=== PATIENT | female | born 1950 | race Caucasian/White ===

== ENCOUNTER 2019-12-19 13:29 | Outpatient (REF) | payer MEDICARE, SELFPAY | END 2019-12-19 13:30 | disposition home or self-care (01) | LOC: HO.LAB 13:29 | PROVIDERS: PCP Internal Medicine; Visit Provider Internal Medicine Cardiovascular Disease | DX: Z13.89 Encounter for screening for other disorder (principal) ==

== ENCOUNTER 2019-12-20 06:04 | Outpatient (REF) | payer MEDICARE, SELFPAY ==
[2019-12-20 07:04] LABS: MANUAL DIFF FLAG NO
[2019-12-20 07:11] LABS: Basophils Percent Auto 0.5 % (0-2); Eosinophils Absolute Auto 0.2 X10*3/uL (0.0-0.4); Eosinophils Percent Auto 2.8 % (0-4); Hematocrit 35.8 % (37-47); Hemoglobin 11.7 g/dl (12.0-16.0); Imm Gran Abs Auto 0.03 X10*3/uL (0.00-0.03); Imm Gran Pct Auto 0.4 % (0.0-0.4); Lymphocytes Absolute Auto 2.5 X10*3/uL (1.2-4.9); Lymphocytes Percent Auto 31.9 % (20-40); Mean Corpuscular HGB Conc 32.7 g/dl (31.0-35.0); Mean Corpuscular Hemoglobin 32.8 pg (27.0-33.0); Mean Corpuscular Volume 100.3 fL (80-98); Monocytes Absolute Auto 0.7 X10*3/uL (0.1-1.2); Monocytes Percent Auto 8.3 % (2-11); Neutrophils Absolute Auto 4.4 X10*3/uL (2.0-8.3); Neutrophils Percent Auto 56.1 % (45-73); Platelet Count 204 X10*3/uL (160-400); Red Blood Count 3.57 X10*6/uL (4.20-5.50); Red Cell Distribution Width 13.1 % (11.0-16.0); White Blood Count 7.9 X10*3/uL (4.8-10.8)
[2019-12-20 07:17] LABS: Prothrombin Time 11.6 SEC (10.8-13.0)
[2019-12-20 07:19] LABS: Partial Thromboplastin Time 30.2 SEC (24.1-38.0)
[2019-12-20 07:38] LABS: Anion Gap 15 (12-20); Blood Urea Nitrogen 28 mg/dL (9-16); Carbon Dioxide 25 mmol/L (22-29); Chloride 106 mmol/L (96-108); Cholesterol 165 mg/dL; Estimated Glomerular Filt Rate 27; Glucose Random 130 mg/dL (60-115); HDL Cholesterol 41 mg/dL; LDL Cholesterol Calculated 81 mg/dl; Potassium 3.9 mmol/l (3.3-5.1); Sodium 142 mmol/L (135-145); Triglycerides 215 mg/dL
[2019-12-20 07:47] LABS: Calcium 9.4 mg/dL (8.4-10.2)
== END 2019-12-20 06:05 | disposition home or self-care (01) ==
LOC: HO.LAB 06:04
PROVIDERS: PCP Internal Medicine; Visit Provider Internal Medicine Cardiovascular Disease
DX: I63.50 Cerebral infarction due to unspecified occlusion or stenosis of unspecified cerebral artery (principal); I10 Essential (primary) hypertension; E78.5 Hyperlipidemia, unspecified
CPT/HCPCS: 36415; 80048; 80061; 85025; 85610; 85730

== ENCOUNTER 2019-12-22 08:51 | Outpatient (REF) | payer MEDICARE, SELFPAY ==
--- NOTE | 2019-12-22 | PFT_ITS ---
INDICATION: Shortness of breath. SPIROMETRY: The FEV1 to FVC 86% with an FEV1 of 1.7 L which is 82% predicted and FVC of 1.97 L which is 73% predicted. No significant response to bronchodilators noted. Maximum voluntary ventilation 80% predicted. LUNG VOLUMES: Total lung capacity 87% predicted. DIFFUSION CAPACITY: DLCO 62% predicted. COMPARISONS: None. INTERPRETATION: No obstructive nor restrictive ventilatory defects identified. No significant response to bronchodilators noted. No significant decrease in the maximum voluntary ventilation. Lung volumes are within normal limits. The patient has an isolated mild diffusion impairment. Need to consider underlying pulmonary vascular conditions. Also should correct for hemoglobin. If asthma is in the differential, a methacholine challenge will be helpful in assessing for hyper-reactive airways, otherwise clinical correlation warranted. Abel Patiño MD MR/MODL / [id number]
== END 2019-12-22 08:52 | disposition home or self-care (01) ==
LOC: HO.RESP 08:51
PROVIDERS: Visit Provider Internal Medicine Pulmonary Disease
DX: M67.912 Unspecified disorder of synovium and tendon, left shoulder (principal); I10 Essential (primary) hypertension; J44.9 Chronic obstructive pulmonary disease, unspecified; R91.8 Other nonspecific abnormal finding of lung field; F17.200 Nicotine dependence, unspecified, uncomplicated; Z79.899 Other long term (current) drug therapy
CPT/HCPCS: 20610; 94060; 94727; 94729; 99212

== ENCOUNTER → 2020-01-19 14:46 | Outpatient (BNVA) | payer MEDICARE, SELFPAY | PROVIDERS: PCP Internal Medicine; Referring Provider Internal Medicine; Visit Provider Internal Medicine Pulmonary Disease | DX: J44.9 Chronic obstructive pulmonary disease, unspecified (principal); R91.8 Other nonspecific abnormal finding of lung field; Z95.2 Presence of prosthetic heart valve; Z95.0 Presence of cardiac pacemaker; Z87.891 Personal history of nicotine dependence | CPT/HCPCS: Q3014 ==

== ENCOUNTER → 2020-04-25 12:11 | Outpatient (BNVA) | payer MEDICARE, SELFPAY | PROVIDERS: PCP Internal Medicine; Visit Provider Student in an Organized Health Care Education/Training Program | DX: M67.912 Unspecified disorder of synovium and tendon, left shoulder (principal) | CPT/HCPCS: 20610; 99212 ==

== ENCOUNTER 2020-08-23 12:17 | Outpatient (REF) | payer MEDICARE, MEDICAID, SELFPAY ==
--- NOTE | ~2020-08-23 | XR_ITS ---
EXAMINATION: XR KNEE, RIGHT CLINICAL INFORMATION: Right knee pain. COMPARISON: Most recent right knee radiographs dated 06/09/2010 TECHNIQUE: AP, lateral, and sunrise views of the right knee. FINDINGS: Extensive irregularity with mixed areas of sclerosis and lucency throughout the distal femur which appear unchanged when compared to 2011 and likely represent the sequela of remote injury. No acute fracture or dislocation. Tricompartmental marginal osteophytes, slightly more prominent when compared to the prior examination. No new osseous erosion. Trace joint effusion. No abnormal soft tissue calcification. XR/XR knee RT 3V IMPRESSION: Moderate tricompartmental osteoarthritis, progressed when compared to the prior examination. Probable sequela of prior trauma redemonstrated throughout the distal femur, unchanged when compared to the prior examination.
== END 2020-08-23 12:18 | disposition home or self-care (01) ==
LOC: HO.XRAY 12:17
PROVIDERS: PCP Internal Medicine; Visit Provider Student in an Organized Health Care Education/Training Program
DX: M67.912 Unspecified disorder of synovium and tendon, left shoulder (principal); M25.561 Pain in right knee
CPT/HCPCS: 20610; 73562; 99212

== ENCOUNTER → 2020-11-01 10:45 | Outpatient (BNVA) | payer MEDICARE, MEDICAID, SELFPAY | PROVIDERS: PCP Physician Assistant Medical; Visit Provider Internal Medicine Pulmonary Disease | DX: J44.9 Chronic obstructive pulmonary disease, unspecified (principal); R91.8 Other nonspecific abnormal finding of lung field | CPT/HCPCS: 99212 ==

== ENCOUNTER → 2020-11-08 08:43 | Outpatient (REF) | payer MEDICARE, MEDICAID, SELFPAY ==
--- NOTE | 2020-11-08 | CA_ITS ---
Acquisition Time: 2020-11-08 09:00:51 Total Exercise Time: 00:02:00 Test Indications: SOB Medications: SEE CHART Protocol: LEXISCAN Max HR: 079 BPM 53% of Pred: 149 BPM Max BP: 122/064 mmHG Max Work Load: 1.0 METS Pharmacological stress test with Lexiscan injection, while sitting, without anginal symptoms, without arrythmia, with normotensive response to injection, with nondiagnostic EKG for ischemia. In recvoery she reported having abdominal cramping that was treated with Aminophylline 75mg IVP to reverse Lexiscan with improvement in symptom. Nuclear images pending. Test reviewed with Dr Gil. Referred By: Sudhir Dobbs Overread By: PAMELA MC
--- NOTE | ~2020-11-08 | NM_ITS ---
Myocardial perfusion study Indication: Exertional shortness of breath evaluate for myocardial ischemia Technique: The patient was brought in for a Lexiscan perfusion study on 11/08/2020. Patient performed low-level exercise and was injected 0.4 mg of Lexiscan intravenously. Within a minute of injection, 25 mCi of sestamibi was given intravenously. Images were obtained using the SPECT gamma camera interlaced with the gating device. Images were obtained in supine position. Resting perfusion study was performed on 11/11/2020. Patient was administered 25 mCi of sestamibi intravenously at rest. Images were then obtained in supine position. Images obtained with and without CT attenuation. Total DLP 120 mGy-cm. Images were processed with the software and compared side to side in short axis, horizontal long axis and vertical long axis views. Findings: The stress perfusion study showed nonattenuated images show normal uptake of radiotracer in all segments of LV myocardium. Attenuation corrected images show minimally reduced uptake in the apex of the LV myocardium. The gated study shows normal LV systolic function with calculated LVEF of 65%. LV cavity is normal in size. The gated study shows normal systolic wall thickening and contraction of segments. Resting study shows nonattenuated images show minimally reduced uptake in the apex of the LV myocardium. Gating at rest reveals normal systolic wall motion with ejection fraction at 69%. The findings are consistent with normal myocardial perfusion. NM/NM rafael perf SPECT rest & str Impression: 1. Myocardial perfusion imaging study shows normal myocardial perfusion 2. Gated LVEF is 65% 3. Transient ischemic dilatation not present EKG is nondiagnostic for ischemia
== END ==
LOC: HO.CARD 08:43
PROVIDERS: Visit Provider Physician Assistant Medical
DX: R06.02 Shortness of breath (principal)
CPT/HCPCS: 78452; 93017; A9500; J0280; J2785

== ENCOUNTER 2020-12-02 07:23 | Outpatient (REF) | payer MEDICARE, MEDICAID, SELFPAY ==
--- NOTE | ~2020-12-02 | US_ITS ---
EXAMINATION: US RETROPERITONEAL LIMITED (RENAL ONLY) CLINICAL INFORMATION: Chronic kidney disease, stage 3. COMPARISON: Renal and bladder ultrasound June 2018. Ultrasound abdomen 10/29/2016. Renal ultrasound 07/07/2012. CT abdomen and pelvis 04/08/2009. TECHNIQUE: Real-time imaging of the kidneys. FINDINGS: RIGHT KIDNEY: 10.8 x 4.3 x 5.3 cm (SAG x AP x TRV). The kidney is normal in size, contour, and echogenicity. The renal cortical thinning or scarring in the lower pole. Renal cortical thickness is otherwise normal. No calculi or focal parenchymal lesions. No hydronephrosis. LEFT KIDNEY: 8.3 x 4.0 x 3.7 cm (SAG x AP x TRV). The left kidney is smaller than the right. There is left renal cortical thinning. Renal cortical echogenicity is normal. No calculi or focal parenchymal lesions. No hydronephrosis. US/US renal BI IMPRESSION: Small left kidney with left renal cortical thinning. Question renal cortical thinning or scarring in the lower pole of the right kidney.
[2020-12-02 08:53] LABS: Anion Gap 14 (12-20); Blood Urea Nitrogen 20 mg/dL (9-16); Carbon Dioxide 27 mmol/L (22-29); Chloride 102 mmol/L (96-108); Estimated Glomerular Filt Rate 28; Glucose Random 131 mg/dL (60-115); Potassium 3.7 mmol/L (3.3-5.1); Sodium 139 mmol/L (135-145)
[2020-12-02 08:57] LABS: B Type Natriuretic Peptide 60 pg/mL (<100)
== END 2020-12-02 07:24 | disposition home or self-care (01) ==
LOC: HO.US 07:23
PROVIDERS: Absent Provider Internal Medicine Cardiovascular Disease; PCP Internal Medicine; Visit Provider Internal Medicine Hypertension Specialist
DX: R06.02 Shortness of breath (principal); N18.32 Chronic kidney disease, stage 3b
CPT/HCPCS: 36415; 76775; 80048; 83880

== ENCOUNTER 2020-12-20 10:53 | Outpatient (REF) | payer MEDICARE, MEDICAID, SELFPAY ==
[2020-12-20 11:07] LABS: MANUAL DIFF FLAG NO
[2020-12-20 11:56] LABS: Basophils Percent Auto 0.6 % (0-2); Eosinophils Absolute Auto 0.2 X10*3/uL (0.0-0.4); Eosinophils Percent Auto 2.7 % (0-4); Hematocrit 35.8 % (37-47); Hemoglobin 11.9 g/dl (12.0-16.0); Imm Gran Abs Auto 0.02 X10*3/uL (0.00-0.03); Imm Gran Pct Auto 0.3 % (0.0-0.4); Lymphocytes Absolute Auto 1.6 X10*3/uL (1.2-4.9); Lymphocytes Percent Auto 25.3 % (20-40); Mean Corpuscular HGB Conc 33.2 g/dl (31.0-35.0); Mean Corpuscular Hemoglobin 31.9 pg (27.0-33.0); Mean Platelet Volume 10.9 fL (9.4-12.3); Monocytes Absolute Auto 0.6 X10*3/uL (0.1-1.2); Monocytes Percent Auto 8.7 % (2-11); Neutrophils Percent Auto 62.4 % (45-73); Platelet Count 199 X10*3/uL (160-400); Red Blood Count 3.73 X10*6/uL (4.20-5.50); White Blood Count 6.4 X10*3/uL (4.8-10.8)
[2020-12-20 12:16] LABS: Anion Gap 11 (12-20); Blood Urea Nitrogen 22 mg/dL (9-16); Calcium 9.6 mg/dL (8.4-10.2); Carbon Dioxide 30 mmol/L (22-29); Chloride 101 mmol/L (96-108); Estimated Glomerular Filt Rate 35; Potassium 3.5 mmol/L (3.3-5.1); Sodium 138 mmol/L (135-145)
[2020-12-20 12:30] LABS: Total Protein Urine Random < 7 mg/dL (<12)
== END 2020-12-20 10:54 | disposition home or self-care (01) ==
LOC: HO.LAB 10:53
PROVIDERS: Visit Provider Internal Medicine Hypertension Specialist
DX: N18.32 Chronic kidney disease, stage 3b (principal)
CPT/HCPCS: 36415; 80051; 82310; 82565; 84156; 84520; 85025

== ENCOUNTER → 2021-01-30 10:27 | Outpatient (BNVA) | payer MEDICARE, SELFPAY | PROVIDERS: Visit Provider Internal Medicine Pulmonary Disease | DX: J44.9 Chronic obstructive pulmonary disease, unspecified (principal); R91.8 Other nonspecific abnormal finding of lung field; Z87.891 Personal history of nicotine dependence | CPT/HCPCS: 99212 ==

== ENCOUNTER → 2021-02-06 14:28 | Outpatient (BNVA) | payer MEDICARE, SELFPAY | PROVIDERS: PCP Internal Medicine; Referring Provider Internal Medicine Pulmonary Disease; Visit Provider Internal Medicine | DX: I65.23 Occlusion and stenosis of bilateral carotid arteries (principal); I10 Essential (primary) hypertension; E78.5 Hyperlipidemia, unspecified; Z95.2 Presence of prosthetic heart valve; Z95.0 Presence of cardiac pacemaker | CPT/HCPCS: 93005; 99202 ==

== ENCOUNTER → 2021-05-16 13:32 | Outpatient (REF) | payer MEDICARE, SELFPAY ==
--- NOTE | 2021-05-16 13:39 | CA_ITS ---
Transthoracic Echocardiogram Patient (Last, First, Middle): Elvi Villarreal D Gender: Female Date of : 1950 Age: 71 Procedure Date: 05/16/2021 Procedure Type: Transthoracic Echocardiogram Location: OP Height: 160.02 cm Weight: 88.45 kg BSA: 1.91 m2 Heart Rate: bpm BP: 169 / 89 mmHg Registered Nurse Cardiovascular Icu: GIANLUCA Referring MD: Sergio Gil MD Symptoms: Z95.2 - Presence of prosthetic heart valve Study Quality: Fair ECG Rhythm: Sinus Conclusions: - The left ventricular systolic function is normal. The calculated ejection fraction is 61% by biplane method. - A bioprosthetic aortic valve is present. The prosthetic aortic valve appears to be functioning normally. - Mild pulmonary hypertension is present. Findings Left Ventricle Normal left ventricular cavity size. There is mildly increased left ventricular wall thickness. The left ventricular systolic function is normal. The calculated ejection fraction is 61% by biplane method. There is no evidence of regional wall motion abnormalities. Diastolic function is normal for age. Right Ventricle Normal right ventricular cavity size and systolic function. Atria The left atrium is mildly dilated. The right atrium is normal in size. Aortic Valve A bioprosthetic aortic valve is present. The prosthetic aortic valve appears to be functioning normally. The mean gradient is 13 mmHg. The aortic valve area is 1.83 cm2. No significant regurgitation. Mitral Valve There is mild mitral annular calcification. There is no mitral valve regurgitation. There is no mitral valve stenosis. Pulmonic Valve The pulmonic valve was not well visualized. Tricuspid Valve Normal tricuspid valve structure. There is mild tricuspid valve regurgitation. Mild pulmonary hypertension is present. Great Vessels The asc aorta is normal in size. Venous The inferior vena cava is normal in size and collapses greater than 50% with inspiration. Pericardium/Pleural There is no evidence of pericardial effusion. Prior Study Comparison Changes noted compared to prior study dated: 12/09/2018. s/p AVR. Measurements 2D Linear Measurements IVSd: 1.18 0.6-0.9/0.6-1.0 cm LVIDd: 4.23 3.9-5.3/4.2-5.9 cm LVIDd Index: 2.21 2.4-3.2/2.2-3.1 cm/m2 LVIDs: 2.72 2.0-3.6 cm LVPWd: 1.20 0.7-1.1 cm LA Diam: 4.00 2.7-3.8/3.0-4.0 cm LAIDs Index: 2.09 1.5-2.3 cm/m2 LV Mass: 221.64 67-162/88-224 g LV Mass Index: 116.04 43-95/49-115 g/m2 LVOT Diam: 2.00 3.0+(-)1.3 cm 2D Systolic Function EF 4C: 65.70 >55% EF 2C: 59.70 >55% EF BiP: 61.40 >55% Mitral Valve MV Pk E: 1.08 MV PK A: 1.24 MV Decel Time: 287.00 E/A: 0.90 E'Lateral: 6.53 E'Medial: 6.31 E/E' Med: 17.10 E/E' Lat: 16.50 PHT: 84.00 MVA PHT: 2.62 Decel Carbon: 3.76 Aortic Valve AoV Pk Palomo: 2.39 AoV Mn Palomo: 1.66 AoV VTI: 0.62 AoV Pk Grad: 23.00 Aov Mn Grad: 13.00 BRYCE Cont.VTI: 1.83 LVOT LVOT Pk Palomo: 1.26 LVOT Mn Palomo: 0.96 LVOT VTI: 0.36 LVOT Pk Grad: 6.00 LVOT Mn Grad: 4.00 LVOT Diam: 2.00 LVOT Area: 3.14 Diastolic Function MV Pk E: 1.08 MV Pk A: 1.24 E/A: 0.90 E'Medial: 6.31 E/E' Med: 17.10 E' Laterial: 6.53 E/E' Lat: 16.50 Right Ventricle TAPSE (mm): 2.63 TVS' Palomo: 10.00 Tricuspid Valve TR Pk Palomo: 2.95 TR Pk Grad: 35.00 RA Press: 3.00 RVSP: 38.00 Great Vessels Aorta Sinus of Valsalva: 3.19 2.0-3.5 cm Ao Asc: 3.00 2.1-3.4 cm Ao Arch: 3.70 Updated in Other Vendor System with Status of Final Sergio Gil MD electronically signed on 05/18/2021 1:12:23 PM with status of Final
== END ==
LOC: HO.CARD 13:32
PROVIDERS: Visit Provider Internal Medicine
DX: Z95.2 Presence of prosthetic heart valve (principal)
CPT/HCPCS: 93306

== ENCOUNTER 2021-06-24 14:53 | Outpatient (REF) | payer MEDICARE, SELFPAY ==
--- NOTE | ~2021-06-24 | CT_ITS ---
EXAMINATION: CT CHEST WITHOUT CONTRAST CLINICAL INFORMATION: Follow-up pulmonary nodule COMPARISON: Previous chest CT November 2018 TECHNIQUE: Multidetector volumetric CT imaging of the chest was done. Axial MIP volume rendering provided. Sagittal and coronal reformatted images were obtained. This CT examination was performed using dose optimization techniques as appropriate, variously including the following: *Automated exposure control *Adjustment of mA and/or kV according to patient size (this includes techniques or standardized protocols for targeted exams where dose is matched to indication/reason for exam; i.e. extremities or head) *Use of iterative reconstruction technique DLP: 187 mGy-cm FINDINGS: MEDIA SPECIALIST: Left subclavian dual chamber pacemaker. Aortic valve stent graft. LUNGS: The small pulmonary nodules are stable. Largest pulmonary nodules are a 5 mm calcified right middle lobe nodule axial image 306 series 8 and 5 mm noncalcified left lower lobe nodule axial image 249 series 8. No new pulmonary nodule is seen. MEDIASTINUM: The heart is upper normal in size. There is a left subclavian dual chamber pacemaker. There is a new aortic valve stent graft. The ascending thoracic aorta is upper normal in size. There is coronary artery calcification. There is no pericardial effusion. There is shotty mediastinal lymphadenopathy that appears unchanged. PLEURA: There is no pleural effusion. No pleural mass or thickening. AXILLA: No lymphadenopathy. UPPER ABDOMEN: Unremarkable. OSSEOUS STRUCTURES: There are degenerative changes of the spine. CT/CT chest wo con IMPRESSION: Stable calcified and noncalcified pulmonary nodules. Fleischner guidelines were followed.
== END 2021-06-24 14:54 | disposition home or self-care (01) ==
LOC: HO.CT 14:53
PROVIDERS: Visit Provider Internal Medicine Pulmonary Disease
DX: R91.8 Other nonspecific abnormal finding of lung field (principal)
CPT/HCPCS: 71250

== ENCOUNTER → 2021-07-30 09:41 | Outpatient (BNVA) | payer MEDICARE, SELFPAY | PROVIDERS: PCP Internal Medicine; Visit Provider Internal Medicine Pulmonary Disease | DX: J44.9 Chronic obstructive pulmonary disease, unspecified (principal); R91.8 Other nonspecific abnormal finding of lung field; Z79.899 Other long term (current) drug therapy | CPT/HCPCS: 99212 ==

== ENCOUNTER 2021-12-29 10:06 | Outpatient (REF) | payer OTHER, SELFPAY ==
[2021-12-29 10:27] LABS: Hemoglobin 13.6 g/dl (12.0-16.0); Mean Corpuscular HGB Conc 32.4 g/dl (31.0-35.0); Mean Corpuscular Hemoglobin 30.8 pg (27.0-33.0); Mean Corpuscular Volume 95.2 fL (80.0-98.0); Mean Platelet Volume 10.8 fL (9.4-12.3); Platelet Count 190 X10*3/uL (160-400); Red Blood Count 4.41 X10*6/uL (4.20-5.50); Red Cell Distribution Width 13.2 % (11.0-16.0); White Blood Count 7.2 X10*3/uL (4.8-10.8)
[2021-12-29 11:16] LABS: Anion Gap 17 (12-20); Blood Urea Nitrogen 24 mg/dL (9-16); Calcium 9.4 mg/dL (8.4-10.2); Carbon Dioxide 22 mmol/L (22-29); Chloride 106 mmol/L (96-108); Estimated Glomerular Filt Rate 32; Glucose Random 133 mg/dL (60-115); Sodium 141 mmol/L (135-145)
[2021-12-30 11:42] LABS: Calcium (PTHI) 9.4 mg/dL (8.6-10.4); PTHI 74 pg/mL (16-77)
== END 2021-12-29 10:07 | disposition home or self-care (01) ==
LOC: HO.LAB 10:06
PROVIDERS: PCP Internal Medicine; Visit Provider Internal Medicine Hypertension Specialist
DX: N18.32 Chronic kidney disease, stage 3b (principal)
CPT/HCPCS: 36415; 80048; 83970; 85027

== ENCOUNTER 2022-06-10 11:11 | Outpatient (REF) | payer OTHER, SELFPAY ==
[2022-06-10 11:43] LABS: Hematocrit 39.8 % (37.0-47.0); Mean Corpuscular HGB Conc 32.7 g/dl (31.0-35.0); Mean Corpuscular Hemoglobin 31.5 pg (27.0-33.0); Mean Corpuscular Volume 96.4 fL (80.0-98.0); Mean Platelet Volume 10.6 fL (9.4-12.3); Platelet Count 168 X10*3/uL (160-400); Red Blood Count 4.13 X10*6/uL (4.20-5.50); Red Cell Distribution Width 14.6 % (11.0-16.0)
[2022-06-10 12:09] LABS: Anion Gap 12 (12-20); Blood Urea Nitrogen 22 mg/dL (9-16); Calcium 9.1 mg/dL (8.4-10.2); Carbon Dioxide 24 mmol/L (22-29); Chloride 108 mmol/L (96-108); Estimated Glomerular Filt Rate 33; Glucose Random 157 mg/dL (60-115); Potassium 3.7 mmol/L (3.3-5.1); Sodium 140 mmol/L (135-145)
[2022-06-10 12:49] LABS: Creatinine Urine 194.37 mg/dL; Protein/Creatinine Ratio, Ur 0.07 (<0.2); Total Protein Urine Random 13 mg/dL (<12)
== END 2022-06-10 11:12 | disposition home or self-care (01) ==
LOC: HO.LAB 11:11
PROVIDERS: Visit Provider Internal Medicine Hypertension Specialist
DX: N18.30 Chronic kidney disease, stage 3 unspecified (principal)
CPT/HCPCS: 36415; 80048; 84156; 85027

== ENCOUNTER 2022-07-10 09:04 | Outpatient (REF) | payer OTHER, SELFPAY ==
--- NOTE | ~2022-07-10 | CT_ITS ---
EXAMINATION: CT CHEST WITHOUT CONTRAST CLINICAL INFORMATION: Other nonspecific abnormal finding of lung field COMPARISON: Previous chest CT most recent May 2021 TECHNIQUE: Multidetector volumetric CT imaging of the chest was done. Axial MIP volume rendering provided. Sagittal and coronal reformatted images were obtained. This CT examination was performed using dose optimization techniques as appropriate, variously including the following: *Automated exposure control *Adjustment of mA and/or kV according to patient size (this includes techniques or standardized protocols for targeted exams where dose is matched to indication/reason for exam; i.e. extremities or head) *Use of iterative reconstruction technique DLP: 187 mGy-cm FINDINGS: LUNGS: Increased central peribronchial attenuation probably representing respiratory bronchiolitis or airways disease. Scattered areas of mild bronchiectasis. Pulmonary nodules are stable. Largest pulmonary nodules are 5 mm calcified right middle lobe nodule axial image 335 series 5 and noncalcified 5 mm left lower lobe nodule axial image 359 series 5. Scarring or subsegmental atelectasis in the inferior segment of the lingula. MEDIASTINUM: Normal heart size. Aortic valve stent graft. Slightly dilated ascending thoracic aorta measuring 4.2 cm that is stable. Left subclavian dual chamber pacemaker. No pericardial effusion. No enlarged hilar or mediastinal lymph nodes. CORONARY ARTERY CALCIFICATION: Moderate PLEURA: There is no pleural effusion. No pleural mass or thickening. AXILLA: No lymphadenopathy. UPPER ABDOMEN: Unremarkable. OSSEOUS STRUCTURES: Degenerative changes of the spine. CT/CT chest wo IV con IMPRESSION: Stable pulmonary nodules. Increased central peribronchial attenuation and scattered areas of mild bronchiectasis. This probably represents respiratory bronchiolitis or airways disease. Fleischner guidelines were followed.
== END 2022-07-10 09:05 | disposition home or self-care (01) ==
LOC: HO.CT 09:04
PROVIDERS: PCP Internal Medicine; Visit Provider Internal Medicine Pulmonary Disease
DX: R91.8 Other nonspecific abnormal finding of lung field (principal)
CPT/HCPCS: 71250

== ENCOUNTER → 2022-08-07 11:13 | Outpatient (BNVA) | payer OTHER, SELFPAY | PROVIDERS: PCP Internal Medicine; Visit Provider Nurse Practitioner Family | DX: J44.9 Chronic obstructive pulmonary disease, unspecified (principal); R91.8 Other nonspecific abnormal finding of lung field | CPT/HCPCS: 99212 ==

== ENCOUNTER 2022-10-16 10:20 | Outpatient (REF) | payer OTHER, SELFPAY ==
[2022-10-16 12:08] LABS: Anion Gap 15 (12-20); Blood Urea Nitrogen 17 mg/dL (9-16); Calcium 9.2 mg/dL (8.4-10.2); Carbon Dioxide 23 mmol/L (22-29); Chloride 107 mmol/L (96-108); Estimated Glomerular Filt Rate 33; Glucose Random 127 mg/dL (60-115); Potassium 3.7 mmol/L (3.3-5.1); Sodium 141 mmol/L (135-145)
== END 2022-10-16 10:21 | disposition home or self-care (01) ==
LOC: HO.LAB 10:20
PROVIDERS: PCP Internal Medicine; Visit Provider Internal Medicine Hypertension Specialist
DX: N18.30 Chronic kidney disease, stage 3 unspecified (principal)
CPT/HCPCS: 36415; 80048

== ENCOUNTER 2023-01-13 10:47 | Outpatient (REF) | payer OTHER, SELFPAY ==
--- NOTE | ~2023-01-13 | XR_ITS ---
EXAMINATION: XR LUMBOSACRAL SPINE CLINICAL INFORMATION: Reason for Exam M54.9 - Dorsalgia, unspecified COMPARISON: Lumbar spine radiographs 03/28/2015 TECHNIQUE: 3 views of the lumbar spine FINDINGS: 5 nonrib-bearing lumbar-type vertebral bodies. Vertebral body heights are maintained. Alignment is maintained. Mild multilevel degenerative disc disease with loss of disc space height and disc osteophyte complexes and lower lumbosacral facet arthropathy slightly progressed when compared to prior. Atherosclerotic calcifications of the abdominal aorta. XR/XR lumbar spine 2-3V IMPRESSION: Mild multilevel degenerative disc disease slightly progressed when compared to prior.
== END 2023-01-13 10:48 | disposition home or self-care (01) ==
LOC: HO.HOSX 10:47
PROVIDERS: Visit Provider Physical Medicine & Rehabilitation
DX: Z13.89 Encounter for screening for other disorder (principal)

== ENCOUNTER 2023-01-19 13:13 | Outpatient (AMB) | payer OTHER, SELFPAY ==
--- NOTE | 2023-01-19 13:17 | HO.NEPHOV ---
HPI HPI Comments History of Present Illness Details c/o Shortness of breath for a week. Gradually getting better. Had cough with clear sputum. No fever PFSH Medical History (Updated 01/19/23 @ 13:40 by Regino Bazan MD) Cataract Pacemaker Cervical spondylosis COPD (chronic obstructive pulmonary disease) Hypertension Surgical History S/P TAVR (transcatheter aortic valve replacement) History of transcatheter aortic valve replacement (TAVR) (~04/28/19) History of permanent cardiac pacemaker placement (~04/27/19) History of cardiac catheterization Family History Mother HTN (hypertension) Father Heart attack Brother HTN (hypertension) Social History Alcohol intake: never Patient Tobacco Use Status: Former Tobacco user Vital Signs 01/19/23 13:24 Height 5 ft 3 in Weight 186 lb 2 oz BMI 33.0 BP 120/70 Blood Pressure Location Lt brachial Position Sitting Pulse 79 Pulse Source Pulse Oximeter Physical Exam Vital Signs: Last Vital Signs Pulse 79 01/19/23 13:24 BP 120/70 01/19/23 13:24 BMI result Body Mass Index 33.0 Assessment & Plan Assessment & Plan (1) Essential hypertension: Code(s): I10 - Essential (primary) hypertension Plan: Blood pressure is well controlled. No need to change antihypertensive at this time. (2) CKD (chronic kidney disease) stage 3, GFR 30-59 ml/min: Code(s): N18.30 - Chronic kidney disease, stage 3 unspecified Plan: Creatinine is 1.5 in September 2022. Recheck ordered today. Avoid hypertension and nephrotoxins. Plan In view of the shortness of breath I will Increase Lasix to 80 mg QD for 2 days and then back to 40 mg QD Orders: Orders Creatinine 01/19/23 N18.30 - Chronic kidney disease, stage 3 unspecified Calcium 01/19/23 N18.30 - Chronic kidney disease, stage 3 unspecified Electrolytes 01/19/23 N18.30 - Chronic kidney disease, stage 3 unspecified Blood Urea Nitrogen 01/19/23 N18.30 - Chronic kidney disease, stage 3 unspecified Complete Blood Count no Diff 01/19/23 N18.30 - Chronic kidney disease, stage 3 unspecified Coding Level of Care Code Est Pt Level 4 (82249) Diagnoses Essential hypertension I10 CKD (chronic kidney disease) stage 3, GFR 30-59 ml/min N18.30
[2023-01-19 13:24] VITALS: BP 120/70; PULSE 79; BMI 33.0
== END 2023-01-19 13:45 | disposition home or self-care (01) ==
PROVIDERS: PCP Internal Medicine; Visit Provider Internal Medicine Hypertension Specialist
DX: I10 Essential (primary) hypertension (principal); N18.30 Chronic kidney disease, stage 3 unspecified
CPT/HCPCS: 99214

== ENCOUNTER 2023-01-19 13:13 | Outpatient (REF) | payer OTHER, SELFPAY ==
[2023-01-19 15:21] LABS: Hematocrit 42.1 % (37.0-47.0); Hemoglobin 13.4 g/dl (12.0-16.0); Mean Corpuscular HGB Conc 31.8 g/dl (31.0-35.0); Mean Corpuscular Hemoglobin 30.7 pg (27.0-33.0); Mean Corpuscular Volume 96.6 fL (80.0-98.0); Mean Platelet Volume 10.3 fL (9.4-12.3); Platelet Count 277 X10*3/uL (160-400); Red Blood Count 4.36 X10*6/uL (4.20-5.50); Red Cell Distribution Width 13.5 % (11.0-16.0); White Blood Count 8.2 X10*3/uL (4.8-10.8)
[2023-01-19 15:43] LABS: Anion Gap 9 (12-20); Blood Urea Nitrogen 9 mg/dL (9-16); Calcium 9.7 mg/dL (8.4-10.2); Carbon Dioxide 29 mmol/L (22-29); Chloride 108 mmol/L (96-108); Estimated Glomerular Filt Rate 47; Sodium 142 mmol/L (135-145)
== END 2023-01-19 13:14 | disposition home or self-care (01) ==
LOC: HO.LAB 13:13
PROVIDERS: PCP Internal Medicine; Visit Provider Internal Medicine Hypertension Specialist
DX: I12.9 Hypertensive chronic kidney disease with stage 1 through stage 4 chronic kidney disease, or unspecified chronic kidney disease (principal); N18.30 Chronic kidney disease, stage 3 unspecified
CPT/HCPCS: 36415; 80051; 82310; 82565; 84520; 85027; 99212

== ENCOUNTER → 2023-02-17 12:26 | Outpatient (REF) | payer OTHER, SELFPAY ==
--- NOTE | 2023-02-17 13:17 | CA_ITS ---
Transthoracic Echocardiogram Patient (Last, First, Middle): Elvi Villarreal D Gender: Female Date of : 1950 Age: 73 Procedure Date: 02/17/2023 Procedure Type: Transthoracic Echocardiogram Location: OP Height: 160.02 cm Weight: 84.82 kg BSA: 1.88 m2 Heart Rate: bpm BP: 137 / 60 mmHg Artist'S Representative: GIANLUCA Referring MD: Sergio Gil MD Legal Word Processor: Ricardo Escobar MD Symptoms: Z95.2 - Presence of prosthetic heart valve Study Quality: Adequate ECG Rhythm: Sinus Conclusions: - 1. Normal LV ejection fraction of 60 65% with impaired relaxation filling pattern 2. Normally functioning bioprosthetic aortic valve with mean gradient of 12 mmHg 3. Mildly dilated left atrium 4. Trivial pericardial effusion 5. Normal RV systolic pressure Findings Left Ventricle Normal left ventricular size and systolic function. There is mildly increased left ventricular wall thickness. The visually estimated ejection fraction is between 60-65%. Spectral Doppler is indicative of an impaired relaxation filling pattern. E/E prime ratio is between 8 and 15 consistent with indeterminate filling pressures. Right Ventricle Normal right ventricular cavity size and systolic function. Atria The left atrium is mildly dilated. There is no evidence of interatrial shunt. The right atrium is normal in size. Aortic Valve A bioprosthetic aortic valve is present. The prosthetic aortic valve appears to be functioning normally. The mean gradient is 12 mmHg. Mitral Valve There is mild anterior and moderate posterior mitral leaflet thickening. There is mild mitral annular calcification. There is trace mitral valve regurgitation. There is no mitral valve stenosis. Pulmonic Valve The pulmonic valve is likely normal. There is trace pulmonic valve regurgitation. Tricuspid Valve Normal tricuspid valve structure. There is mild tricuspid valve regurgitation. The right ventricular systolic pressure is normal. The right ventricular systolic pressure is 32 mmHg. Normal right atrial pressure. There is no evidence of pulmonary hypertension. Great Vessels The pulmonary artery was not well visualized. There is no dilatation of the ascending aorta measuring 3.30 cm. Venous The inferior vena cava is normal in size and collapses greater than 50% with inspiration. Pericardium/Pleural There is a trivial loculated pericardial effusion overlying the left ventricle. Prior Study Comparison No significant change compared to prior study dated: 05/16/2021. Measurements 2D Linear Measurements IVSd: 1.30 0.6-0.9/0.6-1.0 cm LVIDd: 4.38 3.9-5.3/4.2-5.9 cm LVIDd Index: 2.33 2.4-3.2/2.2-3.1 cm/m2 LVIDs: 2.79 2.0-3.6 cm LVPWd: 1.30 0.7-1.1 cm LA Diam: 3.90 2.7-3.8/3.0-4.0 cm LAIDs Index: 2.07 1.5-2.3 cm/m2 LV Mass: 266.28 67-162/88-224 g LV Mass Index: 141.64 43-95/49-115 g/m2 LVOT Diam: 2.00 3.0+(-)1.3 cm 2D Systolic Function EF 4C: 64.80 >55% EF 2C: 55.10 >55% EF BiP: 61.30 >55% Mitral Valve MV VTI: 0.47 MV Pk Palomo: 1.15 MV Mn Palomo: 0.72 MV Pk Grad: 5.00 MV Mn Grad: 2.00 MV Pk E: 1.12 MV PK A: 1.09 MV Decel Time: 246.00 E/A: 1.00 E'Lateral: 5.33 E'Medial: 3.92 E/E' Med: 28.60 E/E' Lat: 21.00 PHT: 72.00 MVA PHT: 3.06 MVA Continuity: 1.51 Decel Alpine: 4.55 Aortic Valve AoV Pk Palomo: 2.10 AoV Mn Palomo: 1.63 AoV VTI: 0.57 AoV Pk Grad: 18.00 Aov Mn Grad: 12.00 BRYCE Cont.VTI: 1.24 LVOT LVOT Pk Palomo: 0.86 LVOT Mn Palomo: 0.61 LVOT VTI: 0.23 LVOT Pk Grad: 3.00 LVOT Mn Grad: 2.00 LVOT Diam: 2.00 LVOT Area: 3.14 Diastolic Function MV Pk E: 1.12 MV Pk A: 1.09 E/A: 1.00 E'Medial: 3.92 E/E' Med: 28.60 E' Laterial: 5.33 E/E' Lat: 21.00 Right Ventricle TAPSE (mm): 22.30 TVS' Palomo: 9.36 Tricuspid Valve TR Pk Palomo: 2.69 TR Pk Grad: 29.00 RA Press: 3.00 RVSP: 32.00 Great Vessels Aorta Ao Asc: 3.30 2.1-3.4 cm Updated in Other Vendor System with Status of Final Ricardo Escobar MD electronically signed on 02/18/2023 1:09:41 PM with status of Final
[2023-02-17 13:39] LABS: Cholesterol 114 mg/dL (<200); HDL Cholesterol 42 mg/dL (>40); LDL Cholesterol Calculated 39 mg/dL (<100); Triglycerides 166 mg/dL (<150)
== END ==
LOC: HO.CARD 12:26
PROVIDERS: Absent Provider Internal Medicine Cardiovascular Disease; PCP Internal Medicine; Visit Provider Internal Medicine
DX: I63.50 Cerebral infarction due to unspecified occlusion or stenosis of unspecified cerebral artery (principal); Z95.2 Presence of prosthetic heart valve
CPT/HCPCS: 36415; 80061; 93306

== ENCOUNTER → 2023-02-17 13:17 | Outpatient (BNV) | payer OTHER, SELFPAY | PROVIDERS: Absent Provider Internal Medicine Cardiovascular Disease; PCP Internal Medicine; Visit Provider Internal Medicine Cardiovascular Disease | DX: I34.81 Nonrheumatic mitral (valve) annulus calcification (principal); I36.1 Nonrheumatic tricuspid (valve) insufficiency; Z95.2 Presence of prosthetic heart valve | CPT/HCPCS: 93306 ==

== ENCOUNTER 2023-03-17 09:38 | Outpatient (AMB) | payer OTHER, SELFPAY ==
[2023-03-17 09:41] VITALS: BMI 32.9
--- NOTE | 2023-03-17 09:41 | MHC.OFFVIS ---
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 Patient states that she has had worsening back pain for quite some time now She has tried Tylenol and Gapapentin with mild relief. She was advised to avoid NSAID use due to lowered kidney function. Bone density test done 11/12/22 showing osteopenia Allergies No Known Allergies [No Known Allergies*] Allergy (Verified 03/17/23 09:41) Medication List - Last Reconciled 03/17/23 by Jessica Verma MD albuterol sulfate 90 mcg/actuation 2 puffs inhalation Q4-6H PRN amlodipine (Norvasc) 10 mg PO DAILY aspirin 81 mg PO DAILY calcium carbonate-vitamin D3 500 mg-5 mcg (200 unit) (Calcium 500 + D) 1 tab PO DAILY clopidogrel (Plavix) 75 mg PO DAILY donepezil 5 mg PO DAILY gabapentin 600 mg PO BID hydrochlorothiazide 50 mg PO DAILY lisinopril 40 mg PO DAILY metoprolol tartrate 100 mg PO BID omega-3 fatty acids (Fish Oil Concentrate) 1,000 mg PO DAILY rosuvastatin 40 mg PO DAILY tiotropium-olodaterol 2.5-2.5 mcg/actuation (Stiolto Respimat) 2 puffs PO DAILY HPI HPI Comments History of Present Illness Details Chronic years of back pain. She says she had steroid injections more than 2 years ago, at [place] or [facility] (?). I think I saw her back in [place] few years ago, and she had injections under Dr. Nguyễn. Here with friend who helps with history. She admits to forgetting details of history. Denies past lumbar surgery. Lower back, across, can go up or down, and to paraspinals. Does not radiate to legs. Worse with bending forward. Cannot straighten up . Denies numbness on legs or feet. History of stroke, 2012. Recently had cardiac arrest, last , now has stent. Did therapy after. Cannot take NSAIDs. [facility] Medical History Cataract Pacemaker Cervical spondylosis COPD (chronic obstructive pulmonary disease) Hypertension Surgical History S/P TAVR (transcatheter aortic valve replacement) History of transcatheter aortic valve replacement (TAVR) (~04/28/19) History of permanent cardiac pacemaker placement (~04/27/19) History of cardiac catheterization Family History Mother HTN (hypertension) Father Heart attack Brother HTN (hypertension) Social History Alcohol intake: never Patient Tobacco Use Status: Former Tobacco user Review of Systems Const All systems reviewed & are unremarkable except as noted in HPI and below Physical Exam Vital Signs: BMI result Body Mass Index 32.9 Constitutional: Patient appears to be in no acute distress, well nourished and well developed. Patient was appropriately conversant and oriented. Good historian. MSK: No specific abnormalities found on inspection of the spine and all extremities. Tender lower lumbar paraspinals. Nontender SI joint or GT. Lumbar ROM was full. Bilateral hip, knee and ankle ROM WNL. No ligamentous laxity or crepitance. No increased effusion. Straight-leg raising test negative. FABERE test negative. Strength is 5/5 in all muscle groups tested. No increased tone noted. Neurological: Neurologic examination of the upper and lower extremities was nonfocal with intact sensation, muscle stretch reflexes and without focal motor deficits . Venegas?s negative bilaterally. Babinski was down going bilaterally. Clonus was negative. Gait is non-antalgic without loss of balance. Results Reviewed Results Reviewed: I independently reviewed the results of the following: Lumbar x-rays done in the office today-preserved disc spaces; anterior endplate spurs. I reviewed records from the following: PCP Assessment & Plan Assessment & Plan (1) Chronic back pain: Code(s): M54.9 - Dorsalgia, unspecified; G89.29 - Other chronic pain Qualifiers: Back pain location: low back pain Back pain laterality: midline Sciatica presence: without sciatica Qualified Code(s): M54.50 - Low back pain, unspecified; G89.29 - Other chronic pain (2) Lumbar facet joint pain: Code(s): M54.59 - Other low back pain Plan Chronic back pain, nonradicular, suspect facet mediated pain. After much discussion, we find out that she already follows with [facility] for shoulder pain and she would like to have further lumbar injections with [facility]. Advised them to call [facility] to confirm. Another option would be to see Dr. Nguyễn again, his clinic information given to them. I can also refer her to our Pain Management department. Assessment and plan discussed with patient, and patient was agreeable. All questions were answered thoroughly. Jessica Verma MD, SAVANNA Board Certified, [place] [employer] and Rehabilitation (ABPMR) Board Certified, [place] [employer] Electro[employer] (ABEM) Orders: Orders XR lumbar spine 2-3V Today M54.9 - Dorsalgia, unspecified Coding Level of Care Code New Pt Level 3 (96712) Diagnoses Chronic midline low back pain without sciatica M54.50; G89.29 Back pain location: low back pain Back pain laterality: midline Sciatica presence: without sciatica Lumbar facet joint pain M54.59
== END 2023-03-17 12:18 | disposition home or self-care (01) ==
PROVIDERS: PCP Internal Medicine; Visit Provider Physical Medicine & Rehabilitation
DX: M54.50 Low back pain, unspecified (principal); G89.29 Other chronic pain; M54.59 Other low back pain
CPT/HCPCS: 99203

== ENCOUNTER → 2023-03-17 09:38 | Outpatient (BNVA) | payer OTHER, SELFPAY | PROVIDERS: PCP Internal Medicine; Visit Provider Physical Medicine & Rehabilitation | DX: M54.59 Other low back pain (principal); G89.29 Other chronic pain | CPT/HCPCS: 72100; 99202 ==

== ENCOUNTER 2023-03-23 12:40 | Outpatient (AMB) | payer OTHER, SELFPAY ==
--- NOTE | 2023-03-23 12:44 | HO.NEPHOV ---
HPI HPI Comments History of Present Illness Details C/O pain during swallowing PFSH Medical History Cataract Pacemaker Cervical spondylosis COPD (chronic obstructive pulmonary disease) Hypertension Surgical History S/P TAVR (transcatheter aortic valve replacement) History of transcatheter aortic valve replacement (TAVR) (~04/28/19) History of permanent cardiac pacemaker placement (~04/27/19) History of cardiac catheterization Family History Mother HTN (hypertension) Father Heart attack Brother HTN (hypertension) Social History Alcohol intake: never Patient Tobacco Use Status: Former Tobacco user Vital Signs 03/23/23 12:46 Height 5 ft 3 in Weight 187 lb 4 oz BMI 33.2 BP 138/68 Blood Pressure Location Lt brachial Position Sitting Pulse 77 Pulse Source Pulse Oximeter Pulse Oximetry (%) 98 Oxygen Delivery Method Room Air Physical Exam Vital Signs: Last Vital Signs Pulse 77 03/23/23 12:46 BP 138/68 03/23/23 12:46 Pulse Ox 98 03/23/23 12:46 Oxygen Delivery Method Room Air 03/23/23 12:46 BMI result Body Mass Index 33.2 Assessment & Plan Assessment & Plan (1) Essential hypertension: Code(s): I10 - Essential (primary) hypertension Plan: Blood pressure is well controlled. No need to change antihypertensive at this time. (2) CKD (chronic kidney disease) stage 3, GFR 30-59 ml/min: Code(s): N18.30 - Chronic kidney disease, stage 3 unspecified Plan: Creatinine is 1.5 in September 2022. Recheck ordered today. Avoid hypertension and nephrotoxins. Plan In view of the shortness of breath I will Increase Lasix to 80 mg QD for 2 days and then back to 40 mg QD Orders: Referrals Ear/Nose/Throat Referral R13.10 - Dysphagia, unspecified Coding Level of Care Code Est Pt Level 4 (35553) Diagnoses Essential hypertension I10 CKD (chronic kidney disease) stage 3, GFR 30-59 ml/min N18.30 Results Reviewed Nephrology Results: Hgb 13.4 g/dl (12.0-16.0) 01/19/23 WBC 8.2 X10*3/uL (4.8-10.8) 01/19/23 Plt Count 277 X10*3/uL (160-400) 01/19/23 Sodium 142 mmol/L (135-145) 01/19/23 Potassium 4.0 mmol/L (3.3-5.1) 01/19/23 Chloride 108 mmol/L (96-108) 01/19/23 Carbon Dioxide 29 mmol/L (22-29) 01/19/23 BUN 9 mg/dL (9-16) 01/19/23 Creatinine 1.13 mg/dL (0.5-1.4) 01/19/23 Calcium 9.7 mg/dL (8.4-10.2) 01/19/23
[2023-03-23 12:46] VITALS: BP 138/68; PULSE 77; O2SAT 98; BMI 33.2
== END 2023-03-23 13:02 | disposition home or self-care (01) ==
PROVIDERS: PCP Internal Medicine; Visit Provider Internal Medicine Hypertension Specialist
DX: I10 Essential (primary) hypertension (principal); N18.30 Chronic kidney disease, stage 3 unspecified
CPT/HCPCS: 99214

== ENCOUNTER → 2023-03-23 12:40 | Outpatient (BNVA) | payer OTHER, SELFPAY | PROVIDERS: PCP Internal Medicine; Visit Provider Internal Medicine Hypertension Specialist | DX: I12.9 Hypertensive chronic kidney disease with stage 1 through stage 4 chronic kidney disease, or unspecified chronic kidney disease (principal); N18.30 Chronic kidney disease, stage 3 unspecified; R13.10 Dysphagia, unspecified | CPT/HCPCS: 99212 ==

== ENCOUNTER 2023-04-28 12:36 | Outpatient (REF) | payer OTHER, SELFPAY ==
--- NOTE | ~2023-04-28 | US_ITS ---
EXAMINATION: US EXTRACRANIAL CAROTID DUPLEX, BILATERAL CLINICAL INFORMATION: Carotid stenosis COMPARISON: CTA neck on 10/27/2018 TECHNIQUE: Real-time ultrasound and Doppler techniques (integrating B-mode 2-D vascular images, Doppler spectral analysis and color-flow Doppler imaging) were utilized to interrogate the extracranial carotid arteries, the vertebral arteries and proximal subclavian arteries bilaterally. The degree of stenosis is determined by criteria similar to NASCET. FINDINGS: Right Side: 1. There is moderate atherosclerotic plaque seen in the bifurcation/proximal ICA region. 2. The common carotid artery PSV proximally is 44 cm/s and distally 59 cm/s. 3. The proximal internal carotid artery velocities are 105 cm/s systolic and 19 cm/s diastolic. 4. The proximal external carotid artery PSV is 94 cm/s. 5. The vertebral artery shows antegrade flow. 6. The subclavian artery waveforms are normal. Left Side: 1. There is mild atherosclerotic plaque seen in the bifurcation/proximal ICA region. 2. The common carotid artery PSV proximally is 54 cm/s and distally 66 cm/s. 3. The proximal internal carotid artery velocities are 61 cm/s systolic and 14 cm/s diastolic. 4. The proximal external carotid artery PSV is 84 cm/s. 5. The vertebral artery shows antegrade flow. 6. The subclavian artery waveforms are normal. There is extent extending from the common carotid artery through the internal carotid artery. US/US carotid duplex BI IMPRESSION: 1. RIGHT: Moderate, hemodynamically significant stenosis of the proximal right internal carotid artery corresponding to a 50-79% stenosis by velocity criteria. 2. LEFT: Minimal, non-hemodynamically significant stenosis of the proximal left internal carotid artery corresponding to a 0-49% stenosis by velocity criteria. Patent stent.
== END 2023-04-28 12:37 | disposition home or self-care (01) ==
LOC: HO.US 12:36
PROVIDERS: PCP Internal Medicine; Visit Provider Psychiatry & Neurology Neurology
DX: I65.22 Occlusion and stenosis of left carotid artery (principal)
CPT/HCPCS: 93880

== ENCOUNTER 2023-07-01 08:56 | Outpatient (AMB) | payer OTHER, SELFPAY ==
[2023-07-01 09:21] VITALS: BP 134/72; PULSE 64; O2SAT 97; BMI 33.8
--- NOTE | 2023-07-01 09:21 | HO.NEPHOV_ITS ---
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 She has a history of severe aortic stenosis and it seems that she underwent transcatheter aortic valve replacement for the same in April of 2019. Following this, she also developed complete heart block and had permanent pacemaker implantation. Then it seems that she also developed a stroke but the timing is not clear. This led to left internal carotid artery stenting. Home renal standpoint she is doing reasonably well. No urinary symptoms. She is still has some leg edema she is tolerating Lasix. She has some difficulty swallowing and waiting to see ENT. [facility] Medical History Cataract Pacemaker Cervical spondylosis COPD (chronic obstructive pulmonary disease) Hypertension Surgical History S/P TAVR (transcatheter aortic valve replacement) History of transcatheter aortic valve replacement (TAVR) (~04/28/19) History of permanent cardiac pacemaker placement (~20) History of cardiac catheterization Family History Mother HTN (hypertension) Father Heart attack Brother HTN (hypertension) Social History Alcohol intake: never Patient Tobacco Use Status: Former Tobacco user Physical Exam Vital Signs: Last Vital Signs Pulse 64 07/01/23 09:21 BP 134/72 07/01/23 09:21 Pulse Ox 97 07/01/23 09:21 Oxygen Delivery Method Room Air 07/01/23 09:21 BMI result Body Mass Index 33.8 Const General: comfortable Nutritional Appearance: well nourished Orientation/consciousness: patient oriented x3 HEENT Head: No normal to inspection Mouth: moist mucous membranes Neck Neck: Yes supple and Yes no JVD Resp Auscultation: clear to auscultation bilaterally, no rales and rub present Cardio Jugular venous distension: no JVD Palpation: no palpable S3 and no palpable S4 Heart sounds: no rubs GI Palpation (GI): Soft to palpation and nontender Percussion: No Fluid wave present General: Yes no CVA tenderness Back/Spine/Pelvis Back: no CVA tenderness Skin General skin exam: no rashes or lesions noted Neuro General: patient oriented x3 Extrem General: No clubbing and Yes edema Results Reviewed Nephrology Results: Hgb 14.1 g/dl (12.0-16.0) 07/01/23 WBC 7.7 X10*3/uL (4.8-10.8) 07/01/23 Plt Count 205 X10*3/uL (160-400) 07/01/23 Sodium 142 mmol/L (135-145) 01/19/23 Potassium 4.0 mmol/L (3.3-5.1) 01/19/23 Chloride 108 mmol/L (96-108) 01/19/23 Carbon Dioxide 29 mmol/L (22-29) 01/19/23 BUN 9 mg/dL (9-16) 01/19/23 Creatinine 1.13 mg/dL (0.5-1.4) 01/19/23 Calcium 9.7 mg/dL (8.4-10.2) 01/19/23 PTH Intact 76.2 pg/mL (8.7-77.1) 07/01/23 Assessment & Plan Assessment & Plan (1) Essential hypertension: Code(s): I10 - Essential (primary) hypertension Category: Medical Plan: Blood pressure is well controlled. No need to change antihypertensive at this time. (2) CKD (chronic kidney disease) stage 3, GFR 30-59 ml/min: Code(s): N18.30 - Chronic kidney disease, stage 3 unspecified Category: Medical Plan: Creatinine is 1.5 in September 2022. In May 22 creatinine is bumped to 1.78. This could be due to natural progression versus superimposed hypoperfusion. No recheck the labs again today. Continue with the current dose of Lasix. Avoid hypertension and nephrotoxins. Orders: Orders UA and rflx microscopic Today Complete Blood Count Auto Diff Today N18.30 - Chronic kidney disease, stage 3 unspecified Comprehensive Met. Panel Today N18.9 - Chronic kidney disease, unspecified Parathyroid Hormone Intact Today Total Protein Urine Random Today Creatinine Urine Today N05.9 - Unspecified nephritic syndrome with unspecified morphologic changes Coding Level of Care Code Est Pt Level 4 (37188) Diagnoses Essential hypertension I10 CKD (chronic kidney disease) stage 3, GFR 30-59 ml/min N18.30
== END 2023-07-01 09:49 | disposition home or self-care (01) ==
PROVIDERS: PCP Internal Medicine; Visit Provider Internal Medicine Hypertension Specialist
DX: I10 Essential (primary) hypertension (principal); N18.30 Chronic kidney disease, stage 3 unspecified
CPT/HCPCS: 99214

== ENCOUNTER 2023-07-01 09:55 | Outpatient (REF) | payer OTHER, SELFPAY ==
[2023-07-01 10:40] LABS: MANUAL DIFF FLAG NO
[2023-07-01 10:45] LABS: Basophils Absolute Auto 0.1 X10*3/uL (0.0-0.2); Basophils Percent Auto 0.7 % (0-2); Eosinophils Absolute Auto 0.2 X10*3/uL (0.0-0.4); Eosinophils Percent Auto 2.2 % (0-4); Hematocrit 43.2 % (37.0-47.0); Hemoglobin 14.1 g/dl (12.0-16.0); Imm Gran Abs Auto 0.02 X10*3/uL (0.00-0.03); Imm Gran Pct Auto 0.3 % (0.0-0.4); Lymphocytes Absolute Auto 2.8 X10*3/uL (1.2-4.9); Mean Corpuscular HGB Conc 32.6 g/dl (31.0-35.0); Mean Corpuscular Hemoglobin 31.9 pg (27.0-33.0); Mean Corpuscular Volume 97.7 fL (80.0-98.0); Mean Platelet Volume 10.5 fL (9.4-12.3); Monocytes Absolute Auto 0.6 X10*3/uL (0.1-1.2); Monocytes Percent Auto 7.8 % (2-11); Neutrophils Absolute Auto 4.1 x10*3/uL (2.0-8.3); Platelet Count 205 X10*3/uL (160-400); Red Blood Count 4.42 X10*6/uL (4.20-5.50); White Blood Count 7.7 X10*3/uL (4.8-10.8)
[2023-07-01 11:21] LABS: Parathyroid Hormone Intact 76.2 pg/mL (8.7-77.1)
[2023-07-01 11:38] LABS: Alanine Aminotransferase 17 U/L (0-31); Alkaline Phosphatase 70 U/L (39-117); Anion Gap 14 (12-20); Aspartate Amino Transferase 19 U/L (5-31); Bilirubin Total 0.4 mg/dL (0.0-1.0); Blood Urea Nitrogen 14 mg/dL (9-16); Calcium 10.5 mg/dL (8.4-10.2); Carbon Dioxide 25 mmol/L (22-29); Chloride 107 mmol/L (96-108); Estimated Glomerular Filt Rate 35; Glucose Random 119 mg/dL (60-115); Potassium 3.8 mmol/L (3.3-5.1); Sodium 142 mmol/L (135-145); Total Protein 7.7 g/dL (6.5-8.0)
== END 2023-07-01 09:56 | disposition home or self-care (01) ==
LOC: HO.10HDL 09:55
PROVIDERS: Visit Provider Internal Medicine Hypertension Specialist
DX: I12.9 Hypertensive chronic kidney disease with stage 1 through stage 4 chronic kidney disease, or unspecified chronic kidney disease (principal); N18.30 Chronic kidney disease, stage 3 unspecified
CPT/HCPCS: 36415; 80053; 83970; 85025; 99212

== ENCOUNTER 2023-08-03 10:17 | Outpatient (AMB) | payer OTHER, SELFPAY ==
--- NOTE | 2023-08-03 10:21 | MHC.OFFVIS ---
Vital Signs 08/03/23 10:22 Height 5 ft 3 in Weight 191 lb 12.835 oz BMI 34.0 BP 122/82 Blood Pressure Location Rt brachial Position Sitting Pulse 62 Pulse Source Doppler Pulse Oximetry (%) 97 Oxygen Delivery Method Room Air Intake Visit Reasons: CT follow up Allergies Trazodone Adverse Reaction (Intermediate, Uncoded 08/03/23 10:27) Unknown HPI HPI CT follow up: Details: 73-year-old lady, recent 30+ pack-year smoker, quit November of 2018 followed for dyspnea on exertion, pulmonary nodules, and moderate COPD. Patient has had TAVR and permanent pacemaker put in April of 2019. She continues to use Stiolto and albuterol MDI with good control of her underlying dyspnea.? She denies any recent exacerbations. Patient's CT scans in 2021 in 2022 demonstrated stable pulmonary nodules. [facility] Medical History Cataract Pacemaker Cervical spondylosis COPD (chronic obstructive pulmonary disease) Hypertension Surgical History S/P TAVR (transcatheter aortic valve replacement) History of transcatheter aortic valve replacement (TAVR) (~04/28/19) History of permanent cardiac pacemaker placement (~04/27/19) History of cardiac catheterization Family History Mother HTN (hypertension) Father Heart attack Brother HTN (hypertension) Social History Alcohol intake: never Patient Tobacco Use Status: Former Tobacco user Review of Systems Const Denies daytime sleepiness, Denies excessive sweating, Denies fatigue, Denies fever(s), Denies lethargy, Denies malaise, Denies night sweats, Denies snoring and Denies weight loss Eyes Denies blurry vision and Denies itchy eyes ENT Denies nasal congestion, Denies post nasal drip, Denies sinus pain, Denies sinus pressure and Denies other ( Thrush) Card Denies chest pain, Denies pedal edema, Denies dyspnea, Denies orthopnea and Denies paroxysmal nocturnal dyspnea Resp Denies cough, Denies hemoptysis, Denies excessive phlegm production, Denies dyspnea, Denies snoring and Denies wheezing GI Denies abdominal pain and Denies heartburn Musc Denies myalgias, Denies arthralgias and Denies joint swelling Skin/Breast Denies rash Neuro Denies memory loss and Denies seizure-like activity Psych Denies abnormal sleep pattern, Denies anxiety and Denies memory loss Endo Denies excessive sweating, Denies fatigue and Denies heat intolerance Florentino/Lymph Denies easy bruising Aller/Immun Denies itchy eyes, Denies seasonal rhinorrhea and Denies wheezing Physical Exam Vital Signs: Last Vital Signs Pulse 62 08/03/23 10:22 BP 122/82 08/03/23 10:22 Pulse Ox 97 08/03/23 10:22 Oxygen Delivery Method Room Air 08/03/23 10:22 BMI result Body Mass Index 34.0 Const General: no acute distress and alert Nutritional Appearance: not obese Orientation/consciousness: Other orientation findings ( oriented) HEENT Head: Yes atraumatic Eyes General: appearance normal, both eyes and all related structures Sclerae: sclerae normal EOM: EOMs intact bilaterally Neck Neck: Yes supple Lymphatic: no lymphadenopathy noted Resp Effort & Inspection: normal respiratory effort and no use of accessory muscles Auscultation: clear to auscultation bilaterally Cardio Rate: regular rate Rhythm: regular rhythm Heart sounds: no gallops, no murmurs and no rubs Skin General skin exam: other ( warm) Extrem General: No clubbing, No cyanosis and No edema Assessment & Plan Assessment & Plan (1) Asthma-COPD overlap syndrome: Code(s): J44.9 - Chronic obstructive pulmonary disease, unspecified Category: Medical Plan: Well controlled on Stiolto and albuterol MDI. Continue current regimen. (2) Pulmonary nodules: Code(s): R91.8 - Other nonspecific abnormal finding of lung field Category: Medical Plan: Will repeat CT chest in April of 2024, if stable at that time, no further imaging would be required. Orders: Orders CT chest wo IV con 05/02/24 R91.8 - Other nonspecific abnormal finding of lung field Coding Level of Care Code Est Pt Level 4 (31242) Diagnoses Asthma-COPD overlap syndrome J44.9 Pulmonary nodules R91.8
[2023-08-03 10:22] VITALS: BP 122/82; PULSE 62; O2SAT 97; BMI 34.0
== END 2023-08-03 10:59 | disposition home or self-care (01) ==
PROVIDERS: PCP Internal Medicine; Visit Provider Internal Medicine Pulmonary Disease
DX: J44.9 Chronic obstructive pulmonary disease, unspecified (principal); R91.8 Other nonspecific abnormal finding of lung field
CPT/HCPCS: 99214

== ENCOUNTER → 2023-08-03 10:17 | Outpatient (BNVA) | payer OTHER, SELFPAY | PROVIDERS: PCP Internal Medicine; Visit Provider Internal Medicine Pulmonary Disease | DX: J44.9 Chronic obstructive pulmonary disease, unspecified (principal); R91.8 Other nonspecific abnormal finding of lung field; Z79.899 Other long term (current) drug therapy | CPT/HCPCS: 99212 ==

== ENCOUNTER 2023-09-30 10:35 | Outpatient (AMB) | payer OTHER, SELFPAY ==
[2023-09-30 10:41] VITALS: BP 110/52; PULSE 60; O2SAT 96; BMI 34.4
--- NOTE | 2023-09-30 10:41 | HO.NEPHOV_ITS ---
Vital Signs 09/30/23 10:41 Height 5 ft 3 in Weight 194 lb BMI 34.4 BP 110/52 L Blood Pressure Location Rt brachial Position Sitting Pulse 60 Pulse Source Pulse Oximeter Pulse Oximetry (%) 96 Oxygen Delivery Method Room Air Intake Visit Reasons: CKD/ 3 MO FU/ Conf Program Facilitator Required: Yes Program Facilitator Name: Delia [id number] Accompanied by: Self / Same As Patient Allergies Trazodone Adverse Reaction (Intermediate, Uncoded 08/03/23 10:27) Unknown Medication List - Last Reconciled 09/30/23 by Regino Bazan MD albuterol sulfate 90 mcg/actuation 2 puffs inhalation Q4-6H PRN amlodipine (Norvasc) 10 mg PO DAILY aspirin 81 mg PO DAILY calcium carbonate-vitamin D3 500 mg-5 mcg (200 unit) (Calcium 500 + D) 1 tab PO DAILY clopidogrel (Plavix) 75 mg PO DAILY donepezil 5 mg PO DAILY furosemide 40 mg PO DAILY gabapentin 600 mg PO BID lisinopril 40 mg PO DAILY metoprolol tartrate 100 mg PO BID omega-3 fatty acids (Fish Oil Concentrate) 1,000 mg PO DAILY rosuvastatin 40 mg PO DAILY tiotropium-olodaterol 2.5-2.5 mcg/actuation (Stiolto Respimat) 2 puffs PO DAILY HPI Comments Details: Elvi is a pleasant 73-year-old man with history of longstanding hypertension and chronic disease. She has a history of severe aortic stenosis and it seems that she underwent transcatheter aortic valve replacement for the same in April of 2019. Following this, she also developed complete heart block and had permanent pacemaker implantation. Then it seems that she also developed a stroke but the timing is not clear. This led to left internal carotid artery stenting. Home renal standpoint she is doing reasonably well. No urinary symptoms. She is still has some leg edema she is tolerating Lasix. She has some difficulty swallowing and never saw ENT. 09/30/23 c/o Back pain x 1 month No urinary sypmtoms Cr up to 1.47 PFSH Medical History Cataract Pacemaker Cervical spondylosis COPD (chronic obstructive pulmonary disease) Hypertension Surgical History S/P TAVR (transcatheter aortic valve replacement) History of transcatheter aortic valve replacement (TAVR) (~04/28/19) History of permanent cardiac pacemaker placement (~04/27/19) History of cardiac catheterization Family History Mother HTN (hypertension) Father Heart attack Brother HTN (hypertension) Social History Alcohol intake: never Patient Tobacco Use Status: Former Tobacco user Physical Exam Vital Signs: Last Vital Signs Pulse 60 09/30/23 10:41 BP 110/52 L 09/30/23 10:41 Pulse Ox 96 09/30/23 10:41 Oxygen Delivery Method Room Air 09/30/23 10:41 BMI result Body Mass Index 34.4 Const General: comfortable; No acute distress Orientation/consciousness: patient oriented x3 Eyes General: appearance normal, both eyes and all related structures Visual Dawson: normal visual dawson by confrontation Neck Neck: Yes supple and Yes no JVD Resp Effort & Inspection: normal respiratory effort and respiratory effort not decreased Auscultation: rhonchi Cardio Palpation: no palpable S3 and no palpable S4 Heart sounds: no rubs GI Inspection: Yes normal to inspection Palpation (GI): Soft to palpation Percussion: Yes normal to percussion Auscultation: normal bowel sounds General: Yes no CVA tenderness Back/Spine/Pelvis Back: no CVA tenderness Skin General skin exam: no petechiae and no purpura Neuro General: patient oriented x3 and no focal motor deficits Extrem General: No clubbing and No edema Results Reviewed Nephrology Results: Hgb 14.1 g/dl (12.0-16.0) 07/01/23 WBC 7.7 X10*3/uL (4.8-10.8) 07/01/23 Plt Count 205 X10*3/uL (160-400) 07/01/23 Sodium 142 mmol/L (135-145) 07/01/23 Potassium 3.8 mmol/L (3.3-5.1) 07/01/23 Chloride 107 mmol/L (96-108) 07/01/23 Carbon Dioxide 25 mmol/L (22-29) 07/01/23 BUN 14 mg/dL (9-16) 07/01/23 Creatinine 1.47 mg/dL (0.5-1.4) H 07/01/23 Calcium 10.5 mg/dL (8.4-10.2) H 07/01/23 PTH Intact 76.2 pg/mL (8.7-77.1) 07/01/23 Assessment & Plan Assessment & Plan (1) CKD (chronic kidney disease) stage 3, GFR 30-59 ml/min: Code(s): N18.30 - Chronic kidney disease, stage 3 unspecified Category: Medical Plan: Creatinine is 1.5 in September 2022. In May 22 creatinine is bumped to 1.78. This could be due to natural progression versus superimposed hypoperfusion. Due to the bump in serum creatinine and low back pain no obtain renal ultrasonogram. Blood pressure is well controlled. Encouraged to stay on low-sodium Continue with the current dose of Lasix. Avoid hypotension and nephrotoxins. (2) Essential hypertension: Code(s): I10 - Essential (primary) hypertension Category: Medical Plan: Blood pressure is well controlled. No need to change antihypertensive at this time. Orders: Orders US renal BI Today N17.9 - Acute kidney failure, unspecified, N18.30 - Chronic kidney disease, stage 3 unspecified Basic Metabolic Panel 3 Weeks N17.9 - Acute kidney failure, unspecified UA and rflx microscopic 3 Weeks N17.9 - Acute kidney failure, unspecified Coding Level of Care Code Est Pt Level 4 (78354) Diagnoses CKD (chronic kidney disease) stage 3, GFR 30-59 ml/min N18.30 Essential hypertension I10
== END 2023-09-30 11:17 | disposition home or self-care (01) ==
PROVIDERS: PCP Internal Medicine; Visit Provider Internal Medicine Hypertension Specialist
DX: N18.30 Chronic kidney disease, stage 3 unspecified (principal); I10 Essential (primary) hypertension
CPT/HCPCS: 99214

== ENCOUNTER → 2023-09-30 10:35 | Outpatient (BNVA) | payer OTHER, SELFPAY | PROVIDERS: PCP Internal Medicine; Visit Provider Internal Medicine Hypertension Specialist | DX: I12.9 Hypertensive chronic kidney disease with stage 1 through stage 4 chronic kidney disease, or unspecified chronic kidney disease (principal); N18.30 Chronic kidney disease, stage 3 unspecified; I35.0 Nonrheumatic aortic (valve) stenosis; I44.2 Atrioventricular block, complete; Z95.0 Presence of cardiac pacemaker; Z95.5 Presence of coronary angioplasty implant and graft | CPT/HCPCS: 99212 ==

== ENCOUNTER 2023-10-12 13:41 | Outpatient (REF) | payer OTHER, SELFPAY ==
--- NOTE | ~2023-10-12 | US_ITS ---
EXAMINATION: US RETROPERITONEAL LIMITED (RENAL ONLY) CLINICAL INFORMATION: Chronic kidney disease, stage III. COMPARISON: Renal ultrasound 12/02/2020 TECHNIQUE: Real-time imaging of the kidneys. FINDINGS: RIGHT KIDNEY: 11.6 x 4.4 x 4.6 cm (SAG x AP x TRV). The kidney is normal in size, contour, and echogenicity. Renal cortical thinning or scarring is seen in the lower pole, otherwise renal cortical thickness is normal. No calculi or focal parenchymal lesions. No hydronephrosis. LEFT KIDNEY: 8.0 x 4.5 x 4.2 cm (SAG x AP x TRV). The kidney is normal in size, contour, and echogenicity. Cortical thinning is noted. No calculi or focal parenchymal lesions. No hydronephrosis. US/US renal BI IMPRESSION: 1. The left kidney measures lower limits of normal. 2. Cortical thinning of the left kidney. 3. Question renal cortical thinning or scarring in the lower pole of the right kidney.
== END 2023-10-12 13:42 | disposition home or self-care (01) ==
LOC: HO.US 13:41
PROVIDERS: PCP Internal Medicine; Visit Provider Internal Medicine Hypertension Specialist
DX: N18.30 Chronic kidney disease, stage 3 unspecified (principal); N17.9 Acute kidney failure, unspecified
CPT/HCPCS: 76775

== ENCOUNTER 2023-11-18 13:23 | Outpatient (AMB) | payer OTHER, SELFPAY ==
[2023-11-18 13:30] VITALS: BP 120/62; PULSE 89; O2SAT 97; BMI 34.7
--- NOTE | 2023-11-18 13:30 | HO.NEPHOV ---
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 Required: No Accompanied by: Self / Same As Patient Allergies Trazodone Adverse Reaction (Intermediate, Uncoded 08/03/23 10:27) Unknown Medication List - Last Reconciled 11/18/23 by Regino Bazan MD albuterol sulfate 90 mcg/actuation 2 puffs inhalation Q4-6H PRN amlodipine (Norvasc) 10 mg PO DAILY aspirin 81 mg PO DAILY calcium carbonate-vitamin D3 500 mg-5 mcg (200 unit) (Calcium 500 + D) 1 tab PO DAILY clopidogrel (Plavix) 75 mg PO DAILY donepezil 5 mg PO DAILY furosemide 40 mg PO DAILY gabapentin 600 mg PO BID lisinopril 40 mg PO DAILY metoprolol tartrate 100 mg PO BID omega-3 fatty acids (Fish Oil Concentrate) 1,000 mg PO DAILY rosuvastatin 40 mg PO DAILY tiotropium-olodaterol 2.5-2.5 mcg/actuation (Stiolto Respimat) 2 puffs PO DAILY HPI Comments Details: Elvi is a pleasant 73-year-old man with history of longstanding hypertension and chronic disease. She has a history of severe aortic stenosis and it seems that she underwent transcatheter aortic valve replacement for the same in April of 2019. Following this, she also developed complete heart block and had permanent pacemaker implantation. Then it seems that she also developed a stroke but the timing is not clear. This led to left internal carotid artery stenting. Home renal standpoint she is doing reasonably well. No urinary symptoms. She is still has some leg edema she is tolerating Lasix. She has some difficulty swallowing and never saw ENT. 09/30/23 c/o Back pain x 1 month;No urinary sypmtoms;Cr up to 1.47 10/1923. Still has back pain. No urinary symptoms. No new labs. [facility] Medical History Cataract Pacemaker Cervical spondylosis COPD (chronic obstructive pulmonary disease) Hypertension Surgical History S/P TAVR (transcatheter aortic valve replacement) History of transcatheter aortic valve replacement (TAVR) (~04/28/19) History of permanent cardiac pacemaker placement (~04/27/19) History of cardiac catheterization Family History Mother HTN (hypertension) Father Heart attack Brother HTN (hypertension) Social History Alcohol intake: never Patient Tobacco Use Status: Former Tobacco user Physical Exam Vital Signs: Last Vital Signs Pulse 89 11/18/23 13:30 BP 120/62 11/18/23 13:30 Pulse Ox 97 11/18/23 13:30 Oxygen Delivery Method Room Air 11/18/23 13:30 BMI result Body Mass Index 34.7 Results Reviewed Nephrology Results: Hgb 14.1 g/dl (12.0-16.0) 07/01/23 WBC 7.7 X10*3/uL (4.8-10.8) 07/01/23 Plt Count 205 X10*3/uL (160-400) 07/01/23 Sodium 142 mmol/L (135-145) 07/01/23 Potassium 3.8 mmol/L (3.3-5.1) 07/01/23 Chloride 107 mmol/L (96-108) 07/01/23 Carbon Dioxide 25 mmol/L (22-29) 07/01/23 BUN 14 mg/dL (9-16) 07/01/23 Creatinine 1.47 mg/dL (0.5-1.4) H 07/01/23 Calcium 10.5 mg/dL (8.4-10.2) H 07/01/23 PTH Intact 76.2 pg/mL (8.7-77.1) 07/01/23 Renal US 10/12/23 Assessment & Plan Assessment & Plan (1) CKD (chronic kidney disease) stage 3, GFR 30-59 ml/min: Code(s): N18.30 - Chronic kidney disease, stage 3 unspecified Category: Medical Plan: Creatinine is 1.5 in September 2022. In June 2023 creatinine is bumped to 1.47 This could be due to natural progression versus superimposed hypoperfusion. Due to the bump in serum creatinine and low back pain Renal ultrasonogram was 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 We will check urine culture. Needs to follow up with PCP regarding chronic low back pain Mild hypercalcemia. Recheck calcium and intact PTH May need to lower calcium supplementation. Blood pressure is well controlled. Encouraged to stay on low-sodium Continue with the current dose of Lasix. Avoid hypotension and nephrotoxins. (2) Essential hypertension: Code(s): I10 - Essential (primary) hypertension Category: Medical Plan: Blood pressure is well controlled. No need to change antihypertensive at this time. Orders: Orders Basic Metabolic Panel Today N18.30 - Chronic kidney disease, stage 3 unspecified Parathyroid Hormone Intact Today N18.30 - Chronic kidney disease, stage 3 unspecified UA and rflx microscopic Today N18.30 - Chronic kidney disease, stage 3 unspecified Urine Culture Today N18.30 - Chronic kidney disease, stage 3 unspecified Coding Level of Care Code Est Pt Level 4 (18572) Diagnoses CKD (chronic kidney disease) stage 3, GFR 30-59 ml/min N18.30 Essential hypertension I10
== END 2023-11-18 13:48 | disposition home or self-care (01) ==
PROVIDERS: PCP Internal Medicine; Visit Provider Internal Medicine Hypertension Specialist
DX: I12.9 Hypertensive chronic kidney disease with stage 1 through stage 4 chronic kidney disease, or unspecified chronic kidney disease (principal); N18.30 Chronic kidney disease, stage 3 unspecified
CPT/HCPCS: 99214

== ENCOUNTER → 2023-11-18 13:23 | Outpatient (BNVA) | payer OTHER, SELFPAY | PROVIDERS: PCP Internal Medicine; Visit Provider Internal Medicine Hypertension Specialist | DX: I12.9 Hypertensive chronic kidney disease with stage 1 through stage 4 chronic kidney disease, or unspecified chronic kidney disease (principal); N18.30 Chronic kidney disease, stage 3 unspecified | CPT/HCPCS: 99212 ==

== ENCOUNTER 2024-01-25 06:49 | Emergency (ER) | payer OTHER, SELFPAY ==
--- NOTE | ~2024-01-25 | XR_ITS ---
EXAMINATION: XR CHEST CLINICAL INFORMATION: epigastric pain COMPARISON: CT chest on 07/10/22 TECHNIQUE: Frontal view of the chest was obtained. FINDINGS: No significant abnormality is noted involving the heart, lungs, mediastinum, bony thorax or soft tissues. There is a left chest 2 lead cardiac device and a TAVR. XR/XR chest 1V IMPRESSION: No acute disease. Electronically signed by: Tyesha Vera MD 01/25/2024 09:46 AM [facility]
--- NOTE | ~2024-01-25 | CT_ITS ---
EXAMINATION: CT ABDOMEN AND PELVIS WITHOUT CONTRAST CLINICAL INFORMATION: Diffuse abdominal pain. Rule out colitis. COMPARISON: December 25, 2016. TECHNIQUE: Multidetector volumetric imaging was performed from the superior aspect of the liver through the pubic symphysis. Sagittal and coronal reformatted images were obtained on the technologist's workstation. This CT examination was performed using dose optimization techniques as appropriate, variously including the following: *Automated exposure control *Adjustment of mA and/or kV according to patient size (this includes techniques or standardized protocols for targeted exams where dose is matched to indication/reason for exam; i.e. extremities or head) *Use of iterative reconstruction technique DLP: 696. mGy-cm FINDINGS: LUNG BASES: Benign calcified right middle lobe granuloma. No suspicious lung nodule identified. No acute infiltrate appreciated. No pericardial effusion. Heart normal in size. Evidence of TAVR. Tips of pulse generator device leads project over the right atrium and at the right ventricular apex. LIVER, GALLBLADDER, AND BILIARY TREE: The liver appears unremarkable in size, shape, and attenuation. No focal hepatic lesion or biliary ductal dilatation is appreciated. Unremarkable appearance of the gallbladder. PANCREAS: Unremarkable SPLEEN: Unremarkable ADRENAL GLANDS: Unremarkable KIDNEYS AND URETERS: Question small bilateral renal cortical scars possibly related to remote bouts of pyelonephritis and/or infarcts. The kidneys appear unremarkable in size and attenuation. No hydronephrosis, hydroureter, or calculi seen. BLADDER: Unremarkable GASTROINTESTINAL TRACT: Stomach and small bowel appear 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 Few, scattered colonic diverticula without evidence of diverticulitis.: Otherwise appears 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 Normal-appearing distal ileum and vermiform appendix. ABDOMINAL WALL: No significant hernia is appreciated. LYMPH NODES: No evidence of adenopathy by size criteria. VASCULAR: Unremarkable PELVIC VISCERA: Unremarkable OSSEOUS STRUCTURES: Borderline mildly decreased bone mineral density. CT/CT abdomen pelvis wo IV con IMPRESSION: No acute finding. Electronically signed by: Arthur Gillette MD 01/25/2024 11:28 AM [facility]
[2024-01-25 07:04] VITALS: BP 144/54; BP 148/86; PULSE 90; PULSE 98; RESP 18; TEMP 36.7; O2SAT 100; O2SAT 98; BMI 35.5
--- NOTE | 2024-01-25 07:23 | ECG_ITS ---
Test Reason : epigastric pain Blood Pressure : / mmHG Vent. Rate : 087 BPM Atrial Rate : 087 BPM P-R Int : 184 ms QRS Dur : 156 ms QT Int : 444 ms P-R-T Axes : 052 268 063 degrees QTc Int : 534 ms atrial-sensed ventricular-paced complexes Abnormal ECG When compared with ECG of 30-OCT-2017 06:06, V pacing present Referred By: Tamica Fajardo Electronically Signed By:KATHRYN ELDRIDGE
--- NOTE | 2024-01-25 07:25 | ED_ITS ---
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 Fajardo HPI narrative: A 74-year-old female presented by EMS from home for evaluation of 1 day history of abdominal pain describe it as mid abdominal pain comes in waves waxes and wanes, pain is associated with nausea patient is trying to vomit but she can not, been having small bowel movement described as black loose stool, no history drug or alcohol use. patient denies history of intra-abdominal surgery, passing flatus, no dysuria frequency urination, no hematuria, no chest pain, no SOB, no fever, no chills. Related Data Home Medications ?Medication ?Instructions ?Recorded ?Confirmed amlodipine 10 mg tablet (Norvasc) 10 mg PO DAILY 12/22/19 11/18/23 calcium 500 mg (as 1 tab PO DAILY 12/22/19 11/18/23 carbonate)-vitamin D3 5 mcg (200 unit) tablet (Calcium 500 + D) clopidogrel 75 mg tablet (Plavix) 75 mg PO DAILY 12/22/19 11/18/23 donepezil 5 mg tablet 5 mg PO DAILY 12/22/19 11/18/23 gabapentin 600 mg tablet 600 mg PO BID 12/22/19 11/18/23 lisinopril 40 mg tablet 40 mg PO DAILY 12/22/19 11/18/23 omega-3 fatty acids 1,000 mg 1,000 mg PO DAILY 12/22/19 11/18/23 capsule (Fish Oil Concentrate) aspirin 81 mg tablet,delayed 81 mg PO DAILY 02/06/21 11/18/23 release metoprolol tartrate 100 mg tablet 100 mg PO BID 02/06/21 11/18/23 rosuvastatin 5 mg tablet 40 mg PO DAILY 01/19/23 11/18/23 furosemide 40 mg tablet 40 mg PO DAILY 03/23/23 11/18/23 Previous Rx's ?Medication ?Instructions ?Recorded albuterol sulfate 90 mcg/actuation 2 puff inhalation Q4-6H PRN 08/07/22 aerosol inhaler shortness of breath or wheezing #1 ea tiotropium 2.5 mcg-olodaterol 2.5 2 puff PO DAILY #4 grams 08/07/22 mcg/actuation mist for inhalation (Stiolto Respimat) omeprazole 40 mg capsule,delayed 40 mg PO DAILY #14 caps 01/25/24 release Allergies Allergy/AdvReac Type Severity Reaction Status Date / Time Trazodone AdvReac Intermediate Unknown Uncoded 01/25/24 07:06 Review of Systems Review of Systems All other systems are reviewed and are negative Constitutional: Reports as per HPI and Reports no additional constitutional complaints Eyes: Reports as per HPI and Reports no additional eye complaints Reports system reviewed and no additional complaints, except as documented Cardiovascular: Reports as per HPI and Reports no additional cardiovascular complaints Respiratory: Reports as per HPI and Reports no additional respiratory complaints Gastrointestinal: Reports as per HPI and Reports no additional gastrointestinal complaints Genitourinary: Reports no additional female genitourinary complaints Musculoskeletal: Reports no additional musculoskeletal complaints Skin/Breast: Reports system reviewed and no additional complaints, except as docu Psychiatric: Reports no additional psychiatric complaints Endocrine: Reports no additional endocrine complaints Hematologic/Lymphatic: Reports no additional hematologic/lymphatic complaints Allergic/Immunologic: Reports no additional allergic/immunologic complaints Reports system reviewed and no additional complaints, except as documented and Reports Abnormal speech present [facility] Past Medical History Medical History Cataract Pacemaker Cervical spondylosis COPD (chronic obstructive pulmonary disease) Hypertension Surgical History S/P TAVR (transcatheter aortic valve replacement) History of transcatheter aortic valve replacement (TAVR) (~04/28/19) History of permanent cardiac pacemaker placement (~04/27/19) History of cardiac catheterization Family History Family History Mother HTN (hypertension) Father Heart attack Brother HTN (hypertension) Social History Social History Alcohol intake: never Patient Tobacco Use Status: Former Tobacco user Smoked in Last 30 Days: No Use of substances other than those prescribed or required for medical reasons: No Advance Directives: No Advance Directives Information Provided: No Do you have a plan to hurt others: No Plan Physical Exam ED Vital Signs: Vital Signs - 24 hr 01/25/24 07:04 01/25/24 07:46 01/25/24 11:53 Temperature 98.0 F 98.2 F 97.8 F Pulse Rate 90 93 86 Respiratory Rate 18 16 20 Blood Pressure 144/54 H 125/55 L 116/53 L Pulse Oximetry 100 100 97 Oxygen Delivery Method Room Air Room Air Room Air 01/25/24 14:25 Temperature 97.5 F Pulse Rate 83 Respiratory Rate 22 H Blood Pressure 134/56 L Pulse Oximetry 97 Oxygen Delivery Method Room Air BMI result Body Mass Index 35.5 Vital signs have been reviewed and appear to be correct. Blood pressure elevated. Heart rate normal. Respiratory rate normal. Temperature normal. Oxygen saturation normal. Appearance: Alert. Oriented X3. No acute distress. Head: Normal external exam. Normocephalic. Atraumatic. No Jj signs noted. No raccoon eyes noted Eyes: PERRLA. EOMI. Conjunctiva and sclera normal. Eyelids normal. ENT: TM's Normal. Pharynx normal. Uvula midline. Moist mucous membranes. No trismus noted. No drooling noted. No muffled voice noted. Neck: Normal inspection. Neck supple. FROM. No adenopathy. Thyroid Normal. No meningeal signs. No neck mass noted. CVS: Normal heart rate and rhythm. Heart sound normal. No murmurs noted. Pulses normal throughout. Respiratory: No respiratory distress. Painless inspiration. Breath sounds normal. No wheezes/rales/rhonchi noted. Chest nontender. No accessory muscle usage noted or decreased air movement noted. Abdomen: Soft , obese, epigastric and periumbilical tenderness with no rebound tenderness, no guarding. Bowel sounds normal in all 4 quadrants. No distention noted. No organomegaly noted. No visible injury noted. Rectal exam: Brown stool, guaiac negative. Back: No CVA tenderness. Full range of motion noted. Skin: Skin warm and dry. Normal skin color. Normal skin turgor. No rashes/lesions/lacerations noted. Extremities: No lower extremity edema. Extremities exhibit normal range of motion. Extremities nontender. Neuro: Oriented X 3. Cranial nerve exam: II-XII are grossly intact No motor deficit. No sensory deficit. Reflexes normal. Course Reevaluation(s) Reevaluation #1: feels better, repeat abdominal exam showed no epigastric tenderness, able to tolerate p.o. intake. Slightly elevated troponin with no delta changes. patient presentation today is more than likely to be secondary to gastritis well prescribe Prilosec and follow-up with GI. Time: 15:25 Medical Decision Making Differential Diagnosis Differential Diagnoses: The differential diagnosis associated with the presentation includes ( ACS, pneumonia, pneumothorax, pleural effusion, gastritis, gastroenteritis, electrolyte derangement, severe anemia , UTI.) Admission/Observation Consideration of admission/observation: Escalation of care including admission/observation considered Lab Data MDM Lab Attestation statement: I reviewed the patient's lab results. 01/25/24 07:38 01/25/24 10:57 Labs: Lab Results 01/25/24 01/25/24 01/25/24 Range/Units 07:36 07:38 10:03 WBC 9.7 (4.8-10.8) X10*3/uL RBC 3.97 L (4.20-5.50) X10*6/uL Hgb 13.1 (12.0-16.0) g/dl Hct 37.3 (37.0-47.0) % MCV 94.0 (80.0-98.0) fL MCH 33.0 (27.0-33.0) pg MCHC 35.1 H (31.0-35.0) g/dl RDW 14.1 (11.0-16.0) % Plt Count 193 (160-400) X10*3/uL MPV 9.8 (9.4-12.3) fL Immature Gran % (Auto) 0.4 (0.0-0.4) % Neut % (Auto) 65.5 (45-73) % Lymph % (Auto) 26.2 (20-40) % [place] % (Auto) 7.5 (2-11) % Eos % (Auto) 0.1 (0-4) % Baso % (Auto) 0.3 (0-2) % Lymph # (Auto) 2.5 (1.2-4.9) X10*3/uL [place] # (Auto) 0.7 (0.1-1.2) X10*3/uL Eos # (Auto) 0.0 (0.0-0.4) X10*3/uL Baso # (Auto) 0.0 (0.0-0.2) X10*3/uL Abs Immat Gran (auto) 0.04 H (0.00-0.03) X10*3/uL Absolute Neuts (auto) 6.3 (2.0-8.3) x10*3/uL Absolute Nucleated RBC 0.000 (0.0-0.012) X10*3/uL Nucleated RBC % (auto) 0.0 (0.0-0.2) /100WBC Sodium 129 L (135-145) mmol/L Potassium 3.7 (3.3-5.1) mmol/L Chloride 99 (96-108) mmol/L Carbon Dioxide 20 L (22-29) mmol/L Anion Gap 14 (12-20) BUN 18 H (9-16) mg/dL Creatinine 1.82 H (0.5-1.4) mg/dL Estim Creat Clear Calc 28.6 Estimated GFR 27 Random Glucose 169 H (60-115) mg/dL Calcium 8.9 D (8.4-10.2) mg/dL Total Bilirubin 0.5 (0.0-1.0) mg/dL Direct Bilirubin 0.2 (0.0-0.5) mg/dL AST 20 (5-31) U/L ALT 15 (0-31) U/L Alkaline Phosphatase 68 (39-117) U/L Troponin I High Sens 23.1 H (<3.5-17.0) ng/L B-Natriuretic Peptide 125 H (<100) pg/mL Total Protein 6.6 (6.5-8.0) g/dL Albumin 3.5 (3.5-5.0) g/dL Lipase 41 (8-78) U/L Urine Color Yellow Urine Appearance Clear Urine pH 5.5 (5.0-9.0) Ur Specific [place] 1.010 (1.005-1.025) Urine Protein Negative (Neg-Trace) mg/dL Urine Glucose (UA) 250 H (Negative) mg/dL Urine Ketones Negative (Negative) mg/dL Urine Blood Negative (Negative) Urine Nitrite Negative (Negative) Ur Leukocyte Esterase Negative (Negative) Stool Occult Blood NEGATIVE (NEGATIVE) Influenza Type A (PCR) NEGATIVE (Negative) Influenza Type B (PCR) NEGATIVE (Negative) RSV RNA Qual (PCR) NEGATIVE (Negative) SARS-CoV-2 RNA (RT-PCR) NEGATIVE (Negative) 01/25/24 Range/Units 10:57 WBC (4.8-10.8) X10*3/uL RBC (4.20-5.50) X10*6/uL Hgb (12.0-16.0) g/dl Hct (37.0-47.0) % MCV (80.0-98.0) fL MCH (27.0-33.0) pg MCHC (31.0-35.0) g/dl RDW (11.0-16.0) % Plt Count (160-400) X10*3/uL MPV (9.4-12.3) fL Immature Gran % (Auto) (0.0-0.4) % Neut % (Auto) (45-73) % Lymph % (Auto) (20-40) % [place] % (Auto) (2-11) % Eos % (Auto) (0-4) % Baso % (Auto) (0-2) % Lymph # (Auto) (1.2-4.9) X10*3/uL [place] # (Auto) (0.1-1.2) X10*3/uL Eos # (Auto) (0.0-0.4) X10*3/uL Baso # (Auto) (0.0-0.2) X10*3/uL Abs Immat Gran (auto) (0.00-0.03) X10*3/uL Absolute Neuts (auto) (2.0-8.3) x10*3/uL Absolute Nucleated RBC (0.0-0.012) X10*3/uL Nucleated RBC % (auto) (0.0-0.2) /100WBC Sodium 131 L (135-145) mmol/L Potassium 3.8 (3.3-5.1) mmol/L Chloride 102 (96-108) mmol/L Carbon Dioxide 22 (22-29) mmol/L Anion Gap 11 L (12-20) BUN 17 H (9-16) mg/dL Creatinine 1.81 H (0.5-1.4) mg/dL Estim Creat Clear Calc 28.6 Estimated GFR 27 Random Glucose 143 H (60-115) mg/dL Calcium 8.3 L D (8.4-10.2) mg/dL Total Bilirubin (0.0-1.0) mg/dL Direct Bilirubin (0.0-0.5) mg/dL AST (5-31) U/L ALT (0-31) U/L Alkaline Phosphatase (39-117) U/L Troponin I High Sens 24.9 H (<3.5-17.0) ng/L B-Natriuretic Peptide (<100) pg/mL Total Protein (6.5-8.0) g/dL Albumin (3.5-5.0) g/dL Lipase (8-78) U/L Urine Color Urine Appearance Urine pH (5.0-9.0) Ur Specific [place] (1.005-1.025) Urine Protein (Neg-Trace) mg/dL Urine Glucose (UA) (Negative) mg/dL Urine Ketones (Negative) mg/dL Urine Blood (Negative) Urine Nitrite (Negative) Ur Leukocyte Esterase (Negative) Stool Occult Blood (NEGATIVE) Influenza Type A (PCR) (Negative) Influenza Type B (PCR) (Negative) RSV RNA Qual (PCR) (Negative) SARS-CoV-2 RNA (RT-PCR) (Negative) Independent Interpretation I performed an independent interpretation of an: Plain X-Ray ( Chest: No acute disease.) and CT Scan ( Abdomen pelvis: No acute findings.) Radiology Impression Discussion of test interpretation with radiology: I have reviewed the radiologist's reading. Medications Administered Discontinued Medications Generic Name Dose Route Start Last Admin Trade Name Freq PRN Reason Stop Dose Admin Al Hydroxide/Mg Hydroxide 30 ml 01/25/24 07:21 01/25/24 07:43 Magnesium Hydrox/Alum Hydrox 30 Ml Oral.Susp PO 01/25/24 07:22 30 ml ONCE ONE Administration Sodium Chloride 1,000 mls @ 999 mls/hr 01/25/24 07:21 01/25/24 08:58 Ns IV 01/25/24 08:21 Infused .Q1H1M ONE Infusion Sodium Chloride 1,000 mls @ 999 mls/hr 01/25/24 08:19 01/25/24 09:14 Ns IV 01/25/24 09:19 Not Given .Q1H1M ONE Ondansetron HCl 4 mg 01/25/24 07:21 01/25/24 07:43 Ondansetron Hcl 4 Mg/2 Ml Vial IVPUSH 01/25/24 07:22 4 mg ONCE ONE Administration Pantoprazole Sodium 40 mg 01/25/24 07:21 01/25/24 07:43 Pantoprazole Sodium 40 Mg/10 Ml Vial IVPUSH 01/25/24 07:22 40 mg ONCE ONE Administration Discharge Plan Discharge Clinical Impression: Gastritis, Atypical chest pain Patient Disposition: Home, Self-Care Instructions: Gastritis (ED) Prescriptions: New omeprazole 40 mg capsule,delayed release(DR/EC) 40 mg PO DAILY Qty: 14 0RF No Action gabapentin 600 mg tablet 600 mg PO BID lisinopril 40 mg tablet 40 mg PO DAILY clopidogrel [Plavix] 75 mg tablet 75 mg PO DAILY amlodipine [Norvasc] 10 mg tablet 10 mg PO DAILY omega-3 fatty acids [Fish Oil Concentrate] 1,000 mg capsule 1,000 mg PO DAILY donepezil 5 mg tablet 5 mg PO DAILY calcium carbonate-vitamin D3 [Calcium 500 + D] 500 mg(1,250mg) -200 unit tablet 1 tab PO DAILY metoprolol tartrate 100 mg tablet 100 mg PO BID aspirin 81 mg tablet,delayed release (DR/EC) 81 mg PO DAILY rosuvastatin 5 mg tablet 40 mg PO DAILY albuterol sulfate 90 mcg/actuation HFA aerosol inhaler 2 puff inhalation Q4-6H PRN (Reason: shortness of breath or wheezing) Qty: 1 3RF Stiolto Respimat 2.5-2.5 mcg/actuation mist 2 puff PO DAILY Qty: 4 6RF furosemide 40 mg tablet 40 mg PO DAILY Referrals: Lazara Boucher MD [Primary Care Provider] - Moon Nj MD [Physician] - Print Language: Tajik
[2024-01-25 07:42] LABS: MANUAL DIFF FLAG NO
[2024-01-25] MEDS: Magnesium Hydrox/Alum Hydrox 30 ML ORAL.SUSP PO (07:43)
[2024-01-25] MEDS: Pantoprazole Sodium 40 MG/10 ML VIAL IVPUSH (07:43)
[2024-01-25] MEDS: ondansetron HCL 4 MG/2 ML VIAL IVPUSH (07:43)
[2024-01-25 07:44] LABS: Basophils Percent Auto 0.3 % (0-2); Eosinophils Percent Auto 0.1 % (0-4); Hematocrit 37.3 % (37.0-47.0); Hemoglobin 13.1 g/dl (12.0-16.0); Imm Gran Abs Auto 0.04 X10*3/uL (0.00-0.03); Imm Gran Pct Auto 0.4 % (0.0-0.4); Lymphocytes Absolute Auto 2.5 X10*3/uL (1.2-4.9); Lymphocytes Percent Auto 26.2 % (20-40); Mean Corpuscular HGB Conc 35.1 g/dl (31.0-35.0); Mean Platelet Volume 9.8 fL (9.4-12.3); Monocytes Absolute Auto 0.7 X10*3/uL (0.1-1.2); Monocytes Percent Auto 7.5 % (2-11); Neutrophils Absolute Auto 6.3 x10*3/uL (2.0-8.3); Neutrophils Percent Auto 65.5 % (45-73); Platelet Count 193 X10*3/uL (160-400); Red Blood Count 3.97 X10*6/uL (4.20-5.50); Red Cell Distribution Width 14.1 % (11.0-16.0); White Blood Count 9.7 X10*3/uL (4.8-10.8)
[2024-01-25] MEDS: 0.9 % Sodium Chloride 1,000 ML 999 ML IV (07:44)
[2024-01-25 07:45] LABS: OBS Int Ctl Valid YES; OBS1 NEGATIVE (NEGATIVE)
[2024-01-25 07:46] VITALS: BP 125/55; PULSE 93; RESP 16; TEMP 36.8; O2SAT 100
[2024-01-25 07:58] LABS: Alanine Aminotransferase 15 U/L (0-31); Albumin Level 3.5 g/dL (3.5-5.0); Alkaline Phosphatase 68 U/L (39-117); Anion Gap 14 (12-20); Aspartate Amino Transferase 20 U/L (5-31); Bilirubin Direct 0.2 mg/dL (0.0-0.5); Bilirubin Total 0.5 mg/dL (0.0-1.0); Blood Urea Nitrogen 18 mg/dL (9-16); Calcium 8.9 mg/dL (8.4-10.2); Carbon Dioxide 20 mmol/L (22-29); Chloride 99 mmol/L (96-108); Creatinine Clr Calc Pharmacy 28.6; Estimated Glomerular Filt Rate 27; Glucose Random 169 mg/dL (60-115); Lipase 41 U/L (8-78); Potassium 3.7 mmol/L (3.3-5.1); Sodium 129 mmol/L (135-145); Total Protein 6.6 g/dL (6.5-8.0)
[2024-01-25 08:03] LABS: B Type Natriuretic Peptide 125 pg/mL (<100)
[2024-01-25 08:06] LABS: Troponin-I High Sensitivity 23.1 ng/L (<3.5-17.0)
[2024-01-25 08:37] LABS: Influenza A PCR NEGATIVE (Negative); Influenza B PCR NEGATIVE (Negative); Resp Syncy Virus RNA Qual PCR NEGATIVE (Negative); SARS COV2 PCR INHOUSE NEGATIVE (Negative)
--- NOTE | 2024-01-25 09:14 | PC.NURSE ---
Second liter of NS not hung d/t pt hx of CHF and elevated BNP. Per monique Fernandez to hold.
[2024-01-25 10:14] LABS: Appearance Urine Clear; Color Urine Yellow; Glucose Urine UA 250 mg/dL (Negative); Leukocyte Esterase Urine Negative (Negative); Nitrite Urine Negative (Negative); PH 5.5 (5.0-9.0); Urine Blood Negative (Negative); Urine Ketones Negative (Negative); Urine Protein Negative (Neg-Trace)
[2024-01-25 11:17] LABS: Anion Gap 11 (12-20); Blood Urea Nitrogen 17 mg/dL (9-16); Calcium 8.3 mg/dL (8.4-10.2); Carbon Dioxide 22 mmol/L (22-29); Chloride 102 mmol/L (96-108); Creatinine Clr Calc Pharmacy 28.6; Estimated Glomerular Filt Rate 27; Glucose Random 143 mg/dL (60-115); Potassium 3.8 mmol/L (3.3-5.1); Sodium 131 mmol/L (135-145)
[2024-01-25 11:25] LABS: Troponin-I High Sensitivity 24.9 ng/L (<3.5-17.0)
[2024-01-25 11:53] VITALS: BP 116/53; PULSE 86; RESP 20; TEMP 36.6; O2SAT 97
[2024-01-25 14:25] VITALS: BP 134/56; PULSE 83; RESP 22; TEMP 36.4; O2SAT 97
[2024-01-25 15:37] VITALS: BP 143/63; PULSE 78; RESP 18; TEMP 36.5; O2SAT 98
[2024-01-25 15:39] VITALS: BP 143/63; PULSE 80; RESP 18; TEMP 36.5; O2SAT 99
== END 2024-01-25 15:55 | disposition home or self-care (01) ==
PROVIDERS: Emergency Provider Emergency Medicine; PCP Internal Medicine
DX: K29.70 Gastritis, unspecified, without bleeding (principal); R07.89 Other chest pain; R25.1 Tremor, unspecified; R94.31 Abnormal electrocardiogram [ECG] [EKG]; R10.13 Epigastric pain; Z03.818 Encounter for observation for suspected exposure to other biological agents ruled out; Z79.899 Other long term (current) drug therapy
CPT/HCPCS: 0241U; 36415; 71045; 74176; 80048; 80076; 81003; 82272; 83690; 83880; 84484; 85025; 93005; 96361; 96374; 96375; 99284; 99285; J2405; J2470

== ENCOUNTER → 2024-01-25 07:23 | Outpatient (BNV) | payer OTHER, SELFPAY | PROVIDERS: Emergency Provider Emergency Medicine; PCP Internal Medicine; Visit Provider Internal Medicine | DX: R94.31 Abnormal electrocardiogram [ECG] [EKG] (principal) | CPT/HCPCS: 93010 ==

== ENCOUNTER 2024-01-28 09:46 | Emergency (ER) | payer OTHER, SELFPAY ==
--- NOTE | ~2024-01-28 | XR_ITS ---
EXAMINATION: XR CHEST CLINICAL INFORMATION: dyspnea COMPARISON: Radiographs 01/25/2024 TECHNIQUE: Frontal view of the chest was obtained. FINDINGS: No focal consolidation, pulmonary edema, or pleural effusion. Stable cardiomediastinal silhouette status post TAVR. XR/XR chest 1V IMPRESSION: No acute pulmonary disease. Electronically signed by: Dom Hartmann MD 01/28/2024 12:04 PM [facility] [place]
--- NOTE | 2024-01-28 09:49 | ECG_ITS ---
Test Reason : SOB Blood Pressure : / mmHG Vent. Rate : 099 BPM Atrial Rate : 099 BPM P-R Int : 172 ms QRS Dur : 154 ms QT Int : 414 ms P-R-T Axes : 055 259 069 degrees QTc Int : 531 ms Atrial-sensed ventricular-paced rhythm Abnormal ECG When compared with ECG of 25-JAN-2024 07:40, No significant changes seen Referred By: Magda Sanford Electronically Signed By:KATHRYN ELDRIDGE
[2024-01-28 09:51] VITALS: BP 133/62; BP 148/61; PULSE 83; PULSE 93; RESP 16; TEMP 36.6; O2SAT 99; BMI 39.4
--- NOTE | 2024-01-28 09:56 | ED.GENADULT ---
HPI - General Adult General Chief complaint: General Medical Stated complaint: SOB WITH COUGH Time Seen by Provider: 01/28/24 09:47 Source: patient, EMS and old records reviewed Mode of arrival: EMS Limitations: no limitations History of Present Illness ED Provider: BERNADINE BABB narrative: 74 yo female with PMH of COPD not on home O2, TAVR, HTN, PPM, CKD, HLD, here with c/o itching skin after starting omeprazole recently - she denies rash or swelling. She also has a cough and runny nose but denies sputum or fevers and she feels her breathing is at baseline. She has not taken anything for the itching. She has no n/v/d. MD complaint: itching skin Onset (ago): day(s) (2) Radiation: non-radiation Severity: moderate Quality: other (pruritic) Relieving factors: none Exacerbating factors: none Associated symptoms: other (cough and runny nose) Treatments prior to arrival: none Related Data Home Medications ?Medication ?Instructions ?Recorded ?Confirmed amlodipine 10 mg tablet (Norvasc) 10 mg PO DAILY 12/22/19 11/18/23 calcium 500 mg (as 1 tab PO DAILY 12/22/19 11/18/23 carbonate)-vitamin D3 5 mcg (200 unit) tablet (Calcium 500 + D) clopidogrel 75 mg tablet (Plavix) 75 mg PO DAILY 12/22/19 11/18/23 donepezil 5 mg tablet 5 mg PO DAILY 12/22/19 11/18/23 gabapentin 600 mg tablet 600 mg PO BID 12/22/19 11/18/23 lisinopril 40 mg tablet 40 mg PO DAILY 12/22/19 11/18/23 omega-3 fatty acids 1,000 mg 1,000 mg PO DAILY 12/22/19 11/18/23 capsule (Fish Oil Concentrate) aspirin 81 mg tablet,delayed 81 mg PO DAILY 02/06/21 11/18/23 release metoprolol tartrate 100 mg tablet 100 mg PO BID 02/06/21 11/18/23 rosuvastatin 5 mg tablet 40 mg PO DAILY 01/19/23 11/18/23 furosemide 40 mg tablet 40 mg PO DAILY 03/23/23 11/18/23 Previous Rx's ?Medication ?Instructions ?Recorded albuterol sulfate 90 mcg/actuation 2 puff inhalation Q4-6H PRN 08/07/22 aerosol inhaler shortness of breath or wheezing #1 ea tiotropium 2.5 mcg-olodaterol 2.5 2 puff PO DAILY #4 grams 08/07/22 mcg/actuation mist for inhalation (Stiolto Respimat) omeprazole 40 mg capsule,delayed 40 mg PO DAILY #14 caps 01/25/24 release famotidine 20 mg tablet (Pepcid) 10 mg (1/2 x 20 mg) PO DAILY 01/28/24 abdominal discomfort #30 tabs loratadine 10 mg tablet (Claritin) 10 mg PO DAILY PRN allergic 01/28/24 symptoms #30 tabs Allergies Allergy/AdvReac Type Severity Reaction Status Date / Time trazodone AdvReac Unknown Verified 01/28/24 10:10 Review of Systems Review of Systems: Constitutional : No Fever, No Chills ENT/Mouth : No sore throat, pos Rhinorrhea Eyes: No Eye Pain, No Swelling, No Redness Cardiovascular : No Chest Pain, No SOB Respiratory : pos Cough, No Sputum Gastrointestinal : No Nausea, No Vomiting, No Diarrhea, No abdominal Pain Genitourinary : No Dysuria, No Hematuria Musculoskeletal : No joint pain, No Myalgias, No Joint Swelling Skin : No Skin Lesions, no skin rash, pos itching skin Neuro : No Weakness, No Numbness, No Headache Psych : No Anxiety, No Depression Heme/Lymph: No Bruising, No Bleeding,No Lymphadenopathy Endocrine : No Polyuria, No Polydipsia All other systems reviewed and are negative PMFSH Past Medical History Attestation statement: The following information was validated with the patient. Source: old records reviewed Medical History Cataract Pacemaker Cervical spondylosis COPD (chronic obstructive pulmonary disease) Hypertension Surgical History S/P TAVR (transcatheter aortic valve replacement) History of transcatheter aortic valve replacement (TAVR) (~04/28/19) History of permanent cardiac pacemaker placement (~04/27/19) History of cardiac catheterization Family History Family History Mother HTN (hypertension) Father Heart attack Brother HTN (hypertension) Social History Social History Alcohol intake: never Patient Tobacco Use Status: Former Tobacco user Advance Directives: No Advance Directives Information Provided: Yes Physical Exam ED Vital Signs: Vital Signs - 24 hr 01/28/24 09:51 01/28/24 10:25 Temperature 98 F Pulse Rate 83 74 Respiratory Rate 16 22 H Blood Pressure 133/62 Pulse Oximetry 99 Oxygen Delivery Method Room Air BMI result Body Mass Index 39.4 Appearance: Alert. Oriented X3. No acute distress. Eyes: Pupils equal, round and reactive to light. ENT: Pharynx normal. Neck: Normal inspection. Neck supple. CVS: Normal heart rate and rhythm. Pulses normal. Respiratory: No respiratory distress. Breath sounds normal. Abdomen: Soft and nontender. Skin: Skin warm and dry. Normal skin color. Normal skin turgor. Extremities: No lower extremity edema. No calf ttp Neuro: Oriented X 3. No motor deficit. No sensory deficit. Course Course Course Narrative: now with c/o upper abdominal pain and some n/v no diarrhea this is why they started her on PPI just had negative CT scan of abdomen/pelvis on 01/24 Medications Administered Generic Name Dose Route Start Last Admin Trade Name Freq PRN Reason Stop Dose Admin Sodium Chloride 500 mls @ 500 mls/hr 01/28/24 11:47 01/28/24 12:22 Ns IV 01/28/24 12:46 500 mls/hr .Q1H ONE Administration Discontinued Medications Generic Name Dose Route Start Last Admin Trade Name Freq PRN Reason Stop Dose Admin Al Hydroxide/Mg Hydroxide 15 ml 01/28/24 11:31 01/28/24 12:23 Magnesium Hydrox/Alum Hydrox 30 Ml Oral.Susp PO 01/28/24 11:32 15 ml ONCE ONE Administration Albuterol Sulfate 8 puff 01/28/24 10:19 01/28/24 10:22 Albuterol Sulfate 90 Mcg 8 Gm Inhaler INHALE 01/28/24 10:20 8 puff ONCE ONE Administration Famotidine 20 mg 01/28/24 09:53 01/28/24 10:23 Famotidine/Pf 20 Mg/2 Ml Vial IVPUSH 01/28/24 09:54 20 mg ONCE ONE Administration Lidocaine HCl 15 ml 01/28/24 11:31 01/28/24 12:23 Lidocaine Hcl Viscous 2 % 15 Ml Solution MUCOUS MEM 01/28/24 11:32 15 ml ONCE ONE Administration Loratadine 10 mg 01/28/24 09:53 01/28/24 10:23 Loratadine 10 Mg Tablet PO 01/28/24 09:54 10 mg ONCE ONE Administration Methylprednisolone Sodium Succinate 60 mg 01/28/24 09:49 01/28/24 10:23 Methylprednisolone Sod Succ 125 Mg/2 Ml Vial IVPUSH 01/28/24 09:50 60 mg ONCE ONE Administration Medical Decision Making Medical Decision Making MDM Narrative: 74 yo female with PMH of COPD not on home O2, TAVR, HTN, PPM, CKD, HLD, here with c/o itching skin though I see no rash or angioedema - i have ordered labs and IV steroids/pepcid/claritin. She also c/o dry cough but no chest pain or change in breathing - xray and viral panel ordered. Not labored and 100% on RA. Differential Diagnosis Differential Diagnoses: The differential diagnosis associated with the presentation includes reaction to medicine, liver issue, URI Admission/Observation Consideration of admission/observation: Escalation of care including admission/observation considered mild GAB, trop at baseline, no increased O2 demands will start her on pepcid and stop the PPI Lab Data [facility] Lab Attestation statement: I reviewed the patient's lab results. 01/28/24 11:14 01/28/24 11:14 Labs: Lab Results 01/28/24 01/28/24 01/28/24 Range/Units 11:14 11:15 11:23 WBC 9.0 (4.8-10.8) X10*3/uL RBC 3.98 L (4.20-5.50) X10*6/uL Hgb 13.0 (12.0-16.0) g/dl Hct 38.4 (37.0-47.0) % MCV 96.5 (80.0-98.0) fL MCH 32.7 (27.0-33.0) pg MCHC 33.9 (31.0-35.0) g/dl RDW 14.6 (11.0-16.0) % Plt Count 185 (160-400) X10*3/uL MPV 9.9 (9.4-12.3) fL Immature Gran % (Auto) 0.3 (0.0-0.4) % Neut % (Auto) 43.2 L (45-73) % Lymph % (Auto) 49.0 H (20-40) % [place] % (Auto) 7.0 (2-11) % Eos % (Auto) 0.1 (0-4) % Baso % (Auto) 0.4 (0-2) % Lymph # (Auto) 4.4 (1.2-4.9) X10*3/uL [place] # (Auto) 0.6 (0.1-1.2) X10*3/uL Eos # (Auto) 0.0 (0.0-0.4) X10*3/uL Baso # (Auto) 0.0 (0.0-0.2) X10*3/uL Abs Immat Gran (auto) 0.03 (0.00-0.03) X10*3/uL Absolute Neuts (auto) 3.9 (2.0-8.3) x10*3/uL Absolute Nucleated RBC 0.000 (0.0-0.012) X10*3/uL Nucleated RBC % (auto) 0.0 (0.0-0.2) /100WBC VBG pH 7.41 (7.32-7.43) VBG pCO2 48 mmHg VBG pO2 64 mmHg VBG HCO3 31 H (22-26) mmol/L VBG O2 Saturation 92.0 % VBG Base Excess 5.8 mmol/L Sodium 138 (135-145) mmol/L Potassium 3.8 (3.3-5.1) mmol/L Chloride 106 (96-108) mmol/L Carbon Dioxide 21 L (22-29) mmol/L Anion Gap 15 (12-20) BUN 8 L (9-16) mg/dL Creatinine 2.10 H (0.5-1.4) mg/dL Estim Creat Clear Calc 23.3 Estimated GFR 23 Random Glucose 153 H (60-115) mg/dL Calcium 8.3 L (8.4-10.2) mg/dL Magnesium 2.2 (1.6-2.6) mg/dL Total Bilirubin 0.4 (0.0-1.0) mg/dL Direct Bilirubin 0.2 (0.0-0.5) mg/dL AST 29 (5-31) U/L ALT 18 (0-31) U/L Alkaline Phosphatase 56 (39-117) U/L Troponin I High Sens 19.7 H (<3.5-17.0) ng/L B-Natriuretic Peptide 69 (<100) pg/mL Total Protein 7.0 (6.5-8.0) g/dL Albumin 3.8 (3.5-5.0) g/dL Influenza Type A (PCR) NEGATIVE (Negative) Influenza Type B (PCR) NEGATIVE (Negative) RSV RNA Qual (PCR) NEGATIVE (Negative) SARS-CoV-2 RNA (RT-PCR) NEGATIVE (Negative) Independent Interpretation I performed an independent interpretation of an: EKG and Plain X-Ray Interpretation: Rate: 99 Rhythm: paced [place]: left wide QRS complex. ST T wave : no ABHI, paced qTC: 531 prior studies: no acute change from priors The study has been interpreted contemporaneously by me. . Radiology Impression Discussion of test interpretation with radiology: I have reviewed the radiologist's reading. Independent Historian Clinical information obtained from an independent historian. History obtained from or confirmed by: EMS External Record Review External record reviewed: Outpatient record Discharge Plan Discharge Clinical Impression: Gastritis, Adverse effect of proton pump inhibitor, Acute dehydration Patient Disposition: Home, Self-Care Instructions: Gastritis (ED), Dehydration (ED) Additional Instructions: mild dehydration otherwise labs normal return for any worsening symptoms or concerns hold lasix x 2 days follow up with doctor on Wednesday - repeat kidney function start pepcid no more of the omeprazole start claritin as well Prescriptions: New loratadine [Claritin] 10 mg tablet 10 mg PO DAILY PRN (Reason: allergic symptoms) Qty: 30 0RF famotidine [Pepcid] 20 mg tablet 10 mg PO DAILY Qty: 30 0RF No Action omeprazole 40 mg capsule,delayed release(DR/EC) 40 mg PO DAILY Qty: 14 0RF gabapentin 600 mg tablet 600 mg PO BID lisinopril 40 mg tablet 40 mg PO DAILY clopidogrel [Plavix] 75 mg tablet 75 mg PO DAILY amlodipine [Norvasc] 10 mg tablet 10 mg PO DAILY omega-3 fatty acids [Fish Oil Concentrate] 1,000 mg capsule 1,000 mg PO DAILY donepezil 5 mg tablet 5 mg PO DAILY calcium carbonate-vitamin D3 [Calcium 500 + D] 500 mg(1,250mg) -200 unit tablet 1 tab PO DAILY metoprolol tartrate 100 mg tablet 100 mg PO BID aspirin 81 mg tablet,delayed release (DR/EC) 81 mg PO DAILY rosuvastatin 5 mg tablet 40 mg PO DAILY albuterol sulfate 90 mcg/actuation HFA aerosol inhaler 2 puff inhalation Q4-6H PRN (Reason: shortness of breath or wheezing) Qty: 1 3RF Stiolto Respimat 2.5-2.5 mcg/actuation mist 2 puff PO DAILY Qty: 4 6RF furosemide 40 mg tablet 40 mg PO DAILY Print Language: Urdu
[2024-01-28] MEDS: Albuterol Sulfate 90 MCG 8 GM INHALER 8 PUFF INHALE (10:22)
[2024-01-28] MEDS: methylPREDNISolone Sod Succ 125 MG/2 ML VIAL 60 MG IVPUSH (10:23)
[2024-01-28] MEDS: Loratadine 10 MG TABLET PO (10:23)
[2024-01-28] MEDS: Famotidine/PF 20 MG/2 ML VIAL IVPUSH (10:23)
[2024-01-28 10:25] VITALS: PULSE 74; RESP 22; O2SAT 98
--- NOTE | 2024-01-28 10:38 | PC.NURSE ---
no rash, no itching, no scratch foss. no SOB noted. pt continues to complain ofitching. waiting for meds to take effect
[2024-01-28 11:22] LABS: MANUAL DIFF FLAG NO
[2024-01-28 11:24] LABS: Basophils Percent Auto 0.4 % (0-2); Eosinophils Percent Auto 0.1 % (0-4); Hematocrit 38.4 % (37.0-47.0); Imm Gran Abs Auto 0.03 X10*3/uL (0.00-0.03); Imm Gran Pct Auto 0.3 % (0.0-0.4); Lymphocytes Absolute Auto 4.4 X10*3/uL (1.2-4.9); Mean Corpuscular HGB Conc 33.9 g/dl (31.0-35.0); Mean Corpuscular Hemoglobin 32.7 pg (27.0-33.0); Mean Corpuscular Volume 96.5 fL (80.0-98.0); Mean Platelet Volume 9.9 fL (9.4-12.3); Monocytes Absolute Auto 0.6 X10*3/uL (0.1-1.2); Neutrophils Absolute Auto 3.9 x10*3/uL (2.0-8.3); Neutrophils Percent Auto 43.2 % (45-73); Platelet Count 185 X10*3/uL (160-400); Red Blood Count 3.98 X10*6/uL (4.20-5.50); Red Cell Distribution Width 14.6 % (11.0-16.0)
[2024-01-28 11:27] LABS: VBG Base Excess 5.8 mmol/L; VBG HCO3 31 mmol/L (22-26); VBG pCO2 48 mmHg; VBG pH 7.41 (7.32-7.43); VBG pO2 64 mmHg
[2024-01-28 11:30] LABS: Venous Blood Gas Refer to POC result
[2024-01-28 11:39] LABS: Alanine Aminotransferase 18 U/L (0-31); Albumin Level 3.8 g/dL (3.5-5.0); Alkaline Phosphatase 56 U/L (39-117); Anion Gap 15 (12-20); Aspartate Amino Transferase 29 U/L (5-31); Bilirubin Direct 0.2 mg/dL (0.0-0.5); Bilirubin Total 0.4 mg/dL (0.0-1.0); Blood Urea Nitrogen 8 mg/dL (9-16); Calcium 8.3 mg/dL (8.4-10.2); Carbon Dioxide 21 mmol/L (22-29); Chloride 106 mmol/L (96-108); Creatinine Clr Calc Pharmacy 23.3; Estimated Glomerular Filt Rate 23; Glucose Random 153 mg/dL (60-115); Magnesium 2.2 mg/dL (1.6-2.6); Potassium 3.8 mmol/L (3.3-5.1); Sodium 138 mmol/L (135-145)
[2024-01-28 11:44] LABS: B Type Natriuretic Peptide 69 pg/mL (<100)
[2024-01-28 11:46] LABS: Troponin-I High Sensitivity 19.7 ng/L (<3.5-17.0)
[2024-01-28 12:07] LABS: Influenza A PCR NEGATIVE (Negative); Influenza B PCR NEGATIVE (Negative); Resp Syncy Virus RNA Qual PCR NEGATIVE (Negative); SARS COV2 PCR INHOUSE NEGATIVE (Negative)
[2024-01-28] MEDS: 0.9 % Sodium Chloride 500 ML IV (12:22)
[2024-01-28] MEDS: Magnesium Hydrox/Alum Hydrox 30 ML ORAL.SUSP 15 ML PO (12:23)
[2024-01-28] MEDS: Lidocaine HCl Viscous 2 % 15 ML SOLUTION MUCOUS MEM (12:23)
--- NOTE | 2024-01-28 12:25 | PC.NURSE ---
reports itching is slightly less. medicated for upper abd pain/epigstric complaints. family at bedside.
[2024-01-28 14:10] VITALS: BP 136/62; PULSE 97; RESP 16; TEMP 37.1; O2SAT 98
[2024-01-28 14:11] VITALS: BP 136/62; PULSE 97; RESP 16; TEMP 37.1; O2SAT 98
== END 2024-01-28 14:12 | disposition home or self-care (01) ==
PROVIDERS: Emergency Provider Emergency Medicine; PCP Internal Medicine
DX: K29.70 Gastritis, unspecified, without bleeding (principal); L50.0 Allergic urticaria; E86.0 Dehydration; R06.02 Shortness of breath; R94.31 Abnormal electrocardiogram [ECG] [EKG]; J44.9 Chronic obstructive pulmonary disease, unspecified; R05.9 Cough, unspecified; I10 Essential (primary) hypertension; Z79.899 Other long term (current) drug therapy; Z99.81 Dependence on supplemental oxygen
CPT/HCPCS: 0241U; 71045; 80048; 80076; 82803; 83735; 83880; 84484; 85025; 93005; 94640; 96374; 96375; 99284; J2919

== ENCOUNTER → 2024-01-28 09:49 | Outpatient (BNV) | payer OTHER, SELFPAY | PROVIDERS: Emergency Provider Emergency Medicine; PCP Internal Medicine; Visit Provider Internal Medicine | DX: R94.31 Abnormal electrocardiogram [ECG] [EKG] (principal) | CPT/HCPCS: 93010 ==

== ENCOUNTER 2024-03-24 10:54 | Outpatient (REF) | payer OTHER, SELFPAY ==
[2024-03-24 12:03] LABS: Appearance Urine Clear; Color Urine Yellow; Glucose Urine UA >=1000 mg/dL (Negative); Leukocyte Esterase Urine Moderate (2+) (Negative); Nitrite Urine Negative (Negative); PH 5.5 (5.0-9.0); UMIC TRIGGER UA YES; Urine Blood Negative (Negative); Urine Ketones Negative (Negative); Urine Protein Negative (Neg-Trace)
[2024-03-24 12:06] LABS: Bacteria Urine 1+ (None Seen); Hyaline Casts Urine 0-2 /LPF (0-2); RBC Urine 0-2 /HPF (0-2)
[2024-03-24 12:31] LABS: Anion Gap 14 (12-20); Blood Urea Nitrogen 22 mg/dL (9-16); Calcium 9.6 mg/dL (8.4-10.2); Carbon Dioxide 26 mmol/L (22-29); Chloride 104 mmol/L (96-108); Estimated Glomerular Filt Rate 34; Glucose Random 152 mg/dL (60-115); Sodium 140 mmol/L (135-145)
[2024-03-24 12:34] LABS: Parathyroid Hormone Intact 143.2 pg/mL (8.7-77.1)
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
--- OUTSIDE RECORDS SUMMARY | 2024-03-24 12:57 | XMS_ITS | Encounter Summary ---
Author Organization [facility] Address [address] [place] [address] Care Team Providers Care Slot Manager Name Role Phone Lazara Shepherd MD Primary Care Prov ider Reason for Visit * Reason Onset Date Comments Fitting for DME 02/28/2024 Faxed request [facility] Encounter Details Date Type Department Care Team ([facility] st Contact Info) Description 02/28/2024 Telephone Adult Medicine [address] [phone] Joanne Thomas LPN Fitting for DME (Faxed request from [facility]) Social History Tobacco Use Types Packs/Day Years Used Date Smoking Tobacco: Former Cigarettes Q uit: 10/01/2018 Smokeless Tobacco: Never Alcohol Use Standard Drinks/Week Comments No 0 (1 standard drink = 0.6 oz pur e alcohol) Sex and Gender Information Value Date Recorded Sex Assigned at Not on file Gender Identity Not on file Sexual Orientation Not on file Job Start Date Occupation Industry Not on file Not on file Not on file documented as of this encounter Progress Notes * Joanne Thomas LPN - 02/29/2024 7:26 AM EST Rx signed and faxed to [facility] ATTEN Kilo Parks @ [phone] as requested * Joanne Thomas LPN - 02/28/2024 3:17 PM EST Rx to Dr Melvin Lux to sign * Lazara Shepherd MD - 02/28/2024 12:07 PM EST That's ok. * Joanne Thomas LPN - 02/28/2024 10:03 AM EST Received faxed request from Kilo Hernadez MSN,MHA,RN for pull ons,bed pads,gloves,personal cleansing wipes ans commode for pt I do not see dx for incontinence ,she does have dx for dementia and kidney disease Message to Dr Melvin Lux ? Ok to write for these items Thank you Joanne CH documented in this encounter Plan of Treatment Not on file documented as of this encounter Visit Diagnoses Diagnosis Alzheimer's disease ([facility]/HCC)- Primary Alzheimer's disease Diabetic peripheral neuropathy associated with type 2 diabetes mellitus ([facility]) Venous insufficiency (chronic) (peripheral) Unspecified venous (peripheral) insufficiency Stage 3 chronic kidney disease, unspecified whether stage 3a or 3b CKD (CMS/HCC) documented in this encounter Orders General Supply Count Last Ordered Date First Or dered Date COMMODE CHAIR 1 02/28/2024 DISPOSABLE UNDERPADS (CHUX) 1 02/28/2024 GENERAL SUPPLY 2 02/28/2024 GLOVES, NON-STERILE 1 02/28/2024 documented in this encounter Care Teams Slot Manager Relationship Specialty Start Date End Date Lazara Shepherd MD [address] [place] [id number] PCP - General Internal Medicine 08/06/21 documented as of this encounter
--- OUTSIDE RECORDS SUMMARY | 2024-03-24 12:57 | XMS_ITS | Encounter Summary ---
Author Organization [facility] Address [address] [place] [address] Phone Care Team Providers Care Infantry Weapons Crewmember Name Role Phone Amanda Mckinnon MD Primary Care Provider [phone] Encounter Details Date Type Department Care Team (Late st Contact Info) Description 07/22/2022 Telephone [facility] [address] [place] [address] Zari Abraham Social History Tobacco Use Types Packs/Day Years Used Date Smoking Tobacco: Former Cigarettes Smokeless Tobacco: Former Comments Unknown Sex and Gender Information Value Date Recorded Sex Assigned at Not on file Legal Sex Female 5:07 PM EST Gender Identity Not on file Sexual Orientation Not on file documented as of this encounter Miscellaneous Notes * Telephone Encounter - Zari Abraham - 07/22/2022 11:28 AM EDT PT is calling to check in on her Renal Arty Duplex appointment, she has not heard back. documented in this encounter Plan of Treatment Not on file documented as of this encounter Procedures Procedure Name Priority Date/Time Associated Diagnosis Comments BASIC METABOLIC PANEL Routine 10/16/2022 10:32 AM EDT documented in this encounter Results * (ABNORMAL) Basic Metabolic Panel (10/16/2022 10:32 AM EDT) Sodium 141 135 - 145 mmol/L [facility] Potassium 3.7 3.3 - 5.1 mmol/L [place] Chloride 107 96 - 108 mmol/L [place] Bicarbonate (CO2) 23 22 - 29 mmol/L [place] Anion Gap 15 12 - 20 [place] BUN 17(H) 9 - 16 mg/dL [place] Creatinine Serum 1.55(H) 0.5 - 1.4 mg/dL [place] eGFR 33 [place] Comment: NOTE: ??For -[place] individuals, multiply the result ? by 210. Chronic Kidney Disease: ??Estimated GFR < 60 mL/min/1.73m2 Severe Kidney Disease: ??Estimated GFR < 15 mL/min/1.73m2 Glucose 127(H) 60 - 115 mg/dL [place] Calcium 9.2 8.4 - 10.2 mg/dL [place] 10/16/2022 10:3 2 AM EDT 10/16/2022 10:32 AM EDT us Regino Bazan MD LAB BLOOD ORDERABLES Final Res ult WALL documented in this encounter Visit Diagnoses Not on filedocumented in this encounter Care Teams [employer] We[employer] Crewmember Relationship Specialty Start Date End Date Amanda Mckinnon MD [address] [place] [phone] PCP - General Internal Medicine 11/20/20 documented as of this encounter
--- OUTSIDE RECORDS SUMMARY | 2024-03-24 12:57 | XMS_ITS ---
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 Name Role Phone Pat Adams Unavailable [phone] Unavailable Unavailable Unavailable [facility] Unavailable Unavailable Unavailable Unavailable Unavailable Unavailable Unavailable Reason for Referral Not Available Allergies, adverse reactions, alerts No known allergies History of medication use Medication Class Instructions Start Date End Date Lisinopril 40 mg Tab TAKE 1 TABLET BY MO UTH EVERYDAY AT BEDTIME 2021-03-25 No Data Available Stiolto Respimat 2.5-2.5 MCG /ACT Aerosol Solution TAKE 2 PUFFS BY MOUTH EVERY DAY 2021-01-06 No Data Available [id number]-2-[id number] Ethyl Esters 1 GM Cap TAKE 1 CAPSULE BY MOUTH THREE TIMES A DAY 2021-07-14 No Data Available hydrALAZINE 25 mg Tab TAKE 1 TABLET BY M OUTH TWICE A DAY WITH FOOD FOR 30 DAYS 2021-07-17 No Data Available Metoprolol Tartrate 100 mg Tab TAKE HALF A TABLET (50 mg) BY MOUTH TWICE A DAY 2021-02-12 No Data Available hydroCHLOROthiazide 25 mg Tab TAKE 1 TAB LET BY MOUTH EVERY DAY 2021-07-31 2023-04-26 QUEtiapine Fumarate 50 mg Tab TAKE 1 TAB LET BY MOUTH EVERYDAY AT BEDTIME 2021-07-31 No Data Available Bisacodyl EC 5 mg Tab delaye d rel No Data Available 2021-07-24 2021-12-17 PEG-3350/Electrolytes 236 GM Solution No Data Available 2021-07-24 2021-12-17 Rosuvastatin Calcium 5 mg Tab TAKE 1 TAB LET BY MOUTH EVERYDAY AT BEDTIME 2021-05-21 2024-02-16 Jardiance 10 mg Tab TAKE 1 TABLET BY SHYLA TH EVERY DAY 2021-08-25 No Data Available Clopidogrel Bisulfate 75 mg Tab TAKE 1 T ABLET BY MOUTH EVERY DAY 2021-02-12 2024-02-16 Donepezil 10 mg Tab TAKE 1 TABLET BY SHYLA TH EVERY DAY 2021-06-02 No Data Available Aspirin Low Dose 81 mg Tab delayed rel TAKE 1 TABLET BY MOUTH EVERY DAY 2021-09-03 No Data Available OneTouch Delica Lancets 33G Miscellaneous USE 1 LANCET EVERY MORNING (BEFORE BREAKFAST). TO CHECK FASTING BLOOD GLUCOSE 2021-09-03 No Data Available Memantine 10 mg Tab TAKE 1 TABLET BY SHYLA TH TWICE A DAY FOR 90 DAYS 2021-02-12 No Data Available OneTouch Ultra Strip USED TO TEST BLOOD SUGAR ONCE DAILY. 2021-09-25 No Data Available amLODIPine Besylate 10 mg Tab TAKE 1 TAB LET BY MOUTH EVERYDAY AT BEDTIME 2021-09-30 2022-04-14 CALCIUM 600 MG-VIT D3 10MCG TB TAKE 1 TA BLET BY MOUTH EVERY DAY 2021-11-13 No Data Available Budesonide 0.5 mg/2ML Suspension USE 1 V IAL VIA NEBULIZER DAILY 2021-12-04 No Data Available Gabapentin 600 mg Tab TAKE 1 TABLET BY M OUTH TWICE A DAY 2021-12-04 No Data Available Tylenol 325 mg Tab 2 tabs every 8 hours as needed 2021-12-17 No Data Available buPROPion ER (SR) 100 mg Tab ER 12hr 1 tablet orally once daily 2021-12-17 No Data Available Furosemide 20 mg Tab TAKE 1 TABLET BY MO UTH EVERY DAY 2023-06-14 No Data Available Pravastatin Sodium 80 mg Tab TAKE 1 TABL ET BY MOUTH EVERY DAY 2023-10-12 No Data Available Magnesium Oxide 400 mg Tab 1 tablet oral ly 2 times per day for muscle cramps 2023-12-23 No Data Available Voltaren 1 % Gel 2 grams topically to affected area 4 times per day prn 2023-12-23 No Data Available Omeprazole 40 mg Cap delayed rel TAKE 1 CAPSULE BY MOUTH EVERY DAY 2024-01-25 No Data Available Famotidine 20 mg Tab TAKE 0.5 TABLET BY MOUTH DAILY FOR ABDOMINAL DISCOMFORT 2024-01-28 No Data Available Loratadine 10 mg Tab TAKE 1 TABLET ORALL Y DAILY NEEDED FOR ALLERGIC SYMPTOMS 2024-01-28 No Data Available Fluorometholone 0.1 % Suspension INSTILL 1 DROP INTO BOTH EYES TWICE A DAY 2024-02-08 No Data Available Problem List Problem Status Onset Date Resolved Date Major depressive disorder, recurrent, mild Active 2021-12-17 N/A Alzheimer's disease, unspecified Active N/A Aortic arch atherosclerosis Active 2021-12-22 N/A Presence of cardiac pacemaker Active 2021-12-28 N/A Hx of aortic valve replacement, Anticoagulated Active 2021-12-17 N/A Sick sinus syndrome Active 2021-12-29 N/A Back pain Active 2021-12-17 N/A COPD (chronic obstructive pulmonary disease) Active 2021-12-17 N/A Hypotension Resolved 2021-12-28 2023-04-26 Hypertensive urgency Resolved 2022-04-282023-04 Morbid (severe) obesity due to excess calories Active 2023-04-26 N/A Type 2 diabetes mellitus wit h diabetic chronic kidney disease, Stage 3b Active 2021-12-17 N/A Type 2 diabetes mellitus with hyperglycemia Resolved 2022-05-06 2023-04-26 Type 2 diabetes mellitus wit h other specified complication Active 2023-04-26 N/A 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 Active 2021-12-17 N/A Other problems related to [facility] facilities and other health care Active 2023-04-26 N/A 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 Active 2021-12-17 N/A Cramps, muscle, general Active 2023-12-23 N/A History of recent hospitalizationStomach discomfort Ac tive 2024-02-16 N/A Encounters Encounters Type Facility Date of Service Diagnosis/Co mplaint Medication List Documented (1159F) [facility] ([place] Medication List Documented (1159F) [facility] Medication List Documented (1159F) [facility] Medication List Documented (1159F) [facility] Medication List Documented (1159F) [facility] Medication List Documented (1159F) [facility] Dorsalgia, unspecifiedOther localized visual field defect, left eyeHemiplga following cerebral infrc affecting left nondom sideUnspecified sequelae of cerebral infarctionChronic obstructive pulmonary disease, unspecifiedHyp hrt & chr kdny dis w hrt fail and stg 1-4/unsp chr kdnyPresence of cardiac pacemakerMajor depressive disorder, recurrent, mildType 2 diabetes mellitus with diabetic chronic kidney diseaseChronic kidney disease, stage 3bAlzheimer's disease, unspecifiedDementia in oth diseases classd elswhr w/o behavrl disturbAtherosclerosis of aortaHypotension, unspecifiedSick sinus syndrome Medication List Documented (1159F) [facility] Medication List Documented (1159F) [facility] Medication List Documented (1159F) [facility] Estab. patient 30-39min; chronic exacerbation, 2 stable chronic or 1 acute illness add add modifier 95 for video, (do not use for phone, instead use [id number]) [facility]20[place] Dorsalgia, unspecifiedOther localized visual field defect, left eyeHemiplga following cerebral infrc affecting left nondom sideUnspecified sequelae of cerebral infarctionChronic obstructive pulmonary disease, unspecifiedHeart failure, unspecifiedChronic kidney disease, stage 3 unspecifiedHyp hrt & chr kdny dis w hrt fail and stg 1-4/unsp chr kdnyMajor depressive disorder, recurrent, mildType 2 diabetes mellitus with diabetic chronic kidney diseaseChronic kidney disease, stage 3bAlzheimer's disease, unspecifiedDementia in oth diseases classd elswhr w/o behavrl disturbAtherosclerosis of aortaSick sinus syndromeType 2 diabetes mellitus with hyperglycemia Estab. patient 30-39min; chronic exacerbation, 2 stable chronic or 1 acute illness add add modifier 95 for video, (do not use for phone, instead use 76432-60) [facility] Estab. patient 30-39min; chronic exacerbation, 2 stable chronic or 1 acute illness add add modifier 95 for video, (do not use for phone, instead use 74096-07) [facility] Estab. patient 30-39min; chronic exacerbation, 2 stable chronic or 1 acute illness add add modifier 95 for video, (do not use for phone, instead use 82080-31) [facility] Estab. patient 30-39min; chronic exacerbation, 2 stable chronic or 1 acute illness add add modifier 95 for video, (do not use for phone, instead use 86597-52) [facility] Estab. patient 30-39min; chronic exacerbation, 2 stable chronic or 1 acute illness add add modifier 95 for video, (do not use for phone, instead use 21406-76) [facility] Estab. patient 30-39min; chronic exacerbation, 2 stable chronic or 1 acute illness add add modifier 95 for video, (do not use for phone, instead use 13211-37) [facility] Estab. patient 30-39min; chronic exacerbation, 2 stable chronic or 1 acute illness add add modifier 95 for video, (do not use for phone, instead use 12098-29) [facility] Estab. patient 30-39min; chronic exacerbation, 2 stable chronic or 1 acute illness add add modifier 95 for video, (do not use for phone, instead use [id number]) [facility] Estab. patient 30-39min; chronic exacerbation, 2 stable chronic or 1 acute illness add add modifier 95 for video, (do not use for phone, instead use 16350-73) [facility] Estab. patient 30-39min; chronic exacerbation, 2 stable chronic or 1 acute illness add add modifier 95 for video, (do not use for phone, instead use 03715-77) [facility]20[place] Dorsalgia, unspecifiedOther localized visual field defect, left eyeHemiplga following cerebral infrc affecting left nondom sidePrsnl hx of TIA (TIA), and cereb infrc w/o resid deficitsChronic obstructive pulmonary disease, unspecifiedHyp hrt & chr kdny dis w hrt fail and stg 1-4/unsp chr kdnyHeart failure, unspecifiedPresence of prosthetic heart valveLong term (current) use of anticoagulantsMajor depressive disorder, recurrent, mildType 2 diabetes mellitus with diabetic chronic kidney diseaseChronic kidney disease, stage 3bAlzheimer's disease, unspecifiedDementia in oth diseases classd elswhr w/o behavrl disturbAtherosclerosis of aortaPresence of cardiac pacemakerSick sinus syndromeMorbid (severe) obesity due to excess caloriesOther problems related to medical facilities and other health careType 2 diabetes mellitus with other specified complicationHyperlipidemia, unspecifiedBody mass index (BMI) 45.0-49.9, adult Estab. patient 30-39min; chronic exacerbation, 2 stable chronic or 1 acute illness add add modifier 95 for video, (do not use for phone, instead use 58706-29) [facility] Estab. patient 30-39min; chronic exacerbation, 2 stable chronic or 1 acute illness add add modifier 95 for video, (do not use for phone, instead use 70716-82) [facility] Estab. patient 30-39min; chronic exacerbation, 2 stable chronic or 1 acute illness add add modifier 95 for video, (do not use for phone, instead use 13437-88) [facility] Estab. patient 30-39min; chronic exacerbation, 2 stable chronic or 1 acute illness add add modifier 95 for video, (do not use for phone, instead use 07660-97) [facility] Estab. patient 30-39min; chronic exacerbation, 2 stable chronic or 1 acute illness add add modifier 95 for video, (do not use for phone, instead use 94456-71) [facility] [place] 04[place] Estab. patient 30-39min; chronic exacerbation, 2 stable chronic or 1 acute illness add add modifier 95 for video, (do not use for phone, instead use 56232-98) [facility] Estab. patient 30-39min; chronic exacerbation, 2 stable chronic or 1 acute illness add add modifier 95 for video, (do not use for phone, instead use 34575-68) [facility]2023 No Data Available [facility]20[place] Hyp hrt & chr kdny dis w hrt fail and stg 1-4/unsp chr kdnyHeart failure, unspecifiedChronic kidney disease, unspecifiedCramp and spasmOther problems related to medical facilities and other health care No Data Available [facility]20[place] No Data Available [facility] No Data Available [facility] No Data Available [facility]20[place] Hyp hrt & chr kdny dis w hrt fail and stg 1-4/unsp chr kdnyHeart failure, unspecifiedChronic kidney disease, stage 3 unspecifiedCramp and spasmOther problems related to medical facilities and other health care No Data Available [facility]20[place] RN, CN or CP time with patient by phone; use with 1111F, BP, A1c or other CPTII codes [facility] 02[place]2024 Encounter for other specifie d aftercare No Data Available [facility] Unspecified abdominal painPersonal history of other medical treatment No Data Available [facility]20[place] No Data Available [facility] No Data Available [facility]20[place] No Data Available [facility] No Data Available [facility] No Data Available [facility] No Data Available [facility] Vital Signs Date of Collection Vitals 2021-12-17 10:52:13 BP Diastolic - 62.0 mm[Hg]BP Systolic - 122.0 mm[Hg]Heart Rate - 65.0 /min 2022-04-14 12:25:52 Height - 157.48 cmWe ight - 78.02 kgBody Mass Index (BMI) - 31.46 kg/m2BP Diastolic - 106.0 mm[Hg]BP Systolic - 207.0 mm[Hg] 2023-04-26 08:37:12 Height - 134.62 cmWe ight - 85.28 kgBody Mass Index (BMI) - 47.06 kg/m2Pain Scale - 0.0 {score} 2023-12-23 07:05:07 BP Diastolic - 69.0 mm[Hg]BP Systolic - 125.0 mm[Hg]Heart Rate - 65.0 /min 2024-02-16 09:26:11 Height - 157.48 cmWe ight - 87.54 kgBody Mass Index (BMI) - 35.3 kg/m2BP Diastolic - 60.0 mm[Hg]BP Systolic - 123.0 mm[Hg]Heart Rate - 60.0 /minPain Scale - 0.0 {score} Social History Social History Social History Observation Description Effec tive Time Current Smoking Status Former smoker 2024-03-02 3 Sex Female History of Procedures Procedures Service Procedure code Service date Servicing provider Phone# Medication List Documented (1159F) 1159F 2021-12-17 No Data Available No Data Laurita ilable Medication Review by prescribing provider or pharmacist documented (1160F) 1160F 2021-12-17 No Data Available No Data Laurita ilable Functional Status Assessed (1170F) 1170F 2021-12-17 No Data Available No Data Avail able Advance Care Directive Advance care planning discussion documented in the medical record (1158F) 1158F 2021-12-17 No Data Available No Data Availa ble BMI obtained (3008F) 3008F 2021-12-17 No Data Availab le No Data Available No Data Available [id number] 2021-12-17 No Data Available No Data Available SBP < 130 (3074F) 3074F 2021-12-17 No Data Available No Data Available DBP <80 (3078F) 3078F 2021-12-17 No Data Available No Data Available Pain Assessment - Pain Documented (1125F) 1125F 2021-12-17 No Data Available No Data Availa ble Estab. patient 30-39min; chronic exacerbation, 2 stable chronic or 1 acute illness add add modifier 95 for video, (do not use for phone, instead use [id number]) 93200 2022-04-14 No Data Available No Data Availa ble Medication List Documented (1159F) 1159F 2022-04-14 No Data Available No Data Laurita ilable Medication Review by prescribing provider or pharmacist documented (1160F) 1160F 2022-04-14 No Data Available No Data Laurita ilable Functional Status Assessed (1170F) 1170F 2022-04-14 No Data Available No Data Avail able Advance Care Directive Advance care planning discussion documented in the medical record (1158F) 1158F 2022-04-14 No Data Available No Data Availa ble BMI obtained (3008F) 3008F 2022-04-14 No Data Availab le No Data Available SBP >= 140 3077F 2022-04-14 No Data Available No Data Available DBP >=90 3080F 2022-04-14 No Data Available No Data Available Pain Assessment - Pain Documented (1125F) 1125F 2022-04-14 No Data Available No Data Availa ble BMI obtained (3008F) 3008F 2022-04-14 No Data Availab le No Data Available Estab. patient 30-39min; chronic exacerbation, 2 stable chronic or 1 acute illness add add modifier 95 for video, (do not use for phone, instead use 52461-71) 2023-04-26 No Data Available No Data Availa ble Medication List Documented (1159F) 1159F 2023-04-26 No Data Available No Data Laurita ilable Medication Review by prescribing provider or pharmacist documented (1160F) 1160F 2023-04-26 No Data Available No Data Laurita ilable Pain Assessment - NO pain present (1126F) 1126F 2023-04-26 No Data Available No Data A vailable BMI obtained (3008F) 3008F 2023-04-26 No Data Availab le No Data Available Advance Care Directive Advance care planning discussion documented in the medical record (1158F) 1158F 2023-04-26 No Data Available No Data Availa ble Advance care planning discussed and documented in the medical record ? beneficiary/patient did not wish to or was unable to provide an advance care plan or name a surrogate decision-maker. (1124F) 1124F 2023-04-26 No Data Available No Data Availa ble Functional Status Assessed (1170F) 1170F 2023-04-26 No Data Available No Data Avail able No Data Available 49139 2023-12-23 No Data Available No Data Available SBP < 130 (3074F) 3074F 2023-12-23 No Data Available No Data Available DBP <80 (3078F) 3078F 2023-12-23 No Data Available No Data Available Medication List Documented (1159F) 1159F 2023-12-23 No Data Available No Data Laurita ilable No Data Available 99351 2023-12-24 No Data Available No Data Available Medication List Documented (1159F) 1159F 2023-12-24 No Data Available No Data Laurita ilable RN, CN or CP time with patient by phone; use with 1111F, BP, A1c or other CPTII codes 31262 2024-02-10 No Data Available No Data Avai lable No Data Available 79351 2024-02-16 No Data Available No Data Available Medication List Documented (1159F) 1159F 2024-02-16 No Data Available No Data Laurita ilable Advance care planning discussed and documented ? advance care plan or surrogate decision-maker was documented in the medical record. (1123F) 1123F 2024-02-16 No Data Available No Data Availa ble Medications prescribed in hospital were reviewed and reconciled against what they were taking prior to admission during today's visit. (1111F) 1111F 2024-02-16 No Data Available No Data Availa ble BMI obtained (3008F) 3008F 2024-02-16 No Data Availab le No Data Available Pain Assessment - NO pain present (1126F) 1126F 2024-02-16 No Data Available No Data A vailable SBP < 130 (3074F) 3074F 2024-02-16 No Data Available No Data Available DBP <80 (3078F) 3078F 2024-02-16 No Data Available No Data Available Functional Status Functional Category Effective Dates Cognition Status: 2021-12-17 ADL Eating: Independent; Amb ulation: Independent; Dressing: Some Help Needed; Bathing: Some Help Needed; Toileting: Independent 2021-12-17 IADL Shopping: Total Assist; Housekeeping: Total Assist; Meal Prep:Help; Medications Management: Some help 2021-12-17 Falls in last 6 Months: No 2021-12-17 Mental Status No Information Assessments Date of Service Assessments 2021-12-17 10:52:13 Will discuss Advance d Care Plan at . Also need video call.Back painSequelae of cerebral infarction, Hemiplegia and hemiparesis following cerebral infarction affecting left non-dominant side, Peripheral visual field defect of left eyeCOPD (chronic obstructive pulmonary disease)Hypertensive heart and chronic kidney disease with heart failure and stage 3 chronic kidney diseaseHx of aortic valve replacement, AnticoagulatedMajor depressive disorder, recurrent, mildType 2 diabetes mellitus with diabetic chronic kidney disease, Stage 3bAlzheimer's disease, unspecifiedAortic arch atherosclerosisPresence of cardiac pacemakerHypotensionSick sinus syndrome 2022-04-14 12:25:52 Back pain - stableSe quelae of cerebral infarction, Hemiplegia and hemiparesis following cerebral infarction affecting left non-dominant side, Peripheral visual field defect of left eye - stableCOPD (chronic obstructive pulmonary disease) - stableHx of aortic valve replacement, Anticoagulated - stableHypertensive heart and chronic kidney disease with heart failure and stage 3 chronic kidney disease - stableHx of aortic valve replacement, Anticoagulated - stableMajor depressive disorder, recurrent, mild - stableType 2 diabetes mellitus with diabetic chronic kidney disease, Stage 3b - stableAlzheimer's disease, unspecified - stableAortic arch atherosclerosis - stablePresence of cardiac pacemaker - stableSick sinus syndrome - stableHypertensive urgencyType 2 diabetes mellitus with hyperglycemia - stableObesity (BMI 30-39.9) 2023-04-26 08:37:12 Back painSequelae of cerebral infarction, Hemiplegia and hemiparesis following cerebral infarction affecting left non-dominant side, Peripheral visual field defect of left eyeCOPD (chronic obstructive pulmonary disease)Hypertensive heart and chronic kidney disease with heart failure and stage 3 chronic kidney diseaseHx of aortic valve replacement, AnticoagulatedMajor depressive disorder, recurrent, mildType 2 diabetes mellitus with diabetic chronic kidney disease, Stage 3bAlzheimer's disease, unspecifiedAortic arch atherosclerosisPresence of cardiac pacemakerSick sinus syndromeMorbid (severe) obesity due to excess caloriesOther problems related to medical facilities and other health careType 2 diabetes mellitus with other specified complication 2023-12-23 07:05:07 Hypertensive heart a nd chronic kidney disease with heart failure and stage 3 chronic kidney diseaseCramps, muscle, generalOther problems related to medical facilities and other health care 2023-12-24 07:46:10 Hypertensive heart a nd chronic kidney disease with heart failure and stage 3 chronic kidney diseaseCramps, muscle, generalOther problems related to medical facilities and other health care 2024-02-16 09:26:11 History of recent ho spitalizationStomach discomfort Plan of Care Date of Service Plans 2021-12-17 10:52:13 Medication Review by prescribing provider or pharmacist documented (1160F)Medication List Documented (1159F)Functional Status Assessed (1170F)BMI obtained (3008F)SBP < 130 (3074F)DBP <80 (3078F)Televideo new patient,40-59min; chronic exacerbation, 2 stable chronic or 1 acute illness add modifier 95Pain Assessment - Pain Documented (1125F)Continue to see PCP. Follow-up with Sissy as needed for any acute or disease education needs that may arise. Continue to see PCP. Follow-up with [facility] as needed for any acute or disease education needs that may arise.?arthritisGabapentin, TylenolCVA circa 2013Most noticeable sequela is vision change on left.Functionally relatively well per pt report.on StioltoLisinoprilHCTZAmlodipineReplaced on 06/27/2019On PlavixDenies SISometimes does not fel like going out or bathing etcbupropion; QUEtiapineOn Jardianceon Memantine and Donepezilcarotid duplex: The aortic arch type was a type I with mild atherosclerotic diseasestatin and BP controlplaced in 2020Acute. Reports last Wednesday12/12/2021 got lightheaded, threw up, may have passed out, BP got very low, 96/59, 95/61, then 96/55, another time 90/57, HR usually in the 60s - I am changing her beta christian - to lower metoprolol to 50 bid.Sxs have improved and she is feeling better now. HR today 65, BP 122/62.Unclear if she was dehydrated or hypoglycemic.She will call cardio, ask to give mssg to educational consultant, ask to be triaged and possibly seen soon. Pls tell cardio we lowered metoprolol after sxs began. Pt and Dtr verbalize understanding and agree with plan.pacemaker and metoprolol daily, will monitor 2022-04-14 12:25:52 Pain Assessment - NO pain documented (1126F)Medication Review by prescribing provider or pharmacist documented (1160F)Medication List Documented (1159F)Functional Status Assessed (1170F)Advance Care Directive Advance care planning discussion documented in the medical record (1158F)SBP >= 140DBP >=90Televideo 30-39min; chronic exacerbation, 2 stable chronic or 1 acute illness add modifier 95Pain Assessment - Pain Documented (1125F)BMI obtained (3008F)Continue to see PCP. Follow-up with [facility] as needed for any acute or disease education needs that may arise.Gabapentin, TylenolReports worsening painEncouraging movement, activityCVA circa 2013Most noticeable sequela is vision change on left.Functionally relatively well per pt report.on StioltoCall CB if cough, sobReplaced on 06/27/2019On PlavixLisinoprilHCTZAmlodipineReplaced on 06/27/2019On PlavixDenies SISometimes does not fel like going out or bathing etcbupropion; QUEtiapineOn Jardianceavoid nephrotoxic medsEncourage low starch, high fiber dieton Memantine and Donepezilcarotid duplex: The aortic arch type was a type I with mild atherosclerotic diseasestatin and BP controlplaced in 2019pacemaker and metoprolol daily, will monitorBP elevated all day, 200+/100+. No sxs - no ZUNIGA, no blurry vision (one eye blurry is baseline).We recently lowered metoprolol due to hypotension.Have encouraged to see cardio Sending to Missy at first but convinced her. She wants her friend to take her.On her way to ERJardianceEducation re reducing starch in diet,increasing fiber,Activity as tolerated,weight loss.BMI 31.46Education re diet (more fiber, less starch), activity as tolerated,Ed re benefits of weight loss. 2023-04-26 08:37:12 Medication Review by prescribing provider or pharmacist documented (1160F)Medication List Documented (1159F)Functional Status Assessed (1170F)Advance Care Directive Advance care planning discussion documented in the medical record (1158F)BMI obtained (3008F)sbdbTelevideo 30-39min; chronic exacerbation, 2 stable chronic or 1 acute illness add modifier 95Advance care planning discussed and documented in the medical record ? beneficiary/patient did not wish to or was unable to provide an advance care plan or name a surrogate decision-maker. (1124F)Pain Assessment - NO pain documented (1126F)Continue to see PCP. Follow-up with [facility] as needed for any acute or disease education needs that may arise.Gabapentin, TylenolReports worsening painEncouraging movement, activityCVA circa 2013Most noticeable sequela is vision change on left.Functionally relatively well per pt report.on StioltoCallCBif cough, sobLisinoprilHCTZAmlodipineNo recent eGFR. Lab work scheduled with PCP on 05/17/23Replaced on 06/27/2019On PlavixDenies SISometimes does not fel like going out or bathing etcbupropion; QUEtiapineOn Jardiance, Calcium avoid nephrotoxic medsEncourage low starch, high fiber kegbM2U lab work scheduled for 05/17/23on Memantine and Donepezilcarotid duplex: The aortic arch type was a type I with mild atherosclerotic diseasestatin and BP controlplaced in 2019pacemaker and metoprolol daily, will monitorBMI: 47.6Educated on benefits of weight loss, increase physical activity as toleratedLimit fast food, sweets, and processed snack foods.Choose low-fat options, such as low-fat milk instead of whole milk.CHFContingency plan:1. Daily weighs2. If weight gain >3lbs/day or >5lbs/week to contact CB. Consider increasing diuretics for 3-5 days.3. Low sodium diet4. Fluid restrictionCo-managed with: Jardiance, RosuvastatinReinforced importance of avoiding foods with high sugar content, high carbohydrates or starchy foods like rice, potatoes. Recommended to eat smaller portions with healthy snacks.F/U with PCP 2023-12-23 07:05:07 Phone (patient, saidae nt, or guardian); 11-20 minutes of medical discussion (no modifier 95)SBP < 130 (3074F)DBP <80 (3078F)Continue to see PCP. Follow-up with [facility] as needed for any acute or disease education needs that may arise 21/09.LisinoprilHCTZAmlodipineNo recent eGFR. Lab work scheduled with PCP on 05/16/2409/24/24: Reports she vomited on Wednesday and her blood pressure has been fluctuating. Denies fever, abdominal pain. Discussed importance of staying well hydrated, incorporating fruits and vegetables to ensure lytes are stable. During visit today, BP 125/69, HR 64. She has not taken her antihypertensives yet today because she has been normotensive and does not want it to get too low as her SBP was 88 the other day after she vomited. Discussed to have something to eat and drink, recheck BP and if >140/90 can take her antihypertensive meds, if lower then hold lisinopril. Saw cardiology about 2 months ago, does not know when she has follow up. Discussed that she should call to schedule appt and make aware of new symptoms.12/23/23: Cramps in her hand are a bit better. Initially, cramps started years ago. This week, cramps in her hands, legs and feet are much worse. When she gets flare ups she drinks plenty of water, takes Tylenol and this typically helps. Discussed she can use things like heating pad, Voltaren gel, magnesium. She has spoken to her doctor about this, does not know the cause of her cramps.CHFContingency plan:1. Daily weighs2. If weight gain >3lbs/day or >5lbs/week to contact CB. Consider increasing diuretics for 3-5 days.3. Low sodium diet4. Fluid restrictionDEHYDRATION CONTINGENCY PLANLast updated: 12/23/2023Member to call for the following symptoms: BP <100/60??/ Decreased UOP - general/ Dry or tacky lips/ HR >100??Planned intervention: Drink Pedialyte/ Drink 16 oz of water/ Hold Antihypertensives 2023-12-24 07:46:10 Phone (patient, pare nt, or guardian); 11-20 minutes of medical discussion (no modifier 95)Continue to see PCP. Follow-up with [facility] as needed for any acute or disease education needs that may arise 21/09.LisinoprilHCTZAmlodipineNo recent eGFR. Lab work scheduled with PCP on 05/16/2409/24/24: Reports she vomited on Wednesday and her blood pressure has been fluctuating. Denies fever, abdominal pain. Discussed importance of staying well hydrated, incorporating fruits and vegetables to ensure lytes are stable. During visit today, BP 125/69, HR 64. She has not taken her antihypertensives yet today because she has been normotensive and does not want it to get too low as her SBP was 88 the other day after she vomited. Discussed to have something to eat and drink, recheck BP and if >140/90 can take her antihypertensive meds, if lower then hold lisinopril. Saw cardiology about 2 months ago, does not know when she has follow up. Discussed that she should call to schedule appt and make aware of new symptoms.12/24/23: No further episodes of vomiting. Staying hydrated and eating well. SBP went up to 149 and she took her antihypertensives yesterday. She took her Lisinopril before 8am this morning. Her BP was then 175/80, HR 79 during her doctor's office visit at pain clinic prior to getting cortisone injection. SBP during this visit BP 160/85, HR. Confirmed she only took lisinopril and did not take hydralazine, metoprolol, HCTZ, lasix. Instructed to take remainder of her antihypertensive, ensure she eats and stays hydrated. Assess for dizziness, lightheadedness, fatigue, check BP and if Bp <100/60, ensure oral hydration can call CB for further assistance.12/23/23: Cramps in her hand are a bit better. Initially, cramps started years ago. This week, cramps in her hands, legs and feet are much worse. When she gets flare ups she drinks plenty of water, takes Tylenol and this typically helps. Discussed she can use things like heating pad, Voltaren gel, magnesium. She has spoken to her doctor about this, does not know the cause of her cramps.12/24/23: Saw her pain management team this morning and received cortisone injection in her left hand.CHFContingency plan:1. Daily weighs2. If weight gain >3lbs/day or >5lbs/week to contact CB. Consider increasing diuretics for 3-5 days.3. Low sodium diet4. Fluid restrictionDEHYDRATION CONTINGENCY PLANLast updated: 12/23/2023Member to call for the following symptoms: BP <100/60??/ Decreased UOP - general/ Dry or tacky lips/ HR >100??Planned intervention: Drink Pedialyte/ Drink 16 oz of water/ Hold Antihypertensives 2024-02-16 09:26:11 Discharge medication s reconciled with current medication listAdvance care planning discussed and documented ? advance care plan or surrogate decision-maker was documented in the medical record. (1123F)SBP < 130 (3074F)Pain Assessment - NO pain documented (1126F)DBP <80 (3078F)Phone (patient, parent, or guardian); 21-30 minutes of medical discussion (no modifier 95)PCP visit is planned for:Hospital name: [facility] Hospital admission date: 01/30/24ospital discharge date: 02/02/24Discharge diagnosis: MR stringer, per patient stomach pain, possible virus. Records at time of call: Not available/ Requested Spoke to: MemberEvents leading up to hospitalization and hospital course: Member states she went to the hospital because her stomach was hurting. Member unsure what she was diagnosed with. MR stringer. Unable to verbalize diagnosis, but states possible virus. States Plavix was discontinued. Had follow up with PCP 2 days ago. All medications reviewed at this time. Has appt with Rubber Goods Inspector Tester on 03/02/2024. Has appt for heart Ultrasound for 03/24/2024. Denies any new complaints or acute symptoms today. Advised to contact CB 21/09 as needed. Goals Date Goal 2021-12-17 Remember to 2021-12-17 Call me if 2021-12-17 Keep it up 2021-12-17 Remember to 2021-12-17 Call me if 2021-12-17 Keep it up 2024-02-16 Remember to keep all appointments with your PCP and specialists. Call CB 21/09 if you have questions or concerns. Discussed how to contact [facility] via phone or tablet. 21/09 phone number provided. 2024-02-16 Home Health or DME n eeds: Requesting standard shower chair. DME order placed. Health Concerns Date Concern 2024-02-16 Elvi is a 74 y/o f emale. Visit completed by audio only. Patient agreed to visit via telehealth. Today, patient has chief complaint of: recent hospitalization.Hospital discharge paperwork requested/reviewed. 2024-02-16 Tell me about your recent hospital stay(s) or ER visit(s) and precipitating factors: Hospital name: [facility] Hospital admission date: 01/30/24ospital discharge date: 02/02/24Discharge diagnosis: pendjayson, per patient stomach pain, possible virus. Records at time of call: Not available/ Requested Spoke to: MemberEvents leading up to hospitalization and hospital course: Member states she went to the hospital because her stomach was hurting. Member unsure what she was diagnosed with. MR pending. Unable to verbalize diagnosis, but states possible virus. States Plavix was discontinued. Had follow up with PCP 2 days ago. All medications reviewed at this time. Has appt with Rubber Goods Inspector Tester on 03/02/2024. Has appt for heart Ultrasound for 03/24/2024. Denies any new complaints or acute symptoms today. Advised to contact CB 21/09 as needed. 2024-02-16 Home Health or DME n eeds: Requesting standard shower chair. DME order placed. 2024-02-16 Advance care planalexandrea hinds discussion with: Elvi, reports her daughter, Elvi Mckeon is her healthcare Proxy.
--- OUTSIDE RECORDS SUMMARY | 2024-03-24 12:57 | XMS_ITS | Clinical Summary ---
Author Organization [facility] Address [address] [facility] [address] [place] [address] Phone Care Team Providers Care Film Developing Machine Operator Name Role Phone Amanda Mckinnon MD Primary Care Provider [phone] Allergies No known active allergies Medications omega-3 (FISH OIL) 1000 MG capsule Take 1 capsule by mouth 3 (three) times a day Active Acetaminophen 325 MG capsule Take 1 tablet by mouth every 6 (six) hours if needed Active amLODIPine (NORVASC) 10 MG tablet Take 1 tablet by mouth 1 (one) time each day 11/23/2013 Active clopidogrel (PLAVIX) 75 MG tablet Take 1 tablet by mouth 1 (one) time each day Active donepezil (ARICEPT) 5 MG tablet Take 1 tablet by mouth 1 (one) time each day Active gabapentin (NEURONTIN) 600 MG tablet Take 1 capsule by mouth 2 (two) times a day Active lisinopril (PRINIVIL,ZESTR IL) 40 MG tablet Take 1 tablet by mouth 1 (one) time each day Active metoprolol succinate XL (TOPROL-XL) 100 MG 24 hr tablet Take 1 tablet by mouth 2 (two) times a day Active rosuvastatin (CRESTOR) 5 MG tablet Take 1 tablet by mouth 1 (one) time each day Active buPROPion (WELLBUTRIN) 100 MG tablet Take 100 mg by mouth 2 (two) times a day 06/22/2020 Active Calcium + Vitamin D3 600-10 MG-MCG tablet Take 1 tablet by mouth 1 (one) time each day 05/13/2020 Active Aspirin Low Dose 81 MG EC tablet 12/02/2020 Active hydroCHLOROthia zide 25 MG tablet Take 25 mg by mouth 1 (one) time each day 1 01/03/2021 Active hydrALAZINE 25 MG tablet Take 1 tablet by mouth 1 (one) time each day 12/09/2021 Active Jardiance 10 MG tablet Take 10 mg by mouth 1 (one) time each day 11/13/2021 Active budesonide (PULMICORT) 0.5 MG/2ML nebulizer solution Inhale 0.5 mg 12/04/2021 Active memantine (NAMENDA) 10 MG tablet Take 10 mg by mouth in the morning and 10 mg in the evening. 09/08/2021 Active Active Problems Problem Noted Date Diagnosed Date Hypertension 06/11/2022 Type 2 diabetes mellitus 10/15/2020 Benign essential hypertension 06/26/2020 Chronic kidney disease stage 3 06/26/2020 Resolved Problems Problem Noted Date Diagnosed Date Resolved Date Hyperlipidemia 11/15/2020 11/20/2020 Irregular heart beat 11/15/2020 021 Overview (11/15/2020): Follows with Dr Alcantar. Echo shows pulmonary HTN with mild AI Left homonymous hemianopsia 11/15/2020 11/20/2020 Mixed anxiety and depressive disorder 11/15/2020 11/20/2020 Prediabetes 11/15/2020 11/20/2020 Tobacco use 11/15/2020 11/20/2020 Transient cerebral ischemia 11/15/2020 11/20/2020 Overview (11/15/2020): Nov 2016, presented to cards, Dr. Alcantar and described episodes that sound like TIA and he referred her to neurology ordered carotid ultrasound as well as echocardiogram and labs Steroid-induced diabetes 10/15/2020 Osteoarthritis of knee 09/26/201911/20 Overview (11/15/2020): Follows w/ rheum ([facility]) Chronic obstructive pulmonary disease 07/07/2019 11/20/2020 Overview (11/15/2020): Follows with [facility]ology ([facility]) H/O: cardiac pacemaker in situ 06/27/2019 11/20/2020 History of aortic valve replacement 06/27/2019 11/20/2020 Aortic valve stenosis 08/20/20172020 Overview (11/15/2020): 03/20, severe, awaiting TAVR Stenosis of bilateral carotid arteries 08/20/2017 11/20/2020 Moderate aortic valve regurgitation 02/19/2014 11/20/2020 Overview (11/15/2020): Follows with Dr Alcantar Alzheimer's disease 05/18/2013 11/21/19 21 Overview (11/15/2020): Follows with Dr thompson Venous insufficiency (chronic) (peripheral) 02/17/2013 11/20/2020 Visual field defect due to a nd following cerebrovascular accident 11/01/2012 11/20/2020 Immunizations Name Administration Dates Next Due Influenza Split 12/13/2013 Influenza Split High Dose Pr eservative Free IM 12/04/2021,12/02/2020,12/20/2017 Influenza TIV (IM) 12/01/2019, 7,11/22/2012,02/16 Influenza, MDCK, Quadrivalen t, with preservative 02/15/2017 Influenza, Unspecified 02/20/2010,2005,03/07/2004,02/04 Moderna SARS-COV-2 06/13/2020,05/16/2020 Pfizer SARS-COV-2 01/22/2021, 1,06/13/2020,05/16 Pfizer SARS-CoV-2 Bivalent 3 0 mcg/0.3 mL 12/06/2021 Pneumococcal Conjugate 13-Valent 12/30/2015 Pneumococcal Polysaccharide 12/20/2017,0 05/25/2012,05/12/2012,04/09,11/04/2007 Pneumococcal, Unspecified 11/04/2007 Shingrix 12/06/2021 Td 11/25/2007,06/08/2007,09/18/2005 Tdap 09/18/2013 Family History Medical History Relation Comments Hypertension Mother Relation Status Comments Father Mother Social History Tobacco Use Types Packs/Day Years Used Date Smoking Tobacco: Former Cigarettes Smokeless Tobacco: Former Tobacco Cessation:Counseling Given: Not Answered Comments Unknown Sex and Gender Information Value Date Recorded Sex Assigned at Not on file Legal Sex Female 5:07 PM EST Gender Identity Not on file Sexual Orientation Not on file Last Filed Vital Signs Vital Sign Reading Time Taken Comments Blood Pressure 139/61 10/19/2022 2:06 PM EDT Pulse 66 10/19/2022 2:06 PM EDT Temperature - - Respiratory Rate - - Oxygen Saturation 98% 10/19/2022 2:06 PM EDT Inhaled Oxygen Concentration - - Weight 85.1 kg (187 lb 9.6 oz) 10/19/2022 2:06 P M EDT Height 160 cm (5' 3 ) 06/11/2022 1:53 PM EDT Body Mass Index 33.23 06/11/2022 1:53 PM EDT Plan of Treatment Health Maintenance Due Date Last Done Comments Breast Cancer Screening 1950 Colorectal Cancer Screening: Annual FOBT 1998 Colorectal Cancer Screening: Colonoscopy 1998 Colorectal Cancer Screening: Sigmoidoscopy 1998 Diabetes: Ophthalmology Exam 11/15/2020 05/15/2011 Diabetes: Pedal Pulse Checked 11/15/2020 Diabetes: Sensory Foot Exam 11/15/2020 Diabetes: Visual Foot Exam 11/15/2020 Diabetes: Hemoglobin A1C 02/04/2022 022, 02/07/2021, 10/04/2020 Influenza Vaccine (#1) 2023 2, 12/02/2020, 12/01/2019, Additional history exists Pneumococcal Vaccine: 65+ Years Completed 12/20/2017, 12/30/2015, 05/25/2012, Additional history exists Hepatitis B Vaccine Aged Out No longe r eligible based on patient's age to complete this topic Insurance [facility] DUAL COMPLETE ([id number]) [facility] DUAL COMPLETE ([id number]) Care Teams Film Developing Machine Operator Relationship Specialty Start Date End Date Amanda Mckinnon MD [address] [place] [id number] PCP - General Internal Medicine 11/20/20
== END 2024-03-24 10:55 | disposition home or self-care (01) ==
LOC: HO.10HDL 10:54
PROVIDERS: Visit Provider Internal Medicine Hypertension Specialist
DX: I12.9 Hypertensive chronic kidney disease with stage 1 through stage 4 chronic kidney disease, or unspecified chronic kidney disease (principal); N18.30 Chronic kidney disease, stage 3 unspecified; M54.50 Low back pain, unspecified; R82.90 Unspecified abnormal findings in urine
CPT/HCPCS: 36415; 80048; 81001; 81003; 83970; 87086; 99212

== ENCOUNTER 2024-03-24 11:13 | Outpatient (AMB) | payer OTHER, SELFPAY ==
[2024-03-24 11:18] VITALS: BP 90/48; PULSE 67; O2SAT 97; BMI 37.1
--- NOTE | 2024-03-24 11:18 | HO.NEPHOV_ITS ---
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 Accompanied by: Self / Same As Patient Allergies trazodone Adverse Reaction (Verified 03/24/24 11:21) Unknown Medication List - Last Reconciled 03/24/24 by Regino Bazan MD albuterol sulfate 90 mcg/actuation 2 puffs inhalation Q4-6H PRN amlodipine (Norvasc) 10 mg PO DAILY aspirin 81 mg PO DAILY calcium carbonate-vitamin D3 500 mg-5 mcg (200 unit) (Calcium 500 + D) 1 tab PO DAILY clopidogrel (Plavix) 75 mg PO DAILY donepezil 5 mg PO DAILY famotidine (Pepcid) 10 mg (1/2 x 20 mg) PO DAILY furosemide 40 mg PO DAILY gabapentin 600 mg PO BID lisinopril 40 mg PO DAILY loratadine (Claritin) 10 mg PO DAILY PRN metoprolol tartrate 100 mg PO BID omega-3 fatty acids (Fish Oil Concentrate) 1,000 mg PO DAILY omeprazole 40 mg PO DAILY rosuvastatin 40 mg PO DAILY tiotropium-olodaterol 2.5-2.5 mcg/actuation (Stiolto Respimat) 2 puffs PO DAILY HPI Comments Details: Elvi is a pleasant 73-year-old man with history of longstanding hypertension and chronic disease. She has a history of severe aortic stenosis and it seems that she underwent transcatheter aortic valve replacement for the same in April of 2019. Following this, she also developed complete heart block and had permanent pacemaker implantation. Then it seems that she also developed a stroke but the timing is not clear. This led to left internal carotid artery stenting. Home renal standpoint she is doing reasonably well. No urinary symptoms. She is still has some leg edema she is tolerating Lasix. She has some difficulty swallowing and never saw ENT. 09/30/23 c/o Back pain x 1 month;No urinary sypmtoms;Cr up to 1.47 10/1923. Still has back pain. No urinary symptoms. No new labs. [facility] Medical History Cataract Pacemaker Cervical spondylosis COPD (chronic obstructive pulmonary disease) Hypertension Surgical History S/P TAVR (transcatheter aortic valve replacement) History of transcatheter aortic valve replacement (TAVR) (~04/28/19) History of permanent cardiac pacemaker placement (~04/27/19) History of cardiac catheterization Family History Mother HTN (hypertension) Father Heart attack Brother HTN (hypertension) Social History Alcohol intake: never Patient Tobacco Use Status: Former Tobacco user Physical Exam Vital Signs: Last Vital Signs Pulse 67 03/24/24 11:18 BP 90/48 L 03/24/24 11:18 Pulse Ox 97 03/24/24 11:18 Oxygen Delivery Method Room Air 03/24/24 11:18 BMI result Body Mass Index 37.1 Comfortable Neck supple no JVD. Lungs entry equal no rales. Heart S1-S2 heard no gallop or rub. Abdomen soft nontender. Neuro alert awake oriented. No asterixis. Extremities no edema. Results Reviewed Nephrology Results: Hgb 13.0 g/dl (12.0-16.0) 01/28/24 WBC 9.0 X10*3/uL (4.8-10.8) 01/28/24 Plt Count 185 X10*3/uL (160-400) 01/28/24 Sodium 138 mmol/L (135-145) 01/28/24 Potassium 3.8 mmol/L (3.3-5.1) 01/28/24 Chloride 106 mmol/L (96-108) 01/28/24 Carbon Dioxide 21 mmol/L (22-29) L 01/28/24 BUN 8 mg/dL (9-16) L 01/28/24 Creatinine 2.10 mg/dL (0.5-1.4) H 01/28/24 Calcium 8.3 mg/dL (8.4-10.2) L 01/28/24 PTH Intact 76.2 pg/mL (8.7-77.1) 07/01/23 Urine Protein Negative mg/dL (Neg-Trace) 01/25/24 Renal US 10/12/23 Assessment & Plan Assessment & Plan (1) CKD (chronic kidney disease) stage 3, GFR 30-59 ml/min: Code(s): N18.30 - Chronic kidney disease, stage 3 unspecified Category: Medical Plan: Creatinine is 1.5 in September 2022. In June 2023 creatinine is bumped to 1.47 This could be due to natural progression versus superimposed hypoperfusion. Due to the bump in serum creatinine and low back pain Renal ultrasonogram was 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 We will check urine culture. Needs to follow up with PCP regarding chronic low back pain Mild hypercalcemia. Recheck calcium and intact PTH May need to lower calcium supplementation. Blood pressure is well controlled. Encouraged to stay on low-sodium Continue with the current dose of Lasix. Avoid hypotension and nephrotoxins. (2) Essential hypertension: Code(s): I10 - Essential (primary) hypertension Category: Medical Plan: Blood pressure is well controlled. No need to change antihypertensive at this time. Plan 03/24/24 BP is low DEcrease Lisinopril by 50% to 20 mg daily Coding Level of Care Code Est Pt Level 4 (70805) Diagnoses CKD (chronic kidney disease) stage 3, GFR 30-59 ml/min N18.30 Essential hypertension I10
--- OUTSIDE RECORDS SUMMARY | 2024-03-24 13:25 | XMS_ITS | Clinical Summary ---
Author Organization [facility] Address [address] [facility] [address] [place] [address] Phone Care Team Providers Care Maintenance Aide Name Role Phone Amanda Mckinnon MD Primary Care Provider [phone] Allergies No known active allergies Medications omega-3 [...] 07/07/2019 11/20/2020 Overview (11/15/2020): Follows with pulnology ([facility]) H/O: cardiac pacemaker in situ 06/27/2019 11/20/2020 [...] patient's age to complete this topic Insurance [facility] DUAL COMPLETE ([id number]) [facility] DUAL COMPLETE ([id number]) Care Teams Maintenance Aide Relationship Specialty Start Date End Date Amanda Mckinnon MD [address] [place] [phone] PCP - General Internal Medicine 11/20/20
--- OUTSIDE RECORDS SUMMARY | 2024-03-24 13:25 | XMS_ITS | Clinical Summary ---
Author Organization [facility] [address] [facility] Address [address] [place] [address] Phone Care Team Providers Care Communications Project Manager Name Role Phone Lazara Shepherd MD Primary Care Prov ider Allergies Active Allergy Reactions Criticality Noted Date Comments Tramadol 02/14/2024 Medications Medication Sig Dispensed Refills Start Date End Date Status omega-3 acid ethyl esters (LOVAZA) 1 gram capsule TAKE 1 CAPSULE BY MOUTH TWICE A DAY 180 capsule 01/03/2024 Active lancets (ROBLOXTouch Delica Plus Lancet) 33 gauge USE 1 [...] 07/28/2022 Overview (01/11/2024): Last Assessment & Plan: GAS SYSTEMS WORKER exam 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 Recommend f/u with PCP for [...] Overview (01/11/2024): Follows with Dr. Evans @ [facility] Aortic valve stenosis 08/20/2017 Overview (01/11/2024): s/p TAVR Bilateral carotid artery stenosis 08/20/2017 Moderate aortic regurgitation 02/19/2014 Overview (01/11/2024): Follows with Dr Akbar; s/p TAVR Alzheimer's dementia 05/18/2013 Overview (01/11/2024): Follows with Dr thompson Back pain 02/17/2013 Venous insufficiency (chronic) (peripheral) 01/30 CKD (chronic kidney disease) stage 3, GFR 30-59 ml/min 12/09/2012 Encounters Date Type Department Care Team Description 02/28/2024 Telephone Adult Medicine [address] [phone] Joanne Thomas LPN Fitting for DME (Faxed request from [facility]) 02/14/2024 1:30 PM EST Office Visit Adult Medicine [address] [phone] Lazara Shepherd MD Hospital discharge follow-up (Primary Dx); Other chest pain; Coronary artery disease involving [place] heart without angina pectoris, unspecified vessel or lesion type 02/04/2024 Telephone Adult Medicine [address] [phone] Lazara Shepherd MD Hospital Follow-up 01/11/2024 Nurse Triage Adult [address] [phone] Lazara Shepherd MD Shaking 12/28/2023 10:15 AM EDT - 12/28/2023 9:50 PM EDT Hospital Encounter [facility] Anthony Eason MD from Last 3 Months [...] DX:Unspecified essential hypertension; COMMENT: follows with Dr Gilliam Stroke ([facility]) 05/2012 DX:Stroke ([facility]) ; COMMENT: with left hemiparesis and left temporal hemianopsia Hemianopia, homonymous, left DX: Hemianopia, homonymous, left Hyperlipidemia DX:Hyperlipidemi a Irregular heart beat DX:Irregula r heart beat; COMMENT: follows with Dr akbar at [facility] Depression with anxiety DX:Depre ssion with anxiety; COMMENT: follows with Dr esther Collins- [phone] Memory loss DX:Memory loss; COMMENT: dr thompson [...] Aortic stenosis 11/2018 DX:Aortic stenos is; COMMENT: [facility] cards; severe Ascending aortic aneurysm (CMS/HCC) DX:Ascending [...] AM EDT Narrative 12/28/2023 1:43 PM EDT [facility] Diagnostic Imaging Department [address] [place] [id number] Patient: ??ELVI VILLARREAL ?/Age/Sex: 1950 - 73 - F Unit#: ??[id number] ? Location/Status: ??SPREHST/PRE CLI ? [facility] Ordering Physician: ??ANTHONY EASON MD CR Barium Swallow W Video - 12/28/23 Report Status:Signed CLINICAL HISTORY: DYSPHAGIA. STUDY: Modified [...] Dic Date/Time: ??12/28/23 1119 Sign date/Time: ??12/28/23 2960 Procedure Note Emma Bearden MD - 01/01/2024 [facility] Diagnostic Imaging Department [address] [place] [id number] Patient: ELVI VILLARREAL D.O.B./Age/Sex: 1950 - 73 -F Unit#: [id number] Location/Status: SPREHST/PRE CLI Mnemonic/Ordering Site: [facility] Ordering Physician: ANTHONY EASON MD CR [...] evidence of malignancy. BI-RADS 1 - negative [facility] [address] [address] Procedure Note Shanelle Lewis MD [...] evidence of malignancy. BI-RADS 1 - negative [address] [address] Lazara Shepherd MD IMG XR PRO CEDURES * Urine Albumin Creatinine Ratio (09/27/2023) [facility] Urine Albumin Creatinine Ratio Abstracted Historical Provider [facility] * Annual BMP Blood Test (09/27/2023) [facility] Annual BMP Blood Test Abstracted Historical Provider [facility] * Falls Risk Assessment (09/27/2023) [facility] Falls Risk Assessment Abstracted [facility]3] Provider [facility] * Depression Screening (09/27/2023) [facility] Depression Screening Abstracted [facility]3] Provider [facility] * Diabetes Foot Exam (09/27/2023) [facility] Diabetes: Annual Foot Exam Abstracted Historical Provider [facility] E * (ABNORMAL) Hemoglobin A1c (09/27/2023) [facility] Hemoglobin A1C 6.6(A) 6.5 % Blood Venous [...] Recently Relevant to Health Maintenance Care Teams Communications Project Manager Relationship Specialty Start Date End Date Lazara Shepherd MD [address] [place] [phone] PCP - General Internal Medicine 08/06/21
--- OUTSIDE RECORDS SUMMARY | 2024-03-24 13:26 | XMS_ITS | Encounter Summary ---
Author Organization [facility] Address [address] [place] [address] Phone Care Team Providers Care Professor Of Management Name Role Phone Amanda Mckinnon MD Primary Care Provider [phone] Encounter Details Date Type Department Care Team (Late st Contact Info) Description 07/22/2022 Telephone [facility] [address] [place] [address] Zari Abraham Social History Tobacco [...] [place] eGFR 33 [place] Comment: NOTE: ??For -Senegalese individuals, multiply the result ? by 210. Chronic Kidney Disease: ??Estimated GFR < 60 mL/min/1.73m2 Severe Kidney Disease: ??Estimated GFR < 15 mL/min/1.73m2 Glucose 127(H) 60 - 115 mg/dL [place] Calcium 9.2 8.4 - 10.2 mg/dL [place] 10/16/2022 10:3 2 AM EDT 10/16/2022 10:32 AM EDT us Regino Bazan MD LAB BLOOD ORDERABLES Final Res ult LAR[place] documented in this encounter Visit Diagnoses Not on filedocumented in this encounter Care Teams Professor Of Management Relationship Specialty Start Date End Date Amanda Mckinnon MD [address] [place] [address] PCP - General Internal Medicine 11/20/20 documented as of this encounter
--- OUTSIDE RECORDS SUMMARY | 2024-03-24 13:26 | XMS_ITS | Encounter Summary ---
Author Organization [facility] Address [address] [place] [address] Care Team Providers Care Supervising Chef Name Role Phone Lazara Shepherd MD Primary Care Prov ider Reason for Visit * Reason Onset Date Comments Fitting for DME 02/28/2024 Faxed request [facility] Encounter Details Date Type Department Care Team ([facility] st Contact Info) Description 02/28/2024 Telephone Adult Medicine [address] [phone] Joanne Thomas LPN Fitting for DME (Faxed request from [facility]) Social History Tobacco Use Types Packs/Day Years [...] AM EST Rx signed and faxed to [facility] ATTEN Kilo Parks @ [phone] as requested * Joanne Thomas LPN - [...] this encounter Visit Diagnoses Diagnosis Alzheimer's disease ([facility]/HCC)- Primary Alzheimer's disease Diabetic peripheral neuropathy associated with type 2 diabetes mellitus ([facility]) Venous insufficiency (chronic) (peripheral) Unspecified venous (peripheral) insufficiency Stage 3 chronic kidney disease, unspecified whether stage 3a or 3b CKD (CMS/HCC) documented in this encounter Orders General Supply Count Last Ordered Date First Or dered Date COMMODE CHAIR 1 02/28/2024 DISPOSABLE UNDERPADS (CHUX) 1 02/28/2024 GENERAL SUPPLY 2 02/28/2024 GLOVES, NON-STERILE 1 02/28/2024 documented in this encounter Care Teams Supervising Chef Relationship Specialty Start Date End Date Lazara Shepherd MD [address] [place] [id number] PCP - General Internal Medicine 08/06/21 documented as of this encounter
--- OUTSIDE RECORDS SUMMARY | 2024-03-24 13:26 | XMS_ITS ---
Author Name Pat Adams NP Address [address] [place] [address] Phone [phone] Organization [facility] Care Team Providers Care Physical Education Instructor Name Role Phone Pat Adams Unavailable [phone] Unavailable Unavailable Unavailable [facility] Unavailable [phone] Unavailable Unavailable Unavailable Unavailable Unavailable Unavailable Reason [...] MOUTH EVERY DAY 2021-01-06 No Data Available [id number] Ethyl Esters 1 GM Cap TAKE 1 [...] Active 2021-12-17 N/A Other problems related to [facility] facilities and other health care Active 2023-04-26 N/A 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 Active 2021-12-17 N/A Cramps, muscle, general Active 2023-12-23 N/A History of recent hospitalizationStomach discomfort Ac tive 2024-02-16 N/A Encounters Encounters Type Facility Date of Service Diagnosis/Co mplaint Medication List Documented (1159F) [facility] Medication List Documented (1159F[place] [facility]20[place] Medication List Documented (1159F[place] [facility]20[place] Medication List Documented (1159F[place] [facility]2021 Medication List Documented (1159F) [facility]2021 Medication List Documented (1159F) [facility]2021 Dorsalgia, unspecifiedOther localized visual field [...] unspecifiedSick sinus syndrome Medication List Documented (1159F) [facility]2021 Medication List Documented (1159F) [facility]2021 Medication List Documented (1159F) [facility]17/2021 Estab. patient 30-39min; chronic exacerbation, 2 stable chronic or 1 acute illness add add modifier 95 for video, (do not use for phone, instead use 88911-27) [facility] 04[place]14/2022 Dorsalgia, unspecifiedOther localized visual field [...] (do not use for phone, instead use 78594-02) [facility]20[place] Estab. patient 30-39min; chronic exacerbation, 2 stable chronic or 1 acute illness add add modifier 95 for video, (do not use for phone, instead use 93805-79) [facility]/2022 Estab. patient 30-39min; chronic exacerbation, 2 stable chronic or 1 acute illness add add modifier 95 for video, (do not use for phone, instead use 93270-97) [facility]/2022 Estab. patient 30-39min; chronic exacerbation, 2 stable chronic or 1 acute illness add add modifier 95 for video, (do not use for phone, instead use 48039-90) [facility]/2022 Estab. patient 30-39min; chronic exacerbation, 2 stable chronic or 1 acute illness add add modifier 95 for video, (do not use for phone, instead use 36819-85) [facility]2022 Estab. patient 30-39min; chronic exacerbation, 2 stable chronic or 1 acute illness add add modifier 95 for video, (do not use for phone, instead use 42016-31) [facility]2022 Estab. patient 30-39min; chronic exacerbation, 2 stable chronic or 1 acute illness add add modifier 95 for video, (do not use for phone, instead use 48614-81) [facility] 04[place]/2022 Estab. patient 30-39min; chronic exacerbation, 2 stable chronic or 1 acute illness add add modifier 95 for video, (do not use for phone, instead use 68627-10) [facility] 04[place]/2022 Estab. patient 30-39min; chronic exacerbation, 2 stable chronic or 1 acute illness add add modifier 95 for video, (do not use for phone, instead use 14499-22) [facility] 04[place]/2022 Estab. patient 30-39min; chronic exacerbation, 2 stable chronic or 1 acute illness add add modifier 95 for video, (do not use for phone, instead use 17879-71) [facility] 04/26/2023 Dorsalgia, unspecifiedOther localized visual field [...] (do not use for phone, instead use 26438-66) [facility] 04/26/2023 Estab. patient 30-39min; chronic exacerbation, 2 stable chronic or 1 acute illness add add modifier 95 for video, (do not use for phone, instead use 64998-51) [facility] 04/26/2023 Estab. patient 30-39min; chronic exacerbation, 2 stable chronic or 1 acute illness add add modifier 95 for video, (do not use for phone, instead use 13070-53) [facility] 04/26/2023 Estab. patient 30-39min; chronic exacerbation, 2 stable chronic or 1 acute illness add add modifier 95 for video, (do not use for phone, instead use 92585-96) [facility] 04/26/2023 Estab. patient 30-39min; chronic exacerbation, 2 stable chronic or 1 acute illness add add modifier 95 for video, (do not use for phone, instead use 34297-93) [facility] 04/26/2023 Estab. patient 30-39min; chronic exacerbation, 2 stable chronic or 1 acute illness add add modifier 95 for video, (do not use for phone, instead use 73421-07) [facility] 04/[place]/2023 Estab. patient 30-39min; chronic exacerbation, 2 stable chronic or 1 acute illness add add modifier 95 for video, (do not use for phone, instead use 63263-30) [facility] 04/[place]/2023 No Data Available [facility] 12/23/2023 Hyp hrt & chr kdny dis w hrt fail and stg 1-4/unsp chr kdnyHeart failure, unspecifiedChronic kidney disease, unspecifiedCramp and spasmOther problems related to medical facilities and other health care No Data Available [facility] 12/23/2023 No Data Available [facility] 12/23/2023 No Data Available [facility] 12/23/2023 No Data Available [facility] 12/24/2023 Hyp hrt & chr kdny dis w hrt fail and stg 1-4/unsp chr kdnyHeart failure, unspecifiedChronic kidney disease, stage 3 unspecifiedCramp and spasmOther problems related to medical facilities and other health care No Data Available [facility] 12/24/2023 RN, CN or CP time with patient by phone; use with 1111F, BP, A1c or other CPTII codes [facility] 02/10/2024 Encounter for other specifie d aftercare No Data Available [facility] 02/16/2024 Unspecified abdominal painPersonal history of other medical treatment No Data Available [facility] 02/16/2024 No Data Available [facility] 02/16/2024 No Data Available [facility] 02/16/2024 No Data Available [facility] 02/16/2024 No Data Available [facility] 02/16/2024 No Data Available [facility] 02/16/2024 No Data Available [facility] 02/16/2024 Vital Signs Date of Collection [...] le No Data Available No Data Available [id number] 2021-12-17 No Data Available No Data Available [...] (do not use for phone, instead use 70658-88) [id number] 2022-04-14 No Data Available No Data Availa [...] (do not use for phone, instead use 73143-20) 2023-04-26 No Data Available No Data Availa [...] No Data Avail able No Data Available [id number] 2023-12-23 No Data Available No Data Available SBP < 130 (3074F) 3074F 2023-12-23 No Data Available No Data Available DBP <80 (3078F) 3078F 2023-12-23 No Data Available No Data Available Medication List Documented (1159F) 1159F 2023-12-23 No Data Available No Data Laurita ilable No Data Available 30325 2023-12-24 No Data Available No Data Available Medication List Documented (1159F) 1159F 2023-12-24 No Data Available No Data Laurita ilable RN, CN or CP time with patient by phone; use with 1111F, BP, A1c or other CPTII codes 21663 2024-02-10 No Data Available No Data Avai lable No Data Available [id number] 2024-02-16 No Data Available No Data Available [...] call cardio, ask to give mssg to logging supervisor, ask to be triaged and possibly seen [...] avoid nephrotoxic medsEncourage low starch, high fiber lpycT6F lab work scheduled for 05/17/23on Memantine and [...] <80 (3078F)Continue to see PCP. Follow-up with [facility] as needed for any acute or disease [...] modifier 95)PCP visit is planned for:Hospital name: [facility] Hospital admission date: 01/30/24ospital discharge date: 02/02/24Discharge [...] reviewed at this time. Has appt with Contact Center Rep on 03/02/2024. Has appt for heart Ultrasound [...] questions or concerns. Discussed how to contact [facility] via phone or tablet. 21/09 phone number [...] ER visit(s) and precipitating factors: Hospital name: [facility] Hospital admission date: 01/30/24ospital discharge date: 02/02/24Discharge [...] reviewed at this time. Has appt with Contact Center Rep on 03/02/2024. Has appt for heart Ultrasound for 03/24/2024. Denies any new complaints or acute symptoms today. Advised to contact CB 21/09 as needed. 2024-02-16 Home Health or DME n eeds: Requesting standard shower chair. DME order placed. 2024-02-16 Advance care planalexandrea hinds discussion with: Elvi, reports her daughter, Elvi Mckeon is her healthcare Proxy.
== END 2024-03-24 11:29 | disposition home or self-care (01) ==
PROVIDERS: PCP Internal Medicine; Visit Provider Internal Medicine Hypertension Specialist
DX: N18.30 Chronic kidney disease, stage 3 unspecified (principal); I10 Essential (primary) hypertension
CPT/HCPCS: 99214

== ENCOUNTER 2024-05-02 12:23 | Outpatient (REF) | payer OTHER, SELFPAY ==
--- NOTE | ~2024-05-02 | CT_ITS ---
CLINICAL HISTORY: R91.8 - Other nonspecific abnormal finding of lung field CT chest without contrast Comparison: CT/REG/SR - CT CHEST WO IV CON - 07/10/22 09:24 EDT Findings: The heart size is normal. Aortic valve replacement. Pacing leads in place. Heavy coronary and mitral annular calcification. No pericardial effusion The visualized thyroid and mediastinum are 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 No chest wall lesions or axillary adenopathy. The trachea and central bronchi are patent. Likely mucous within the trachea. Mild bronchial dilation diffusely. No dense consolidation, pleural effusion or pneumothorax. Mild scarring versus atelectasis in the lingula increased from the prior exam. Stable calcified granuloma in the right middle lobe. 5 mm noncalcified superior segment left lower lobe nodule stable on image 59 of series 4. No new or enlarging nodules. The visualized upper abdomen is 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 No acute fractures. IMPRESSION: 1. Stable bilateral pulmonary nodules. No acute findings. Fleischner Society 2017 Guidelines for incidentally detected indeterminate nodules in persons 35 years of age or older. Single Solid Nodules: 5 mm or smaller nodules need no follow-up in low risk, and [address] follow-up is optional in high risk patients. 6-8 mm nodules have optional [address] follow-up in low risk, and 6-[address] follow-up followed by 18-[address] follow-up if no change in high risk patients. 9 mm or larger nodules should consider CT, PET/CT, or biopsy at 3 months regardless of patient risk. Multiple Solid Nodules: 5 mm or smaller nodules need no follow-up in low risk, and [address] follow-up is optional in high risk patients. 6-8 mm nodules need 3-[address] follow-up followed by an optional 18-[address] follow-up regardless of patient risk. 9 mm or larger nodules should consider 3-[address] follow-up. For low risk 18-24 month follow-up is optional, whereas for high risk it is needed. Single Ground Glass Nodules: 5 mm or smaller nodules need no followup 6 mm and larger nodules need CT at 6-12 months to confirm persistence, then CT every 2 years until 5 years Single Subsolid Nodules: 5 mm or smaller nodules need no followup 6 mm and larger nodules need CT at 3-6 months to confirm persistence. If no change and solid component <6 mm, then CT every year until 5 years Multiple Ground Glass or Subsolid Nodules: 5 mm or smaller nodules need CT at 3-6 months. If stable, optional CT at 2 and 4 years. 6 mm or larger nodules need CT at 3-6 months. Subsequent management based on most suspicious nodule This document has been electronically signed by: Inna Saavedra MD on 05/03/2024 09:00:36
--- OUTSIDE RECORDS SUMMARY | 2024-05-02 15:26 | XMS_ITS | Clinical Summary ---
Author Organization [facility] Address [address] [facility] [address] [place] [address] Phone Care Team Providers Care Economics Analyst Name Role Phone Amanda Mckinnon MD Primary Care Provider [phone] Allergies No known active allergies Medications omega-3 [...] 07/07/2019 11/20/2020 Overview (11/15/2020): [place] [place] [place] H/O: cardiac pacemaker in situ 06/27/2019 11/20/2020 [...] to complete this topic Insurance [facility] DUAL COMPLETE ([id number]) [facility] DUAL [facility] ([id number]) Care Teams Economics Analyst Relationship Specialty Start Date End Date Amanda Mckinnon MD [address] [place] [phone] PCP - General Internal Medicine 11/20/20
--- OUTSIDE RECORDS SUMMARY | 2024-05-02 15:26 | XMS_ITS | Clinical Summary ---
Author Organization [facility] [address] [facility] Address [address] [place] [address] Phone Care Team Providers Care Crew Chief Name Role Phone Lazara Shepherd MD Primary Care Prov ider Allergies Active Allergy Reactions Criticality Noted Date Comments Tramadol 02/14/2024 Medications lancets (PictureMenuTouch Delica Plus Lancet) 33 gauge USE 1 LANCET EVERY MORNING (BEFORE BREAKFAST). TO CHECK FASTING BLOOD GLUCOSE 01/08/20 22 Active albuterol HFA (ProAir HFA) 90 mcg/actuation inhaler USE 1 TO 2 PUFFS EVERY 4 HOURS NEEDED COPD RESCUE 09/04/19 21 Active ammonium lactate (LAC-HYDRIN) 12 % lotion Apply to soles of feet daily. At night wear socks to bed 08/19/19 23 Active budesonide (PULMICORT) 0.5 mg/2 mL nebulizer solution USE 1 VIAL VIA NEBULIZER DAILY 09/08/19 24 Active buPROPion (WELLBUTRIN) 100 mg tablet TAKE 1 TABLET BY MOUTH EVERY DAY IN THE MORNING 09/09/19 24 Active clotrimazole (LOTRIMIN) 1 % cream Apply to skin daily for 6 weeks 08/19/19 23 Active donepeziL (ARICEPT) 10 mg tablet Take 10 mg by mouth daily. 06/03/19 22 Active furosemide (LASIX) 20 mg tablet TAKE 1 TABLET BY MOUTH EVERY DAY 12/06/19 24 Active memantine (NAMENDA) 10 mg tablet TAKE 1 TABLET BY MOUTH TWICE A DAY FOR 30 DAYS 09/09/19 22 Active nitroglycerin (NITROSTAT) 0.[address] 1 Tablet under the tongue daily. 12/12/19 23 Active QUEtiapine (SEROquel) 25 mg tablet Take 1 tablet by mouth at bedtime. 02/04/20 21 Active tiotropium-olo dateroL (Stiolto Respimat) 2.5-2.5 mcg/actuation mist inhaler TAKE 2 PUFFS BY MOUTH EVERY DAY 07/30/19 22 Active Jardiance 10 mg tablet TAKE 1 TABLET BY MOUTH EVERY DAY 90 tablet 02/08/20 24 Active lisinopril (PRINIVIL,ZEST RIL) 40 mg tablet TAKE 1 TABLET BY MOUTH EVERY DAY 90 tablet 1 02/10/20 24 Active fluorometholon e (FML) 0.1 % ophthalmic suspension Administer 1 drop into both eyes 2 (two) times a day. 02/09/20 24 Active loratadine (CLARITIN) 10 mg tablet TAKE 1 TABLET ORALLY DAILY NEEDED FOR ALLERGIC SYMPTOMS 01/28/20 24 Active gabapentin (NEURONTIN) 600 mg tablet Take 1 tablet (600 mg total) by mouth 2 (two) times a day. 180 each 1 02/14/20 24 025 Active OneTouch Ultra Test test strip Use as instructed 100 each 11 02/14/20 24 Active pravastatin (PRAVACHOL) 80 mg tablet Take 1 tablet (80 mg total) by mouth 1 (one) time each day. 90 each 3 02/14/20 24 025 Active metoprolol tartrate (LOPRESSOR) 100 mg tablet TAKE 1 TABLET BY MOUTH TWICE A DAY 180 tablet 1 03/06/19 25 Active aspirin 81 mg EC tablet TAKE 1 TABLET BY MOUTH EVERY DAY 90 tablet 1 03/31/19 25 Active omega-3 acid ethyl esters (LOVAZA) 1 gram capsule TAKE 1 CAPSULE BY MOUTH TWICE A DAY 180 capsule 1 04/04/19 25 Active omega-3 acid ethyl esters (LOVAZA) 1 gram capsule TAKE 1 CAPSULE BY MOUTH TWICE A DAY 180 capsule 01/03/20 24 025 Discontinued Active Problems Problem Noted Date Diagnosed Date Depression with anxiety 01/11/2024 Hyperlipidemia 01/11/2024 Hypertension 01/11/2024 Sick sinus syndrome 01/11/2024 Overview (01/11/2024): s/p pacemaker Class 1 obesity due to exces s calories with serious comorbidity and body mass index (BMI) of 33.0 to 33.9 in adult 09/27/2023 Abdominal pain 07/28/2022 Overview (01/11/2024): Last Assessment & Plan: 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 Recommend f/u with PCP for [...] Overview (01/11/2024): Follows with Dr. Evans @ [facility] Aortic valve stenosis 08/20/2017 Overview (01/11/2024): s/p TAVR Bilateral carotid artery stenosis 08/20/2017 Moderate aortic regurgitation 02/19/2014 Overview (01/11/2024): Follows with Dr Alcantar; s/p TAVR Alzheimer's dementia 05/18/2013 Overview (01/11/2024): Follows with Dr thompson Back pain 02/17/2013 Venous insufficiency (chronic) (peripheral) 01/30 CKD (chronic kidney disease) stage 3, GFR 30-59 ml/min 12/09/2012 Encounters Date Type Department Care Team Description 02/28/2024 Telephone Adult Medicine [address] [phone] Joanne Thomas LPN Fitting for DME (Faxed request from [facility]) 02/14/2024 1:30 PM EST Office Visit Adult Medicine [address] [phone] Lazara Shepherd MD Hospital discharge follow-up (Primary Dx); Other chest pain; Coronary artery 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, unspecified vessel or lesion type 02/04/2024 Telephone Adult Medicine [address] [phone] Lazara Shepherd MD Hospital Follow-up from Last 3 Months Immunizations Name Administration [...] hypertension; COMMENT: follows with Dr Gilliam Stroke ([facility]) 05/2012 DX:Stroke ([facility]) ; COMMENT: with left hemiparesis and left temporal hemianopsia Hemianopia, homonymous, left DX: Hemianopia, homonymous, left Hyperlipidemia DX:Hyperlipidemi a Irregular heart beat DX:Irregula r heart beat; COMMENT: follows with Dr alcantar at [facility] Depression with anxiety DX:Depre ssion with anxiety; COMMENT: follows with Dr esther Collins- [phone] Memory loss DX:Memory loss; COMMENT: dr thompson [...] Aortic stenosis 11/2018 DX:Aortic stenos is; COMMENT: [facility] cards; severe Ascending aortic aneurysm ([facility]) DX:Ascending aortic aneurysm ([facility]) Pulmonary nodule DX:Pulmonary no dule S/P AVR (aortic valve replacement) 04/27/2019 DX:S/P AVR (aortic valve replacement) Pacemaker DX:Pacemaker Family History Medical History Relation Name Comments Cataracts Brother 1 Stroke Brother 2 left sided daniel apresis Other: open heart surgery Brother 3 an other brother, choesterol, in his 60s Cataracts Mother Stroke Mother [...] drink = 0.6 oz pur e alcohol) Comments No Sex and Gender Information Value Date Recorded Sex Assigned at Not on file Legal Sex Female 4:49 AM EST Gender Identity Not on file Sexual Orientation Not on file Obstetrics History Last Filed [...] Hepatitis C Screening Completed 11/23/2012 Pneumococcal Vaccine: 50+ Years Completed 04/29/2019, 12/20/2017, 12/30/2015, Additional history [...] patient's age to complete this topic Meningococcal B Vacine Aged Out No lo nger eligible based on patient's age to complete this topic RSV Immunization Patients Under 20 months Aged Out No longer eligible based on patient's age to complete this topic Varicella Vaccines Aged Out No longer eligible based on patient's age to complete this topic Procedures Procedure Name Priority Date/Time Associated Diagnosis Comments EXTERNAL DIABETIC RETINA EYE EXAM 02/08/2024 SCREENING MAMMOGRAPHY BI 2-VIEW BREAST INC CAD [...] Report (02/08/2024) Anatomical Region Laterality Modality Ultrasound us Provider Onbase MD CRAWFORDG US PROCEDURES Final Resul t * SCREENING MAMMOGRAPHY BI 2-VIEW BREAST INC [...] evidence of malignancy. BI-RADS 1 - negative [address] [id number] Procedure Note Shanelle Lewis MD - 01/01/2024 [...] evidence of malignancy. BI-RADS 1 - negative [address] [address] Result [facility] Lazara Shepherd MD IMG XR PROCEDURES Final Result * Urine Albumin Creatinine Ratio (09/27/2023) Pathologist [facility] Urine Albumin Creatinine Ratio Abstracted Result [facility] Provider HEALTH MAINTENANCE Final Result * Annual BMP Blood Test (09/27/2023) Pathologist [facility] Annual BMP Blood Test Abstracted Result [facility] hospital HEALTH MAINTENANCE Final Result * Falls Risk Assessment (09/27/2023) [facility] Falls Risk Assessment Abstracted Result [facility] Provider HEALTH MAINTENANCE Final Result * Depression Screening (09/27/2023) Pathologist [facility] Depression Screening Abstracted Historical Provider MD HEALTH MAINTENANCE Final Result * Diabetes Foot Exam (09/27/2023) [facility] Diabetes: Annual Foot Exam Abstracted Historical Provider MD HEALTH MAINTENANCE Final Result * (ABNORMAL) Hemoglobin A1c (09/27/2023) [facility] Hemoglobin A1C 6.6(A) <=6.5 % Blood Venous blood specimen / Unknown Historical Provider MD LAB BLOOD ORDERABLES Soraya l Result * (ABNORMAL) Lipid panel (09/27/2023) [facility] LDL/HDL Ratio 5(A) 0 - 4 Triglycerides 396(A) 0 - 150 mg/dL Cholesterol 245(A) 0 - 200 mg/dL HDL 45 >=40 mg/dL LDL Cholesterol 121(A) 0 - 100 mg/dL Blood Venous blood specimen / Unknown Historical Provider MD LAB BLOOD ORDERABLES Soraya l Result * DXA BONE DENSITY STUDY 1+ SITS [...] Foundation [email or web address] Lazara Shepherd MD IMG DXA PROCEDURES Final Result * Colonoscopy (08/07/2021) [facility] Colonoscopy No Interpretation , Abstracted Anatomical Region Laterality Modality Other Historical Provider HEALTH MAINTENANCE Final Result * Hepatitis C Screening (11/23/2012) [facility] Hepatitis C Screening Abstracted Historical Provider HEALTH MAINTENANCE Final Result from Last 3 Months or Most Recently Relevant to Health Maintenance Insurance [facility] MEDICAID - [place] Care Teams Crew Chief Relationship Specialty Start Date End Date Lazara Shepherd MD [address] [place] [id number] PCP - General Internal Medicine 08/06/21
--- OUTSIDE RECORDS SUMMARY | 2024-05-02 15:27 | XMS_ITS | Encounter Summary ---
Author Organization [facility] Address [address] [place] [address] Phone Care Team Providers Care Raw Scales Operator Name Role Phone Amanda Mckinnon MD Primary Care Provider [phone] Encounter Details Date Type Department Care Team (Late st Contact Info) Description 07/22/2022 Telephone [facility] [address] [place] [address] Zari Abraham Social History Tobacco [...] [place] eGFR 33 [place] Comment: NOTE: ??For -English individuals, multiply the result ? by 210. Chronic Kidney Disease: ??Estimated GFR < 60 mL/min/1.73m2 Severe Kidney Disease: ??Estimated GFR < 15 mL/min/1.73m2 Glucose 127(H) 60 - 115 mg/dL [place] Calcium 9.2 8.4 - 10.2 mg/dL [place] 10/16/2022 10:3 2 AM EDT 10/16/2022 10:32 AM EDT us Regino Bazan MD LAB BLOOD ORDERABLES Final Res ult [place]ON[place] documented in this encounter Visit Diagnoses Not on filedocumented in this encounter Care Teams Raw Scales Operator Relationship Specialty Start Date End Date Amanda Mckinnon MD [address] [place] [address] PCP - General Internal Medicine 11/20/20 documented as of this encounter
--- OUTSIDE RECORDS SUMMARY | 2024-05-02 15:27 | XMS_ITS ---
Author Name Pat Adams NP Address [address] [place] [address] Phone [phone] Organization [facility] Care Team Providers Care Scientific Affairs Manager Name Role Phone Pat Adams Unavailable [phone] Unavailable Unavailable Unavailable [facility] Unavailable Unavailable Unavailable Unavailable Reason for Referral Not Available Allergies, adverse reactions, alerts No known allergies History of medication use Medication Class Instructions Start Date End Date Lisinopril 40 mg Tab TAKE 1 TABLET BY MO UTH EVERYDAY AT BEDTIME 2021-03-25 No Data Available Stiolto Respimat 2.5-2.5 MCG /ACT Aerosol Solution TAKE 2 PUFFS BY MOUTH EVERY DAY 2021-01-06 No Data Available Tgrfz-2-foli Ethyl Esters 1 GM Cap TAKE 1 [...] Active 2021-12-17 N/A Other problems related to [facility] facilities and other health care Active 2023-04-26 N/A 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 Active 2021-12-17 N/A Cramps, muscle, general Active 2023-12-23 N/A History of recent hospitalizationStomach discomfort Ac tive 2024-02-16 N/A Encounters Encounters Type Facility Date of Service Diagnosis/Co mplaint Medication List Documented (1159F) [facility] Medication List Documented (1159F) [facility] Medication List Documented (1159F) [facility] Medication List Documented (1159F) [facility] Medication List Documented (1159F) [facility] Medication List Documented (1159F) [facility] Dorsalgia, unspecifiedOther localized visual field [...] unspecifiedSick sinus syndrome Medication List Documented (1159F) [facility] Medication List Documented (1159F) [facility] Medication List Documented (1159F) [facility] Estab. patient 30-39min; chronic exacerbation, 2 stable chronic or 1 acute illness add add modifier 95 for video, (do not use for phone, instead use 86743-61) [facility]20[place] Dorsalgia, unspecifiedOther localized visual field [...] (do not use for phone, instead use 70119-84) [facility] Estab. patient 30-39min; chronic exacerbation, 2 stable chronic or 1 acute illness add add modifier 95 for video, (do not use for phone, instead use 30137-68) [facility] Estab. patient 30-39min; chronic exacerbation, 2 stable chronic or 1 acute illness add add modifier 95 for video, (do not use for phone, instead use 45684-43) [facility] Estab. patient 30-39min; chronic exacerbation, 2 stable chronic or 1 acute illness add add modifier 95 for video, (do not use for phone, instead use 49694-38) [facility] Estab. patient 30-39min; chronic exacerbation, 2 stable chronic or 1 acute illness add add modifier 95 for video, (do not use for phone, instead use 33876-95) [facility] Estab. patient 30-39min; chronic exacerbation, 2 stable chronic or 1 acute illness add add modifier 95 for video, (do not use for phone, instead use 15257-47) [facility] Estab. patient 30-39min; chronic exacerbation, 2 stable chronic or 1 acute illness add add modifier 95 for video, (do not use for phone, instead use 61019-93) [facility] Estab. patient 30-39min; chronic exacerbation, 2 stable chronic or 1 acute illness add add modifier 95 for video, (do not use for phone, instead use 74589-78) [facility] Estab. patient 30-39min; chronic exacerbation, 2 stable chronic or 1 acute illness add add modifier 95 for video, (do not use for phone, instead use 93387-63) [facility] Estab. patient 30-39min; chronic exacerbation, 2 stable chronic or 1 acute illness add add modifier 95 for video, (do not use for phone, instead use 78659-06) [facility]2023 Dorsalgia, unspecifiedOther localized visual field [...] (do not use for phone, instead use 61695-03) [facility] Estab. patient 30-39min; chronic exacerbation, 2 stable chronic or 1 acute illness add add modifier 95 for video, (do not use for phone, instead use 71664-17) [facility]23 Estab. patient 30-39min; chronic exacerbation, 2 stable chronic or 1 acute illness add add modifier 95 for video, (do not use for phone, instead use 24994-27) [facility]23 Estab. patient 30-39min; chronic exacerbation, 2 stable chronic or 1 acute illness add add modifier 95 for video, (do not use for phone, instead use 02564-10) [facility]23 Estab. patient 30-39min; chronic exacerbation, 2 stable chronic or 1 acute illness add add modifier 95 for video, (do not use for phone, instead use 76256-82) [facility]23 Estab. patient 30-39min; chronic exacerbation, 2 stable chronic or 1 acute illness add add modifier 95 for video, (do not use for phone, instead use 18758-95) [facility] Estab. patient 30-39min; chronic exacerbation, 2 stable chronic or 1 acute illness add add modifier 95 for video, (do not use for phone, instead use 77376-01) [facility]23 No Data Available [facility]/2023 Hyp hrt & chr kdny dis w hrt fail and stg 1-4/unsp chr kdnyHeart failure, unspecifiedChronic kidney disease, unspecifiedCramp and spasmOther problems related to medical facilities and other health care No Data Available [facility]2023 No Data Available [facility]20[place] No Data Available [facility]20[place] No Data Available [facility]2023 Hyp hrt & chr kdny dis w hrt fail and stg 1-4/unsp chr kdnyHeart failure, unspecifiedChronic kidney disease, stage 3 unspecifiedCramp and spasmOther problems related to medical facilities and other health care No Data Available [facility]24/2023 RN, CN or CP time with patient by phone; use with 1111F, BP, A1c or other CPTII codes [facility] 02[place]2024 Encounter for other specifie d aftercare No Data Available [facility]/16/2024 Unspecified abdominal painPersonal history of other medical treatment No Data Available [facility]2024 No Data Available [facility]2024 No Data Available [facility]2024 No Data Available [facility]2024 No Data Available [facility]2024 No Data Available [facility]2024 No Data Available [facility]2024 Vital Signs Date of Collection [...] tive Time Current Smoking Status Former smoker 4 Sex Female History of Procedures Procedures [...] le No Data Available No Data Available 15104 2021-12-17 No Data Available No Data Available SBP < 130 (3074F) 3074F 2021-12-17 No Data Available No Data Available DBP <80 (3078F) 3078F 2021-12-17 No Data Available No Data Available Pain Assessment - Pain Documented on a Pain Scale (1125F) 1125F 2021-12-17 No Data Available No Data Laurita ilable Estab. patient 30-39min; chronic exacerbation, 2 stable chronic or 1 acute illness add add modifier 95 for video, (do not use for phone, instead use 10950-04) 97413 2022-04-14 No Data Available No Data Availa [...] Data Available Pain Assessment - Pain Documented on a Pain Scale (1125F) 1125F 2022-04-14 No Data Available No Data Laurita ilable BMI obtained (3008F) 3008F 2022-04-14 No Data Availab le No Data Available Estab. patient 30-39min; chronic exacerbation, 2 stable chronic or 1 acute illness add add modifier 95 for video, (do not use for phone, instead use 92931-72) 90290 2023-04-26 No Data Available No Data Availa [...] No Data Avail able No Data Available 98104 2023-12-23 No Data Available No Data Available SBP < 130 (3074F) 3074F 2023-12-23 No Data Available No Data Available DBP <80 (3078F) 3078F 2023-12-23 No Data Available No Data Available Medication List Documented (1159F) 1159F 2023-12-23 No Data Available No Data Laurita ilable No Data Available [id number] 2023-12-24 No Data Available No Data Available Medication List Documented (1159F) 1159F 2023-12-24 No Data Available No Data Laurita ilable RN, CN or CP time with patient by phone; use with 1111F, BP, A1c or other CPTII codes 94643 2024-02-10 No Data Available No Data Avai lable No Data Available [id number] 2024-02-16 No Data Available No Data Available [...] Documented (1125F)Continue to see PCP. Follow-up with [facility] as [...] call cardio, ask to give mssg to brooch and bracelet maker, ask to be triaged and possibly seen [...] obtained (3008F)Continue to see PCP. Follow-up with [facility] as [...] avoid nephrotoxic medsEncourage low starch, high fiber [id number] lab work scheduled for 05/17/23on Memantine and [...] <80 (3078F)Continue to see PCP. Follow-up with [facility] as needed for any acute or [...] modifier 95)Continue to see PCP. [facility] or [...] modifier 95)PCP visit is planned for:Hospital name: [facility] Hospital admission date: 01/30/24ospital discharge date: [...] reviewed at this time. Has appt with Vice President And Portfolio Manager on 03/02/2024. Has appt for heart Ultrasound for 03/24/2024. Denies any new complaints or acute symptoms today. Advised to contact CB 21/09 as needed. Goals Date Goal 2021-12-17 Remember to 2021-12-17 Call me if 2021-12-17 Keep it up 2021-12-17 Remember to 2021-12-17 Call me if 2021-12-17 Keep it up 2024-02-16 Remember to keep all appointments with your PCP and specialists. Call 21/09 if you have questions or concerns. Discussed how to contact [facility] via phone or tablet. 21/09 phone [...] ER visit(s) and precipitating factors: Hospital name: [facility] Hospital admission date: 01/30/24ospital discharge date: [...] reviewed at this time. Has appt with Vice President And Portfolio Manager on 03/02/2024. Has appt for heart Ultrasound for 03/24/2024. Denies any new complaints or acute symptoms today. Advised to contact 21/09 as needed. 2024-02-16 Home Health or DME n eeds: Requesting standard shower chair. DME order placed. 2024-02-16 Advance care planalexandrea hinds discussion with: Elvi, reports her daughter, Elvi Mckeon is her healthcare Proxy.
== END 2024-05-02 12:24 | disposition home or self-care (01) ==
LOC: HO.CT 12:23
PROVIDERS: PCP Internal Medicine; Visit Provider Internal Medicine Pulmonary Disease
DX: R91.8 Other nonspecific abnormal finding of lung field (principal)
CPT/HCPCS: 71250

== ENCOUNTER → 2024-05-02 12:25 | Outpatient (BNV) | payer OTHER, SELFPAY | PROVIDERS: PCP Internal Medicine; Visit Provider Radiology Diagnostic Radiology | DX: R91.8 Other nonspecific abnormal finding of lung field (principal) | CPT/HCPCS: 71250 ==

== ENCOUNTER 2024-05-09 09:53 | Outpatient (AMB) | payer OTHER, SELFPAY ==
[2024-05-09 09:57] VITALS: BP 134/64; PULSE 68; O2SAT 98; BMI 38.1
--- NOTE | 2024-05-09 09:57 | HO.NEPHOV ---
Vital Signs 05/09/24 09:57 Height 5 ft Weight 195 lb BMI 38.1 BP 134/64 Blood Pressure Location Rt brachial Position Sitting Pulse 68 Pulse Source Pulse Oximeter Pulse Oximetry (%) 98 Oxygen Delivery Method Room Air Intake Visit Reasons: CKD/ Conf Carpenter Mate Required: Yes Accompanied by: Self / Same As Patient Allergies trazodone Adverse Reaction (Verified 05/09/24 10:01) Unknown Medication List - Last Reconciled 05/09/24 by Regino Bazan MD albuterol sulfate 90 mcg/actuation 2 puffs inhalation Q4-6H PRN amlodipine (Norvasc) 10 mg PO DAILY aspirin 81 mg PO DAILY calcium carbonate-vitamin D3 500 mg-5 mcg (200 unit) (Calcium 500 + D) 1 tab PO DAILY clopidogrel (Plavix) 75 mg PO DAILY donepezil 5 mg PO DAILY doxepin 10 mg PO BEDTIME famotidine (Pepcid) 10 mg (1/2 x 20 mg) PO DAILY furosemide 40 mg PO DAILY gabapentin 600 mg PO BID lisinopril 40 mg PO DAILY loratadine (Claritin) 10 mg PO DAILY PRN metoprolol tartrate 100 mg PO BID omega-3 fatty acids (Fish Oil Concentrate) 1,000 mg PO DAILY omeprazole 40 mg PO DAILY pravastatin 80 mg PO DAILY tiotropium-olodaterol 2.5-2.5 mcg/actuation (Stiolto Respimat) 2 puffs PO DAILY HPI Comments Details: Elvi is a pleasant 73-year-old man with history of longstanding hypertension and chronic disease. She has a history of severe aortic stenosis and it seems that she underwent transcatheter aortic valve replacement for the same in April of 2019. Following this, she also developed complete heart block and had permanent pacemaker implantation. Then it seems that she also developed a stroke but the timing is not clear. This led to left internal carotid artery stenting. Home renal standpoint she is doing reasonably well. No urinary symptoms. She is still has some leg edema she is tolerating Lasix. She has some difficulty swallowing and never saw ENT. 09/30/23 c/o Back pain x 1 month;No urinary sypmtoms;Cr up to 1.47 11/18/23. Still has back pain. No urinary symptoms. No new labs. 05/09/24 Recently BP was high at home last week. BP is better today Had cough and sweats- Has shortness of breat- better today Took inhalers. Also had nausea and diarrhea- resolved today [facility] Medical History Cataract Pacemaker Cervical spondylosis COPD (chronic obstructive pulmonary disease) Hypertension Surgical History S/P TAVR (transcatheter aortic valve replacement) History of transcatheter aortic valve replacement (TAVR) (~04/28/19) History of permanent cardiac pacemaker placement (~04/27/19) History of cardiac catheterization Family History Mother HTN (hypertension) Father Heart attack Brother HTN (hypertension) Social History Alcohol intake: never Patient Tobacco Use Status: Former Tobacco user Physical Exam Vital Signs: Last Vital Signs Pulse 68 05/09/24 09:57 BP 134/64 05/09/24 09:57 Pulse Ox 98 05/09/24 09:57 Oxygen Delivery Method Room Air 05/09/24 09:57 BMI result Body Mass Index 38.1 Comfortable Neck supple no JVD. Lungs entry equal no rales. Heart S1-S2 heard no gallop or rub. Abdomen soft nontender. Neuro alert awake oriented. No asterixis. Extremities no edema. Results Reviewed Nephrology Results: Hgb 13.0 g/dl (12.0-16.0) 01/28/24 WBC 9.0 X10*3/uL (4.8-10.8) 01/28/24 Plt Count 185 X10*3/uL (160-400) 01/28/24 Sodium 140 mmol/L (135-145) 03/24/24 Potassium 4.0 mmol/L (3.3-5.1) 03/24/24 Chloride 104 mmol/L (96-108) 03/24/24 Carbon Dioxide 26 mmol/L (22-29) 03/24/24 BUN 22 mg/dL (9-16) H 03/24/24 Creatinine 1.48 mg/dL (0.5-1.4) H 03/24/24 Calcium 9.6 mg/dL (8.4-10.2) 03/24/24 PTH Intact 143.2 pg/mL (8.7-77.1) H 03/24/24 Urine Protein Negative mg/dL (Neg-Trace) 03/24/24 Renal US 10/12/23 Assessment & Plan Assessment & Plan (1) CKD (chronic kidney disease) stage 3, GFR 30-59 ml/min: Code(s): N18.30 - Chronic kidney disease, stage 3 unspecified Category: Medical Plan: Creatinine is 1.5 in September 2022. In June 2023 creatinine is bumped to 1.47 This could be due to natural progression versus superimposed hypoperfusion. Due to the bump in serum creatinine and low back pain Renal ultrasonogram was 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 Mild hypercalcemia. Recheck calcium and intact PTH May need to lower calcium supplementation. Blood pressure is betterl controlled. Encouraged to stay on low-sodium Continue with the current dose of Lasix. Avoid hypotension and nephrotoxins. (2) Essential hypertension: Code(s): I10 - Essential (primary) hypertension Category: Medical Plan: Blood pressure is well controlled. No need to change antihypertensive at this time. Orders: Orders Basic Metabolic Panel Today N18.30 - Chronic kidney disease, stage 3 unspecified Coding Level of Care Code Est Pt Level 4 (69904) Diagnoses CKD (chronic kidney disease) stage 3, GFR 30-59 ml/min N18.30 Essential hypertension I10
--- OUTSIDE RECORDS SUMMARY | 2024-05-09 11:18 | XMS_ITS ---
Author Name Pat Adams NP Address [address] [place] [address] Phone [phone] Organization [facility] [place] [facility] [facility] Care Team Providers Care Chemical Maker Name Role Phone Pat Adams Unavailable [phone] Unavailable Unavailable Unavailable [facility] Unavailable [phone] Unavailable Unavailable Unavailable Reason for Referral Not Available Allergies, adverse reactions, alerts No known allergies History of medication use Medication Class Instructions Start Date End Date Lisinopril 40 mg Tab TAKE 1 TABLET BY MO UTH EVERYDAY AT BEDTIME 2021-03-25 No Data Available Stiolto Respimat 2.5-2.5 MCG /ACT Aerosol Solution TAKE 2 PUFFS BY MOUTH EVERY DAY 2021-01-06 No Data Available [id number] Ethyl Esters 1 GM Cap TAKE 1 [...] Active 2021-12-17 N/A Other problems related to [facility] facilities and other health care Active 2023-04-26 N/A 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 Active 2021-12-17 N/A Cramps, muscle, general Active 2023-12-23 N/A History of recent hospitalizationStomach discomfort Ac tive 2024-02-16 N/A Encounters Encounters Type Facility Date of Service Diagnosis/Co mplaint Medication List Documented (1159F) [facility] Medication List Documented (1159F) [facility] Medication List Documented (1159F) [facility] Medication List Documented (1159F) [facility] Medication List Documented (1159F) [facility] Medication List Documented (1159F) [facility]20[place] Dorsalgia, unspecifiedOther localized visual field [...] unspecifiedSick sinus syndrome Medication List Documented (1159F) [facility]20[place] Medication List Documented (1159F) [facility]2021 Medication List Documented (1159F) [facility]20[place] Estab. patient 30-39min; chronic exacerbation, 2 stable chronic or 1 acute illness add add modifier 95 for video, (do not use for phone, instead use 55742-04) [facility]2022 Dorsalgia, unspecifiedOther localized visual field [...] (do not use for phone, instead use 67374-76) [facility] Estab. patient 30-39min; chronic exacerbation, 2 stable chronic or 1 acute illness add add modifier 95 for video, (do not use for phone, instead use 67009-37) [facility]14/20[place] Estab. patient 30-39min; chronic exacerbation, 2 stable chronic or 1 acute illness add add modifier 95 for video, (do not use for phone, instead use 56484-84) [facility]20[place] Estab. patient 30-39min; chronic exacerbation, 2 stable chronic or 1 acute illness add add modifier 95 for video, (do not use for phone, instead use 36672-69) [facility] Estab. patient 30-39min; chronic exacerbation, 2 stable chronic or 1 acute illness add add modifier 95 for video, (do not use for phone, instead use 55155-08) [facility] Estab. patient 30-39min; chronic exacerbation, 2 stable chronic or 1 acute illness add add modifier 95 for video, (do not use for phone, instead use 66138-46) [facility] Estab. patient 30-39min; chronic exacerbation, 2 stable chronic or 1 acute illness add add modifier 95 for video, (do not use for phone, instead use 79180-29) [facility] Estab. patient 30-39min; chronic exacerbation, 2 stable chronic or 1 acute illness add add modifier 95 for video, (do not use for phone, instead use 60461-44) [facility] Estab. patient 30-39min; chronic exacerbation, 2 stable chronic or 1 acute illness add add modifier 95 for video, (do not use for phone, instead use 30838-37) [facility]20[place] Estab. patient 30-39min; chronic exacerbation, 2 stable chronic or 1 acute illness add add modifier 95 for video, (do not use for phone, instead use 14818-76) [facility]26/2023 Dorsalgia, unspecifiedOther localized visual field [...] (do not use for phone, instead use 08940-54) [facility]26/2023 Estab. patient 30-39min; chronic exacerbation, 2 stable chronic or 1 acute illness add add modifier 95 for video, (do not use for phone, instead use 25875-33) [facility]/2023 Estab. patient 30-39min; chronic exacerbation, 2 stable chronic or 1 acute illness add add modifier 95 for video, (do not use for phone, instead use 22304-10) [facility]26/2023 Estab. patient 30-39min; chronic exacerbation, 2 stable chronic or 1 acute illness add add modifier 95 for video, (do not use for phone, instead use 02236-72) [facility]26/2023 Estab. patient 30-39min; chronic exacerbation, 2 stable chronic or 1 acute illness add add modifier 95 for video, (do not use for phone, instead use 82934-16) [facility]/26/2023 Estab. patient 30-39min; chronic exacerbation, 2 stable chronic or 1 acute illness add add modifier 95 for video, (do not use for phone, instead use 00379-34) [facility]/2023 Estab. patient 30-39min; chronic exacerbation, 2 stable chronic or 1 acute illness add add modifier 95 for video, (do not use for phone, instead use 75144-33) [facility] 04/[place]/2023 No Data Available [facility]/23/2023 Hyp hrt & chr kdny dis w hrt fail and stg 1-4/unsp chr kdnyHeart failure, unspecifiedChronic kidney disease, unspecifiedCramp and spasmOther problems related to medical facilities and other health care No Data Available [facility] 12/23/2023 No Data Available [facility]2023 No Data Available [facility] 12/[place]2023 No Data Available [facility] 12/24/2023 Hyp hrt & chr kdny dis w hrt fail and stg 1-4/unsp chr kdnyHeart failure, unspecifiedChronic kidney disease, stage 3 unspecifiedCramp and spasmOther problems related to medical facilities and other health care No Data Available [facility] 12/24/2023 RN, CN or CP time with patient by phone; use with 1111F, BP, A1c or other CPTII codes [facility] 02/10/2024 Encounter for other specifie d aftercare No Data Available [facility] 02/16/2024 Unspecified abdominal painPersonal history of other medical treatment No Data Available [facility] 02/16/2024 No Data Available [facility] 02/16/2024 No Data Available [facility] 02/16/2024 No Data Available [facility] 02/16/2024 No Data Available [facility] 02/16/2024 No Data Available [facility] 02/16/2024 No Data Available [facility] 02/16/2024 Vital Signs Date of Collection [...] tive Time Current Smoking Status Former smoker 2024-04-29 1 Sex Female History of Procedures Procedures Service [...] le No Data Available No Data Available [id number] 2021-12-17 No Data Available No Data Available [...] (do not use for phone, instead use 73109-72) 54967 2022-04-14 No Data Available No Data Availa [...] (do not use for phone, instead use 70995-67) 62808 2023-04-26 No Data Available No Data Availa [...] No Data Avail able No Data Available [id number] 2023-12-23 No Data Available No Data Available SBP < 130 (3074F) 3074F 2023-12-23 No Data Available No Data Available DBP <80 (3078F) 3078F 2023-12-23 No Data Available No Data Available Medication List Documented (1159F) 1159F 2023-12-23 No Data Available No Data Laurita ilable No Data Available [id number] 2023-12-24 No Data Available No Data Available Medication List Documented (1159F) 1159F 2023-12-24 No Data Available No Data Laurita ilable RN, CN or CP time with patient by phone; use with 1111F, BP, A1c or other CPTII codes 73428 2024-02-10 No Data Available No Data Avai lable No Data Available [id number] 2024-02-16 No Data Available No Data Available [...] call cardio, ask to give mssg to mortgage accounting clerk, ask to be triaged and possibly seen [...] avoid nephrotoxic medsEncourage low starch, high fiber [id number] lab work scheduled for 05/17/23on Memantine and [...] <80 (3078F)Continue to see PCP. Follow-up with [facility] as needed for any acute or disease [...] modifier 95)Continue to see PCP. [facility] or [...] modifier 95)PCP visit is planned for:Hospital name: [facility] Hospital admission date: 01/30/24ospital discharge date: [...] reviewed at this time. Has appt with Process Designer on 03/02/2024. Has appt for heart Ultrasound [...] questions or concerns. Discussed how to contact [facility] via phone or tablet. 21/09 phone number [...] ER visit(s) and precipitating factors: Hospital name: [facility] Hospital admission date: 01/30/24ospital discharge date: [...] reviewed at this time. Has appt with Process Designer on 03/02/2024. Has appt for heart Ultrasound for 03/24/2024. Denies any new complaints or acute symptoms today. Advised to contact 21/09 as needed. 2024-02-16 Home Health or DME n eeds: Requesting standard shower chair. DME order placed. 2024-02-16 Advance care planalexandrea hinds discussion with: Elvi, reports her daughter, Elvi Mckeon is her healthcare Proxy.
--- OUTSIDE RECORDS SUMMARY | 2024-05-09 11:18 | XMS_ITS | Clinical Summary ---
Author Organization [facility] [address] [facility] Address [address] [place] [address] Phone Care Team Providers Care Mold Yard Supervisor Name Role Phone Lazara Shepherd MD Primary Care Prov ider Allergies Active Allergy Reactions Criticality Noted Date Comments Tramadol 02/14/2024 Medications lancets (Pyron SolarTouch Delica Plus Lancet) 33 gauge USE 1 [...] BY MOUTH EVERY DAY 07/30/19 22 Active lisinopril (PRINIVIL,ZEST RIL) 40 mg tablet [...] DAY 180 capsule 1 04/04/19 25 Active Jardiance 10 mg tablet TAKE 1 TABLET BY MOUTH EVERY DAY 90 tablet 1 05/06/19 25 Active Jardiance 10 mg tablet TAKE 1 TABLET BY MOUTH EVERY DAY 90 tablet 02/08/20 24 025 Discontinued Active Problems Problem Noted Date Diagnosed Date Depression with anxiety 01/11/2024 Hyperlipidemia 01/11/2024 Hypertension 01/11/2024 Sick sinus syndrome 01/11/2024 Overview (01/11/2024): s/p pacemaker Class 1 obesity due to exces s calories with serious comorbidity and body mass index (BMI) of 33.0 to 33.9 in adult 09/27/2023 Abdominal pain 07/28/2022 Overview (01/11/2024): Last Assessment & Plan: RAILROAD MAINTENANCE CLERK exam 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 Recommend f/u with PCP for [...] Overview (01/11/2024): Follows with Dr. Evans @ [facility] Aortic valve stenosis 08/20/2017 Overview (01/11/2024): s/p TAVR Bilateral carotid artery stenosis 08/20/2017 Moderate aortic regurgitation 02/19/2014 Overview (01/11/2024): Follows with Dr Alcantar; s/p TAVR Alzheimer's dementia 05/18/2013 Overview (01/11/2024): Follows with Dr thompson Back pain 02/17/2013 Venous insufficiency (chronic) (peripheral) 01/30 CKD (chronic kidney disease) stage 3, GFR 30-59 ml/min 12/09/2012 Encounters Date Type Department Care Team Description 02/28/2024 Telephone Adult Medicine [address] [address] Joanne Thomas LPN Fitting for DME (Faxed request from [facility]) 02/14/2024 1:30 PM EST Office Visit [address] [address] Lazara Shepherd MD Hospital discharge follow-up (Primary Dx); Other chest pain; 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, unspecified vessel or lesion type from Last 3 Months Immunizations Name Administration [...] hypertension; COMMENT: follows with Dr Gilliam Stroke ([facility]) 05/2012 DX:Stroke ([facility]) ; COMMENT: with left hemiparesis and left temporal hemianopsia Hemianopia, homonymous, left DX: Hemianopia, homonymous, left Hyperlipidemia DX:Hyperlipidemi a Irregular heart beat DX:Irregula r heart beat; COMMENT: follows with Dr alcantar at [facility] Depression with anxiety DX:Depre ssion with anxiety; COMMENT: follows with Dr esther Collins- [phone] Memory loss DX:Memory loss; COMMENT: dr thompson [...] DX:Aortic stenos is; COMMENT: [facility] cards; severe Ascending aortic aneurysm ([facility]) DX:Ascending aortic aneurysm ([facility]) Pulmonary nodule DX:Pulmonary no dule S/P AVR [...] Name Priority Date/Time Associated Diagnosis Comments EXTERNAL CT REPORT Routine 05/04/2024 9: 10 AM EST EXTERNAL DIABETIC RETINA EYE EXAM 02/08/2024 SCREENING [...] Relevant to Health Maintenance Results * External CT Report (05/04/2024 9:10 AM EST) Anatomical Region Laterality Modality Computed Tomogra phy us Historical Provider MD EDUARDO CT PROCEDURES Final R esult * External Diabetic Retina Eye Exam Report (02/08/2024) Anatomical Region Laterality Modality Ultrasound us Provider Onbase IMHugo US PROCEDURES Final Resul t * SCREENING [...] evidence of malignancy. BI-RADS 1 - negative [address] [address] Procedure Note Shanelle Lewis MD - 01/01/2024 [...] evidence of malignancy. BI-RADS 1 - negative [address] [address] Result [facility] Lazara Shepherd MD IMG XR PROCEDURES Final Result * Urine Albumin Creatinine Ratio (09/27/2023) Pathologist [facility] Urine Albumin Creatinine Ratio Abstracted Result [facility] Historical Provider HEALTH MAINTENANCE Final Result * Annual BMP Blood Test (09/27/2023) [facility] Annual BMP Blood Test Abstracted Result [facility] HEALTH MAINTENANCE Final Result * Falls Risk Assessment (09/27/2023) [facility] Falls Risk Assessment Abstracted Result [facility] Provider HEALTH MAINTENANCE Final Result * Depression Screening (09/27/2023) Pathologist [facility] Depression Screening Abstracted Result [facility] Provider HEALTH MAINTENANCE Final Result * Diabetes Foot Exam (09/27/2023) [facility] Diabetes: Annual Foot Exam Abstracted Result [facility] Provider HEALTH MAINTENANCE Final Result * (ABNORMAL) Hemoglobin A1c (09/27/2023) [facility] Hemoglobin A1C 6.6(A) <=6.5 % Blood Venous blood specimen / Unknown Result [facility] Provider LAB BLOOD ORDERABLES Soraya l Result * (ABNORMAL) Lipid panel (09/27/2023) [facility] LDL/HDL Ratio 5(A) 0 - 4 Triglycerides 396(A) 0 - 150 mg/dL Cholesterol 245(A) 0 - 200 mg/dL HDL 45 >=40 mg/dL LDL Cholesterol 121(A) 0 - 100 mg/dL Blood Venous blood specimen / Unknown Result [facility] Provider LAB BLOOD ORDERABLES Soraya l Result * [...] National Osteoporosis Foundation [email or web address] Lazara Shepherd MD IM DXA PROCEDURES Final Result * Colonoscopy (08/07/2021) [facility] Colonoscopy No Interpretation , Abstracted Anatomical Region Laterality Modality Other Historical Provider HEALTH MAINTENANCE Final Result * Hepatitis C Screening (11/23/2012) [facility] Hepatitis C Screening Abstracted Historical Provider HEALTH MAINTENANCE Final Result from Last 3 Months or Most Recently Relevant to Health Maintenance Insurance [facility] [place]ICA[facility] [place] Care Teams Mold Yard Supervisor Relationship Specialty Start Date End Date Lazara Shepherd MD [address] [place] [id number] PCP - General Internal Medicine 08/06/21
--- OUTSIDE RECORDS SUMMARY | 2024-05-09 11:18 | XMS_ITS | Encounter Summary ---
Author Organization [facility] Address [address] [place] [address] Phone Care Team Providers Care Printing Plate Setter Name Role Phone Amanda Mckinnon MD Primary Care Provider [phone] Encounter Details Date Type Department Care Team (Late st Contact Info) Description 07/22/2022 Telephone [facility] [address] [place] [address] Zari Abraham Social History Tobacco [...] [place] eGFR 33 [place] Comment: NOTE: ??For -Italian individuals, multiply the result ? by 210. Chronic Kidney Disease: ??Estimated GFR < 60 mL/min/1.73m2 Severe Kidney Disease: ??Estimated GFR < 15 mL/min/1.73m2 Glucose 127(H) 60 - 115 mg/dL [place] Calcium 9.2 8.4 - 10.2 mg/dL [place] 10/16/2022 10:3 2 AM EDT 10/16/2022 10:32 AM EDT us Regino Bazan MD LAB BLOOD ORDERABLES Final Res ult [place] documented in this encounter Visit Diagnoses Not on filedocumented in this encounter Care Teams Printing Plate Setter Relationship Specialty Start Date End Date Amanda Mckinnon MD [address] [place] [address] PCP - General Internal Medicine 11/20/20 documented as of this encounter
--- OUTSIDE RECORDS SUMMARY | 2024-05-09 11:18 | XMS_ITS | Clinical Summary ---
Author Organization [facility] Address [address] [facility] [address] [place] [address] Phone Care Team Providers Care Survey Project Manager Name Role Phone Amanda Mckinnon MD Primary Care Provider Allergies No known active allergies Medications omega-3 [...] patient's age to complete this topic Insurance [facility] DUAL COMPLETE ([id number]) [facility] D[facility] ([id number]) Care Teams Survey Project Manager Relationship Specialty Start Date End Date Amanda Mckinnon MD [address] [place] [id number] PCP - General Internal Medicine 11/20/20
== END 2024-05-09 10:15 | disposition home or self-care (01) ==
LOC: HO.HKA 09:53
PROVIDERS: PCP Internal Medicine; Visit Provider Internal Medicine Hypertension Specialist
DX: N18.30 Chronic kidney disease, stage 3 unspecified (principal); I10 Essential (primary) hypertension
CPT/HCPCS: 99214

== ENCOUNTER 2024-05-09 10:23 | Outpatient (REF) | payer OTHER, SELFPAY ==
[2024-05-09 12:19] LABS: Anion Gap 9 (12-20); Blood Urea Nitrogen 15 mg/dL (9-16); Calcium 9.4 mg/dL (8.4-10.2); Carbon Dioxide 28 mmol/L (22-29); Chloride 110 mmol/L (96-108); Estimated Glomerular Filt Rate 43; Glucose Random 113 mg/dL (60-115); Sodium 143 mmol/L (135-145)
--- OUTSIDE RECORDS SUMMARY | 2024-05-09 12:22 | XMS_ITS | Clinical Summary ---
Author Organization [facility] Address [address] [facility] [address] [place] [address] Phone Care Team Providers Care Item Repair Manager Name Role Phone Amanda Mckinnon MD Primary Care Provider [phone] Allergies No known active allergies Medications omega-3 [...] 07/07/2019 11/20/2020 Overview (11/15/2020): Follows with pulnology ([facility]) H/O: cardiac pacemaker in situ [...] patient's age to complete this topic Insurance [facility] DUAL COMPLETE ([id number]) [facility] DUAL [facility] ([id number]) Care Teams Item Repair Manager Relationship Specialty Start Date End Date Amanda Mckinnon MD [address] [place] [id number] PCP - General Internal Medicine 11/20/20
--- OUTSIDE RECORDS SUMMARY | 2024-05-09 12:22 | XMS_ITS | Clinical Summary ---
Author Organization [facility] [address] [facility] Address [address] [place] [address] Phone Care Team Providers Care Propulsion Machinery Service Engineer Name Role Phone Lazara Shepherd MD Primary Care Prov ider Allergies Active Allergy Reactions Criticality Noted Date Comments Tramadol 02/14/2024 Medications lancets (ZookalTouch Delica Plus Lancet) 33 gauge USE 1 [...] 07/28/2022 Overview (01/11/2024): Last Assessment & Plan: LEAD FRONT DESK AGENT exam 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 Recommend f/u with PCP for [...] Overview (01/11/2024): [place] [facility] [place] valve stenosis 08/20/2017 Overview (01/11/2024): s/p TAVR Bilateral carotid artery stenosis 08/20/2017 Moderate aortic regurgitation 02/19/2014 Overview (01/11/2024): Follows with Dr Alcantar; s/p TAVR Alzheimer's dementia 05/18/2013 Overview (01/11/2024): Follows with Dr thompson Back pain 02/17/2013 Venous insufficiency (chronic) (peripheral) 01/30 CKD (chronic kidney disease) stage 3, GFR 30-59 ml/min 12/09/2012 Encounters Date Type Department Care Team Description 02/28/2024 Telephone Adult Medicine [address] [address] Joanne Thomas LPN Fitting for DME (Faxed request from [facility]) 02/14/2024 1:30 PM EST Office Visit [address] [address] Lazara Shepherd MD Hospital discharge follow-up (Primary Dx); Other chest pain; Coronary artery disease involving [place] ira heart without angina pectoris, unspecified vessel or [...] hypertension; COMMENT: follows with Dr Gilliam Stroke ([facility]) 05/2012 DX:Stroke ([facility]) ; COMMENT: with left hemiparesis and left temporal hemianopsia Hemianopia, homonymous, left DX: Hemianopia, homonymous, left Hyperlipidemia DX:Hyperlipidemi a Irregular heart beat DX:Irregula r heart beat; COMMENT: [facility] with Dr alcantar [facility] Depression with anxiety DX:Depre ssion with anxiety; COMMENT: follows with Dr esther Collins- [phone] Memory loss DX:Memory loss; COMMENT: dr thompson [...] Aortic stenosis 11/2018 DX:Aortic stenos is; COMMENT: [facility] cards; severe Ascending aortic [place] DX:Ascending aortic aneurysm ([facility]) Pulmonary nodule DX:Pulmonary no dule S/P [...] of malignancy. BI-RADS 1 - negative [address] [address] Procedure Note Shanelle Lewis MD - 01/01/2024 [...] of malignancy. BI-RADS 1 - negative [address] [address] Result [facility] Lazara Shepherd MD IMG XR PROCEDURES Final Result * Urine Albumin Creatinine Ratio (09/27/2023) Pathologist [facility] Urine Albumin Creatinine Ratio Abstracted Result [facility] Historical Provider HEALTH MAINTENANCE Final Result * Annual BMP Blood Test (09/27/2023) [facility] Annual BMP Blood Test Abstracted Result [facility] HEALTH MAINTENANCE Final Result * Falls Risk Assessment (09/27/2023) [facility] Falls Risk Assessment Abstracted Result [facility] Provider HEALTH MAINTENANCE Final Result * Depression Screening (09/27/2023) Pathologist [facility] Depression Screening Abstracted Result [facility] Provider HEALTH MAINTENANCE Final Result * Diabetes Foot Exam (09/27/2023) [facility] Diabetes: Annual Foot Exam Abstracted Result [facility] Provider HEALTH MAINTENANCE Final Result * (ABNORMAL) Hemoglobin A1c (09/27/2023) [facility] Hemoglobin A1C 6.6(A) <=6.5 % Blood Venous blood specimen / Unknown Result [facility] Provider LAB BLOOD ORDERABLES Soraya l Result * (ABNORMAL) Lipid panel (09/27/2023) [facility] LDL/HDL Ratio 5(A) 0 - 4 Triglycerides 396(A) 0 - 150 mg/dL Cholesterol 245(A) 0 - 200 mg/dL HDL 45 >=40 mg/dL LDL Cholesterol 121(A) 0 - 100 mg/dL Blood Venous blood specimen / Unknown Result [facility] Provider LAB BLOOD ORDERABLES Soraya [...] DXA PROCEDURES Final Result * Colonoscopy (08/07/2021) [facility] Colonoscopy No Interpretation , Abstracted Anatomical Region Laterality Modality Other Historical Provider HEALTH MAINTENANCE Final Result * Hepatitis C Screening (11/23/2012) [facility] Hepatitis C Screening Abstracted Historical Provider HEALTH MAINTENANCE Final Result from Last 3 Months or Most Recently Relevant to Health Maintenance Insurance [facility] [place] Care Teams Propulsion Machinery Service Engineer Relationship Specialty Start Date End Date Lazara Shepherd MD [address] [place] [id number] PCP - General Internal Medicine 08/06/21
--- OUTSIDE RECORDS SUMMARY | 2024-05-09 12:23 | XMS_ITS ---
Author Name Pat Adams NP Address [address] [place] [address] Phone [phone] Organization [facility] [employer] [facility] Care Team Providers Care Booking Supervisor Name Role Phone Pat Adams Unavailable [phone] Unavailable Unavailable Unavailable [facility] Unavailable [phone] Unavailable Unavailable Unavailable Reason for Referral Not Available Allergies, adverse reactions, alerts No known allergies History of medication use Medication Class Instructions Start Date End Date Lisinopril 40 mg Tab TAKE 1 TABLET BY MO UTH EVERYDAY AT BEDTIME 2021-03-25 No Data Available Stiolto Respimat 2.5-2.5 MCG /ACT Aerosol Solution TAKE 2 PUFFS BY MOUTH EVERY DAY 2021-01-06 No Data Available [id number] Ethyl Esters 1 GM Cap TAKE 1 [...] Active 2021-12-17 N/A Other problems related to [facility] facilities and other health care Active 2023-04-26 N/A 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 Active 2021-12-17 N/A Cramps, muscle, general Active 2023-12-23 N/A History of recent hospitalizationStomach discomfort Ac tive 2024-02-16 N/A Encounters Encounters Type Facility Date of Service Diagnosis/Co mplaint Medication List Documented (1159F) [facility] Medication List Documented (1159F) [facility] Medication List Documented (1159F) [facility] Medication List Documented (1159F) [facility] Medication List Documented (1159F) [facility] Medication List Documented (1159F) [facility]20[place] Dorsalgia, unspecifiedOther localized visual [...] unspecifiedSick sinus syndrome Medication List Documented (1159F) [facility]2021 Medication List Documented (1159F) [facility]2021 Medication List Documented (1159F) [facility]20[place] Estab. patient 30-39min; chronic exacerbation, 2 stable chronic or 1 acute illness add add modifier 95 for video, (do not use for phone, instead use 45649-89) [facility]/2022 Dorsalgia, unspecifiedOther localized visual [...] (do not use for phone, instead use 73143-52) [facility]20[place] Estab. patient 30-39min; chronic exacerbation, 2 stable chronic or 1 acute illness add add modifier 95 for video, (do not use for phone, instead use 04252-05) [facility] 04/14/20[place] Estab. patient 30-39min; chronic exacerbation, 2 stable chronic or 1 acute illness add add modifier 95 for video, (do not use for phone, instead use 52218-84) [facility]20[place] Estab. patient 30-39min; chronic exacerbation, 2 stable chronic or 1 acute illness add add modifier 95 for video, (do not use for phone, instead use 47541-29) [facility]20[place] Estab. patient 30-39min; chronic exacerbation, 2 stable chronic or 1 acute illness add add modifier 95 for video, (do not use for phone, instead use 73145-41) [facility]20[place] Estab. patient 30-39min; chronic exacerbation, 2 stable chronic or 1 acute illness add add modifier 95 for video, (do not use for phone, instead use 25838-32) [facility]20[place] Estab. patient 30-39min; chronic exacerbation, 2 stable chronic or 1 acute illness add add modifier 95 for video, (do not use for phone, instead use 59805-15) [facility] Estab. patient 30-39min; chronic exacerbation, 2 stable chronic or 1 acute illness add add modifier 95 for video, (do not use for phone, instead use 35682-02) [facility] Estab. patient 30-39min; chronic exacerbation, 2 stable chronic or 1 acute illness add add modifier 95 for video, (do not use for phone, instead use 85984-17) [facility]20[place] Estab. patient 30-39min; chronic exacerbation, 2 stable chronic or 1 acute illness add add modifier 95 for video, (do not use for phone, instead use 43603-37) [facility]26/2023 Dorsalgia, unspecifiedOther localized visual [...] (do not use for phone, instead use 95899-12) [facility]26/2023 Estab. patient 30-39min; chronic exacerbation, 2 stable chronic or 1 acute illness add add modifier 95 for video, (do not use for phone, instead use 21879-22) [facility]26/2023 Estab. patient 30-39min; chronic exacerbation, 2 stable chronic or 1 acute illness add add modifier 95 for video, (do not use for phone, instead use 58226-36) [facility]/26/2023 Estab. patient 30-39min; chronic exacerbation, 2 stable chronic or 1 acute illness add add modifier 95 for video, (do not use for phone, instead use 28350-98) [facility]/26/2023 Estab. patient 30-39min; chronic exacerbation, 2 stable chronic or 1 acute illness add add modifier 95 for video, (do not use for phone, instead use 23986-29) [facility]/26/2023 Estab. patient 30-39min; chronic exacerbation, 2 stable chronic or 1 acute illness add add modifier 95 for video, (do not use for phone, instead use 34916-78) [facility] Estab. patient 30-39min; chronic exacerbation, 2 stable chronic or 1 acute illness add add modifier 95 for video, (do not use for phone, instead use 66916-46) [facility]/2023 No Data Available [facility]23/2023 Hyp hrt & chr kdny dis w hrt fail and stg 1-4/unsp chr kdnyHeart failure, unspecifiedChronic kidney disease, unspecifiedCramp and spasmOther problems related to medical facilities and other health care No Data Available [facility]/2023 No Data Available [facility]/2023 No Data Available [facility]/2023 No Data Available [facility] 12/24/2023 Hyp hrt & chr kdny dis w hrt fail and stg 1-4/unsp chr kdnyHeart failure, unspecifiedChronic kidney disease, stage 3 unspecifiedCramp and spasmOther problems related to medical facilities and other health care No Data Available [facility]/24/2023 RN, CN or CP time with patient by phone; use with 1111F, BP, A1c or other CPTII codes [facility] 02/10/2024 Encounter for other specifie d aftercare No Data Available [facility]/16/2024 Unspecified abdominal painPersonal history of other medical treatment No Data Available [facility]/16/2024 No Data Available [facility]16/2024 No Data Available [facility]/16/2024 No Data Available [facility]16/2024 No Data Available [facility] 02/16/2024 No Data Available [facility] 02[place]16/2024 No Data Available [facility] 02/16/2024 Vital Signs Date of [...] le No Data Available No Data Available [id number] 2021-12-17 No Data Available No Data Available [...] (do not use for phone, instead use 90643-73) [id number] 2022-04-14 No Data Available No Data Availa [...] (do not use for phone, instead use 12141-31) 10569 2023-04-26 No Data Available No Data Availa [...] No Data Avail able No Data Available [id number] 2023-12-23 No Data Available No Data Available SBP < 130 (3074F) 3074F 2023-12-23 No Data Available No Data Available DBP <80 (3078F) 3078F 2023-12-23 No Data Available No Data Available Medication List Documented (1159F) 1159F 2023-12-23 No Data Available No Data Laurita ilable No Data Available [id number] 2023-12-24 No Data Available No Data Available Medication List Documented (1159F) 1159F 2023-12-24 No Data Available No Data Laurita ilable RN, CN or CP time with patient by phone; use with 1111F, BP, A1c or other CPTII codes 14318 2024-02-10 No Data Available No Data Avai lable No Data Available [id number] 2024-02-16 No Data Available No Data Available [...] call cardio, ask to give mssg to top lift compressor, ask to be triaged and possibly seen [...] avoid nephrotoxic medsEncourage low starch, high fiber [id number] lab work scheduled for 05/17/23on Memantine and [...] <80 (3078F)Continue to see PCP. Follow-up with [facility] as needed for any acute or [...] modifier 95)Continue to see PCP. [facility] [...] modifier 95)PCP visit is planned for:Hospital name: [facility] Hospital admission date: 01/30/24ospital discharge date: [...] reviewed at this time. Has appt with [facility] on 03/02/2024. Has appt for heart Ultrasound [...] questions or concerns. Discussed how to contact [facility] via phone or tablet. 21/09 phone [...] ER visit(s) and precipitating factors: Hospital name: [facility] Hospital admission date: 01/30/24ospital discharge date: [...] reviewed at this time. Has appt with [facility] on 03/02/2024. Has appt for heart Ultrasound for 03/24/2024. Denies any new complaints or acute symptoms today. Advised to contact 21/09 as needed. 2024-02-16 Home Health or DME n eeds: Requesting standard shower chair. DME order placed. 2024-02-16 Advance care planalexandrea hinds discussion with: Elvi, reports her daughter, Elvi Mckeon is her healthcare Proxy.
--- OUTSIDE RECORDS SUMMARY | 2024-05-09 12:23 | XMS_ITS | Encounter Summary ---
Author Organization [facility] Address [address] [place] [address] Phone Care Team Providers Care Stock Shipper Name Role Phone Amanda Mckinnon MD Primary Care Provider [phone] Encounter Details Date Type Department Care Team (Late st Contact Info) Description 07/22/2022 Telephone [facility] [address] [place] [address] Zari Abraham Social History Tobacco [...] [place] eGFR 33 [place] Comment: NOTE: ??For -Honduran individuals, multiply the result ? by 210. Chronic Kidney Disease: ??Estimated GFR < 60 mL/min/1.73m2 Severe Kidney Disease: ??Estimated GFR < 15 mL/min/1.73m2 Glucose 127(H) 60 - 115 mg/dL [place] Calcium 9.2 8.4 - 10.2 mg/dL [place] 10/16/2022 10:3 2 AM EDT 10/16/2022 10:32 AM EDT us Regino Bazan MD LAB BLOOD ORDERABLES Final Res ult [place] documented in this encounter Visit Diagnoses Not on filedocumented in this encounter Care Teams Stock Shipper Relationship Specialty Start Date End Date Amanda Mckinnon MD [address] [place] [address] PCP - General Internal Medicine 11/20/20 documented as of this encounter
== END 2024-05-09 10:24 | disposition home or self-care (01) ==
LOC: HO.10HDL 10:23
PROVIDERS: Visit Provider Internal Medicine Hypertension Specialist
DX: N18.30 Chronic kidney disease, stage 3 unspecified (principal); I10 Essential (primary) hypertension
CPT/HCPCS: 36415; 80048; 99212

== ENCOUNTER 2024-08-03 10:33 | Outpatient (AMB) | payer OTHER, SELFPAY ==
--- NOTE | 2024-08-03 10:34 | HO.NEPHOV_ITS ---
Vital Signs 08/03/24 10:35 Height 5 ft Weight 200 lb BMI 39.1 BP 118/64 Blood Pressure Location Lt brachial Position Sitting Pulse 60 Pulse Source Pulse Oximeter Pulse Oximetry (%) 97 Oxygen Delivery Method Room Air Intake Visit Reasons: 3 MO FU/ Conf Machine Operator Assistant Required: No Machine Operator Assistant Services: Machine Operator Assistant Offered & Declined Accompanied by: Self / Same As Patient Allergies trazodone Adverse Reaction (Verified 08/03/24 10:37) Unknown Medication List - Last Reconciled 08/03/24 by Regino Bazan MD albuterol sulfate 90 mcg/actuation 2 puffs inhalation Q4-6H PRN amlodipine (Norvasc) 10 mg PO .evening aspirin 81 mg PO DAILY bupropion HCl mg PO calcium carbonate-vitamin D3 500 mg-5 mcg (200 unit) (Calcium 500 + D) 1 tab PO DAILY clopidogrel (Plavix) 75 mg PO DAILY donepezil 10 mg PO DAILY doxepin 10 mg PO BEDTIME famotidine (Pepcid) 10 mg (1/2 x 20 mg) PO DAILY furosemide 40 mg PO DAILY furosemide 20 mg PO DAILY gabapentin 600 mg PO BID hydralazine 25 mg PO BID lisinopril 40 mg PO DAILY loratadine (Claritin) 10 mg PO DAILY PRN memantine 10 mg PO BID metoprolol tartrate 100 mg PO BID omega-3 fatty acids (Fish Oil Concentrate) 1,000 mg PO DAILY omeprazole 40 mg PO DAILY pravastatin 80 mg PO DAILY tiotropium-olodaterol 2.5-2.5 mcg/actuation (Stiolto Respimat) 2 puffs PO DAILY HPI Comments Details: Elvi is a pleasant 73-year-old man with history of longstanding hypertension and chronic disease. She has a history of severe aortic stenosis and it seems that she underwent transcatheter aortic valve replacement for the same in April of 2019. Following this, she also developed complete heart block and had permanent pacemaker implantation. Then it seems that she also developed a stroke but the timing is not clear. This led to left internal carotid artery stenting. Home renal standpoint she is doing reasonably well. No urinary symptoms. She is still has some leg edema she is tolerating Lasix. She has some difficulty swallowing and never saw ENT. 09/30/23 c/o Back pain x 1 month;No urinary sypmtoms;Cr up to 1.47 09/19/24. Still has back pain. No urinary symptoms. No new labs. 05/09/24 Recently BP was high at home last week. BP is better today Had cough and sweats- Has shortness of breath- better today Took inhalers. Also had nausea and diarrhea- resolved today 08/03/24 74-year-old female presenting with hypertension management. She consistently experiences elevated morning blood pressure readings, with a recent measurement of 182 mmHg. Her blood pressure was previously well-controlled, highlighting a recent change in her condition. Current medications include amlodipine and variable doses of furosemide. Her treatment regimen was initially adjusted in response to weight gain. The patient denies experiencing urinary problems, leg swelling, or respiratory issues, which helps rule out complications from unmanaged hypertension. Medication compliance seems to be a variable factor, specifically with morning doses that might contribute to the elevated readings. [facility] Medical History Cataract Pacemaker Cervical spondylosis COPD (chronic obstructive pulmonary disease) Hypertension Surgical History S/P TAVR (transcatheter aortic valve replacement) History of transcatheter aortic valve replacement (TAVR) (~04/28/19) History of permanent cardiac pacemaker placement (~04/27/19) History of cardiac catheterization Family History Mother HTN (hypertension) Father Heart attack Brother HTN (hypertension) Social History Alcohol intake: never Patient Tobacco Use Status: Former Tobacco user Physical Exam Vital Signs: Last Vital Signs Pulse 60 08/03/24 10:35 BP 118/64 08/03/24 10:35 Pulse Ox 97 08/03/24 10:35 Oxygen Delivery Method Room Air 08/03/24 10:35 BMI result Body Mass Index 39.1 Comfortable Neck supple no JVD. Lungs entry equal no rales. Heart S1-S2 heard no gallop or rub. Abdomen soft nontender. Neuro alert awake oriented. No asterixis. Extremities no edema. Results Reviewed Nephrology Results: Hgb 13.0 g/dl (12.0-16.0) 01/28/24 WBC 9.0 X10*3/uL (4.8-10.8) 01/28/24 Plt Count 185 X10*3/uL (160-400) 01/28/24 Sodium 143 mmol/L (135-145) 05/09/24 Potassium 4.0 mmol/L (3.3-5.1) 05/09/24 Chloride 110 mmol/L (96-108) H 05/09/24 Carbon Dioxide 28 mmol/L (22-29) 05/09/24 BUN 15 mg/dL (9-16) 05/09/24 Creatinine 1.23 mg/dL (0.5-1.4) 05/09/24 Calcium 9.4 mg/dL (8.4-10.2) 05/09/24 PTH Intact 143.2 pg/mL (8.7-77.1) H 03/24/24 Urine Protein Negative mg/dL (Neg-Trace) 03/24/24 Assessment & Plan Assessment & Plan (1) CKD (chronic kidney disease) stage 3, GFR 30-59 ml/min: Code(s): N18.30 - Chronic kidney disease, stage 3 unspecified Category: Medical Plan: Creatinine is 1.5 in September 2022. In June 2023 creatinine is bumped to 1.47 This could be due to natural progression versus superimposed hypoperfusion. Due to the bump in serum creatinine and low back pain Renal ultrasonogram was 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 Mild hypercalcemia. Recheck calcium and intact PTH May need to lower calcium supplementation. Blood pressure is betterl controlled. Encouraged to stay on low-sodium Continue with the current dose of Lasix. Avoid hypotension and nephrotoxins. (2) Essential hypertension: Code(s): I10 - Essential (primary) hypertension Category: Medical Plan: Blood pressure is well controlled. No need to change antihypertensive at this time. Plan 08/03/24 - Take amlodipine in the evening instead of morning. - Increase the hydralazine dose to two times per day. ( was taking once a day!!) - Adhere strictly to medication times and dosage as discussed. - Get blood work done today. - Follow up in two to three months for review. - Report any new symptoms or changes in health. Orders: Orders Parathyroid Hormone Intact Today N18.30 - Chronic kidney disease, stage 3 unspecified Phosphorus Today N18.30 - Chronic kidney disease, stage 3 unspecified Vitamin D 25-OH Total Today N18.30 - Chronic kidney disease, stage 3 unspecified Basic Metabolic Panel Today N18.30 - Chronic kidney disease, stage 3 unspecified Coding Level of Care Code Est Pt Level 4 (28023) Diagnoses CKD (chronic kidney disease) stage 3, GFR 30-59 ml/min N18.30 Essential hypertension I10
[2024-08-03 10:35] VITALS: BP 118/64; PULSE 60; O2SAT 97; BMI 39.1
--- OUTSIDE RECORDS SUMMARY | 2024-08-03 12:24 | XMS_ITS | Clinical Summary ---
Author Organization [facility] [address] [facility] Address [address] [place] [address] Phone Care Team Providers Care Bottler Name Role Phone Lazara hSepherd MD Primary Care Prov ider Allergies Active Allergy Reactions Criticality Noted Date Comments Tramadol 02/14/2024 Medications lancets (SandvineTouch Delica Plus Lancet) 33 gauge USE 1 [...] mg by mouth daily. 06/03/19 22 Active memantine (NAMENDA) 10 mg tablet TAKE [...] BY MOUTH EVERY DAY 07/30/19 22 Active fluorometholon e (FML) 0.1 % ophthalmic [...] 180 each 1 02/14/20 24 025 Active SandvineTouch Ultra Test test strip Use as instructed [...] DAY 90 tablet 1 05/06/19 25 Active furosemide (LASIX) 20 mg tablet TAKE 1 TABLET BY MOUTH EVERY DAY 90 tablet 1 06/03/19 25 Active lisinopril (PRINIVIL,ZEST RIL) 40 mg tablet TAKE 1 TABLET BY MOUTH EVERY DAY 90 tablet 1 07/28/19 25 Active lisinopril (PRINIVIL,ZEST RIL) 40 mg tablet TAKE 1 TABLET BY MOUTH EVERY DAY 90 tablet 1 02/10/20 24 025 Discontinued Active Problems Problem Noted Date Diagnosed Date Depression with anxiety 01/11/2024 Hyperlipidemia 01/11/2024 Hypertension 01/11/2024 Sick sinus syndrome (CMS/HCC V24, CMS/HCC V28) 1 03/12/2023 Overview (01/11/2024): s/p pacemaker Class 1 obesity due to exces s calories with serious comorbidity and body mass index (BMI) of 33.0 to 33.9 in adult 09/27/2023 Abdominal pain 07/28/2022 Overview (01/11/2024): Last Assessment & Plan: [employer] exam 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 Recommend f/u with PCP for further evaluation of abdominal pain. Likely MSK or GI related. Diabetic polyneuropathy asso ciated with type 2 diabetes mellitus ([facility] V24, [facility] V28) 05/14/2022 Tubular adenoma 08/22/2021 Overview (01/11/2024): Repeat CN in 5 years (due 07/2026) Vitamin D insufficiency 08/22/2021 Osteopenia 08/21/2021 Type II diabetes mellitus wi th renal manifestations ([facility] V24, [facility] V28) 10/15/2020 OA (osteoarthritis) of knee 09/26/2019 Overview (01/11/2024): Follows w/ rheum (Alikhan) COPD (chronic obstructive pu lmonary disease) ([facility] V24, [facility] V28) 07/07/2019 Overview (01/11/2024): Follows with Dr. Evans @ [facility] Aortic valve stenosis 08/20/2017 Overview (01/11/2024): s/p TAVR Bilateral carotid artery stenosis 08/20/2017 Moderate aortic regurgitation 02/19/2014 Overview (01/11/2024): Follows with Dr Alcantar; s/p TAVR Alzheimer's dementia ([facility] V24, [facility] V28) 05/18/2013 Overview (01/11/2024): Follows with Dr thompson Back pain 02/17/2013 Venous insufficiency (chronic) (peripheral) 01/30 CKD (chronic kidney disease) stage 3, GFR 30-59 ml/min ([facility] V24, [facility] V28) 12/09/2012 Immunizations Name Administration Dates Next Due Influenza [...] hypertension; COMMENT: follows with Dr Gilliam Stroke ([facility] V24, [facility] V28) 05/2012 DX:Stroke ([facility]); COMMENT: with left hemiparesis and left temporal hemianopsia Hemianopia, homonymous, left DX: Hemianopia, homonymous, left Hyperlipidemia DX:Hyperlipidemi a Irregular heart beat DX:Irregula r heart beat; COMMENT: follows with Dr alcantar at [facility] Depression with anxiety DX:Depre ssion with anxiety; COMMENT: follows with Dr esther Magana- [phone] Memory loss DX:Memory loss; COMMENT: dr thompson [...] Aortic stenosis 11/2018 DX:Aortic stenos is; COMMENT: [facility] mer[employer] cards; severe Ascending aortic aneurysm ([facility] V24) DX:Ascending aortic aneurysm ([facility]) Pulmonary nodule DX:Pulmonary no dule [...] 12/25/2022 10:36 AM EDT Plan of Treatment Upcoming Encounters Date Type Department Care Team (Late st Contact Info) Description 08/21/2024 9:45 AM EDT Office Visit Adult Medicine [address] [phone] Lazara Shepherd MD [address] [place] [id number] Health Maintenance Due Date Last Done Comments Zoster Vaccines (2 of 2) 01/31/2022 12/06/2021 Social Influencers of Health Screening 02/07/2022 COVID-19 Vaccine ( season) 2023 12/06/2021, 01/22/2021, 12/31/2020, Additional history exists RSV Immunization Adult Patients (1 - 1-dose 75+ series) 01/25/2024 Diabetes: [...] age to complete this topic Meningococcal B Vaccine Aged Out No l onger eligible based on patient's age to complete this topic RSV Immunization Patients Under 20 months Aged Out No longer eligible based on patient's age to complete this topic Varicella Vaccines Aged Out No longer eligible based on patient's age to complete this topic Procedures Procedure Name Priority Date/Time Associated Diagnosis Comments EXTERNAL CLINICAL LAB Routine 05/09/2024 1:[address] REPORT Routine 05/04/2024 9: 10 [...] Relevant to Health Maintenance Results * External clinical lab (05/09/2024 1:41 PM EDT) Regino Bazan MD LAB BLOOD ORDERABL ES Final Result * External CT Report (05/04/2024 9:10 AM EST) Anatomical Region Laterality Modality Computed Tomogra phy us Historical Provider MD EDUARDO CT PROCEDURES Final R esult * External Diabetic Retina Eye Exam Report (02/08/2024) Anatomical Region Laterality Modality Ultrasound us Provider Onbase IMG US PROCEDURES Final Resul t * SCREENING [...] evidence of malignancy. BI-RADS 1 - negative [address] [id number] Procedure Note Shanelle Lewis MD - 01/01/2024 [...] evidence of malignancy. BI-RADS 1 - negative [address] [address] Lazara Shepherd MD IMG XR PROCEDURES Final Result * HM Urine Albumin Creatinine Ratio (09/27/2023) [facility] Urine Albumin Creatinine Ratio Abstracted Result [facility] Provider HEALTH MAINTENANCE Final Result * Annual BMP Blood Test (09/27/2023) Pathologist [facility] Annual BMP Blood Test Abstracted Result Pending sale to [facility] HEALTH MAINTENANCE Final Result * Falls Risk Assessment (09/27/2023) [facility] Falls Risk Assessment Abstracted Result Replaced by [facility] HEALTH MAINTENANCE Final Result * Depression Screening (09/27/2023) [facility] Depression Screening Abstracted Result Replaced by [facility] HEALTH MAINTENANCE Final Result * Diabetes Foot Exam (09/27/2023) [facility] Diabetes: Annual Foot Exam Abstracted Result Pending sale to [facility] HEALTH MAINTENANCE Final Result * (ABNORMAL) Hemoglobin A1c (09/27/2023) [facility] Hemoglobin A1C 6.6(A) <=6.5 % Blood Venous blood specimen / Unknown Result Pending sale to [facility] LAB BLOOD ORDERABLES Soraya l Result * (ABNORMAL) Lipid panel (09/27/2023) [facility] LDL/HDL Ratio 5(A) 0 - 4 Triglycerides 396(A) 0 - 150 mg/dL Cholesterol 245(A) 0 - 200 mg/dL HDL 45 >=40 mg/dL LDL Cholesterol 121(A) 0 - 100 mg/dL Blood Venous blood specimen / Unknown Result Pending sale to [facility] LAB BLOOD ORDERABLES Soraya l Result * [...] DXA PROCEDURES Final Result * Colonoscopy (08/07/2021) [facility] Colonoscopy No Interpretation , Abstracted Anatomical Region Laterality Modality Other Historical Provider HEALTH MAINTENANCE Final Result * Hepatitis C Screening (11/23/2012) [facility] Hepatitis C Screening Abstracted us Historical Provider HEALTH MAINTENANCE Final Result from Last 3 Months or Most Recently Relevant to Health Maintenance Insurance [facility] MEDICAID - [place] Care Teams Bottler Relationship Specialty Start Date End Date Lazara Shepherd MD [address] [place] [phone] PCP - General Internal Medicine 08/06/21
== END 2024-08-03 10:46 | disposition home or self-care (01) ==
LOC: HO.HKA 10:34
PROVIDERS: PCP Internal Medicine; Visit Provider Internal Medicine Hypertension Specialist
DX: N18.30 Chronic kidney disease, stage 3 unspecified (principal); I10 Essential (primary) hypertension
CPT/HCPCS: 99214

== ENCOUNTER → 2024-08-03 10:33 | Outpatient (BNVA) | payer OTHER, SELFPAY | PROVIDERS: PCP Internal Medicine; Visit Provider Internal Medicine Hypertension Specialist | DX: Z13.89 Encounter for screening for other disorder (principal) | CPT/HCPCS: 99212 ==

== ENCOUNTER 2024-08-03 10:59 | Outpatient (REF) | payer OTHER, SELFPAY ==
[2024-08-03 13:23] LABS: Anion Gap 11 (12-20); Blood Urea Nitrogen 12 mg/dL (9-16); Calcium 9.2 mg/dL (8.4-10.2); Carbon Dioxide 24 mmol/L (22-29); Chloride 109 mmol/L (96-108); Estimated Glomerular Filt Rate 39; Glucose Random 137 mg/dL (60-115); Potassium 4.1 mmol/L (3.3-5.1); Sodium 140 mmol/L (135-145)
[2024-08-03 13:39] LABS: Vitamin D 25-OH Total 25.6 ng/mL (>30)
[2024-08-03 13:42] LABS: Parathyroid Hormone Intact 108.4 pg/mL (8.7-77.1)
== END 2024-08-03 11:00 | disposition home or self-care (01) ==
LOC: HO.10HDL 10:59
PROVIDERS: Visit Provider Internal Medicine Hypertension Specialist
DX: I12.9 Hypertensive chronic kidney disease with stage 1 through stage 4 chronic kidney disease, or unspecified chronic kidney disease (principal); N18.30 Chronic kidney disease, stage 3 unspecified
CPT/HCPCS: 36415; 80048; 82306; 83970; 84100; 99212

== ENCOUNTER 2024-10-10 13:36 | Outpatient (AMB) | payer OTHER, SELFPAY ==
--- NOTE | 2024-10-10 13:41 | A.OFFVIS_ITS ---
Vital Signs 10/10/24 13:41 Height 5 ft Intake Visit Reasons: 6m MCI Allergies trazodone Adverse Reaction (Verified 08/03/24 10:37) Unknown Medication List - Last Reconciled 10/10/24 by Joyce Chaudhry CNP albuterol sulfate 90 mcg/actuation 2 puffs inhalation Q4-6H PRN amlodipine (Norvasc) 10 mg PO .evening aspirin 81 mg PO DAILY bupropion HCl mg PO calcium carbonate-vitamin D3 500 mg-5 mcg (200 unit) (Calcium 500 + D) 1 tab PO DAILY clopidogrel (Plavix) 75 mg PO DAILY donepezil 10 mg PO DAILY doxepin 10 mg PO BEDTIME famotidine (Pepcid) 10 mg (1/2 x 20 mg) PO DAILY furosemide 40 mg PO DAILY furosemide 20 mg PO DAILY gabapentin 600 mg PO BID hydralazine 25 mg PO BID lisinopril 40 mg PO DAILY loratadine (Claritin) 10 mg PO DAILY PRN memantine 10 mg PO BID metoprolol tartrate 100 mg PO BID omega-3 fatty acids (Fish Oil Concentrate) 1,000 mg PO DAILY omeprazole 40 mg PO DAILY pravastatin 80 mg PO DAILY tiotropium-olodaterol 2.5-2.5 mcg/actuation (Stiolto Respimat) 2 puffs PO DAILY HPI Comments Details: She was doing okay. Memory was about the same. Has periods of spatial disorientation when she goes out. No longer driving. She was living alone but had criminal justice program director who helped with cooking and cleaning. Pains all over body continue. Walking with cane, no falls. No seizures. No stroke-like or TIA-like symptoms. Sleep was not so good. No change in visual field cut. s/p occipital infarct with left homonymous hemianopsia. Less visual hallucinations. Right occipital infarct. MRA shows patent DAIRY CLERK, Carotid U/S normal. Echo not done. She had a pacemaker put in and valve repair. She has depression and some trouble sleeping. She has had a long history of sleep problems with difficulty initiating and maintaining sleep. She has been treated for anxiety and depression but does not know the names of the medicines which she is on. She has no bladder or bowel control problems. [facility] Medical History (Updated 10/10/24 @ 13:45 by Joyce Chaudhry CNP) Carotid stenosis, left TIA (transient ischemic attack) Uncontrolled hypertension Stroke MCI (mild cognitive impairment) Cataract Pacemaker Cervical spondylosis COPD (chronic obstructive pulmonary disease) Hypertension Surgical History S/P TAVR (transcatheter aortic valve replacement) History of transcatheter aortic valve replacement (TAVR) (~04/28/19) History of permanent cardiac pacemaker placement (~04/27/19) History of cardiac catheterization Family History Mother HTN (hypertension) Father Heart attack Brother HTN (hypertension) Social History Alcohol intake: never Patient Tobacco Use Status: Former Tobacco user Review of Systems Const Denies chills, Denies daytime sleepiness, Reports difficulty sleeping, Denies fatigue, Denies fever(s), Denies frequent falls, Reports headache(s), Denies increased appetite, Denies poor appetite, Denies snoring, Denies weakness, Denies weight gain and Denies weight loss Eyes Denies loss of vision ENT Denies vertigo, Denies dizziness, Reports headache(s) and Denies neck pain Card Denies chest pain at rest, Denies chest pain with activity, Denies syncope, Denies leg edema, Denies palpitations, Denies dyspnea and Denies dyspnea on exertion Resp Denies cough, Denies dyspnea, Denies dyspnea on exertion and Denies snoring GI Denies abdominal pain, Denies constipation, Denies heartburn, Denies diarrhea and Denies nausea Denies urinary frequency, Denies urinary incontinence and Denies urinary urgency Musc Denies abnormal gait, Reports back pain, Reports myalgias, Denies arthralgias, Denies neck pain, Denies numbness and Denies tingling Neuro Denies abnormal gait, Denies vertigo, Denies dizziness, Denies syncope, Denies frequent falls, Reports headache(s), Denies lack of coordination, Denies loss of vision, Denies memory loss, Denies numbness, Denies Other visual disturbances, Denies restless legs, Denies seizure-like activity, Denies tingling, Denies paresthesias, Denies tremor(s) and Denies weakness Psych Reports anxiety, Denies depression, Denies auditory hallucinations, Denies memory loss and Denies visual hallucinations Endo Denies fatigue and Denies palpitations Physical Exam Const Other: General Appearance:? normal, in no acute distress. Heart:? S1, S2 normal, no murmurs. Lungs:? clear anteriorly and posteriorly. Musculoskeletal:? normal. Extremities:? no edema. Psych:? alert, as below. Neuro Other: Abnormal Neurological Findings:?partial left inferior quarantanopsia. Walking with cane. MMSE 24/30. Mental Status: alert, as below. Cranial Nerves: Pupils are equal, round, and reactive to light. External ocular muscles are intact. Visual joyce are full, no ptosis. Face is symmetrical, no facial weakness or droop. Facial sensations are normal. Tongue protrudes in midline. Palate elevates symmetrically. Shoulder shrugging is normal Motor Examination: Normal muscle tone, bulk and strength. No atrophy or fasciculations. No drift of the extended upper extremities. DTR 2+. Plantars are flexor. Sensory Exam: Normal light touch, temperature, pinprick, vibration, and joint- position sensations. Rhomberg sign is absent. Coordination: No ataxia. No titubation. Pxeyzb-bp-[id number], kpzq-geva-zkbg test, and rapid alternating movements were normal. Gait Exam: With cane. Cerebellar Signs: Cnqozd-sk-ewoh and vkzm-yt-[id number] is normal. No dysdiadochokinesia. Extrapyramidal System: No tremor, rigidity with normal facial expressions. No bradykinesia. No bradyphrenia. Normal arm swing and posture. No propulsion or retropulsion. Speech: Normal. No dysphasia or dysarthria. MMSE Level of Consciousness: Alert. Orientation: Knows correct year, month, date, day and season. Knows correct city, county and state. Knows correct location and floor. Registration: Able to register 3 objects. Attention: Serial 7's performed accurately to 93. Recall: Able to recall 1 out of 3 objects. Language: Normal spontaneous speech, fluency, repetition, naming, comprehension, reading, and writing. Total Score: 24/30. Results Reviewed Results Reviewed: [id number] EEG- WNL. s/p pacemaker 02/13/16 awake and sleep EEG is within normal limits July 2012 Carotid doppler and MRA neck did not show any hemodynamically significant 03/02/17 MRA shows 70% Left ICA stenosis. 10/27/18 CTA showed 65% left ICA stenosis 08/19/19 CT scan shows biparital parasaggital and left occipital encephalomalacia. Assessment & Plan Assessment & Plan (1) MCI (mild cognitive impairment): Code(s): G31.84 - Mild cognitive impairment of uncertain or unknown etiology Category: Medical Plan: Continue memantine 10mg 1 tablet twice a day Continue donepezil 10mg 1 tablet at bedtime Stay physically and socially active, use cane. (2) History of stroke: Code(s): Z86.73 - Personal history of transient ischemic attack (TIA), and cerebral infarction without residual deficits Category: Medical Plan: Control blood pressure, continue statin. (3) History of TIA (transient ischemic attack): Code(s): Z86.73 - Personal history of transient ischemic attack (TIA), and cerebral infarction without residual deficits Category: Medical (4) Carotid stenosis, left: Code(s): I65.22 - Occlusion and stenosis of left carotid artery Category: Medical Plan . Coding Level of Care Code Est Pt Level 4 (17726) Diagnoses MCI (mild cognitive impairment) G31.84 History of stroke Z86.73 History of TIA (transient ischemic attack) Z86.73 Carotid stenosis, left I65.22
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
--- OUTSIDE RECORDS SUMMARY | 2024-10-10 14:30 | XMS_ITS ---
Author Name Gutierrez LORENEKike Address [address] [place] [address] Phone [phone] Organization [facility] [employer] [facility] Care Team Providers Care Animal Cop Name Role Phone Kike Whitley Unavailable [phone] Unavailable Unavailable Unavailable [facility] Unavailable Unavailable Unavailable Unavailable Reason for Referral Not Available Allergies, adverse reactions, alerts No known allergies History of medication use Medication Class Instructions Start Date End Date Lisinopril 40 mg Tab TAKE 1 TABLET BY MO UTH EVERYDAY AT BEDTIME 2021-03-25 No Data Available Stiolto Respimat 2.5-2.5 MCG /ACT Aerosol Solution TAKE 2 PUFFS BY MOUTH EVERY DAY 2021-01-06 No Data Available [id number] Ethyl Esters 1 GM Cap TAKE 1 CAPSULE BY MOUTH THREE TIMES A DAY 2021-07-14 No Data Available hydrALAZINE 25 mg Tab TAKE 1 TABLET BY M OUTH TWICE A DAY WITH FOOD FOR 30 DAYS 2021-07-17 No Data Available Metoprolol Tartrate 100 mg Tab 1 tablet orally 2 times per day with food 2021-02-12 No Data Available hydroCHLOROthiazide 25 mg Tab TAKE 1 TAB LET BY MOUTH EVERY DAY 2021-07-31 2023-04-26 Bisacodyl EC 5 mg Tab delaye d [...] MOUTH EVERY DAY 2021-09-03 No Data Available Memantine 10 mg Tab TAKE 1 TABLET BY SHYLA TH TWICE A DAY FOR 90 DAYS 2021-02-12 No Data Available Infinancialsuch Ultra Strip USED TO TEST BLOOD SUGAR [...] once daily 2021-12-17 No Data Available Furosemide 40 mg Tab TAKE 1 TABLET BY [...] per day prn 2023-12-23 No Data Available Famotidine 20 mg Tab TAKE 0.5 TABLET BY MOUTH DAILY FOR ABDOMINAL DISCOMFORT 2024-01-28 No Data Available Clopidogrel Bisulfate 75 mg Tab TAKE 1 T ABLET BY MOUTH EVERY DAY 2023-03-08 No Data Available Doxepin 10 mg Cap TAKE 1 CAPSULE BY MO UTH EVERY NIGHT AT BEDTIME TOME 1 CADA NOCHE YA NO TOME SEROQUEL 2024-04-13 No Data Available ProAir HFA 108 (90 Base) MCG/ACT Inhale 2 puffs every 4-6 hours as needed for shortness of breath or wheezing 2024-06-12 No Data Available Aspirin 81 mg Tab delayed rel take 1 tab let orally once daily 2024-06-12 No Data Available Problem List Problem Status Onset Date Resolved Date Synopsis Major depressive disorder, recurrent, mild Active 2021-12-17 N/A Denies SISometim es does not fel like going out or bathing etcbupropion; QUEtiapine Aortic arch atherosclerosis Active 2021-12-22 N/A carotid duplex: The aortic arch type was a type I with mild atherosclerotic diseasestatin and BP control Presence of cardiac pacemaker Active 2021-12-28 N/A placed in 2019 Sick sinus syndrome Active 2021-12-29 N/A pacem niki and metoprolol daily, will monitor Type 2 diabetes mellitus with other specified complication Active 2023-04-26 N/A Co-managed with: Jardiance, RosuvastatinReinforced importance of avoiding foods with high sugar content, high carbohydrates or starchy foods like rice, potatoes. 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 Lab work scheduled with PCP on denies LE swellingfeels welldenies SOB or OSHEA Hx of aortic valve replacement, Anticoagulated Active 2021-12-17 N/A Replaced on 06/26On Plavix06/12/24denies abnormal bleeding Other problems related to medical facilities and other health care Active 2023-04-26 N/A HEART FAILURE CONTINGENCY PLANLast updated: 06/12/2024Mepatrick to call for the following symptoms: Breathing loudly / Cough/ EdemaPlanned intervention: Increase furosemide (Lasix) to 60 mg for 5 days Morbid (severe) obesity due to excess calories Active 2023-04-26 N/A BMI 36monitor we ight movement as able 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 Active 2021-12-22 N/A on Memantine and Donepezilquetiepinehas good support system at home COPD (chronic obstructive pulmonary disease) Active 2021-12-17 N/A on StioltoCallCB if cough, sob06/12/24c/o DOEhas f/u with cardiology q 3 months f/u 06/25/24continue to monitor OSHEA and if increasing from baseline call CB ncouraged to bring up to Cards during f/u Encounters Encounters Type Facility Date of Service Diagnosis/Co mplaint Medication List Documented (1159F) [facility], ([place]) [place]20[place] Medication List Documented (1159F) [facility] Medication List Documented (1159F) [facility] Medication List Documented (1159F) [facility] Medication List Documented (1159F) [facility] Medication List Documented (1159F) [facility]2021 Dorsalgia, unspecifiedOther localized visual field [...] unspecifiedSick sinus syndrome Medication List Documented (1159F) [facility]20[place] Medication List Documented (1159F) [facility] ([place]/17/2021 Medication List Documented (1159F) [facility], ([place]) 12/17/20[place] Estab. patient 30-39min; chronic exacerbation, 2 stable chronic or 1 acute illness add add modifier 95 for video, (do not use for phone, instead use 15394-93) [facility]/2022 Dorsalgia, unspecifiedOther localized visual field defect, [...] (do not use for phone, instead use 04795-87) [facility] Estab. patient 30-39min; chronic exacerbation, 2 stable chronic or 1 acute illness add add modifier 95 for video, (do not use for phone, instead use 18851-86) [facility]/20[place] Estab. patient 30-39min; chronic exacerbation, 2 stable chronic or 1 acute illness add add modifier 95 for video, (do not use for phone, instead use 74412-42) [facility] [place]/20[place] Estab. patient 30-39min; chronic exacerbation, 2 stable chronic or 1 acute illness add add modifier 95 for video, (do not use for phone, instead use 34534-26) [facility] [place] Estab. patient 30-39min; chronic exacerbation, 2 stable chronic or 1 acute illness add add modifier 95 for video, (do not use for phone, instead use 58824-11) [facility] [place] Estab. patient 30-39min; chronic exacerbation, 2 stable chronic or 1 acute illness add add modifier 95 for video, (do not use for phone, instead use 61333-97) [facility] [place]20[place] Estab. patient 30-39min; chronic exacerbation, 2 stable chronic or 1 acute illness add add modifier 95 for video, (do not use for phone, instead use 69082-08) [facility] [place]/20[place] Estab. patient 30-39min; chronic exacerbation, 2 stable chronic or 1 acute illness add add modifier 95 for video, (do not use for phone, instead use 68799-21) [facility] [place]/2022 Estab. patient 30-39min; chronic exacerbation, 2 stable chronic or 1 acute illness add add modifier 95 for video, (do not use for phone, instead use 86248-46) [facility] ([place] 04/14/2022 Estab. patient 30-39min; chronic exacerbation, 2 stable chronic or 1 acute illness add add modifier 95 for video, (do not use for phone, instead use 41207-33) [facility] ([place] 04[place]26/2023 Dorsalgia, unspecifiedOther localized visual field [...] (do not use for phone, instead use 62635-52) [facility] 04[place]/20[place] Estab. patient 30-39min; chronic exacerbation, 2 stable chronic or 1 acute illness add add modifier 95 for video, (do not use for phone, instead use 84851-36) [facility] 04[place]/20[place] Estab. patient 30-39min; chronic exacerbation, 2 stable chronic or 1 acute illness add add modifier 95 for video, (do not use for phone, instead use 64038-61) [facility] 04[place]/20[place] Estab. patient 30-39min; chronic exacerbation, 2 stable chronic or 1 acute illness add add modifier 95 for video, (do not use for phone, instead use 56802-03) [facility] 04[place]20[place] Estab. patient 30-39min; chronic exacerbation, 2 stable chronic or 1 acute illness add add modifier 95 for video, (do not use for phone, instead use 90770-43) [facility] 04[place]20[place] Estab. patient 30-39min; chronic exacerbation, 2 stable chronic or 1 acute illness add add modifier 95 for video, (do not use for phone, instead use 65171-23) [facility] 04[place]/20[place] Estab. patient 30-39min; chronic exacerbation, 2 stable chronic or 1 acute illness add add modifier 95 for video, (do not use for phone, instead use 52527-35) [facility] 04/[place]/2023 No Data Available [facility]/2023 Hyp hrt & chr kdny dis w hrt fail and stg 1-4/unsp chr kdnyHeart failure, unspecifiedChronic kidney disease, unspecifiedCramp and spasmOther problems related to medical facilities and other health care No Data Available [facility]2023 No Data Available [facility]20[place] No Data Available [facility] 12[place]20[place] No Data Available [facility]20[place] Hyp hrt & chr kdny dis w hrt fail and stg 1-4/unsp chr kdnyHeart failure, unspecifiedChronic kidney disease, stage 3 unspecifiedCramp and spasmOther problems related to medical facilities and other health care No Data Available [facility] [place]/2023 RN, CN or CP time with patient by phone; use with 1111F, BP, A1c or other CPTII codes [facility] 02/10/2024 Encounter for other specifie d aftercare No Data Available [facility] [place]/16/2024 Unspecified abdominal painPe rsonal history of other medical treatment No Data Available [facility] [place] 02/16/2024 No Data Available [facility] [place] 02[place]16/2024 No Data Available [facility] [place]/16/2024 No Data Available [facility] 02/16/2024 No Data Available [facility] [place]/2024 No Data Available [facility] [place]/16/2024 No Data Available [facility] [place]/20[place] Estab. patient 20-29min; 1 stable chronic or 2 minor; add add modifier 95 for video, modifier 93 for phone [facility] ([place] 06/12/2024 Other localized visual field defect, left eyeHemiplga following cerebral infrc affecting left nondom sideUnspecified sequelae of cerebral infarctionChronic obstructive pulmonary disease, unspecifiedType 2 diabetes mellitus with diabetic chronic kidney diseaseHyp hrt & chr kdny dis w hrt fail and stg 1-4/unsp chr kdnyHeart failure, unspecifiedChronic kidney disease, stage 3bPresence of prosthetic heart valveLong term (current) use of anticoagulantsMajor depressive disorder, recurrent, mildAlzheimer's disease with late onsetDementia in other diseases classified elsewhere, moderate, with psychotic disturbanceAtherosclerosis of aortaPresence of cardiac pacemakerSick sinus syndromeMorbid (severe) obesity due to excess caloriesType 2 diabetes mellitus with other specified complicationHyperlipidemia, unspecifiedOther problems related to medical facilities and other health careBody mass index (bmi) 36.0-36.9, adult Estab. patient 20-29min; 1 stable chronic or 2 minor; add add modifier 95 for video, modifier 93 [facility] Estab. patient 20-29min; 1 stable chronic or 2 minor; add add modifier 95 for video, modifier 93 for phone [facility] Estab. patient 20-29min; 1 stable chronic or 2 minor; add add modifier 95 for video, modifier 93 for phone [facility]/[place]/2024 Estab. patient 20-29min; 1 stable chronic or 2 minor; add add modifier 95 for video, modifier 93 for phone [facility]/12/2024 Estab. patient 20-29min; 1 stable chronic or 2 minor; add add modifier 95 for video, modifier 93 for phone [facility] 06/12/2024 Estab. patient 20-29min; 1 stable chronic or 2 minor; add add modifier 95 for video, modifier 93 for phone [facility] 06/12/2024 Vital Signs Date of Collection Vitals 2021-12-17 [...] - 60.0 /minPain Scale - 0.0 {score} 2024-06-12 12:24:49 Weight - 89.81 kgBod y Mass Index (BMI) - 36.21 kg/m2BP Diastolic - 67.0 mm[Hg]BP Systolic - 126.0 mm[Hg]Pain Scale - 0.0 {score} Social History Social History Social History Observation Description Effec tive Time Current Smoking Status Former smoker 2024-09-29 2 Sex Female History of Procedures Procedures Service [...] le No Data Available No Data Available [id number] 2021-12-17 No Data Available No Data Available [...] (do not use for phone, instead use 03335-16) [id number] 2022-04-14 No Data Available No Data Availa [...] (do not use for phone, instead use 75409-42) 04185 2023-04-26 No Data Available No Data Availa [...] discussed and documented in the medical record beneficiary/patient did not wish to or was unable to provide an advance care plan or name a surrogate decision-maker. (1124F) 1124F 2023-04-26 No Data Available No Data Availa ble Functional Status Assessed (1170F) 1170F 2023-04-26 No Data Available No Data Avail able No Data Available [id number] 2023-12-23 No Data Available No Data Available SBP < 130 (3074F) 3074F 2023-12-23 No Data Available No Data Available DBP <80 (3078F) 3078F 2023-12-23 No Data Available No Data Available Medication List Documented (1159F) 1159F 2023-12-23 No Data Available No Data Laurita ilable No Data Available [id number] 2023-12-24 No Data Available No Data Available Medication List Documented (1159F) 1159F 2023-12-24 No Data Available No Data Laurita ilable RN, CN or CP time with patient by phone; use with 1111F, BP, A1c or other CPTII codes 44208 2024-02-10 No Data Available No Data Avai lable No Data Available [id number] 2024-02-16 No Data Available No Data Available Medication List Documented (1159F) 1159F 2024-02-16 No Data Available No Data Laurita ilable Advance care planning discussed and documented advance care plan or surrogate decision-maker was [...] 2024-02-16 No Data Available No Data Available Estab. patient 20-29min; 1 stable chronic or 2 minor; add add modifier 95 for video, modifier 93 for phone [id number] 2024-06-12 No Data Available No Data Availa ble Medication List Documented (1159F) 1159F 2024-06-12 No Data Available No Data Laurita ilable Medication Review by prescribing provider or pharmacist documented (1160F) 1160F 2024-06-12 No Data Available No Data Laurita ilable Functional Status Assessed (1170F) 1170F 2024-06-12 No Data Available No Data Avail able Pain Assessment - NO pain present (1126F) 1126F 2024-06-12 No Data Available No Data A vailable SBP < 130 (3074F) 3074F 2024-06-12 No Data Available No Data Available DBP <80 (3078F) 3078F 2024-06-12 No Data Available No Data Available Functional Status Functional Category Effective Dates Falls in last 6 Months: No 2021-12-17 Cognition Status: 2024-06-12 ADL: Bathing Needs Assistanc e , Dressing Needs Assistance , Eating Independent , Ambulation Independent , Transferring Independent and Toileting Independent 2024-06-12 IADL: Medication Needs Lali tance , Meal Prep Needs Assistance , Shopping Needs Assistance , Housework Independent , Finances Independent 2024-06-12 How many falls within the last 6 months? None 2024-06-12 Do you feel unsteady on your feet? No 20 23-06-13 Do you worry about falling? No 2024-05-30 4 DME used with ambulation: Cane 2024-05-30 4 Social Supports - # of Inter actions with Friends/Family in a typical week: 2024-06-12 Near falls within the last 6 months? Non e 2024-06-12 Mental Status No Information Assessments Date of Service Assessments 2021-12-17 10:52:13 Will discuss Advance d Care Plan at FU. 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 Peripheral visual field defect of left eyeCOPD (chronic obstructive pulmonary disease)Hypertensive heart and chronic kidney disease with heart failure and stage 3 chronic kidney diseaseHx of aortic valve replacement, AnticoagulatedMajor depressive disorder, recurrent, mildType 2 diabetes mellitus with diabetic chronic kidney disease, Stage 3b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Aortic arch atherosclerosisPresence of cardiac pacemakerSick sinus syndromeMorbid (severe) obesity due to excess caloriesOther problems related to medical facilities and other health careType 2 diabetes mellitus with other specified complication Plan of Care Date of Service Plans 2021-12-17 10:52:13 Medication Review by prescribing provider or pharmacist documented (1160F)Medication List Documented (1159F)Functional Status Assessed (1170F)BMI obtained (3008F)SBP < 130 (3074F)DBP <80 (3078F)Televideo new patient,40-59min; chronic exacerbation, 2 stable chronic or 1 acute illness add modifier 95Pain Assessment - Pain Documented (1125F)Continue to see PCP. Follow-up with [facility] as needed for any acute or disease education needs that may arise. Continue to see PCP. Follow-up with [facility] as [...] call cardio, ask to give mssg to mud analysis supervisor, ask to be triaged and possibly [...] obtained (3008F)Continue to see PCP. Follow-up with [facility] as needed for any acute or disease education needs that may arise.Gabapentin, TylenolReports worsening painEncouraging movement, activityCVA circa 2012Most noticeable sequela is vision change on left.Functionally relatively well per pt report.on StioltoCall CB if cough, sobReplaced on 06/27/2019 PlavixLisinoprilHCTZAmlodipineReplaced on 06/27/2019On PlavixDenies SISometimes does not [...] [facility] to [facility] her.[facility] re reducing starch in diet,increasing fiber,Activity as [...] discussed and documented in the medical record beneficiary/patient did not wish to or was [...] avoid nephrotoxic medsEncourage low starch, high fiber [id number] lab work scheduled for 05/17/23on Memantine and [...] snacks.F/U with PCP 2023-12-23 07:05:07 Phone (patient, pare nt, or guardian); 11-20 minutes of medical discussion (no modifier 95)SBP < 130 (3074F)DBP <80 (3078F)Continue to see PCP. Follow-up with [facility] as needed for any acute [...] to call for the following symptoms: BP <100/60 / Decreased UOP - general/ Dry or tacky lips/ HR >100 Planned intervention: Drink Pedialyte/ Drink 16 oz of water/ Hold Antihypertensives 2023-12-24 07:46:10 Phone (patient, pare nt, or guardian); 11-20 minutes of medical discussion (no modifier 95)Continue to see PCP. Follow-up with [facility] as needed for any acute [...] to call for the following symptoms: BP <100/60 / Decreased UOP - general/ Dry or tacky lips/ HR >100 Planned intervention: Drink Pedialyte/ Drink 16 oz of water/ Hold Antihypertensives 2024-02-16 09:26:11 Discharge medication s reconciled with current medication listAdvance care planning discussed and documented advance care plan or surrogate decision-maker was documented in the medical record. (1123F)SBP < 130 (3074F)Pain Assessment - NO pain documented (1126F)DBP <80 (3078F)Phone (patient, parent, or guardian); 21-30 minutes of medical discussion (no modifier 95)PCP visit is planned for:Hospital name: [facility] Hospital admission date: 01/30/24ospital discharge date: 02/02/24Discharge diagnosis: MR pendjayson, per patient stomach pain, possible virus. [...] reviewed at this time. Has appt with [facility] [employer] [facility] on 03/02/2024. Has appt for heart Ultrasound for 03/24/2024. Denies any new complaints or acute symptoms today. Advised to contact CB 21/09 as needed. 2024-06-12 12:24:49 Functional Status As sessed (1170F)Advance Care Directive Advance care planning discussion documented in the medical record (1158F)Advance care planning discussed and documented advance care plan or surrogate decision-maker was documented in the medical record. (1123F)SBP 130-139 (3075F)DBP <80 (3078F)Estab. patient 20-29min; 1 stable chronic or 2 minor; add add modifier 95 for video, modifier 93 for phoneMedication List Documented (1159F)Medication Review by prescribing provider or pharmacist documented (1160F)Pain Assessment - NO pain present (1126F)Continue to see PCP. Follow-up with [facility] as needed for any acute or disease education needs that may arise.CVA circa 2013Most noticeable sequela is vision change on left.Functionally relatively well per pt report.06/12/24no falls in the past 6 months, ambulating with caneon StioltoCallCBif cough, sob06/12/24c/o DOEhas f/u with cardiology q 3 months f/u 06/25/24continue to monitor OSHEA and if increasing from baseline call CB ncouraged to bring up to Cards during f/uLisinoprilHCTZAmlodipineNo recent eGFR. Lab work scheduled with PCP on denies LE swellingfeels welldenies SOB or DOEReplaced on 06/27/2019On Plavix06/12/24denies abnormal bleedingDenies SISometimes does not fel like going out or bathing etcbupropion; QUEtiapineOn Jardiance, Calcium avoid nephrotoxic medsEncourage low starch, high fiber [id number] lab work scheduled for 05/17/23CKD (chronic kidney disease) stage 3, GFR 30-59 ml/minon Memantine and Donepezilquetiepinehas good support system at homecarotid duplex: The aortic arch type was a type I with mild atherosclerotic diseasestatin and BP controlplaced in 2019pacemaker and metoprolol daily, will monitorBMI 36monitor weight movement as ableHEART FAILURE CONTINGENCY PLANLast updated: 06/12/2024Member to call for the following symptoms: Breathing loudly / Cough/ EdemaPlanned intervention: Increase furosemide (Lasix) to 60 mg for 5 daysCo-managed with: Jardiance, RosuvastatinReinforced importance of avoiding foods with high sugar content, high carbohydrates or starchy foods like rice, potatoes. Recommended to eat smaller portions with healthy snacks.F/U with PCP Goals Date Goal 2021-12-17 Remember to 2021-12-17 Call me if 2021-12-17 Keep it up 2021-12-17 Remember to 2021-12-17 Call me if 2021-12-17 Keep it up 2024-02-16 Remember to keep all appointments with your PCP and specialists. Call / if you have questions or concerns. Discussed how to contact [facility] via phone or tablet. 21/09 phone number provided. 2024-02-16 Home Health or DME n eeds: Requesting standard shower chair. DME order placed. Health Concerns Date Concern 2024-06-12 Visit completed mark g audio and video. Patient agreed to visit via telehealth. Today, patient has chief complaint of: follow up care and comprehensive review.Reviewed Allergies, Medications, Active Medical conditions, past medical/surgical history, Social history. 2024-06-12 Most recent hospital stay(s) or ER visit(s) and precipitating factors: none in the last month 2024-06-12 Open HEDIS Measure willie kerr: done
--- OUTSIDE RECORDS SUMMARY | 2024-10-10 14:30 | XMS_ITS | Clinical Summary ---
Author Organization [facility] Address [address] [facility] [address] [place] [address] Phone Care Team Providers Care Mannequin Mounter Name Role Phone Amanda Mckinnon MD Primary Care Provider [phone] Allergies No known active allergies Medications omega-3 [...] 11/20/2020 Overview (11/15/2020): Follows with pul[facility]ology ([facility]) H/O: cardiac pacemaker in situ 06/27/2019 11/20/2020 [...] nd following cerebrovascular accident 11/01/2012 11/20/2020 Immunizations Immunization Administration Dates Next Due Influenza Split 12/13/2013 [...] 02/04/2022 022, 02/07/2021, 10/04/2020 Influenza Vaccine (#1) 2024 , 12/02/2020, 12/01/2019, Additional history exists Pneumococcal Vaccine: 50+ Years Completed 12/20/2017, 12/30/2015, 05/25/2012, Additional history exists Pneumococcal Vaccine: Peds (0 to 5 Years) and At-Risk Patients (6 to 49 Years) Discontinued 12/20/2017, 12/30/2015, 05/25/2012, Additional history exists Hepatitis B Vaccine Aged Out No longe r eligible based on patient's age to complete this topic Insurance [facility] ([id number]) [facility] ([id number]) Care Teams Mannequin Mounter Relationship Specialty Start Date End Date Amanda Mckinnon MD [address] [place] [address] PCP - General Internal Medicine 11/20/20
--- OUTSIDE RECORDS SUMMARY | 2024-10-10 14:31 | XMS_ITS | Patient Health Record ---
Author Organization [facility] Address [address] [place] [address] Care Team Providers Care Weight Calculator Name Role Phone Dick Velasquez M.D. Primary Care Provider UnavailAntonio Buck Jr Unavailable Reason For Referral No Information Plan Of Treatment No Information
--- OUTSIDE RECORDS SUMMARY | 2024-10-10 14:31 | XMS_ITS | Clinical Summary ---
Author Organization [facility] Address [address] [place] [address] Phone Care Team Providers Care Waste Machine Operator Name Role Phone UzmaVandana Smith Maria L DO Primary Car e Provider Allergies No known active allergies Medications lisinopril (PRINIVIL,ZESTR IL) 40 MG tablet Take 40 mg by mouth daily. Active gabapentin (NEURONTIN) 600 MG tablet Take 600 mg by mouth 2 (two) times a day. Active hydroCHLOROthia zide (HYDRODIURIL) 50 MG tablet Take 50 mg by mouth daily. Active amLODIPine (NORVASC) 10 MG tablet Take 10 mg by mouth daily. Active acetaminophen (TYLENOL) 325 mg tablet Take 650 mg by mouth every 6 (six) hours as needed for mild pain. Active buPROPion (WELLBUTRIN SR) 100 MG SR 12 hr tablet Take 100 mg by mouth 2 (two) times a day. Active calcium carbonate-vitam in D3 1,250 mg (500 mg elemental)-400 units per tablet Take 1 tablet by mouth daily. Active clopidogrel (PLAVIX) 75 mg tablet Take 75 mg by mouth daily. Active donepeziL (ARICEPT) 5 MG tablet Take 5 mg by mouth nightly at bedtime. Active omega-3 fatty acids-fish oil 340-1,000 mg Cap Take 1 capsule by mouth daily. Active furosemide (LASIX) 20 MG tablet Take 20 mg by mouth daily. Active aspirin 81 MG EC tablet Take 81 mg by mouth daily. Active metoprolol tartrate (LOPRESSOR) 100 MG tablet Take 100 mg by mouth 2 (two) times a day. Active pravastatin (PRAVACHOL) 80 MG tablet Take 80 mg by mouth daily. Active Social History Tobacco Use Types Packs/Day Years Used Date Smoking Tobacco: Some Days Smokeless Tobacco: Never Alcohol Use Standard Drinks/Week Comments Never 0 (1 standard drink = 0.6 oz pur e alcohol) Education Answer Date Recorded Are you interested in more education? Not on yuliya e 06/26/2022 Are you concerned about learning? Not on file 06/26/2022 No 06/26/2022 No 06/26/2022 Digital Access Answer Date Recorded No 07/25/2022 No 07/25/2022 No 07/25/2022 Reliable internet access at home? Not on file 07/25/2022 Device with a working camera? Not on file Comments No Sex and Gender Information Value Date Recorded Sex Assigned at Not on file Legal Sex Female 5:21 PM EDT Gender Identity Not on file Sexual Orientation Not on file Last Filed Vital Signs Vital Sign Reading Time Taken Comments Blood Pressure 119/60 11/01/2019 2:00 PM EDT Pulse 76 11/01/2019 11:00 AM EDT Temperature 36.9 C (98.4 F) 11/01/2019 12:15 PM EDT Respiratory Rate 20 11/01/2019 11:00 AM EDT Oxygen Saturation 97% 11/01/2019 2:00 PM EDT Inhaled Oxygen Concentration - - Weight 78 kg (172 lb) 11/01/2019 7:52 AM EDT Height 157.5 cm (5' 2 ) 11/01/2019 7:52 AM EDT Body Mass Index 31.46 11/01/2019 7:52 AM EDT Plan of Treatment Health Maintenance Due Date Last Done Comments CREATININE LEVEL 1949 LIPID PANEL 1949 POTASSIUM LEVEL 1949 DEPRESSION SCREENING 1961 SMOKING Hx and SMOKELESS TOBACCO SCREENING 1962 HEPATITIS C SCREENING 1967 COLOGUARD 1994 COLONOSCOPY 1994 COLORECTAL CANCER SCREENING 1994 FIT TEST 1994 FOBT 1994 SIGMOIDOSCOPY 1994 VIRTUAL COLONOSCOPY 1994 ZOSTER VACCINES (1 of 2) 1999 OSTEOPOROSIS SCREENING INITIAL (ONE-TIME) 2014 Adult Td,Tdap Booster 09/19/2023 09/18/2013 , 11/25/2007, 06/08/2007, Additional history exists COVID-19 VACCINE (2023- season) 2023 01/22/2021, 06/13/2020, 05/16/2020 RSV VACCINE (1 - 1-dose 75+ series) 01/25/2024 PNEUMOCOCCAL VACCINES (50+ years) Completed 12/20/2017, 12/30/2015, 05/12/2012, Additional history exists HEPATITIS A VACCINES Aged Out No long er eligible based on patient's age to complete this topic HIB VACCINES Aged Out No longer eligi ble based on patient's age to complete this topic MENINGOCOCCAL VACCINES (ACWY) Aged Out No longer eligible based on patient's age to complete this topic MENINGOCOCCAL VACCINES (B) Aged Out N o longer eligible based on patient's age to complete this topic Medical Devices Implanted Type Area Network Relations Consultant Device Identifier Shelf Expiration Date Model / Serial / Lot Pacemaker Pacemaker Chest Wall Prosthetic Valve Prosthetic Valve Aorta Description:TAVR Insurance [employer] REPLACEMENT Advance Directives For more information, please contact: [phone] (9AM - 5PM [facility], Wednesday-Wednesday) * Full Code (Latest Code Status on File) Date Activated Date Inactivated Comments 11/01/2019 7:39 AM Question Answer Comments Code Status Confirmed With: Other (specify below ) Code Status Communicated To: Other (specify belo w) Code Discussion Comments: Transcribed from order Care Teams Waste Machine Operator Relationship Specialty Start Date End Date Vandana Bellamy DO [address] [place] [address] PCP - General 10/23/19 Additional Source Comments The information contained in this document represents components of the legal health record. It is not the complete legal health record.[facility]
== END 2024-10-10 14:45 | disposition home or self-care (01) ==
LOC: HO.HSM 13:36
PROVIDERS: PCP Internal Medicine; Referring Provider Internal Medicine; Visit Provider Registered Nurse
DX: G31.84 Mild cognitive impairment of uncertain or unknown etiology (principal); I65.22 Occlusion and stenosis of left carotid artery; Z86.73 Personal history of transient ischemic attack (TIA), and cerebral infarction without residual deficits
CPT/HCPCS: 99214

== ENCOUNTER → 2024-10-10 13:36 | Outpatient (BNVA) | payer OTHER, SELFPAY | PROVIDERS: PCP Internal Medicine; Referring Provider Internal Medicine; Visit Provider Registered Nurse | DX: G31.84 Mild cognitive impairment of uncertain or unknown etiology (principal); I65.22 Occlusion and stenosis of left carotid artery; G47.9 Sleep disorder, unspecified; Z86.73 Personal history of transient ischemic attack (TIA), and cerebral infarction without residual deficits; Z87.891 Personal history of nicotine dependence | CPT/HCPCS: 99212 ==

== ENCOUNTER 2024-10-12 09:36 | Outpatient (AMB) | payer OTHER, SELFPAY ==
--- NOTE | 2024-10-12 09:45 | HO.NEPHOV ---
Vital Signs 10/12/24 09:46 Height 5 ft Weight 200 lb BMI 39.1 BP 120/62 Blood Pressure Location Lt brachial Position Sitting Pulse 70 Pulse Source Pulse Oximeter Pulse Oximetry (%) 97 Oxygen Delivery Method Room Air Intake Visit Reasons: FU-LVM Airways Operations Specialist Required: No Accompanied by: Self / Same As Patient Allergies trazodone Adverse Reaction (Verified 10/12/24 09:48) Unknown Medication List - Last Reconciled 10/12/24 by Regino Bazan MD albuterol sulfate 90 mcg/actuation 2 puffs inhalation Q4-6H PRN amlodipine (Norvasc) 10 mg PO .evening aspirin 81 mg PO DAILY bupropion HCl mg PO calcium carbonate-vitamin D3 500 mg-5 mcg (200 unit) (Calcium 500 + D) 1 tab PO DAILY clopidogrel (Plavix) 75 mg PO DAILY donepezil 10 mg PO DAILY doxepin 10 mg PO BEDTIME empagliflozin (Jardiance) 10 mg PO DAILY famotidine (Pepcid) 10 mg (1/2 x 20 mg) PO DAILY furosemide 40 mg PO DAILY furosemide 20 mg PO DAILY gabapentin 600 mg PO BID hydralazine 25 mg PO BID lisinopril 40 mg PO .PM lisinopril 20 mg PO .AM loratadine (Claritin) 10 mg PO DAILY PRN memantine 10 mg PO BID metoprolol tartrate 100 mg PO BID omega-3 fatty acids (Fish Oil Concentrate) 1,000 mg PO DAILY omeprazole 40 mg PO DAILY pravastatin 80 mg PO DAILY tiotropium-olodaterol 2.5-2.5 mcg/actuation (Stiolto Respimat) 2 puffs PO DAILY HPI Comments Details: Elvi is a pleasant 73-year-old man with history of longstanding hypertension and chronic disease. She has a history of severe aortic stenosis and it seems that she underwent transcatheter aortic valve replacement for the same in April of 2019. Following this, she also developed complete heart block and had permanent pacemaker implantation. Then it seems that she also developed a stroke but the timing is not clear. This led to left internal carotid artery stenting. Home renal standpoint she is doing reasonably well. No urinary symptoms. She is still has some leg edema she is tolerating Lasix. She has some difficulty swallowing and never saw ENT. 09/30/23 c/o Back pain x 1 month;No urinary sypmtoms;Cr up to 1.47 11/18/23. Still has back pain. No urinary symptoms. No new labs. 05/09/24 Recently BP was high at home last week. BP is better today Had cough and sweats- Has shortness of breath- better today Took inhalers. Also had nausea and diarrhea- resolved today 08/03/24 74-year-old female presenting with hypertension management. She consistently experiences elevated morning blood pressure readings, with a recent measurement of 182 mmHg. Her blood pressure was previously well-controlled, highlighting a recent change in her condition. Current medications include amlodipine and variable doses of furosemide. Her treatment regimen was initially adjusted in response to weight gain. The patient denies experiencing urinary problems, leg swelling, or respiratory issues, which helps rule out complications from unmanaged hypertension. Medication compliance seems to be a variable factor, specifically with morning doses that might contribute to the elevated readings. 10/12/24 The patient is a 74-year-old female presenting with chronic kidney disease and hypertension. Her kidney function has shown improvement, with current levels at 39%, up from 34% in March, and previously as low as 23% last year. The patient has been advised to maintain hydration and control her blood sugar levels to support kidney health. Hypertension has been a concern, but recent measurements indicate stability, with home monitoring showing good control. The patient was previously on hydrochlorothiazide, which has been discontinued due to stable blood pressure readings. The patient reports low back pain, which is not attributed to her kidney condition. She has undergone imaging studies, including a CAT scan last year, which showed no significant abnormalities. Vitamin D deficiency was noted, [facility] Medical History (Updated 10/10/24 @ 13:45 by Joyce Chaudhry CNP) Carotid stenosis, left TIA (transient ischemic attack) Uncontrolled hypertension Stroke MCI (mild cognitive impairment) Cataract Pacemaker Cervical spondylosis COPD (chronic obstructive pulmonary disease) Hypertension Surgical History S/P TAVR (transcatheter aortic valve replacement) History of transcatheter aortic valve replacement (TAVR) (~04/28/19) History of permanent cardiac pacemaker placement (~04/27/19) History of cardiac catheterization Family History Mother HTN (hypertension) Father Heart attack Brother HTN (hypertension) Social History Alcohol intake: never Patient Tobacco Use Status: Former Tobacco user Physical Exam Vital Signs: Last Vital Signs Pulse 70 10/12/24 09:46 BP 120/62 10/12/24 09:46 Pulse Ox 97 10/12/24 09:46 Oxygen Delivery Method Room Air 10/12/24 09:46 BMI result Body Mass Index 39.1 Comfortable Neck supple no JVD. Lungs entry equal no rales. Heart S1-S2 heard no gallop or rub. Abdomen soft nontender. Neuro alert awake oriented. No asterixis. Extremities no edema. Results Reviewed Nephrology Results: Sodium, (135-145) 140 mmol/L 08/03/24 Potassium, (3.3-5.1) 4.1 mmol/L 08/03/24 Chloride, (96-108) 109 mmol/L H 08/03/24 Carbon Dioxide, (22-29) 24 mmol/L 08/03/24 BUN, (9-16) 12 mg/dL 08/03/24 Creatinine, (0.5-1.4) 1.32 mg/dL 08/03/24 Calcium, (8.4-10.2) 9.2 mg/dL 08/03/24 Phosphorus, (2.7-4.5) 3.0 mg/dL 08/03/24 PTH Intact, (8.7-77.1) 108.4 pg/mL H 08/03/24 Renal US 10/12/23 Assessment & Plan Assessment & Plan (1) CKD (chronic kidney disease) stage 3, GFR 30-59 ml/min: Code(s): N18.30 - Chronic kidney disease, stage 3 unspecified Category: Medical Plan: CKD 3B in a setting of longstanding HTNAdn DM eGFR is around 30 ml/mt Relatively stable over 4- 5yrs with mild reversible fluctuation s/p Mild hypercalcemia. REsolved Vit D DEf; Add Cholecalceferol 1000 U QD (2) Essential hypertension: Code(s): I10 - Essential (primary) hypertension Category: Medical Plan: Blood pressure is well controlled. No need to change antihypertensive at this time. Orders: Orders Complete Blood Count no Diff 4 Months I10 - Essential (primary) hypertension, N18.30 - Chronic kidney disease, stage 3 unspecified Total Protein Urine Random 4 Months I10 - Essential (primary) hypertension, N18.30 - Chronic kidney disease, stage 3 unspecified Creatinine Urine 4 Months I10 - Essential (primary) hypertension, N18.30 - Chronic kidney disease, stage 3 unspecified Comprehensive Met. Panel 4 Months I10 - Essential (primary) hypertension, N18.30 - Chronic kidney disease, stage 3 unspecified UA and rflx microscopic 4 Months I10 - Essential (primary) hypertension, N18.30 - Chronic kidney disease, stage 3 unspecified Medications: New cholecalciferol (vitamin D3) 25 mcg PO DAILY 90 caps 1RF Coding Level of Care Code Est Pt Level 4 (19867) Diagnoses CKD (chronic kidney disease) stage 3, GFR 30-59 ml/min N18.30 Essential hypertension I10
[2024-10-12 09:46] VITALS: BP 120/62; PULSE 70; O2SAT 97; BMI 39.1
--- OUTSIDE RECORDS SUMMARY | 2024-10-12 10:17 | XMS_ITS | Patient Health Record ---
Author Organization [facility] Address [address] [place] [phone] Care Team Providers Care High School Admissions Representative Name Role Phone Dick Velasquez M.D. Primary Care Provider UnavailAntonio Buck Jr Unavailable Reason For Referral No Information Plan Of Treatment No Information
--- OUTSIDE RECORDS SUMMARY | 2024-10-12 10:17 | XMS_ITS | Clinical Summary ---
Author Organization [facility] Address [address] [place] [address] Phone Care Team Providers Care Machined Parts Metal Sprayer Name Role Phone HerberthVandana Hannah Maria L DO Primary Car e Provider [...] this topic Medical Devices Implanted Type Area Clinical Documentation Improvement Specialist Device Identifier Shelf Expiration Date Model / Serial / Lot Pacemaker Pacemaker Chest Wall Prosthetic Valve Prosthetic Valve Aorta Description:TAVR Insurance [employer] REPLACEMENT Advance Directives For more information, please contact: [phone] (9AM - 5PM [facility], Wednesday-Wednesday) * Full Code (Latest Code Status on File) Date Activated Date Inactivated Comments 11/01/2019 7:39 AM Question Answer Comments Code Status Confirmed With: Other (specify below ) Code Status Communicated To: Other (specify belo w) Code Discussion Comments: Transcribed from order Care Teams Machined Parts Metal Sprayer Relationship Specialty Start Date End Date Vandana Bellamy DO [address] [place] [address] PCP - General 10/23/19 Additional Source Comments The information contained in this document represents components of the legal health record. It is not the complete legal health record.[facility]
--- OUTSIDE RECORDS SUMMARY | 2024-10-12 10:17 | XMS_ITS | Clinical Summary ---
Author Organization [facility] [address] [facility] Address [address] [place] [address] Phone Care Team Providers Care Weaving Teacher Name Role Phone Lazara Shepherd MD Primary Care Prov ider Allergies Active Allergy Reactions Criticality Noted Date Comments Tramadol 02/14/2024 Medications lancets (ImageShackTouch Delica Plus Lancet) 33 gauge USE 1 [...] creatinine urine ratio; Future Sick sinus syndrome ([facility] V24, [facility] V28) 1 03/12/2023 Overview (01/11/2024): s/p pacemaker Class 1 obesity due to exces s calories with serious comorbidity and body mass index (BMI) of 33.0 to 33.9 in adult 09/27/2023 Abdominal pain 07/28/2022 Overview (01/11/2024): Last Assessment & Plan: FLOW SPECIALIST exam 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 Recommend f/u with PCP for further evaluation of abdominal pain. Likely MSK or GI related. Diabetic polyneuropathy asso ciated with type 2 diabetes mellitus ([facility] V24, [facility] V28) 05/14/2022 Tubular adenoma 08/22/2021 Overview (01/11/2024): Repeat CN in 5 years (due 07/2026) Vitamin D insufficiency 08/22/2021 Osteopenia 08/21/2021 Type II diabetes mellitus wi th renal manifestations ([facility] V24, [facility] V28) 10/15/2020 Assessment & Plan (08/21/2024 4:16 PM EDT): Orders: Comprehensive metabolic panel; Future Hemoglobin A1c; Future Lipid panel with reflex to direct LDL; Future Microalbumin creatinine urine ratio; Future OA (osteoarthritis) of knee 09/26/2019 Overview (01/11/2024): Follows w/ rheum ([facility]) COPD (chronic obstructive pu lmonary disease) [place] [place] [facility] V28) 07/07/2019 Overview (01/11/2024): [place] [facility] Aortic valve stenosis 08/20/2017 Overview (01/11/2024): s/p TAVR Bilateral carotid artery stenosis 08/20/2017 Moderate aortic regurgitation 02/19/2014 Overview (01/11/2024): Follows with Dr Alcantar; s/p TAVR Alzheimer's dementia ([facility] [place], [facility] V28) 05/18/2013 Overview (01/11/2024): Follows with Dr thompson Back pain 02/17/2013 Venous insufficiency (chronic) (peripheral) 01/30 CKD (chronic kidney disease) stage 3, GFR 30-59 ml/min ([facility] [place], [facility] [place]) 12/09/2012 Encounters Date Type Department Care Team Description 08/21/2024 9:45 AM EDT Office Visit Adult Medicine [address] [phone] Lazara Priest MD Type 2 diabetes mellitus with diabetic microalbuminuria, without long-term current use of insulin ([facility] [place], [facility] V28) (Primary Dx); Primary hypertension; Mixed hyperlipidemia [...] Dr Gilliam Stroke ([facility] V24, [facility] V28) 05/2012 DX:Stroke ([facility]); COMMENT: with left hemiparesis and left temporal hemianopsia Hemianopia, homonymous, left DX: Hemianopia, homonymous, left Hyperlipidemia DX:Hyperlipidemi a Irregular heart beat DX:Irregula r heart beat; COMMENT: follows with Dr alcantar at [facility] Depression with anxiety DX:Depre ssion with anxiety; COMMENT: follows with Dr esther Collins- [phone] Memory loss DX:Memory loss; COMMENT: dr thompson [...] Aortic stenosis 11/2018 DX:Aortic stenos is; COMMENT: [facility] cards; severe Ascending aortic aneurysm (C MS/HCC [...] 1:00 PM EDT Office Visit Adult Medicine [facility] [address] [place] [address] Zari Harris PA [address] [place] [address] Health Maintenance Due Date Last Done Comments [...] evidence of malignancy. BI-RADS 1 - negative [facility] [address] [address] Procedure Note Shanelle Lewis MD [...] evidence of malignancy. BI-RADS 1 - negative [address] [address] Result [facility] Lazara Shepherd MD IMG XR PROCEDURES Final Result * Urine Albumin Creatinine Ratio (09/27/2023) [facility] Urine Albumin Creatinine Ratio Abstracted Result [facility] HEALTH MAINTENANCE Final Result * Annual BMP Blood Test (09/27/2023) [facility] Annual BMP Blood Test Abstracted Result [facility] HEALTH MAINTENANCE Final Result * Falls Risk Assessment (09/27/2023) [facility] Falls Risk Assessment Abstracted Result [facility] HEALTH MAINTENANCE Final Result * Depression Screening (09/27/2023) [facility] Depression Screening Abstracted Result [facility] HEALTH MAINTENANCE Final Result * Diabetes Foot Exam (09/27/2023) [facility] Diabetes: Annual Foot Exam Abstracted Result [facility] HEALTH MAINTENANCE Final Result * (ABNORMAL) Hemoglobin A1c (09/27/2023) Hemoglobin A1C 6.6(A) <=6.5 % Blood Venous blood specimen / Unknown us Historical Provider MD LAB BLOOD ORDERABLES Soraya l Result * (ABNORMAL) Lipid panel (09/27/2023) Pathologist [facility] LDL/HDL Ratio 5(A) 0 - 4 Triglycerides [...] HEALTHCARE MEDICARE [place]ICAID [place] Care Teams Weaving Teacher Relationship Specialty Start Date End Date Lazara Shepherd MD [address] [place] [id number] PCP - General Internal Medicine 08/06/21
--- OUTSIDE RECORDS SUMMARY | 2024-10-12 10:17 | XMS_ITS ---
Author Name Gutierrez GREEN BUILDING ENGINEERKike Address [address] [place] [address] Phone [phone] Organization [facility] [facility] Care Team Providers Care Lamps Tester And Inspector Name Role Phone Kike Whitley Unavailable [phone] Unavailable Unavailable Unavailable [facility] Unavailable Unavailable Unavailable Unavailable Reason for Referral Not Available Allergies, adverse reactions, alerts No known allergies History of medication use Medication Class Instructions Start Date End Date Lisinopril 40 mg Tab TAKE 1 TABLET BY MO UTH EVERYDAY AT BEDTIME 2021-03-25 No Data Available Stiolto Respimat 2.5-2.5 MCG /ACT Aerosol Solution TAKE 2 PUFFS BY MOUTH EVERY DAY 2021-01-06 No Data Available [id number] Ethyl Esters 1 GM Cap TAKE 1 [...] FOR 90 DAYS 2021-02-12 No Data Available [employer] Ultra Strip USED TO TEST BLOOD SUGAR [...] avoid nephrotoxic medsEncourage low starch, high fiber annkT4H lab work scheduled for 05/17/23CKD (chronic kidney [...] Service Diagnosis/Co mplaint Medication List Documented (1159F) [facility]20[place] Medication List Documented (1159F) [facility] Medication List Documented (1159F) [facility] Medication List Documented (1159F) [facility]2021 Medication List Documented (1159F) [facility] Medication List Documented (1159F) [facility]20[place] Dorsalgia, unspecifiedOther localized [...] unspecifiedSick sinus syndrome Medication List Documented (1159F) [facility] Medication List Documented (1159F) [facility] Medication List Documented (1159F) [facility]/17/[place] Estab. patient 30-39min; chronic exacerbation, 2 stable chronic or 1 acute illness add add modifier 95 for video, (do not use for phone, instead use 49560-85) [facility]/2022 Dorsalgia, unspecifiedOther localized visual field defect, [...] (do not use for phone, instead use 57168-60) [facility] Estab. patient 30-39min; chronic exacerbation, 2 stable chronic or 1 acute illness add add modifier 95 for video, (do not use for phone, instead use 02375-58) [facility] Estab. patient 30-39min; chronic exacerbation, 2 stable chronic or 1 acute illness add add modifier 95 for video, (do not use for phone, instead use 44901-98) [facility]/20[place] Estab. patient 30-39min; chronic exacerbation, 2 stable chronic or 1 acute illness add add modifier 95 for video, (do not use for phone, instead use 69295-92) [facility] Estab. patient 30-39min; chronic exacerbation, 2 stable chronic or 1 acute illness add add modifier 95 for video, (do not use for phone, instead use 73986-43) [facility]/20[place] Estab. patient 30-39min; chronic exacerbation, 2 stable chronic or 1 acute illness add add modifier 95 for video, (do not use for phone, instead use 59615-99) [facility]/20[place] Estab. patient 30-39min; chronic exacerbation, 2 stable chronic or 1 acute illness add add modifier 95 for video, (do not use for phone, instead use 66520-41) [facility] Estab. patient 30-39min; chronic exacerbation, 2 stable chronic or 1 acute illness add add modifier 95 for video, (do not use for phone, instead use 34479-08) [facility]/20[place] Estab. patient 30-39min; chronic exacerbation, 2 stable chronic or 1 acute illness add add modifier 95 for video, (do not use for phone, instead use 61588-70) [facility] 04[place]/2022 Estab. patient 30-39min; chronic exacerbation, 2 stable chronic or 1 acute illness add add modifier 95 for video, (do not use for phone, instead use 51743-98) [facility]23 Dorsalgia, unspecifiedOther localized [...] (do not use for phone, instead use 38319-53) [facility] Estab. patient 30-39min; chronic exacerbation, 2 stable chronic or 1 acute illness add add modifier 95 for video, (do not use for phone, instead use 13587-54) [facility] Estab. patient 30-39min; chronic exacerbation, 2 stable chronic or 1 acute illness add add modifier 95 for video, (do not use for phone, instead use 66731-07) [facility] Estab. patient 30-39min; chronic exacerbation, 2 stable chronic or 1 acute illness add add modifier 95 for video, (do not use for phone, instead use 49142-54) [facility] Estab. patient 30-39min; chronic exacerbation, 2 stable chronic or 1 acute illness add add modifier 95 for video, (do not use for phone, instead use 16999-30) [facility] Estab. patient 30-39min; chronic exacerbation, 2 stable chronic or 1 acute illness add add modifier 95 for video, (do not use for phone, instead use 20962-50) [facility] Estab. patient 30-39min; chronic exacerbation, 2 stable chronic or 1 acute illness add add modifier 95 for video, (do not use for phone, instead use 97926-96) [facility] 04/[place]/2023 No Data Available [facility]/23/2023 Hyp hrt & chr kdny dis w hrt fail and stg 1-4/unsp chr kdnyHeart failure, unspecifiedChronic kidney disease, unspecifiedCramp and spasmOther problems related to medical facilities and other health care No Data Available [facility] 12[place]/2023 No Data Available [facility]2023 No Data Available [facility]2023 No Data Available [facility]/2023 Hyp hrt & chr kdny dis w hrt fail and stg 1-4/unsp chr kdnyHeart failure, unspecifiedChronic kidney disease, stage 3 unspecifiedCramp and spasmOther problems related to medical facilities and other health care No Data Available [facility] 12/[place]/2023 RN, CN or CP time with patient by phone; use with 1111F, BP, A1c or other CPTII codes [facility] 02/10/2024 Encounter for other specifie d aftercare No Data Available [facility] 02/16/2024 Unspecified abdominal painPe rsonal history of other medical treatment No Data Available [facility] 02/16/2024 No Data Available [facility]/16/2024 No Data Available [facility] 02/16/2024 No Data Available [facility]20[place] No Data Available [facility]/16/2024 No Data Available [facility] 02/16/2024 No Data Available [facility] Estab. patient 20-29min; 1 stable chronic or 2 minor; add add modifier 95 for video, modifier 93 for phone [facility] 06/12/2024 Other localized visual field defect, left [...] 95 for video, modifier 93 for phone [facility] [place] Estab. patient 20-29min; 1 stable chronic or 2 minor; add add modifier 95 for video, modifier 93 for phone [facility] [place] Estab. patient 20-29min; 1 stable chronic or 2 minor; add add modifier 95 for video, modifier 93 for phone [facility] [place]/20[place] Estab. patient 20-29min; 1 stable chronic or 2 minor; add add modifier 95 for video, modifier 93 for phone [facility] [place] 06/12/20[place] Estab. patient 20-29min; 1 stable chronic or 2 minor; add add modifier 95 for video, modifier 93 for phone [facility] [place] 06/12/2024 Estab. patient 20-29min; 1 stable chronic or 2 minor; add add modifier 95 for video, modifier 93 for phone [facility] [place] 06/12/2024 Vital Signs [...] Time Current Smoking Status Former smoker 2024-09-29 4 Sex Female History of Procedures Procedures [...] le No Data Available No Data Available [id number] 2021-12-17 No Data Available No Data Available [...] (do not use for phone, instead use 30962-53) [id number] 2022-04-14 No Data Available No Data Availa [...] (do not use for phone, instead use 38306-22) [id number] 2023-04-26 No Data Available No Data Availa [...] No Data Avail able No Data Available [id number] 2023-12-23 No Data Available No Data Available SBP < 130 (3074F) 3074F 2023-12-23 No Data Available No Data Available DBP <80 (3078F) 3078F 2023-12-23 No Data Available No Data Available Medication List Documented (1159F) 1159F 2023-12-23 No Data Available No Data Laurita ilable No Data Available [id number] 2023-12-24 No Data Available No Data Available Medication List Documented (1159F) 1159F 2023-12-24 No Data Available No Data Laurita ilable RN, CN or CP time with patient by phone; use with 1111F, BP, A1c or other CPTII codes 58307 2024-02-10 No Data Available No Data Avai lable No Data Available [id number] 2024-02-16 No Data Available No Data Available [...] 95 for video, modifier 93 for phone [id number] 2024-06-12 No Data Available No Data Availa [...] call cardio, ask to give mssg to wet cotton feeder, ask to be triaged and possibly seen [...] [facility] in diet,increasing fiber,Activity as [...] avoid nephrotoxic medsEncourage low starch, high fiber [id number] lab work scheduled for 05/17/23on Memantine and [...] <80 (3078F)Continue to see PCP. Follow-up with [facility] as needed for any acute or [...] modifier 95)Continue to see PCP. Follow-up with [facility] as needed for any acute or [...] modifier 95)PCP visit is planned for:Hospital name: [facility] admission [facility]: 01[facility]30/24ospital discharge date: 02/02/24Discharge [...] reviewed at this time. Has appt with [facility] on 03/02/2024. Has appt for heart Ultrasound [...] present (1126F)Continue to see PCP. Follow-up with [facility] as needed for any acute or [...] avoid nephrotoxic medsEncourage low starch, high fiber [id number] lab work scheduled for 05/17/23CKD (chronic kidney [...] questions or concerns. Discussed how to contact [facility] via phone or tablet. 21/09 phone [...]
--- OUTSIDE RECORDS SUMMARY | 2024-10-12 10:17 | XMS_ITS | Clinical Summary ---
Author Organization [facility] Address [address] [facility] [address] [place] [address] Phone Care Team Providers Care Sales Representative Education Courses Name Role Phone Amanda Mckinnon MD Primary Care Provider [phone] Allergies No known active allergies Medications omega-3 [...] (11/15/2020): [place] [place]O: cardiac pacemaker in situ 06/27/2019 11/20/2020 [...] patient's age to complete this topic Insurance [facility] ([id number]) [facility] ([id number]) Care Teams Sales Representative Education Courses Relationship Specialty Start Date End Date Amanda Mckinnon MD [address] [place] [address] PCP - General Internal Medicine 11/20/20
== END 2024-10-12 10:06 | disposition home or self-care (01) ==
LOC: HO.HKA 09:36
PROVIDERS: PCP Internal Medicine; Visit Provider Internal Medicine Hypertension Specialist
DX: N18.30 Chronic kidney disease, stage 3 unspecified (principal); I10 Essential (primary) hypertension
CPT/HCPCS: 99214

== ENCOUNTER → 2024-10-12 09:36 | Outpatient (BNVA) | payer OTHER, SELFPAY | PROVIDERS: PCP Internal Medicine; Visit Provider Internal Medicine Hypertension Specialist | DX: I12.9 Hypertensive chronic kidney disease with stage 1 through stage 4 chronic kidney disease, or unspecified chronic kidney disease (principal); N18.30 Chronic kidney disease, stage 3 unspecified | CPT/HCPCS: 99212 ==

== ENCOUNTER 2024-12-05 13:35 | Outpatient (AMB) | payer OTHER, SELFPAY ==
--- OUTSIDE RECORDS SUMMARY | 2024-12-04 11:00 | XMS_ITS | Encounter Summary ---
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 agitation, confusion and hallucinations. The patient is not nervous/anxious. Objective BP 135/70 Pulse 60 Temp 36.1 ??C (97 ??F) (Temporal) Resp 15 Ht 1.575 m (62 ) Wt 86.9 kg (191 lb 9.6 oz) BMI 35.04 kg/m?? SpO2: 96 % Hearing: No data recorded Vision Screening: Required for Medicare Initial Preventative Physical Exam (IPPE) No data recorded Physical Exam Vitals and nursing note reviewed. Constitutional: General: She is awake. Appearance: Normal appearance. She is well-developed. She is obese. HENT: Head: Normocephalic and atraumatic. Nose: No congestion or rhinorrhea. Mouth/Throat: Mouth: Mucous membranes are moist. Pharynx: Oropharynx is clear. Uvula midline. Neck: Vascular: No carotid bruit. Cardiovascular: Rate and Rhythm: Normal rate and regular rhythm. Heart sounds: Normal heart sounds, S1 normal and S2 normal. No murmur heard. No friction rub. No gallop. Pulmonary: Effort: Pulmonary effort is normal. Breath sounds: Normal breath sounds. No wheezing, rhonchi or rales. Abdominal: General: Abdomen is flat. Bowel sounds are normal. There is no distension. Palpations: Abdomen is soft. Tenderness: There is no abdominal tenderness. Musculoskeletal: Right lower leg: No edema. Left lower leg: No edema. Feet: Right foot: Protective Sensation: 5 sites tested. 5 sites sensed. Skin integrity: Ulcer present. No skin breakdown. Left foot: Protective Sensation: 5 sites tested. 0 sites sensed. Skin integrity: No ulcer or skin breakdown. Neurological: Mental Status: She is alert. Psychiatric: Behavior: Behavior is cooperative. LABS: Lab Results Component Value Date HGBA1C 6.6 (A) 09/27/2023 Patient presented today for an Subsequent Medicare Wellness Visit with management of chronic condition(s). Assessment & Plan Medicare annual wellness visit, subsequent See AWV above Orders: Ambulatory referral to Physical Therapy and Athletic Training; Future Unsteadiness on feet - Referral to PT placed Orders: Ambulatory referral to Physical Therapy and Athletic Training; Future Ambulates with cane - Referral to PT placed Orders: Ambulatory referral to Physical Therapy and Athletic Training; Future Type 2 diabetes mellitus with diabetic microalbuminuria, without long-term current use of insulin ([facility] V24, [facility] V28) Patient's diabetes is well controlled with A1C as shown above. LDL cholesterol is well controlled with goal of less than 100 with better goal of less than 70. Current regimen includes furosemide 20 mg, jardiance 10 mg, lisinopril 20 mg, metoprolol 100 mg BID, lovaza 1 g BID, and pravastatin 80 mg daily and no changes have been made. DM foot exam is completed today and eye exam is up to date. Elvi has been encouraged to follow a diet low in saturated fat as well as low in carbohydrates. They have been encouraged to try to get 30 minutes of exercise 4 to 5 days a week to their tolerance. Patient is educated to call the office if she develops polyuria, polydipsia, numbness of the feet, or ifher fasting blood sugar is >200 for 3 consecutive days, as she should be seen sooner than routine follow-up in office. She is educated to report to the ED if her blood sugar is <70 without improvement 30 minutes after consuming something high in sugar, if it is >300 with symptoms, or if she develops shortness of breath or chest pain. If sugar <70 fasting patient should hold Jardiance.Patient will require a 4 month follow up in office with primary care provider for re- evaluation andmanagement of diabetes. Patient's questions today answered to the best of my ability. Patient understands and agrees to this plan and acknowledges to contact me with any additional questions or concerns. Orders: Comprehensive metabolic panel; Future Hemoglobin A1c; Future Lipid panel with reflex to direct LDL; Future Microalbumin creatinine urine ratio; Future Diabetes Foot Exam Diabetic polyneuropathy associated with type 2 diabetes mellitus ([facility] V24, [facility] V28) See DM plan above Orders: Ambulatory referral to Podiatry; Future Primary hypertension Patient's hypertension is well controlled with blood pressure as shown above. LDL cholesterol is well controlled with goal of less than 160 and goal of 100 if on cholesterol lowering medication. Current regimen includes furosemide 20 mg, lisinopril 20 mg, metoprolol 100 mg BID, lovaza 1 g BID, and pravastatin 80 mg daily and no changes have been made. Elvi has been encouraged to follow a diet low in saturated fat, low in carbohydrates, and low in sodium. She has been encouraged to try to get 30 minutes of exercise 4 to 5 days a week to their tolerance. Patient is educated to call the officeif she develops headaches, nosebleeds, chest pain, palpitations, changes in vision or if her blood pressure is greater than 140/90 for 3 consecutive days, as she should be seen sooner than routine follow-up in office. She is educated to report to the ED if her blood pressure is greater than 140/90 and there are associated symptoms of chest pain, shortness of breath, palpations, or abrupt changes in vision. If blood pressure is <100/60 patient should hold furosemide and lisinopril. Patient will require a 4 month follow up in office with primary care provider for re-evaluation and managementof hypertension. Patient's questions today answered to the best of my ability. Patient understands and agrees to this plan and acknowledges to contact me with any additional questions or concerns. Mixed hyperlipidemia See HTN plan Class 2 severe obesity due to excess calories with serious comorbidity and body mass index (BMI) of35.0 to 35.9 in adult The patient is overweight. Approaches towards weight loss are discussed, including frequent, small meals, portion control, avoiding eating before bedtime, regular exercise with an emphasis on duration rather than intensity , and strength training exercise Stage 3 chronic kidney disease, unspecified whether stage 3a or 3b CKD [place] [place] [facility] [place] Labs ordered. COPD without exacerbation ([facility] [place], [facility] [place]) Continue to follow with [facility]. No significant nighttime symptoms of asthma. Alzheimer's dementia without behavioral disturbance, psychotic disturbance, mood disturbance, or anxiety, unspecified dementia severity, unspecified timing of dementia onset ([facility] [place], [facility] [place]) Continue to follow with Dr. Bergeron in [facility]. Need for prophylactic vaccination and inoculation against influenza Orders: Influenza trivalent, 0.5mL (Fluad) 65yo and older Flu vaccine given by [facility] staff in office today Risk Assessments: Body mass index is 35.04 kg/m??. The BMI is above average. The patient received dietary education, feeding regime, and exercise education because they have an above normal BMI. Fall Risk: Have you fallen in the past year? no. Are you worried about falling? yes. Discussed: referral for balance/gait training PHQ -9 Depression Risk Score: 0 Depression plan: Screen was negative Pain Medication: Patient does not take any opioid medications Advance Care Planning Advance care planning is the process of planning for future medical care in case you are unable to make your own medical decisions. It involves choosing a health care manufacturers service representative and reviewing future health care directives. The patient Advance Directives: does have advance directives and/or surrogate decision maker.. Advance directives reviewed and/or discussed: Patient has Health Care Agent but is not documented in the Advance Care Planning activity and we do not have legal forms. Patient advised to bring in documents Health Maintenance Due Topic Date Due RSV Immunization Adult Patients (1 - 1-dose 75+ series) Never done Diabetes: Blood Sugar Control Test (HGBA1C) 03/29/2024 Diabetes: Annual GFR (Glomerular Filtration Rate) 09/26/2024 Diabetes: Annual Urine Albumin-Creatinine Ratio (uACR) 09/26/2024 Hypertension/CHF/CAD Annual BMP Blood Test 09/26/2024 The following vaccine(s) were recommended: Vaccines Recommended: Influenza (Flu Vaccine), COVID vaccine, RSV vaccine (Arexvy or Abrysvo), Pneumococcal (Pneumonia) vaccine, and Tdap or Td vaccine Patient Instructions (the written plan) as discussed and documented in our visit today. Myself and my colleagues maintained a long-term, longitudinal relationship with this patient, overseeing care of chronic conditions including diabetes, hypertension, hyperlipidemia, obesity, COPD, Alzheimer's dementia, and CKD. This care relationship has significantly influence my decision making and treatment plans during today's encounter. NUVIA Barker-C [address] [id number] Dept: [phone] Dept * Tiffanie Calabrese MA - 12/04/2024 11:00 AM EDT Depression Screening Will the patient answer the depression risk questions?: Yes Over the last 2 weeks, how often have you been bothered by little interest or pleasure in doing things?: Not at all Over the last 2 weeks, how often have you been bothered by feeling down, depressed, or hopeless?: Not at all Depression Risk: 0 Social Influencers of Health Who provided answers?: Self Within the past 12 months we worried whether our food would run out before we got money to buy more.: Never true Within the past 12 months the food we bought just didn't last and we didn't have money to get more.: Never true How hard is it for you to pay for the very basics like food, housing, medical care, and air conditioning / heating?: Not very hard Are you worried that in the next 2 months you may not have stable housing?: No Do you have access to a variety of food including fruits and vegetables?: Yes Has the lack of transportation kept you from meetings, work, or from getting things needed for daily living?: No Has the lack of transportation kept you from medical appointments or from getting medications?: No How often do you feel lonely or isolated from those around you?: Never How often do you need to have someone help you when you read instructions, pamphlets, or other written material from your doctor or pharmacy?: Never Have you fallen in the past year? no. Are you worried about falling? yes. . Mini Cog Score: 5 Result: Negative screen for dementia * Tiffanie Calabrese MA - 12/04/2024 11:00 AM EDT INFLUENZA VACCINE The patient acknowledges that they will be receiving the Influenza (Flu) vaccine today: yes Flu vaccine formulation is: Fluad High Dose (for age 65 and over): Patient denies allergy to eggs, neomycin, kanamycin, hydrocortisone or previous flu vaccine. yes Immunization tab reviewed: Patient acknowledges they have NOT received a flu vaccine for the . yes Denies history of Guillain-[place] Syndrome (severe muscle weakness). yes Acknowledges reviewing the VIS Seasonal Flu (copy made available). yes Patient Denies moderate or severe illness or fever of >100 degrees F. yes Agrees to wait in the office/car for 20 minutes after receiving the influenza injection. yes No restriction for Influenza vaccine administered IM See Imm/Inj tab. Electronically signed by: Tiffanie Calabrese MA 12/04/2024 11:17 AM EDT * Ines Cobb MA - 12/04/2024 11:00 AM EDT This documentation confirms that Ines Cobb MA served as the electrical maintenance engineer for Elvi Rios for the nurse intake and provider examination on 12/04/2024. documented in this encounter Plan of Treatment Upcoming Encounters Date Type Department Care Team (Late st Contact Info) Description 04/06/2025 11:00 AM EST Office Visit Adult Medicine [address] [phone] Lazara Shepherd MD [address] [place] [address] 08/06/2025 11:00 AM EDT Office Visit Adult Medicine [address] [phone] Lazara Shepherd MD [address] [place] [address] 12/06/2025 11:30 AM EDT Office Visit Adult Medicine [address] [phone] Lazara Shepherd MD [address] [place] [address] Scheduled Referrals Name Type Priority Associated Diagnoses Orde r Schedule Ambulatory referral to Physical Therapy and Athletic Training Outpatient Referral Routine Medicare annual wellness visit, subsequent Unsteadiness on feet Ambulates with cane 1 Occurrences starting 12/04/2024 until 12/04/2025 Ambulatory referral to Podiatry Outpatient Referral Routine Diabetic polyneuropathy associated with type 2 diabetes mellitus ([facility] V24, [facility] V28) 1 Occurrences starting 12/04/2024 until 12/04/2025 documented as of this encounter Results * Microalbumin creatinine urine ratio (12/04/2024 12:05 PM EDT) Creatinine, Urine 21.0 mg/dL LAB CHEMISTRY METHOD 12/04/2024 2:37 PM EDT [facility] Microalb, Ur <5.0 0.0 - 29.0 mg/L LAB CHEMISTRY METHOD 12/04/2024 2:37 PM EDT [facility] Microalb/Creat Ratio <24 <30 mg/g creat LAB CHEMISTRY METHOD 12/04/2024 2:37 PM EDT [facility] Urine Urine specimen obtained by clean catch procedure / Unknown Non-blood Collection / Unknown 12/04/2024 12:05 PM EDT 12/04/2024 12:05 PM EDT us [facility] URINE ORDERABLES Final Resu lt [facility] [address] [place] [address], [place] [phone] * (ABNORMAL) Lipid panel with reflex to direct LDL (12/04/2024 12:05 PM EDT) Cholesterol 139 0 - 200 mg/dL LAB CHEMISTRY METHOD 12/04/2024 4:58 PM EDT [facility] Triglycerides 314(H) 0 - 150 mg/dL LAB CHEMISTRY METHOD 12/04/2024 4:58 PM EDT [facility] HDL 60 >=40 mg/dL LAB CHEMISTRY METHOD 12/04/2024 4:58 PM EDT [facility] LDL Calculated 16 0 - 100 mg/dL LAB CHEMISTRY METHOD 12/04/2024 4:58 PM EDT [facility] Comment:Estimated LDL Calcul ated using equation: Total cholesterol - HDL cholesterol - (Triglycerides/5) VLDL Cholesterol Obdulio 62.8 mg/dL LAB CHEMISTRY METHOD 12/04/2024 4:58 PM EDT [facility] Non HDL Chol. (LDL+VLDL) 79 <145 mg/dL LAB CHEMISTRY METHOD 12/04/2024 4:58 PM EDT [facility] Chol/HDL Ratio 2.3 0.0 - 4.4 LAB CHEMISTRY METHOD 12/04/2024 4:58 PM EDT [facility] Blood Venous blood specimen / Unknown Venipuncture / Unknown 12/04/2024 12:05 PM EDT 12/04/2024 12:05 PM EDT us [facility] BLOOD ORDERABLES Final Resu lt [facility] [address] [place] [address], [place] [phone] * (ABNORMAL) Hemoglobin A1c (12/04/2024 12:05 PM EDT) Hemoglobin A1C 7.8(H) <6.5 % LAB CHEMISTRY METHOD 12/04/2024 9:37 PM [facility] Mean Bld Glu Estim. 177 mg/dL LAB CHEMISTRY METHOD 12/04/2024 9:37 PM [facility] Blood Venous blood specimen / Unknown Venipuncture / Unknown 12/04/2024 12:05 PM EDT 12/04/2024 12:05 PM EDT us [facility] LAB BLOOD ORDERABLES Final Resu lt [facility] [address] [place] [address], [place] [phone] * (ABNORMAL) Comprehensive metabolic panel (12/04/2024 12:05 PM EDT) [facility] Sodium 138 133 - 145 mmol/L LAB CHEMISTRY METHOD 12/04/2024 4:58 PM [facility] Potassium 4.0 3.5 - 5.5 mmol/L LAB CHEMISTRY METHOD 12/04/2024 4:58 PM [facility] Chloride 103 96 - 110 mmol/L LAB CHEMISTRY METHOD 12/04/2024 4:58 PM [facility] CO2 26 21 - 32 mmol/L LAB CHEMISTRY METHOD 12/04/2024 4:58 PM [facility] Anion Gap 9 3 - 11 LAB CHEMISTRY METHOD 12/04/2024 4:58 PM [facility] Glucose 162(H) 70 - 100 mg/dL LAB CHEMISTRY METHOD 12/04/2024 4:58 PM [facility] BUN 18 5 - 25 mg/dL LAB CHEMISTRY METHOD 12/04/2024 4:58 PM [facility] Creatinine 1.79(H) 0.50 - 1.10 mg/dL LAB CHEMISTRY METHOD 12/04/2024 4:58 PM [facility] eGFR 29(L) >=60 mL/min/1. 73m2 LAB CHEMISTRY METHOD 12/04/2024 4:58 PM [facility] Comment:Calculation based on the Chronic Kidney Disease Epidemiology Collaboration (CKD-EPI) equation refit without adjustment for race. BUN/Creatinine Ratio 10.1 LAB CHEMISTRY METHOD 12/04/2024 4:58 PM T [facility] Calcium 9.5 8.5 - 10.5 mg/dL LAB CHEMISTRY METHOD 12/04/2024 4:58 PM [facility] AST (SGOT) 24 10 - 42 unit/L LAB CHEMISTRY METHOD 12/04/2024 4:58 PM [facility] ALT (SGPT) 38 10 - 60 unit/L LAB CHEMISTRY METHOD 12/04/2024 4:58 PM [facility] Alkaline Phosphatase 104 42 - 121 unit/L LAB CHEMISTRY METHOD 12/04/2024 4:58 PM [facility] Total Protein 7.1 6.0 - 8.0 g/dL LAB CHEMISTRY METHOD 12/04/2024 4:58 PM [facility] Albumin 3.6 3.2 - 5.0 g/dL LAB CHEMISTRY METHOD 12/04/2024 4:58 PM [facility] Total Bilirubin 0.4 0.0 - 1.4 mg/dL LAB CHEMISTRY METHOD 12/04/2024 4:58 PM [facility] Blood Venous blood specimen / Unknown Venipuncture / Unknown 12/04/2024 12:05 PM EDT 12/04/2024 12:05 PM EDT us [facility] LAB BLOOD ORDERABLES Final Resu lt [facility] [address], [place] [address] [[email or web address]] [phone] documented in this encounter Visit Diagnoses Diagnosis Medicare annual wellness visit, subsequent- Primary Unsteadiness on feet Ambulates with cane Type 2 diabetes mellitus with diabetic microalbuminuria, without long-term current use of insulin [place] [place] [facility] [place] Diabetic polyneuropathy associated with type 2 diabetes mellitus ([facility] [place], [facility] [place]) Primary hypertension Unspecified essential hypertension Mixed hyperlipidemia Class 2 severe obesity due to excess calories with serious comorbidity and body mass index (BMI) of 35.0 to 35.9 in adult Stage 3 chronic kidney disease, unspecified whether stage 3a or 3b CKD ([facility] [place] [facility] [place]) COPD without exacerbation ([facility] [place], [facility] [place]) Alzheimer's dementia without behavioral disturbance, psychotic disturbance, mood disturbance, or anxiety, unspecified dementia severity, unspecified timing of dementia onset ([facility] [place], [facility] [place]) Need for prophylactic vaccination and inoculation against influenza documented in this encounter Orders Immunization/Injection Count Last Ordered Date First Ordered Date INFLUENZA TRIVALENT, 0.5ML ( FLUAD) 65YO AND OLDER 1 12/04/2024 Health Maintenance Count Last Ordered Date Firs t Ordered Date HM DIABETES FOOT EXAM 1 12/04/2024 documented in this encounter Additional Health Concerns Assessment Noted Time PHQ-9 Depression Total Score: 0 12/05/19 25 11:11 AM EDT A fall risk assessment has been complete d for the patient 12/04/2024 11:08 AM EDT documented as of this encounter Care Teams Timber Incisor Operator Relationship Specialty Start Date End Date Lazara Shepherd MD [address] [place] [phone] PCP - General Internal Medicine 08/06/21 documented as of this encounter
--- NOTE | 2024-12-05 14:05 | A.OFFVIS_ITS ---
Vital Signs 12/05/24 14:06 Height 5 ft Weight 192 lb BMI 37.5 BP 122/66 Blood Pressure Location Rt brachial Position Sitting Pulse 60 Pulse Source Pulse Oximeter Pulse Oximetry (%) 97 Oxygen Delivery Method Room Air Intake Visit Reasons: pulmonary nodules Allergies trazodone Adverse Reaction (Verified 10/12/24 09:48) Unknown HPI HPI pulmonary nodules: Details: 74-year-old lady, recent 30+ pack-year smoker, quit November of 2018 followed for dyspnea on exertion, pulmonary nodules, and moderate COPD. Patient has had TAVR and permanent pacemaker put in April of 2019. She continues to use Stiolto and albuterol MDI with good control of her underlying dyspnea.? Patient has recently been hospitalized at [facility] for acute on chronic diastolic congestive heart failure with improvement with diuresis, however she still has some residual symptoms including orthopnea and lower extremity edema. Her follow-up CT chest in April of 2024 showed stable nodules. [facility] Medical History (Updated 12/05/24 @ 14:37 by Woo Evans MD) Carotid stenosis, left TIA (transient ischemic attack) Uncontrolled hypertension Stroke MCI (mild cognitive impairment) Cataract Pacemaker Cervical spondylosis COPD (chronic obstructive pulmonary disease) Hypertension Surgical History S/P TAVR (transcatheter aortic valve replacement) History of transcatheter aortic valve replacement (TAVR) (~04/28/19) History of permanent cardiac pacemaker placement (~04/27/19) History of cardiac catheterization Family History Mother HTN (hypertension) Father Heart attack Brother HTN (hypertension) Social History Alcohol intake: never Patient Tobacco Use Status: Former Tobacco user Review of Systems Const Denies daytime sleepiness, Denies excessive sweating, Denies fatigue, Denies fever(s), Denies lethargy, Denies malaise, Denies night sweats, Denies snoring and Denies weight loss Eyes Denies blurry vision and Denies itchy eyes ENT Denies nasal congestion, Denies post nasal drip, Denies sinus pain, Denies sinus pressure and Denies other ( Thrush) Card Denies chest pain, Reports pedal edema, Denies dyspnea, Reports dyspnea on exertion, Reports orthopnea and Denies paroxysmal nocturnal dyspnea Resp Denies cough, Denies hemoptysis, Denies excessive phlegm production, Denies dyspnea, Reports dyspnea on exertion, Denies snoring and Denies wheezing GI Denies abdominal pain and Denies heartburn Musc Denies myalgias, Denies arthralgias and Denies joint swelling Skin/Breast Denies rash Neuro Denies memory loss and Denies seizure-like activity Psych Denies abnormal sleep pattern, Denies anxiety and Denies memory loss Endo Denies excessive sweating, Denies fatigue and Denies heat intolerance Florentino/Lymph Denies easy bruising Aller/Immun Denies itchy eyes, Denies seasonal rhinorrhea and Denies wheezing Physical Exam Vital Signs: Last Vital Signs Pulse 60 12/05/24 14:06 BP 122/66 12/05/24 14:06 Pulse Ox 97 12/05/24 14:06 Oxygen Delivery Method Room Air 12/05/24 14:06 BMI result Body Mass Index 37.5 Const General: no acute distress and alert Nutritional Appearance: not obese Orientation/consciousness: Other orientation findings ( oriented) HEENT Head: Yes atraumatic Eyes General: appearance normal, both eyes and all related structures Sclerae: sclerae normal EOM: EOMs intact bilaterally Neck Neck: Yes supple Lymphatic: no lymphadenopathy noted Resp Effort & Inspection: normal respiratory effort and no use of accessory muscles Auscultation: clear to auscultation bilaterally Cardio Rate: regular rate Rhythm: regular rhythm Heart sounds: no gallops, no murmurs and no rubs Skin General skin exam: other ( warm) Extrem General: No clubbing, No cyanosis and Yes edema (1+ bilateral, taut) Assessment & Plan Assessment & Plan (1) Asthma-COPD overlap syndrome: Code(s): J44.9 - Chronic obstructive pulmonary disease, unspecified Category: Medical Plan: Baseline well controlled on current regimen of Stiolto and albuterol MDI. Continue current regimen. (2) Pulmonary nodules: Code(s): R91.8 - Other nonspecific abnormal finding of lung field Category: Medical Plan: Results of CT chest from April of 2024 reviewed, stable pulmonary nodules over greater than 24 months. No further imaging follow-up is required. (3) Orthopnea: Code(s): R06.01 - Orthopnea Category: Medical Plan: Underlying chronic diastolic congestive heart failure with recent exacerbation and still with residual symptoms including orthopnea and lower extremity edema, will increase furosemide to 60 mg daily. Medications: New furosemide (Lasix) 60 mg (1.5 x 40 mg) PO QAM 45 tabs 6RF 30 days Coding Level of Care Code Est Pt Level 4 (51647) Complex EM visit Add On G2211 Diagnoses Asthma-COPD overlap syndrome J44.9 Pulmonary nodules R91.8 Orthopnea R06.01
[2024-12-05 14:06] VITALS: BP 122/66; PULSE 60; O2SAT 97; BMI 37.5
--- OUTSIDE RECORDS SUMMARY | 2024-12-05 16:42 | XMS_ITS | Clinical Summary ---
Author Organization [facility] Address [address] [place] [address] Phone Care Team Providers Care Script Writer Name Role Phone Amanda Mckinnon MD Primary Care Provider [phone] Allergies No known active allergies Medications omega-3 [...] 07/07/2019 11/20/2020 Overview (11/15/2020): Follows with pulnology ([facility]) H/O: cardiac pacemaker in situ 06/27/2019 11/20/2020 [...] patient's age to complete this topic Insurance [facility] ([id number]) [facility] ([id number]) Care Teams Script Writer Relationship Specialty Start Date End Date Amanda Mckinnon MD [address] [place] [address] PCP - General Internal Medicine 11/20/20
--- OUTSIDE RECORDS SUMMARY | 2024-12-05 16:43 | XMS_ITS | Encounter Summary ---
Author Organization [facility] Address [address] [place] [address] Care Team Providers Care Electronic Device Repairer Name Role Phone Lazara Shepherd MD Primary Care Prov ider Encounter Details Date Type Department Care Team (Late st Contact Info) Description 12/05/2024 Results Follow-Up Adult Medicine [facility] [address], [place] [phone] Zari Harris PA [address] [place], [place] Social History Tobacco Use Types Packs/Day Years [...] for your loved ones. For example, child daycare worker or elderly care for an older adult? [...] on file documented as of this encounter Plan of Treatment Upcoming Encounters Date Type Department Care Team (Late st Contact Info) Description 04/06/2025 11:00 AM EST Office Visit Adult Medicine [address] [phone] Lazara Shepherd MD [address] [place] [address] 08/06/2025 11:00 AM EDT Office Visit Adult Medicine [address] [phone] Lazara Shepherd MD [address] [place] [address] 12/06/2025 11:30 AM EDT Office Visit Adult Medicine [address] [phone] Lazara Shepherd MD [address] [place] [address] documented as of this encounter Visit Diagnoses Not on filedocumented in this encounter Additional Health Concerns Assessment Noted Time PHQ-9 Depression Total Score: 0 12/05/19 25 11:11 AM EDT A fall risk assessment has been complete d for the patient 12/04/2024 11:08 AM EDT documented as of this encounter Care Teams Electronic Device Repairer Relationship Specialty Start Date End Date Lazara Shepherd MD [address] [place] [address] PCP - General Internal Medicine 08/06/21 documented as of this encounter
--- OUTSIDE RECORDS SUMMARY | 2024-12-05 16:43 | XMS_ITS | Encounter Summary ---
Author Organization [facility] Address [address] [place] [id number] Phone Care Team Providers Care Supervisor Pairing And Inspecting Name Role Phone Vandana Bellamy DO Primary Car e Provider Encounter Details Date Type Department Care Team ([facility] st Contact Info) Description 11/01/2019 Procedure Pass [facility] [address] [place] [address] Social History Tobacco Use Types Packs/Day Years [...] as of this encounter Plan of Treatment Not on file documented as of this encounter Visit Diagnoses Not on filedocumented in this encounter Care Teams Supervisor Pairing And Inspecting Relationship Specialty Start Date End Date Vandana Bellamy DO [address] [place] [address] PCP - General 10/23/19 documented as of this encounter Additional Source Comments The information contained in this document represents components of the legal health record. It is not the complete legal health record.[facility]
--- OUTSIDE RECORDS SUMMARY | 2024-12-05 16:43 | XMS_ITS | Clinical Summary ---
Author Organization [facility] Address [address] [place] [address] Phone Care Team Providers Care Practice Professional Name Role Phone UzmaVandana Smith Maria L [...] 09/18/2013 , 11/25/2007, 06/08/2007, Additional history exists RSV VACCINE (1 - 1-dose 75+ series) 01/25/2024 INFLUENZA VACCINE (#1) 2024 , 12/01/2019, 12/20/2017, Additional history exists COVID-19 VACCINE ( season) 2024 01/22/2021, 06/13/2020, 05/16/2020 PNEUMOCOCCAL VACCINES (50+ years) Completed 12/20/2017, 12/30/2015, [...] this topic Medical Devices Implanted Type Area Material Requirements Planning Manager Device Identifier Shelf Expiration Date Model / Serial / Lot Pacemaker Pacemaker Chest Wall Prosthetic Valve Prosthetic Valve Aorta Description:TAVR [place] [address] [place] [address] MEDICARE REPLACEMENT [facility] MEDICARE REPLACEMENT [facility] MEDICARE REPLACEMENT Advance Directives For more information, please contact: [phone] (9AM - 5PM [facility], Wednesday-Wednesday) * Full Code (Latest Code Status on File) Date Activated Date Inactivated Comments 11/01/2019 7:39 AM Question Answer Comments Code Status Confirmed With: Other (specify below ) Code Status Communicated To: Other (specify belo w) Code Discussion Comments: Transcribed from order Care Teams Practice Professional Relationship Specialty Start Date End Date Vandana Bellamy DO [address] [place] [address] PCP - General 10/23/19 Additional Source Comments The information contained in this document represents components of the legal health record. It is not the complete legal health record.[facility]
--- OUTSIDE RECORDS SUMMARY | 2024-12-05 16:43 | XMS_ITS | Clinical Summary ---
Author Organization [address] Address [address] [place] [phone] Phone Care Team Providers Care Or Rn Name Role Phone Lazara Shepherd MD Primary Care Prov ider Allergies Active Allergy Reactions Criticality Noted Date Comments Tramadol 02/14/2024 Medications lancets (PayfirmaTouch Delica Plus Lancet) 33 gauge USE 1 [...] DAY 90 tablet 1 03/31/19 25 Active lisinopriL (PRINIVIL,ZESTRI L) 20 mg [...] DAY 60 capsule 1 10/11/19 25 Active Jardiance 10 mg tablet TAKE 1 TABLET BY MOUTH EVERY DAY 90 tablet 2 11/01/19 25 Active furosemide (LASIX) 20 mg tablet TAKE 1 TABLET BY MOUTH EVERY DAY 90 tablet 11/30/19 25 Active furosemide (LASIX) 20 mg tablet TAKE 1 TABLET BY MOUTH EVERY DAY 90 tablet 1 06/03/19 25 025 Discontinued predniSONE (DELTASONE) 20 mg tablet Take 2 tablets (40 mg total) by mouth 1 (one) time each day for 5 days. 10 each 11/02/19 25 025 azithromycin (ZITHROMAX) 250 mg tablet Take 2 tablets (500 mg total) by mouth 1 (one) time each day for 1 day, THEN 1 tablet (250 mg total) 1 (one) time each day for 4 days. 6 each 11/02/19 25 025 Active Problems Problem Noted Date Diagnosed Date Depression with anxiety 01/11/2024 Hyperlipidemia 01/11/2024 Assessment & Plan (12/04/2024 12:38 PM EDT): See HTN plan Assessment & Plan (08/21/2024 4:16 PM EDT): Orders: Comprehensive metabolic panel; Future Hemoglobin A1c; Future Lipid panel with reflex to direct LDL; Future Microalbumin creatinine urine ratio; Future Hypertension 01/11/2024 Assessment & Plan (12/04/2024 12:38 PM EDT): Patient's hypertension is well controlled with blood [...] to call the office if she develops headaches, nosebleeds, chest pain, palpitations, [...] with primary care provider for re-evaluation and management of hypertension. Patient's questions today answered to the best of my ability. Patient understands and agrees to this plan and acknowledges to contact me with any additional questions or concerns. Assessment & Plan (08/21/2024 4:16 PM EDT): Orders: lisinopriL (PRINIVIL,ZESTRIL) 20 mg tablet; Take 1 tablet (20 mg total) by mouth 2 (two) times a day. Comprehensive metabolic panel; Future Hemoglobin A1c; Future Lipid panel with reflex to direct LDL; Future Microalbumin creatinine urine ratio; Future Sick sinus syndrome ([facility] V24, [facility] V28) 1 03/12/2023 Overview (01/11/2024): s/p pacemaker Class 1 obesity due to exces s calories with serious comorbidity and body mass index (BMI) of 33.0 to 33.9 in adult 09/27/2023 Assessment & Plan (12/04/2024 12:38 PM EDT): The patient is overweight. Approaches towards weight loss are discussed, including frequent, small meals, portion control, avoiding eating before bedtime, regular exercise with an emphasis on duration rather than intensity , and strength training exercise Abdominal pain 07/28/2022 Overview (01/11/2024): Last Assessment & Plan: 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 Recommend f/u with PCP for further evaluation of abdominal pain. Likely MSK or GI related. Diabetic polyneuropathy asso ciated with type 2 diabetes mellitus ([facility] V24, [facility] V28) 05/14/2022 Assessment & Plan (12/04/2024 12:38 PM EDT): See DM plan above Orders: Ambulatory referral to Podiatry; Future Tubular adenoma 08/22/2021 Overview (01/11/2024): Repeat CN in 5 years (due 07/2026) Vitamin D insufficiency 08/22/2021 Osteopenia 08/21/2021 Type II diabetes mellitus wi th renal manifestations ([facility] V24, [facility] V28) 10/15/2020 Assessment & Plan (12/04/2024 12:38 PM EDT): Patient's diabetes is well controlled with A1C [...] polyuria, polydipsia, numbness of the feet, or if her fasting blood sugar is >200 for 3 [...] If sugar <70 fasting patient should hold Jardiance. Patient will require a 4 month follow up in office with primary care provider for re-evaluation and management of diabetes. Patient's questions today answered to the best of my ability. Patient understands and agrees to this plan and acknowledges to contact me with any additional questions or concerns. Orders: Comprehensive metabolic panel; Future Hemoglobin A1c; Future Lipid panel with reflex to direct LDL; Future Microalbumin creatinine urine ratio; Future Diabetes Foot Exam Assessment & Plan (08/21/2024 4:16 PM EDT): Orders: Comprehensive metabolic panel; Future Hemoglobin A1c; Future Lipid panel with reflex to direct LDL; Future Microalbumin creatinine urine ratio; Future OA (osteoarthritis) of knee 09/26/2019 Overview (01/11/2024): Follows w/ rheum (Alikhan) COPD (chronic obstructive pu lmonary disease) ([facility] V24, [facility] V28) 07/07/2019 Overview (01/11/2024): Follows with Dr. Evans @ [facility] Aortic valve stenosis 08/20/2017 Overview (01/11/2024): s/p TAVR Bilateral carotid artery stenosis 08/20/2017 Moderate aortic regurgitation 02/19/2014 Overview (01/11/2024): Follows with Dr Akbar; s/p TAVR Alzheimer's dementia ([facility] V24, [facility] V28) 05/18/2013 Overview (01/11/2024): Follows with Dr bergeron Assessment & Plan (12/04/2024 12:38 PM EDT): Continue to follow with Dr. Bergeron in [place] [facility]. Back pain 02/17/2013 Venous insufficiency (chronic) (peripheral) 01/30 CKD (chronic kidney disease) stage 3, GFR 30-59 ml/min ([facility] V24, [facility] V28) 12/09/2012 Assessment & Plan (12/04/2024 12:38 PM EDT): Labs ordered. Encounters Date Type Department Care Team Description 12/05/2024 Results Follow-Up Adult Medicine [address] [phone] Zari Harris PA 12/05/2024 Telephone Adult Medicine [address] [phone] Lazara Priest MD 12/04/2024 11:00 AM EDT Office Visit Adult Medicine [address] [phone] Zari Harris PA Medicare annual wellness visit, subsequent (Primary Dx); Unsteadiness on feet; Ambulates with cane; Type 2 diabetes mellitus with diabetic microalbuminuria, without long-term current use of insulin ([facility] V24, [facility] V28); Diabetic polyneuropathy associated with type 2 diabetes mellitus ([facility] V24, [facility] V28); Primary hypertension; Mixed hyperlipidemia; Class 2 severe obesity due to excess calories with serious comorbidity and body mass index (BMI) of 35.0 to 35.9 in adult; Stage 3 chronic kidney disease, unspecified whether stage 3a or 3b CKD ([facility] V24, [facility] V28); COPD without exacerbation ([facility] V24, [facility] V28); Alzheimer's dementia without behavioral disturbance, psychotic disturbance, mood disturbance, or anxiety, unspecified dementia severity, unspecified timing of dementia onset ([facility] V24, [facility] V28); Need for prophylactic vaccination and inoculation against influenza 11/16/2024 Telephone Adult Medicine [address] [phone] Lazara Priest MD 11/16/2024 Telephone Adult [address] [phone] Lazara Priest MD 11/01/2024 2:00 PM EDT Office Visit Adult [address] [phone] Villa Denton MD COPD with acute exacerbation ([facility] V24, [facility] V28) (Primary Dx) 10/31/2024 Telephone Adult [address] [phone] Lazara Priest MD 10/18/2024 Telephone Adult [address] [phone] Lazara Priest MD from Last 3 Months Immunizations Immunization Administration Dates Next Due Influenza Quadravalent, MDCK , 0.5ml, with preservative (Flucelvax) 6mo and older 02/15/2017 Influenza trivalent, 0.5mL ( Fluad) 65yo and older 12/04/2024,11/16/2022,12/04/2021,12/02,12/20/2017 Influenza trivalent, 0.5mL, preservative free (Fluarix; FluLaval; Fluzone) ages 6mo and older (Afluria) 3 years and older 03/23/2016,11/22/2012,02/16/2011,02/20,03/06/2005,03/07/2004,02/04/1998 Influenza trivalent, with pr eservative (Fluzone; Afluria) 6mo and older 12/01/2019 Influenza, Unspecified 12/13/2013 Pfizer (ages 12 & older) Biv alent, COVID-19 12/06/2021 Pfizer SARS-CoV-2 COVID-19, mRNA, LNP-S, preservative free 01/22/2021 Pneumococcal conjugate 13 va lent (Prevnar 13, PCV13) 2mo and older 04/29/2019,12/30/2015 Pneumococcal polysaccharide 23 valent (Pneumovax 23) 2yo and older 12/20/2017,05/25/2012,05/12/2012,04/09,11/04/2007 Pneumococcal, Unspecified 11/04/2007 Td Tetanus diptheria (Tdvax) [...] hypertension; COMMENT: follows with Dr Gilliam Stroke ([facility] V24, [facility] V28) 05/2012 DX:Stroke ([facility]); COMMENT: with left hemiparesis and left temporal hemianopsia Hemianopia, homonymous, left DX: Hemianopia, homonymous, left Hyperlipidemia DX:Hyperlipidemi a Irregular heart beat DX:Irregula r heart beat; COMMENT: follows with Dr akbar at [facility] Depression with anxiety DX:Depre ssion with anxiety; COMMENT: follows with Dr esther Magana- [phone] Memory loss DX:Memory loss; COMMENT: dr bergeron CVA, old, 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 For example, child care leader or elderly care for an older adult? [...] Mass Index 35.04 12/04/2024 11:04 AM EDT Plan of Treatment Upcoming Encounters Date Type Department Care Team (Late st Contact Info) Description 04/06/2025 11:00 AM EST Office Visit Adult Medicine [address] [phone] Lazara Shepherd MD [address] [place] [address] 08/06/2025 11:00 AM EDT Office Visit Adult [address] [phone] Lazara Shepherd MD [address] [place] [address] 12/06/2025 11:30 AM EDT Office Visit Adult [address] [phone] Lazara Shepherd MD [address] [place] [address] Health Maintenance Due Date Last Done Comments RSV Immunization Adult Patients (1 - 1-dose 75+ series) 01/25/2024 Diabetes: Annual Retina Eye Exam 02/07/2025 02/08/2024 Diabetes: Blood Sugar Control Test (HGBA1C) 06/04/2025 12/04/2024, 09/27/2023, 09/27/2023 Diabetes: Annual Urine Albumin-Creatinine Ratio (uACR) 12/04/2025 12/04/2024, 09/27/2023 Diabetes: Annual Foot Exam 12/04/202512/04, 12/04/2024, 12/04/2024, Additional history exists Diabetes: Annual GFR (Glomerular Filtration Rate) 12/04/2025 12/04/2024, 09/27/2023, 09/27/2023, Additional history exists Falls Risk Assessment 12/04/2025 12/04/2024, 024 Hypertension/CHF/CAD Annual BMP Blood Test 12/04/2025 12/04/2024, 09/27/2023, 09/27/2023, Additional history exists Medicare Annual Wellness Visit 12/04/2025 12/04/2024 Social Influencers of Health Screening 12/04/2025 12/04/2024 Colorectal Cancer Screening: Colonoscopy 08/07/2026 08/07/2021 Osteoporosis Screening (Bone Density Screening) 11/13/2027 11/12/2022, 04/24/2019 Cholesterol Screening (Lipid Panel) 12/04/2029 12/04/2024, 09/27/2023, 09/27/2023 DTaP,Tdap,and Td Vaccines (6 - Td or Tdap) 09/26/2033 09/27/2023, 09/18/2013, 11/25/2007, Additional history exists Hepatitis C Screening Completed 11/23/2012 Pneumococcal Vaccine: 50+ Years Completed 04/29/2019, 12/20/2017, 12/30/2015, Additional history exists COVID-19 Vaccine Discontinued 12/06/2021, , 12/31/2020, Additional history exists Breast Cancer Screening Discontinued 12/24/19, 12/24/2023, 07/31/2022, Additional history exists Zoster Vaccines Completed 09/12/2024, 12/06/2021 Depression Screening Completed 12/04/2024, 09/27/19 Influenza Vaccine Completed 12/04/2024, , 12/04/2021, Additional history exists HIB Vaccines [...] Procedure Name Priority Date/Time Associated Diagnosis Comments COMPREHENSIVE METABOLIC PANEL Routine 12/04/2024 12:05 PM EDT Type 2 diabetes mellitus with diabetic microalbuminuria, without long-term current use of insulin ([facility] V24, [facility] V28) HEMOGLOBIN A1C Routine 12/04/2024 12:05 PM EDT Type 2 diabetes mellitus with diabetic microalbuminuria, without long-term current use of insulin ([facility] V24, [facility] V28) LIPID PANEL WITH REFLEX TO DIRECT LDL Routine 12/04/2024 12:05 PM EDT Type 2 diabetes mellitus with diabetic microalbuminuria, without long-term current use of insulin ([facility] V24, [facility] V28) MICROALBUMIN CREATININE URINE RATIO Routine 12/04/2024 12:05 PM EDT Type 2 diabetes mellitus with diabetic microalbuminuria, without long-term current use of insulin ([facility] V24, [facility] V28) EXTERNAL DIABETIC RETINA EYE EXAM 02/08/2024 SCREENING MAMMOGRAPHY BI 2-VIEW BREAST INC CAD Routine 12/24/2023 3:02 PM EDT Encounter for screening mammogram for malignant neoplasm of breast DEPRESSION SCREENING Routine 09/27/2023 FALLS RISK ASSESSMENT Routine 09/27/2023 DIABETES FOOT EXAM Routine 09/27/2023 DXA BONE DENSITY STUDY 1+ SITS AXIAL SKEL Routine 11/12/2022 9:05 AM EDT Encounter for general adult medical examination without abnormal findings COLONOSCOPY Routine 08/07/2021 HEPATITIS C SCREENING Routine 11/23/2012 from Last 3 Months or Most Recently Relevant to Health Maintenance Results * (ABNORMAL) Lipid panel with reflex to direct LDL (12/04/2024 12:05 PM EDT) Cholesterol 139 0 - 200 mg/dL LAB CHEMISTRY METHOD 12/04/2024 4:58 PM EDT [facility] Triglycerides 314(H) 0 - 150 mg/dL LAB CHEMISTRY METHOD 12/04/2024 4:58 PM EDT [facility] HDL 60 >=40 mg/dL LAB CHEMISTRY METHOD 12/04/2024 4:58 PM EDT [facility] LDL Calculated 16 0 - 100 mg/dL LAB CHEMISTRY METHOD 12/04/2024 4:58 PM EDT [facility] Comment:Estimated LDL Calcul ated using equation: Total cholesterol - HDL cholesterol - (Triglycerides/5) VLDL Cholesterol Obdulio 62.8 mg/dL LAB CHEMISTRY METHOD 12/04/2024 4:58 PM EDT [facility] Non HDL Chol. (LDL+VLDL) 79 <145 mg/dL LAB CHEMISTRY METHOD 12/04/2024 4:58 PM EDT [facility] Chol/HDL Ratio 2.3 0.0 - 4.4 LAB CHEMISTRY METHOD 12/04/2024 4:58 PM [facility] Blood Venous blood specimen / Unknown Venipuncture / Unknown 12/04/2024 12:05 PM EDT 12/04/2024 12:05 PM EDT us Zari PEDERSEN LAB BLOOD ORDERABLES Final Resu lt [facility] [address] [place] [address], [place] [phone] * Microalbumin creatinine urine ratio (12/04/2024 12:05 PM EDT) Creatinine, Urine 21.0 mg/dL LAB CHEMISTRY METHOD 12/04/2024 2:37 PM EDT [facility] Microalb, Ur <5.0 0.0 - 29.0 mg/L LAB CHEMISTRY METHOD 12/04/2024 2:37 PM EDT [facility] Microalb/Creat Ratio <24 <30 mg/g creat LAB CHEMISTRY METHOD 12/04/2024 2:37 PM EDT [facility] Urine Urine specimen obtained by clean catch procedure / Unknown Non-blood Collection / Unknown 12/04/2024 12:05 PM EDT 12/04/2024 12:05 PM EDT us Zari PEDERSEN LAB URINE ORDERABLES Final Resu lt [facility] [address] [place] [address], [place] [phone] * (ABNORMAL) Hemoglobin A1c (12/04/2024 12:05 PM EDT) Hemoglobin A1C 7.8(H) <6.5 % LAB CHEMISTRY METHOD 12/04/2024 9:37 PM EDT [facility] Mean Bld Glu Estim. 177 mg/dL LAB CHEMISTRY METHOD 12/04/2024 9:37 PM EDT [facility] Blood Venous blood specimen / Unknown Venipuncture / Unknown 12/04/2024 12:05 PM EDT 12/04/2024 12:05 PM EDT us Zari PEDERSEN LAB BLOOD ORDERABLES Final Resu lt [facility] [address] [place] [address], * (ABNORMAL) Comprehensive metabolic panel (12/04/2024 12:05 PM EDT) Sodium 138 133 - 145 mmol/L LAB CHEMISTRY METHOD 12/04/2024 4:58 PM EDT [facility] Potassium 4.0 3.5 - 5.5 mmol/L LAB CHEMISTRY METHOD 12/04/2024 4:58 PM [facility] Chloride 103 96 - 110 mmol/L LAB CHEMISTRY METHOD 12/04/2024 4:58 PM [facility] CO2 26 21 - 32 mmol/L LAB CHEMISTRY METHOD 12/04/2024 4:58 PM [facility] Anion Gap 9 3 - 11 LAB CHEMISTRY METHOD 12/04/2024 4:58 PM [facility] Glucose 162(H) 70 - 100 mg/dL LAB CHEMISTRY METHOD 12/04/2024 4:58 PM [facility] BUN 18 5 - 25 mg/dL LAB CHEMISTRY METHOD 12/04/2024 4:58 PM [facility] Creatinine 1.79(H) 0.50 - 1.10 mg/dL LAB CHEMISTRY METHOD 12/04/2024 4:58 PM [facility] eGFR 29(L) >=60 mL/min/1. 73m2 LAB CHEMISTRY METHOD 12/04/2024 4:58 PM [facility] Comment:Calculation based on the Chronic Kidney Disease Epidemiology Collaboration (CKD-EPI) equation refit without adjustment for race. BUN/Creatinine Ratio 10.1 LAB CHEMISTRY METHOD 12/04/2024 4:58 PM [facility] Calcium 9.5 8.5 - 10.5 mg/dL LAB CHEMISTRY METHOD 12/04/2024 4:58 PM [facility] AST (SGOT) 24 10 - 42 unit/L LAB CHEMISTRY METHOD 12/04/2024 4:58 PM EDT [facility] ALT (SGPT) 38 10 - 60 unit/L LAB CHEMISTRY METHOD 12/04/2024 4:58 PM EDT [facility] Alkaline Phosphatase 104 42 - 121 unit/L LAB CHEMISTRY METHOD 12/04/2024 4:58 PM EDT [facility] Total Protein 7.1 6.0 - 8.0 g/dL LAB CHEMISTRY METHOD 12/04/2024 4:58 PM EDT [facility] Albumin 3.6 3.2 - 5.0 g/dL LAB CHEMISTRY METHOD 12/04/2024 4:58 PM EDT [facility] Total Bilirubin 0.4 0.0 - 1.4 mg/dL LAB CHEMISTRY METHOD 12/04/2024 4:58 PM EDT [facility] Blood Venous blood specimen / Unknown Venipuncture / Unknown 12/04/2024 12:05 PM EDT 12/04/2024 12:05 PM EDT Zari PEDERSEN LAB BLOOD ORDERABLES Final Resu lt [facility] [address] [place] [address], * External Diabetic Retina Eye Exam Report [...] evidence of malignancy. BI-RADS 1 - negative [address] [id number] Procedure Note Shanelle Lewis MD - 01/01/2024 [...] evidence of malignancy. BI-RADS 1 - negative [address] [address] Lazara Shepherd MD IMG XR PROCEDURES Final Result * Falls Risk Assessment (09/27/2023) Falls Risk Assessment Abstracted Historical Provider HEALTH MAINTENANCE Final Result * Depression Screening (09/27/2023) Depression Screening Abstracted Historical Provider HEALTH MAINTENANCE Final Result * Diabetes Foot Exam (09/27/2023) Diabetes: Annual Foot Exam Abstracted us Historical Provider HEALTH MAINTENANCE Final Result * DXA BONE DENSITY STUDY 1+ FRANCISCO GARAY SKEL (11/12/2022 9:05 AM EDT) Anatomical Region [...] Densitometry http://www.iscd.org 3. National [employer]opor[employer] Foundation http://www.nof.org us Lazara Shepherd MD [facility] DXA PROCEDURES Final Result * Colonoscopy (08/07/2021) Colonoscopy No Interpretation , Abstracted Anatomical Region Laterality Modality Other us Historical Provider HEALTH MAINTENANCE Final Result * Hepatitis C Screening (11/23/2012) Hepatitis C Screening Abstracted us Historical Provider HEALTH MAINTENANCE Final Result from Last 3 Months or Most Recently Relevant to Health Maintenance Insurance [employer] [place]ICAID [place] [facility] Care Teams Or Rn Relationship Specialty Start Date End Date Lazara Shepherd MD [address] [place] [phone] PCP - General Internal Medicine 08/06/21
--- OUTSIDE RECORDS SUMMARY | 2024-12-05 16:43 | XMS_ITS ---
Author Name Vamsi JOSE ALFREDO MS. Gretta Bailey Address [address] [place] [address] Phone [phone] Organization [facility] Care Team Providers Care Electrostatic Powder Coating Technician Name Role Phone Gretta Agustin Unavailable [phone] Unavailable Unavailable Unavailable [facility] Unavailable Unavailable Unavailable Unavailable Reason for Referral Not Available Allergies, adverse reactions, alerts No known allergies History of medication use Medication Class Instructions Start Date End Date Lisinopril 40 mg Tab TAKE 1 TABLET BY MO UTH EVERYDAY AT BEDTIME 2021-03-25 No Data Available Stiolto Respimat 2.5-2.5 MCG /ACT Aerosol Solution TAKE 2 PUFFS BY MOUTH EVERY DAY 2021-01-06 No Data Available [id number] Ethyl Esters 1 GM Cap TAKE 1 [...] TA BLET BY MOUTH EVERY DAY 2021-11-13 2024-11-15 Budesonide 0.5 mg/2ML Suspension USE 1 V [...] 2 times per day for muscle cramps as needed 2023-12-23 No Data Available Voltaren 1 % [...] CADA NOCHE YA NO TOME SEROQUEL 2024-04-13 2024-11-15 ProAir HFA 108 (90 Base) MCG/ACT Inhale 2 puffs every 4-6 hours as needed for shortness of breath or wheezing 2024-06-12 No Data Available Aspirin 81 mg Tab delayed rel take 1 tab let orally once daily 2024-06-12 No Data Available VITAMIN D3 1,000 UNIT SOFTGEL TAKE 1 CAP TITO BY MOUTH EVERY DAY 2024-10-12 No Data Available predniSONE 20 mg Tab TAKE 2 TABLETS (40 MG TOTAL) BY MOUTH ONE TIME EACH DAY FOR 5 DAYS. 2024-11-01 2024-11-15 Azithromycin 250 mg Tab TAKE 2 TABLETS B Y MOUTH TODAY, THEN TAKE 1 TABLET DAILY FOR 4 DAYS DIRECTED 2024-11-01 No Data Available Problem List Problem Status [...] avoid nephrotoxic medsEncourage low starch, high fiber [id number] lab work scheduled for 05/17/23CKD (chronic kidney [...] 3 chronic kidney disease Active 2021-12-17 N/A Hospital name: [facility] Hospital admission date: 11/07/2024Hospital discharge date: 11/14/2024 Discharge diagnosis: CHFE, diuresed with Lasix and discharged on home dose of oral Lasix, unclear trigger, member states she was drinking a lot of fluidsLisinoprilHCTZAmlodipineNo recent eGFR. Lab work scheduled with PCP on denies LE swellingfeels welldenies SOB or OSHEA Hx of aortic valve replacement, Anticoagulated Active 2021-12-17 N/A Replaced on 06/26On Plavix06/12/24denies abnormal bleeding Other problems related to medical facilities and other health care Active 2023-04-26 N/A HEART FAILURE CONTINGENCY PLANLast updated: 11/17/24Member to call for the following symptoms: Breathing loudly / Cough/ EdemaPlanned intervention: Increase furosemide (Lasix) to 60 mg for 3-5 days Morbid (severe) obesity due to excess calories Active 2023-04-26 N/A BMI 36monitor we ight movement as able 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 Active 2021-12-22 N/A on Memantine and Donepezilquetiepinehas good support system at home COPD (chronic obstructive pulmonary disease) Active 2021-12-17 N/A on StioltoCal lCBif cough, sob06/12/24c/o DOEhas f/u with cardiology q 3 months f/u 06/25/24continue to monitor OSHEA and if increasing from baseline call CB 24/7encouraged to bring up to Cards during f/u Encounters Encounters Type Facility Date of Service Diagnosis/Co mplaint Medication List Documented (1159F) [facility] [place]20[place] Medication List Documented (1159F) [facility] [place]20[place] Medication List Documented (1159F) [facility] [place]20[place] Medication List Documented (1159F) [facility] [place]/17/2021 Medication List Documented (1159F) [facility] [place]17[place]20[place] Medication List Documented (1159F) [facility] [place]20[place] Dorsalgia, unspecifiedOther localized visual field [...] unspecifiedSick sinus syndrome Medication List Documented (1159F) [facility]20[place] Medication List Documented (1159F) [facility] Medication List Documented (1159F) [facility] Estab. patient 30-39min; chronic exacerbation, 2 stable chronic or 1 acute illness add add modifier 95 for video, (do not use for phone, instead use 05033-54) [facility]2022 Dorsalgia, unspecifiedOther localized [...] (do not use for phone, instead use 21766-79) [facility] Estab. patient 30-39min; chronic exacerbation, 2 stable chronic or 1 acute illness add add modifier 95 for video, (do not use for phone, instead use 16915-75) [facility] Estab. patient 30-39min; chronic exacerbation, 2 stable chronic or 1 acute illness add add modifier 95 for video, (do not use for phone, instead use 81098-02) [facility]/14/20[place] Estab. patient 30-39min; chronic exacerbation, 2 stable chronic or 1 acute illness add add modifier 95 for video, (do not use for phone, instead use 31281-11) [facility]/20[place] Estab. patient 30-39min; chronic exacerbation, 2 stable chronic or 1 acute illness add add modifier 95 for video, (do not use for phone, instead use 96909-78) [facility]/20[place] Estab. patient 30-39min; chronic exacerbation, 2 stable chronic or 1 acute illness add add modifier 95 for video, (do not use for phone, instead use 70078-90) [facility] 04[place]/2022 Estab. patient 30-39min; chronic exacerbation, 2 stable chronic or 1 acute illness add add modifier 95 for video, (do not use for phone, instead use 26612-45) [facility] 04/14/2022 Estab. patient 30-39min; chronic exacerbation, 2 stable chronic or 1 acute illness add add modifier 95 for video, (do not use for phone, instead use 37473-29) [facility] 04/14/2022 Estab. patient 30-39min; chronic exacerbation, 2 stable chronic or 1 acute illness add add modifier 95 for video, (do not use for phone, instead use 70058-66) [facility]20[place] Estab. patient 30-39min; chronic exacerbation, 2 stable chronic or 1 acute illness add add modifier 95 for video, (do not use for phone, instead use 08167-04) [facility]/2023 Dorsalgia, unspecifiedOther localized [...] (do not use for phone, instead use 35240-36) [facility] 04/26/2023 Estab. patient 30-39min; chronic exacerbation, 2 stable chronic or 1 acute illness add add modifier 95 for video, (do not use for phone, instead use 57014-91) [facility] [place] 04/26/2023 Estab. patient 30-39min; chronic exacerbation, 2 stable chronic or 1 acute illness add add modifier 95 for video, (do not use for phone, instead use 98226-42) [facility] 04/26/2023 Estab. patient 30-39min; chronic exacerbation, 2 stable chronic or 1 acute illness add add modifier 95 for video, (do not use for phone, instead use 38544-95) [facility] 04/26/2023 Estab. patient 30-39min; chronic exacerbation, 2 stable chronic or 1 acute illness add add modifier 95 for video, (do not use for phone, instead use 63781-02) [facility] [place] 04/26/2023 Estab. patient 30-39min; chronic exacerbation, 2 stable chronic or 1 acute illness add add modifier 95 for video, (do not use for phone, instead use 77366-60) [facility] [place] 04/26/2023 Estab. patient 30-39min; chronic exacerbation, 2 stable chronic or 1 acute illness add add modifier 95 for video, (do not use for phone, instead use 64243-58) [facility] 04/[place]/2023 No Data Available [facility]/2023 Hyp hrt & chr kdny dis w hrt fail and stg 1-4/unsp chr kdnyHeart failure, unspecifiedChronic kidney disease, unspecifiedCramp and spasmOther problems related to medical facilities and other health care No Data Available [facility]2023 No Data Available [facility]2023 No Data Available [facility]20[place] No Data Available [facility]2023 Hyp hrt & chr kdny dis w hrt fail and stg 1-4/unsp chr kdnyHeart failure, unspecifiedChronic kidney disease, stage 3 unspecifiedCramp and spasmOther problems related to medical facilities and other health care No Data Available [facility] 12/24/2023 RN, CN or CP time with patient by phone; use with 1111F, BP, A1c or other CPTII codes [facility] 02/[place]/2024 Encounter for other specifie d aftercare No Data Available [facility]/16/2024 Unspecified abdominal painPe rsonal history of other medical treatment No Data Available [facility] 02/16/2024 No Data Available [facility] 02/16/2024 No Data Available [facility]/16/2024 No Data Available [facility]/2024 No Data Available [facility]/2024 No Data Available [facility]/2024 No Data Available [facility]/20[place] Estab. patient 20-29min; 1 stable chronic or 2 minor; add add modifier 95 for video, modifier 93 for phone [facility] 06/12/2024 Other localized visual field defect, left [...] 95 for video, modifier 93 for phone [facility] 06/12/2024 Estab. patient 20-29min; 1 stable chronic or 2 minor; add add modifier 95 for video, modifier 93 for phone [facility] [place] 06/12/2024 Estab. patient 20-29min; 1 stable chronic or 2 minor; add add modifier 95 for video, modifier 93 for [facility] 06/12/2024 Estab. patient 20-29min; 1 stable chronic or 2 minor; add add modifier 95 for video, modifier 93 for [facility] 06/12/2024 Estab. patient 20-29min; 1 stable chronic or 2 minor; add add modifier 95 for video, modifier 93 for phone [facility] [place] 06/12/2024 Estab. patient 20-29min; 1 stable chronic or 2 minor; add add modifier 95 for video, modifier 93 for phone [facility] [place] 06/12/2024 RN, CN or CP time with patient by phone; use with 1111F, BP, A1c or other CPTII codes [facility] [place] 11/15/2024 Encounter for other specifie d aftercare RN, CN or CP time with patient by phone; use with 1111F, BP, A1c or other CPTII codes [facility] [place] 11/15/2024 Estab. patient 10-29min; 1 minor problem; add add modifier 95 for video, modifier 93 for phone [facility] [place] 11/17/2024 Hyp hrt & chr kdny dis w hrt fail and stg 1-4/unsp chr kdnyHeart failure, unspecifiedChronic kidney disease, stage 3 unspecifiedOther problems related to medical facilities and other health care Estab. patient 10-29min; 1 minor problem; add add modifier 95 for video, modifier 93 for phone [facility] [place] 11/17/2024 Estab. patient 10-29min; 1 minor problem; add add modifier 95 for video, modifier 93 for phone [facility] [place] 11/17/2024 Vital Signs Date of Collection Vitals 2021-12-17 [...] - 126.0 mm[Hg]Pain Scale - 0.0 {score} 2024-11-17 10:35:27 Weight - 88.45 kgBod y Mass Index (BMI) - 35.67 kg/m2 Social History Social History Social History Observation Description Effec tive Time Current Smoking Status Former smoker 7 Sex Female History of Procedures Procedures Service [...] le No Data Available No Data Available 29516 2021-12-17 No Data Available No Data Available [...] (do not use for phone, instead use 85271-86) 48860 2022-04-14 No Data Available No Data Availa [...] (do not use for phone, instead use 40423-02) 72783 2023-04-26 No Data Available No Data Availa [...] No Data Avail able No Data Available 2023-12-23 No Data Available No Data Available SBP < 130 (3074F) 3074F 2023-12-23 No Data Available No Data Available DBP <80 (3078F) 3078F 2023-12-23 No Data Available No Data Available Medication List Documented (1159F) 1159F 2023-12-23 No Data Available No Data Laurita ilable No Data Available 72704 2023-12-24 No Data Available No Data Available Medication List Documented (1159F) 1159F 2023-12-24 No Data Available No Data Laurita ilable RN, CN or CP time with patient by phone; use with 1111F, BP, A1c or other CPTII codes 75872 2024-02-10 No Data Available No Data Avai lable No Data Available 17826 2024-02-16 No Data Available No Data Available [...] 95 for video, modifier 93 for phone 10037 2024-06-12 No Data Available No Data Availa [...] 2024-06-12 No Data Available No Data Available RN, CN or CP time with patient by phone; use with 1111F, BP, A1c or other CPTII codes 53818 2024-11-15 No Data Available No Data Avai lable Medications prescribed in hospital were reviewed and reconciled against what they were taking prior to admission during today's visit. (1111F) 1111F 2024-11-15 No Data Available No Data Availa ble Estab. patient 10-29min; 1 minor problem; add add modifier 95 for video, modifier 93 for phone 54066 2024-11-17 No Data Available No Data Availa ble Medications prescribed in hospital were reviewed and reconciled against what they were taking prior to admission during today's visit. (1111F) 1111F 2024-11-17 No Data Available No Data Availa ble Advance care planning discussed and documented advance care plan or surrogate decision-maker was documented in the medical record. (1123F) 1123F 2024-11-17 No Data Available No Data Availa ble Functional Status Functional Category Effective Dates Falls [...] you feel unsteady on your feet? No 23-06-13 Do you worry about falling? No [...] 2 diabetes mellitus with other specified complication 2024-11-17 10:35:27 Hypertensive heart a nd chronic kidney disease with heart failure and stage 3 chronic kidney diseaseOther problems related to medical facilities and other health care Plan of Care Date of Service Plans 2021-12-17 10:52:13 Medication Review by prescribing provider or pharmacist documented (1160F)Medication List Documented (1159F)Functional Status Assessed (1170F)BMI obtained (3008F)SBP < 130 (3074F)DBP <80 (3078F)Televideo new patient,40-59min; chronic exacerbation, 2 stable chronic or 1 acute illness add modifier 95Pain Assessment - Pain Documented (1125F)Continue to see PCP. [facility] any acute or disease education needs that may arise. Continue to see PCP. [facility] any [...] call cardio, ask to give mssg to communications consultant, ask to be triaged and possibly [...] avoid nephrotoxic medsEncourage low starch, high fiber [id number] lab work scheduled for 05/17/23on Memantine and [...] <80 (3078F)Continue to see PCP. Follow-up with [facility] as [...] modifier 95)Continue to see PCP. Follow-up with [facility] as needed for any acute or disease [...] modifier 95)PCP visit is planned for:Hospital name: [facility] Hospital admission date: 01/30/24ospital discharge date: 02/02/24Discharge diagnosis: MR stringer, per patient stomach pain, possible virus. Records at time of call: Not available/ Requested Spoke to: MemberEvents leading up to hospitalization and hospital course: Member states she went to the hospital because her stomach was hurting. Member unsure what she was diagnosed with. MR siomara. Unable to verbalize diagnosis, but states possible virus. States Plavix was discontinued. Had follow up with PCP 2 days ago. All medications reviewed at this time. Has appt with Flight Operations Specialist on 03/02/2024. Has appt for heart Ultrasound [...] present (1126F)Continue to see PCP. Follow-up with [facility] as needed for any acute or disease education needs that may arise.CVA circa 2012Most noticeable sequela is vision change [...] avoid nephrotoxic medsEncourage low starch, high fiber [id number] lab work scheduled for 05/17/23CKD (chronic kidney [...] smaller portions with healthy snacks.F/U with PCP 2024-11-17 10:35:27 Discharge medication s reconciled with current medication listAdvance care planning discussed and documented advance care plan or surrogate decision-maker was documented in the medical record. (1123F)Estab. patient 10-29min; 1 minor problem; add add modifier 95 for video, modifier 93 for phoneContinue to see PCP. Follow-up with [facility] as needed for any acute or disease education needs that may arise.Hospital name: [facility] Hospital admission date: 11/07/2024Hospital discharge date: 11/14/2024 Discharge diagnosis: CHFE, diuresed with Lasix and discharged on home dose of oral Lasix, unclear trigger, member states she was drinking a lot of fluidsLisinoprilHCTZAmlodipineNo recent eGFR. Lab work scheduled with PCP on denies LE swellingfeels welldenies SOB or OSHEAHEART FAILURE CONTINGENCY PLANLast updated: 11/17/24Meer to call for the following symptoms: Breathing loudly / Cough/ EdemaPlanned intervention: Increase furosemide (Lasix) to 60 mg for 3-5 days Goals Date Goal 2021-12-17 Remember to 2021-12-17 Call me if 2021-12-17 Keep it up 2021-12-17 Remember to 2021-12-17 Call me if 2021-12-17 Keep it up 2024-02-16 Remember to keep all appointments with your PCP and specialists. Call / if you have questions or concerns. Discussed how to contact [facility] via phone or tablet. 24/ phone number provided. 2024-02-16 Home Health or DME n eeds: Requesting standard shower chair. DME order placed. Health Concerns Date Concern 2024-11-17 Patient/Guardian agr eed to visit via telehealth.Visit completed via:[ ] audio and video; [x] audio only 2024-11-17 Hospitalization Summ aryAd[facility] date: [facility]: [facility]Reason for hospitalization: SOB, volume overloadSummary of hospital course: MR pending, unable to review hospital course, work up, diagnosis and treatmentCurrent issues/current symptoms/outstanding follow-up needs: Member states she was not able to breath and they put her on machines and gave me Lasix. Breathing has improved, 50% back to baseline. Continues to have fatigue and a discomfort, not pain, on her left side which was present prior to her hospitalization. Weighs self daily, remains 195 lbs. Aware she must report weight gain of 2-3 lbs in one day or 5lbs in one week. Denies missed doses of diuretics, increased salty foods or recent illness. She just feels like I was retaining liquids. When asked if she was drinking more fluid than normal she states I think that's what it was. Discussed 2L fluid restriction if she has tendancy to retain.PCP Follow-Up: Has SN/PT in the home. PCP follow up 11/21/24. 2024-11-17 Advance Care Planalexandrea Currie 2024-11-17 PHV completed with marilou ross and ANDREW bar examiner
--- OUTSIDE RECORDS SUMMARY | 2024-12-05 16:43 | XMS_ITS | Encounter Summary ---
Author Organization [facility] Address [address] [place] [address] Phone Care Team Providers Care Heater Furnace Name Role Phone Amanda Mckinnon MD Primary Care Provider [phone] Encounter Details Date Type Department Care Team (Late st Contact Info) Description 07/22/2022 Telephone [facility] [address] [place] [address] Zari Abraham Social History Tobacco [...] 1.55(H) 0.5 - 1.4 mg/dL [place] eGFR (Calc) 33 [place] Comment: NOTE: For -[place] individuals, multiply the result by 1.210. Chronic Kidney Disease: Estimated GFR < 60 mL/min/1.73m2 Severe Kidney Disease: Estimated GFR < 15 mL/min/1.73m2 Glucose 127(H) 60 - 115 mg/dL [place] Calcium 9.2 8.4 - 10.2 mg/dL [place] 10/16/2022 10:3 2 AM EDT 10/16/2022 10:32 AM EDT Regino Bazan MD LAB BLOOD ORDERABLES Final Res [facility] documented in this encounter Visit Diagnoses Not on filedocumented in this encounter Care Teams Heater Furnace Relationship Specialty Start Date End Date Amanda Mckinnon MD [address] [place] [id number] PCP - General Internal Medicine 11/20/20 documented as of this encounter
--- OUTSIDE RECORDS SUMMARY | 2024-12-05 16:43 | XMS_ITS | Data Portability ---
Author Organization [place] - [facility], Allergy Address [address] [facility] [address] [place] [address] Assessment Encounter Date Assessment Date Assessment LastModified by Organization Details LastModified Time 10/13/2023 10/13/2023 73-year-old female presents for swallowing difficulty. Exam is 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 Given how low her symptoms are laryngoscopy was deferred today. Would recommend modified barium swallow for further evaluation. Her symptoms are most consistent with hiatal hernia or achalasia. Will also recommend GI referral for further management. All questions were answered. [email or web address] Not available 10/13/2023 14:44:50 Plan of Treatment Reminders Order Date Submit Date Provider Last Modified By Organization Details Last Modified Time Details Appointments None recorded. Lab None recorded. Referral None recorded. Procedures None recorded. Surgeries None recorded. Imaging [place], modified barium swallow study 2023 024 [email or web address] [facility], [address] [facility], [facility] [address], [place], [address], 12:02:16 Medication Orders None recorded. Patient TargetsNo targets recorded. Patient InstructionsNo instructions recorded. Reason for Referral None Reported. Problems Name Problem SNOMED Code Status Onset Date Resolution Date Notes Provider Name and Address Organization Details Recorded Time Dysphagia [id number] Active 024 TORI MAC PA-C [address] [facility] [address], [facility] [place], [address] , [place] - [facility] 14:44:55 Problem Notes None recorded. Procedures Surgical History Date Name Laterality Status Provider Name and Address Organization Details Recorded Time 0 cardiac pacemaker procedure completed Janie Kelley [place] - [facility] 10/13/2023 14:26:11 Imaging Results None recorded. Procedure Notes None recorded. Medical Equipment None Reported. Allergies No known drug allergies Medications Name Sig Start Date Stop Date Status Note LastModified by Organization Details LastModified Time furosemide 40 mg tablet TAKE 1 TABLET BY MOUTH EVERY DAY 10/12 completed Not Available Not Available Not Available gabapentin 600 mg tablet TAKE 1 TABLET BY MOUTH TWICE A DAY 10/12 completed Not Available Not Available Not Available ammonium lactate 12 % lotion APPLY TO SOLES OF FEET DAILY. AT NIGHT WEAR SOCKS TO BED 10/12 completed Not Available Not Available Not Available metoprolol tartrate 100 mg tablet TAKE 1 TABLET BY MOUTH TWICE A DAY active Not Available Not Available No t Available donepezil 10 mg tablet TAKE 1 TABLET BY MOUTH EVERY DAY active Not Available Not Available No t Available clopidogrel 75 mg tablet TAKE 1 TABLET BY MOUTH EVERY DAY 10/12 completed Not Available Not Available Not Available amlodipine 5 mg tablet TAKE 1 TABLET BY MOUTH EVERY DAY 10/12 completed Not Available Not Available Not Available aspirin 81 mg tablet,issa yed release TAKE 1 TABLET BY MOUTH EVERY DAY active Not Available Not Available No t Available bupropion HCl 100 mg tablet TAKE 1 TABLET BY MOUTH EVERY DAY IN THE MORNING 10/12 completed Not Available Not Available Not Available Supercool SchoolTouch Ultra Test strips USED TO TEST BLOOD SUGAR DAILY 10/12 completed Not Available Not Available Not Available nitroglycer in 0.4 mg sublingual tablet PLEASE SEE ATTACHED FOR DETAILED DIRECTION S 10/12 completed Not Available Not Available Not Available budesonide 0.5 mg/2 mL suspension for nebulizatio n INHALE 1 VIAL VIA NEBULIZER DAILY 10/12 completed Not Available Not Available Not Available furosemide 20 mg tablet TAKE 1 TABLET BY MOUTH EVERY DAY 10/12 completed Not Available Not Available Not Available lisinopril 40 mg tablet TAKE 1 TABLET BY MOUTH EVERY DAY active Not Available Not Available No t Available rosuvastati n 40 mg tablet TAKE 1 TABLET BY MOUTH EVERY DAY 10/12 completed Not Available Not Available Not Available memantine 10 mg tablet TAKE 1 TABLET BY MOUTH TWICE A DAY active Not Available Not Available No t Available omega-3 acid ethyl esters 1 gram capsule TAKE 1 CAPSULE BY MOUTH TWICE A DAY 08/14 /2024 completed Not Available Not Available Not Available hydrochloro thiazide active Not Available Not Available Not Available hydrochlori c acid (bulk) active Not Available Not Available Not Available quetiapine 50 mg tablet TAKE 1 TABLET BY MOUTH EVERYDAY AT BEDTIME 10/12 completed Not Available Not Available Not Available Lubricant Eye Drops 0.5 % drops in a dropperette PLACE 1 DROPS IN BOTH EYES EVERY 4 HOURS NEEDED FOR DRYNESS 10/12 completed Not Available Not Available Not Available Jardiance 10 mg tablet TAKE 1 TABLET BY MOUTH EVERY DAY active Not Available Not Available No t Available Vitals Date Recorded Body height Body mass index (BMI) Body weight Provider Name and Address Organization Details Last Updated DateTime 10/13/2023 160.02 cm 34.4 kg/m2 37343.92 g Janie Kelley [place] - [facility] 10/13/2023 14:14:36 Social History None recorded. Functional Status None recorded. Mental Status None recorded. Family History Nothing Reported. Medical History Condition Response Diabetes Y Arthritis Y Anxiety Y Emphysema Y Liver Disease Y Heart Attack ([place]) Y Hypertension Y Kidney Disease Y Gynecological HistoryNo gynecological history recorded. Obstetrics History GPAL:G 0 P 0 0 0 0 Past Encounters Encounter ID Performer Location Encounter Start Date Encounter Closed Date Diagnosis/Indication Diagnosis SNOMED-CT Code Diagnosis ICD10 Code Diagnosis IMO Codes Diagnosis Note [id number] TORI MAC PA-C [facility] [address] [address] 10/13/2023 13:31:53 10/13/2023 14:34:05 Dysphagia 58511967 R13.10 Health Concerns Section Related Observation LastModified by Organization Detai ls LastModified Time None Recorded Concern Status LastModified by Organization Details LastModified Time None Recorded Advance Directives Directive None Recorded Payers Insurance Date Sequence Insurance Name Policy Number Policy Degroot Covered Member ID Degroot Member ID Guarantor Name 10/13/2023 1 [employer] (MEDICARE REPLACEMENT/A DVANTAGE - HMO) Elvi Rios [id number] Elvi Rios Notes Date Note Type Note Provider Name and Address Organization Details Recorded Time 10/13/2023 text/html ROS as noted in the HPI 73-year-old female presents for evaluation of swallowing difficulty. For the past year or so she feels as though food becomes stuck in her chest when she is swallowing. It is quite painful and sometimes she will cough up food or liquid. Both food and liquid feel as though they are becoming stuck. She has no heartburn symptoms. No sore throat, voice changes, or weight loss. History of tobacco use but quit 3 years ago. TORI MAC PA-C [address] [place] [address], [id number], [place] - [facility] 10/13/2023 14:45:30 OBGyn Episode No OBEpisode recorded.
--- OUTSIDE RECORDS SUMMARY | 2024-12-05 16:43 | XMS_ITS | Encounter Summary ---
Author Organization [facility] Address [address] [place] [address] Care Team Providers Care Buyer Renter Name Role Phone Lazara Shepherd MD Primary Care Prov ider Reason for Visit * Reason Onset Date Comments Home Health Certification 12/05/20242024-01/14/2025 Encounter Details Date Type Department Care Team ([facility] st Contact Info) Description 12/05/2024 Telephone Adult Medicine [address] [phone] Lazara Shepherd MD [address] [place] [address] Social History Tobacco Use Types Packs/Day Years [...] do you feel lonely or isolated from ose around you? Never 12/04/2024 Food Risk [...] as of this encounter Progress Notes * Ines Cobb MA - 12/05/2024 8:48 AM EDT [facility] orders place on provider desk for signature 11/16/2024-01/14/2025 documented in this encounter Plan of Treatment Upcoming Encounters Date Type Department Care Team (Late st Contact Info) Description 04/06/2025 11:00 AM EST Office Visit Adult [address] [phone] Lazara Shepherd MD [address] [place] [address] 08/06/2025 11:00 AM EDT Office Visit [address] [phone] Lazara Shepherd MD [address] [place] [address] 12/06/2025 11:30 AM EDT Office Visit [address] [phone] Lazara Shepherd MD [address] [place] [address] documented as of this encounter Visit Diagnoses Not on filedocumented in this encounter Additional Health Concerns Assessment Noted Time PHQ-9 Depression Total Score: 0 12/05/19 25 11:11 AM EDT A fall risk assessment has been complete d for the patient 12/04/2024 11:08 AM EDT documented as of this encounter Care Teams Buyer Renter Relationship Specialty Start Date End Date Lazara Shepherd MD [address] [place] [address] PCP - General Internal Medicine 08/06/21 documented as of this encounter
--- OUTSIDE RECORDS SUMMARY | 2024-12-05 16:43 | XMS_ITS | Patient Health Record ---
Author Organization [facility] Address [address] [place] [address] Care Team Providers Care Teacher Learning Disabled Name Role Phone iDck Velasquez M.D. Primary Care Provider UnavailAntonio Buck Jr Unavailable [phone] Reason For Referral No Information Plan Of Treatment No Information
== END 2024-12-05 14:32 | disposition home or self-care (01) ==
LOC: HO.HPS 13:35
PROVIDERS: PCP Internal Medicine; Visit Provider Internal Medicine Pulmonary Disease
DX: J44.9 Chronic obstructive pulmonary disease, unspecified (principal); R91.8 Other nonspecific abnormal finding of lung field; R06.01 Orthopnea
CPT/HCPCS: 99214; G2211

== ENCOUNTER → 2024-12-05 13:35 | Outpatient (BNVA) | payer OTHER, SELFPAY | PROVIDERS: PCP Internal Medicine; Visit Provider Internal Medicine Pulmonary Disease | DX: J44.9 Chronic obstructive pulmonary disease, unspecified (principal); R91.8 Other nonspecific abnormal finding of lung field; Z87.891 Personal history of nicotine dependence; Z95.0 Presence of cardiac pacemaker; Z95.2 Presence of prosthetic heart valve; R06.01 Orthopnea | CPT/HCPCS: 99212 ==

== ENCOUNTER 2025-01-09 12:59 | Outpatient (AMB) | payer OTHER, SELFPAY ==
[2025-01-09 13:24] VITALS: BMI 38.7
--- NOTE | 2025-01-09 13:24 | A.PHYSOV ---
Vital Signs 01/09/25 13:24 Height 5 ft Weight 198 lb BMI 38.7 Intake Visit Reasons: NPV SELF REF-BACK PAIN Intake Note: 74 year old female in our office today as a new patient for low back pain for many years. Seen in the past by Dr. 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 The pain initially began in 2014, and a lumbar facet injection provided temporary relief for many months. The pain has recurred over the past three months without any specific inciting event or injury. The pain is localized to the lower back and does not radiate to the legs. The pain is exacerbated by walking and bending backward, with a reported severity of 8 to 9 out of 10 during flare-ups. The patient has not engaged in recent physical therapy or other interventions aside from the initial injection. She has a pacemaker, which precludes the possibility of an MRI for further evaluation. Patient presents accompanied by her FOREMAN/PILE DRIVING AND ERECTION. She reports positive for ?shopping cart? sign. She denies any change in bowel bladder habits. She denies any fever or chills. Pain Description - Onset: Pain initially began in 2014, recurred three months ago - Quality: Localized to lower back, no radiation to legs - Severity: 8 to 9 out of 10 during flare-ups - Exacerbating factors: Walking, bending backward Results - Imaging: X-rays performed, MRI not possible due to pacemaker [facility] Medical History Carotid stenosis, left TIA (transient ischemic attack) Uncontrolled hypertension Stroke MCI (mild cognitive impairment) Cataract Pacemaker Cervical spondylosis COPD (chronic obstructive pulmonary disease) Hypertension Surgical History S/P TAVR (transcatheter aortic valve replacement) History of transcatheter aortic valve replacement (TAVR) (~04/28/19) History of permanent cardiac pacemaker placement (~04/27/19) History of cardiac catheterization Family History Mother HTN (hypertension) Father Heart attack Brother HTN (hypertension) Social History Alcohol intake: never Patient Tobacco Use Status: Former Tobacco user Review of Systems Narrative Review of Systems - Musculoskeletal: Reports lower back pain, denies radiation to legs - Cardiovascular: Denies use of blood thinners except for aspirin and Plavix Denies change in bowel bladder habits, denies fever or chills, denies uncontrolled depression or suicidal ideation Physical Exam Exam Exam: Physical Exam - Neurological: No focal deficits noted - Musculoskeletal: Pain on backward bending, no radiation to legs. Lumbar extension was restricted Dural tension signs were negative. Gait was antalgic. Heel walk and toe walk were not tested. SI provocative maneuvers are negative. Tenderness palpation over bilateral sacroiliac sulci. Pain with palpation over bilateral lower lumbar paraspinal muscles. Forward flexion was preserved. Neurologic examination was nonfocal. Patient demonstrated no upper motor neuron signs. Vital Signs: BMI result Body Mass Index 38.7 Assessment & Plan Assessment & Plan (1) Spondylosis of lumbar region without myelopathy or radiculopathy: Code(s): M47.816 - Spondylosis without myelopathy or radiculopathy, lumbar region Category: Medical (2) Low back pain: Code(s): M54.50 - Low back pain, unspecified Category: Medical Qualifiers: Chronicity: chronic Back pain laterality: bilateral Sciatica presence: without sciatica Qualified Code(s): M54.50 - Low back pain, unspecified; G89.29 - Other chronic pain Plan Pain Management - Affect: Not explicitly discussed - Analgesia: Previous lumbar facet injection provided temporary relief - Adverse Effects: Not explicitly discussed - Activities of Daily Living: Pain exacerbated by walking, bending backward - Aberrant Drug Related Behaviors: Not explicitly discussed Plan Patient was informed and verbally consented to the use of an ambient scribe for clinic note documentation during this visit. 1. Lumbar Facet Joint Pain The patient has been experiencing lumbar facet joint pain, initially managed with an injection in 2014, which provided temporary relief. Due to the recurrence of pain over the past three months, options discussed include repeating the lumbar facet injection or initiating physical therapy. The presence of a pacemaker precludes MRI evaluation, thus limiting diagnostic options. Discussion Notes I discussed with the patient the recurrence of her lumbar facet joint pain and the management options available. Given her pacemaker, MRI is not an option, but we can proceed with a lumbar facet injection as previously done, or consider physical therapy. We will contact her to schedule the injection in the office under fluoroscopy. Patient Instructions - Await a call to schedule the lumbar facet injection. - Consider physical therapy as an alternative option for pain management. Coding Level of Care Code New Pt Level 4 (93772) Complex EM visit Add On G2211 Diagnoses Spondylosis of lumbar region without myelopathy or radiculopathy M47.816 Chronic bilateral low back pain without sciatica M54.50; G89.29 Chronicity: chronic Back pain laterality: bilateral Sciatica presence: without sciatica
--- OUTSIDE RECORDS SUMMARY | 2025-01-09 14:42 | XMS_ITS | Encounter Summary ---
Author Organization [facility] Address [address] [place] [address] Phone Care Team Providers Care Surface Water Manager Name Role Phone Vandana Bellamy DO Primary Car e Provider Encounter Details Date Type Department Care Team (Late st Contact Info) Description 11/01/2019 Procedure Pass [facility] [address] [place] [address] Social History Tobacco Use Types Packs/Day Years [...] on filedocumented in this encounter Care Teams Surface Water Manager Relationship Specialty Start Date End Date Vandana Bellamy DO [address] [place] [address] PCP - General 10/23/19 documented as of this encounter Additional Source Comments The information contained in this document represents components of the legal health record. It is not the complete legal health record.[facility]
--- OUTSIDE RECORDS SUMMARY | 2025-01-09 14:42 | XMS_ITS | Clinical Summary ---
Author Organization [facility] Address [address] [place] [phone] Phone Care Team Providers Care Diamond Setter Apprentice Name Role Phone [place] Vandana Olga DO Primary Car e Provider Allergies No [...] 12/01/2019, 12/20/2017, Additional history exists COVID-19 VACCINE (2024- season) 2024 01/22/2021, 06/13/2020, 05/16/2020 PNEUMOCOCCAL VACCINES [...] this topic Medical Devices Implanted Type Area Detector Car Operator Device Identifier Shelf Expiration Date Model / Serial / Lot Pacemaker Pacemaker Chest Wall Prosthetic Valve Prosthetic Valve Aorta Description:TAVR [place] [address] [place] [address] MEDICARE REPLACEMENT [facility] MEDICARE REPLACEMENT [facility] MEDICARE REPLACEMENT Advance Directives For more information, please contact: [phone] (9AM - 5PM [facility], Wednesday-Wednesday) * Full Code (Latest Code Status on File) Date Activated Date Inactivated Comments 11/01/2019 7:39 AM Question Answer Comments Code Status Confirmed With: Other (specify below ) Code Status Communicated To: Other (specify belo w) Code Discussion Comments: Transcribed from order Care Teams Diamond Setter Apprentice Relationship Specialty Start Date End Date Vandana Bellamy DO [address] [place] [address] PCP - General 10/23/19 Additional Source Comments The information contained in this document represents components of the legal health record. It is not the complete legal health record.[facility]
--- OUTSIDE RECORDS SUMMARY | 2025-01-09 14:42 | XMS_ITS ---
Author Name Vamsi JOSE ALFREDO MS. Glynn M Address [address] [place] [address] Phone [phone] [facility] Care Team Providers Care Biblical Languages Professor Name Role Phone Gretta Agustin Unavailable [phone] Unavailable Unavailable Unavailable [facility] Unavailable [phone] Arin Chun Unavailable [phone] Reason for Referral Not Available Allergies, adverse reactions, alerts No known allergies History of medication use Medication Class Instructions Start Date End Date Lisinopril 40 mg Tab TAKE 1 TABLET BY MO UTH EVERYDAY AT BEDTIME 2021-03-25 No Data Available Stiolto Respimat 2.5-2.5 MCG /ACT Aerosol Solution TAKE 2 PUFFS BY MOUTH EVERY DAY 2021-01-06 No Data Available Fkjuf-6-eevp Ethyl Esters 1 GM Cap TAKE 1 [...] FOR 90 DAYS 2021-02-12 No Data Available [place] [facility] Ultra Strip USED TO TEST BLOOD SUGAR [...] mg Tab TAKE 1 TABLET BY M OUT TWICE A DAY 2021-12-04 No Data Available [...] avoid nephrotoxic medsEncourage low starch, high fiber [id number] lab work scheduled for 05/17/23CKD (chronic kidney [...] kidney disease Active 2021-12-17 N/A Hospital name: [facility] Hospital admission date: 11/07/2024Hospital discharge date: [...] Service Diagnosis/Co mplaint Medication List Documented (1159F) [facility] [place]20[place] Medication List Documented (1159F) [facility] [place] Medication List Documented (1159F) [facility] [place]20[place] Medication List Documented (1159F) [facility] [place]/2021 Medication List Documented (1159F) [facility] [place]/2021 Medication List Documented (1159F) [facility] [place]20[place] Dorsalgia, unspecifiedOther [...] unspecifiedSick sinus syndrome Medication List Documented (1159F) [facility] Medication List Documented (1159F[place] [facility] Medication List Documented (1159F) [facility] Estab. patient 30-39min; chronic exacerbation, 2 stable chronic or 1 acute illness add add modifier 95 for video, (do not use for phone, instead use 92508-15) [facility]2022 Dorsalgia, unspecifiedOther localized visual field [...] (do not use for phone, instead use 10637-29) [facility] Estab. patient 30-39min; chronic exacerbation, 2 stable chronic or 1 acute illness add add modifier 95 for video, (do not use for phone, instead use 97313-53) [facility] 04/14/20[place] Estab. patient 30-39min; chronic exacerbation, 2 stable chronic or 1 acute illness add add modifier 95 for video, (do not use for phone, instead use 89877-20) [facility] Estab. patient 30-39min; chronic exacerbation, 2 stable chronic or 1 acute illness add add modifier 95 for video, (do not use for phone, instead use 01831-14) [facility] 04[place]14/2022 Estab. patient 30-39min; chronic exacerbation, 2 stable chronic or 1 acute illness add add modifier 95 for video, (do not use for phone, instead use 70239-56) [facility] 04/14/2022 Estab. patient 30-39min; chronic exacerbation, 2 stable chronic or 1 acute illness add add modifier 95 for video, (do not use for phone, instead use 95706-49) [facility] 04/14/2022 Estab. patient 30-39min; chronic exacerbation, 2 stable chronic or 1 acute illness add add modifier 95 for video, (do not use for phone, instead use 87596-08) [facility] [place] 04/14/2022 Estab. patient 30-39min; chronic exacerbation, 2 stable chronic or 1 acute illness add add modifier 95 for video, (do not use for phone, instead use 31683-04) [facility] [place] 04/14/2022 Estab. patient 30-39min; chronic exacerbation, 2 stable chronic or 1 acute illness add add modifier 95 for video, (do not use for phone, instead use 12620-07) [facility] [place] 04/14/2022 Estab. patient 30-39min; chronic exacerbation, 2 stable chronic or 1 acute illness add add modifier 95 for video, (do not use for phone, instead use 20385-06) [facility]/2023 Dorsalgia, unspecifiedOther localized visual field [...] (do not use for phone, instead use 82325-84) [facility] [place] 04/26/2023 Estab. patient 30-39min; chronic exacerbation, 2 stable chronic or 1 acute illness add add modifier 95 for video, (do not use for phone, instead use 74314-23) [facility] [place] 04/26/2023 Estab. patient 30-39min; chronic exacerbation, 2 stable chronic or 1 acute illness add add modifier 95 for video, (do not use for phone, instead use 60602-27) [facility] [place] 04/26/2023 Estab. patient 30-39min; chronic exacerbation, 2 stable chronic or 1 acute illness add add modifier 95 for video, (do not use for phone, instead use 90151-62) [facility] [place] 04[place]/2023 Estab. patient 30-39min; chronic exacerbation, 2 stable chronic or 1 acute illness add add modifier 95 for video, (do not use for phone, instead use 16260-08) [facility] [place] 04/26/2023 Estab. patient 30-39min; chronic exacerbation, 2 stable chronic or 1 acute illness add add modifier 95 for video, (do not use for phone, instead use 36247-62) [facility] [place] 04/26/2023 Estab. patient 30-39min; chronic exacerbation, 2 stable chronic or 1 acute illness add add modifier 95 for video, (do not use for phone, instead use 55275-87) [facility] [place] 04/26/2023 No Data Available [facility] [place] 12/23/2023 Hyp hrt & chr kdny dis w hrt fail and stg 1-4/unsp chr kdnyHeart failure, unspecifiedChronic kidney disease, unspecifiedCramp and spasmOther problems related to medical facilities and other health care No Data Available [facility] [place] 12/23/2023 No Data Available [facility] [place] 12/23/2023 No Data Available [facility] [place] 12/23/2023 No Data Available [facility] [place] 12/24/2023 Hyp hrt & chr kdny dis w hrt fail and stg 1-4/unsp chr kdnyHeart failure, unspecifiedChronic kidney disease, stage 3 unspecifiedCramp and spasmOther problems related to medical facilities and other health care No Data Available [facility] [place] 12/24/2023 RN, CN or CP time with patient by phone; use with 1111F, BP, A1c or other CPTII codes [facility] [place] 02/10/2024 Encounter for other specifie d aftercare No Data Available [facility] [place] 02/16/2024 Unspecified abdominal painPe rsonal history of other medical treatment No Data Available [facility]/16/2024 No Data Available [facility]16/2024 No Data Available [facility] [place]/16/2024 No Data Available [facility] [place] 02/16/2024 No Data Available [facility] [place] 02/16/2024 No Data Available [facility] [place] 02/16/2024 No Data Available [facility] [place] 02/16/[place] Estab. patient 20-29min; 1 stable chronic or 2 minor; add add modifier 95 for video, modifier 93 for phone [facility] [place] 06/12/2024 Other localized visual field defect, left [...] 95 for video, modifier 93 for phone [facility] [place] 06/12/2024 Estab. patient 20-29min; 1 stable chronic or 2 minor; add add modifier 95 for video, modifier 93 for phone [facility] [place] 06/12/2024 Estab. patient 20-29min; 1 stable chronic or 2 minor; add add modifier 95 for video, modifier 93 for phone [facility] [place] 06/12/2024 Estab. patient 20-29min; 1 stable chronic or 2 minor; add add modifier 95 for video, modifier 93 for phone [facility] [place] 06/12/2024 Estab. patient 20-29min; 1 stable chronic or 2 minor; add add modifier 95 for video, modifier 93 for phone [facility] [place] 06/12/2024 Estab. patient 20-29min; 1 stable chronic or 2 minor; add add modifier 95 for video, modifier 93 for phone [facility] [place] 06/12/2024 RN, CN or CP time with patient by phone; use with 1111F, BP, A1c or other CPTII codes [facility] [place] 11/15/2024 Encounter for other specifie d aftercare RN, CN or CP time with patient by phone; use with 1111F, BP, A1c or other CPTII codes [facility] [place] 11/15/2024 Estab. patient 10-29min; 1 minor problem; add add modifier 95 for video, modifier 93 for phone [facility] [place] 11/17/2024 Hyp hrt & chr kdny dis w hrt fail and stg 1-4/unsp chr kdnyHeart failure, unspecifiedChronic kidney disease, stage 3 unspecifiedOther problems related to medical facilities and other health care Estab. patient 10-29min; 1 minor problem; add add modifier 95 for video, modifier 93 for phone [facility] [place] 11/17/2024 Estab. patient 10-29min; 1 minor problem; add add modifier 95 for video, modifier 93 for phone [facility] [place] 11/17/2024 Vital Signs Date of Collection Vitals [...] tive Time Current Smoking Status Former smoker 2024-12-30 1 Sex Female History of Procedures Procedures [...] le No Data Available No Data Available [id number] 2021-12-17 No Data Available No Data Available [...] (do not use for phone, instead use 32511-89) 57541 2022-04-14 No Data Available No Data Availa [...] (do not use for phone, instead use 05247-04) 74130 2023-04-26 No Data Available No Data Availa [...] No Data Laurita ilable No Data Available 2023-12-24 No Data Available No Data Available Medication List Documented (1159F) 1159F 2023-12-24 No Data Available No Data Laurita ilable RN, CN or CP time with patient by phone; use with 1111F, BP, A1c or other CPTII codes 60565 2024-02-10 No Data Available No Data Avai lable No Data Available [id number] 2024-02-16 No Data Available No Data Available [...] 95 for video, modifier 93 for phone [id number] 2024-06-12 No Data Available No Data Availa [...] 1111F, BP, A1c or other CPTII codes 91405 2024-11-15 No Data Available No Data Avai lable Medications prescribed in hospital were reviewed and reconciled against what they were taking prior to admission during today's visit. (1111F) 1111F 2024-11-15 No Data Available No Data Availa ble Estab. patient 10-29min; 1 minor problem; add add modifier 95 for video, modifier 93 for phone [id number] 2024-11-17 No Data Available No Data Availa [...] and Toileting Independent 2024-06-12 IADL: Medication Needs Lail tance , Meal Prep Needs Assistance , [...] arise. Continue to see PCP. Follow-up with Sissy as [...] call cardio, ask to give mssg to legal referee, ask to be triaged and possibly seen [...] avoid nephrotoxic medsEncourage low starch, high fiber rebeN2L lab work scheduled for 05/17/23on Memantine and [...] <80 (3078F)Continue to see PCP. Follow-up with [facility] as needed for any acute or [...] 95)PCP visit is planned for:Hospital name: [facility] Hospital admission date: 01/30/24ospital discharge date: [...] reviewed at this time. Has appt with Camp Nurse on 03/02/2024. Has appt for heart Ultrasound [...] present (1126F)Continue to see PCP. Follow-up with [facility] [...] and if increasing from baseline call CB 24ncouraged to bring up to Cards during f/uLisinoprilHCTZAmlodipineNo recent eGFR. Lab work scheduled with PCP on denies LE swellingfeels welldenies SOB or DOEReplaced on 06/27/2019On Plavix06/12/24denies abnormal bleedingDenies SISometimes does not fel like going out or bathing etcbupropion; QUEtiapineOn Jardiance, Calcium avoid nephrotoxic medsEncourage low starch, high fiber ifonJ7X lab work scheduled for 05/17/23CKD (chronic kidney [...] for phoneContinue to see PCP. Follow-up with [facility] as needed for any acute or disease education needs that may arise.Hospital name: [facility] Hospital admission date: 11/07/2024Hospital discharge date: 11/14/2024 [...] questions or concerns. Discussed how to contact [facility] via phone or tablet. 24/7 phone number provided. 2024-02-16 Home Health or DME n eeds: Requesting standard shower chair. DME order placed. Health Concerns Date Concern 2024-11-17 Patient/Guardian agr eed to visit via telehealth.Visit completed via:[ ] audio and video; [x] audio only 2024-11-17 Hospitalization Summ aryAdmit date: [facility]: [facility]24Reason for hospitalization: SOB, volume overloadSummary [...] follow up 11/21/24. 2024-11-17 Advance Care Planalexandrea hinds ConversationSee Legal 2024-11-17 PHV completed with marilou ross and ANDREW seismic interpreter
--- OUTSIDE RECORDS SUMMARY | 2025-01-09 14:42 | XMS_ITS | Patient Health Record ---
[facility] Address [address] [place] [id number] Care Team Providers Care Production Broaching Machine Operator Name Role Phone Dick Velasquez M.D. Primary Care Provider UnavailAntonio Buck Jr Unavailable [phone] Reason For Referral No Information Plan Of Treatment No Information
--- OUTSIDE RECORDS SUMMARY | 2025-01-09 14:42 | XMS_ITS | Clinical Summary ---
Author Organization [address] Address [address] [place] [phone] Phone Care Team Providers Care Voice Intercept Technician Name Role Phone Lazara Shepherd MD Primary Care Prov ider Allergies Active Allergy Reactions Criticality Noted Date Comments Tramadol 02/14/2024 Medications lancets (SecureWatersTouch Delica Plus Lancet) 33 gauge USE 1 [...] day. 180 tablet 1 09/01/19 25 Active Jardiance 10 mg tablet TAKE 1 TABLET BY MOUTH EVERY DAY 90 tablet 2 11/01/19 25 Active furosemide (LASIX) 20 mg tablet TAKE 1 TABLET BY MOUTH EVERY DAY 90 tablet 11/30/19 25 Active omega-3 acid ethyl esters (LOVAZA) 1 gram capsule TAKE 1 CAPSULE BY MOUTH TWICE A DAY 60 capsule 1 12/12/19 25 Active omega-3 acid ethyl esters (LOVAZA) 1 gram capsule TAKE 1 CAPSULE BY MOUTH TWICE A DAY 60 capsule 1 10/11/19 25 025 Discontinued Active Problems Problem Noted [...] creatinine urine ratio; Future Sick sinus syndrome (CMS/HCC V24, CMS/HCC V28) [...] 07/28/2022 Overview (01/11/2024): Last Assessment & Plan: GUSSET EDGER exam 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 Recommend f/u with PCP for further evaluation of abdominal pain. Likely MSK or GI related. Diabetic polyneuropathy asso ciated with type 2 diabetes mellitus ([facility] V24, [facility] V28) 05/14/2022 Assessment & Plan (12/04/2024 12:38 PM EDT): See DM plan above Orders: Ambulatory referral to Podiatry; Future Tubular adenoma 08/22/2021 Overview (01/11/2024): Repeat CN in 5 years (due 07/2026) Vitamin D insufficiency 08/22/2021 Osteopenia 08/21/2021 Type II diabetes mellitus wi th renal manifestations ([facility] V24, [facility] V28) 10/15/2020 Assessment & Plan [...] (Alikhan) COPD (chronic obstructive pu lmonary disease) ([facility] V24, [facility] V28) 07/07/2019 Overview (01/11/2024): Follows with Dr. Evans @ [facility] Aortic valve stenosis 08/20/2017 Overview (01/11/2024): s/p TAVR Bilateral carotid artery stenosis 08/20/2017 Moderate aortic regurgitation 02/19/2014 Overview (01/11/2024): Follows with Dr Akbar; s/p TAVR Alzheimer's dementia ([facility] V24, [facility] V28) 05/18/2013 Overview (01/11/2024): Follows with Dr bergeron Assessment & Plan (12/04/2024 12:38 PM EDT): Continue to follow with Dr. Bergeron in [place] neurology. Back pain 02/17/2013 Venous insufficiency (chronic) (peripheral) 01/30 CKD (chronic kidney disease) stage 3, GFR 30-59 ml/min (CMS/HCC V24, CMS/HCC V28) 12/09/2012 Assessment & Plan (12/04/2024 12:38 PM EDT): Labs ordered. Encounters Date Type Department Care Team Description 12/18/2024 Telephone Adult Medicine [address] [phone] Dorothy Dillon MA 12/07/2024 Telephone Adult Medicine [address] [phone] Lazara Priest MD 12/05/2024 Results Follow-Up Adult Medicine [address] [phone] Zari Harris PA 12/05/2024 Telephone Adult Medicine [address] [phone] Lazara Priest MD 12/04/2024 11:00 AM EDT Office Visit Adult Medicine [address] [phone] Zari Harris PA Medicare annual wellness visit, subsequent (Primary Dx); Unsteadiness on feet; Ambulates with cane; Type 2 diabetes mellitus with diabetic microalbuminuria, without long-term current use of insulin (CMS/HCC V24, CMS/HCC V28); Diabetic polyneuropathy associated with type 2 diabetes mellitus (CMS/HCC V24, CMS/HCC V28); Primary hypertension; Mixed hyperlipidemia; Class 2 severe obesity due to excess calories with serious comorbidity and body mass index (BMI) of 35.0 to 35.9 in adult; Stage 3 chronic kidney disease, unspecified whether stage 3a or 3b CKD ([facility] V24, [facility] V28); COPD without exacerbation ([facility] V24, [facility] V28); Alzheimer's dementia without behavioral disturbance, psychotic disturbance, mood disturbance, or anxiety, unspecified dementia severity, unspecified timing of dementia onset ([facility] V24, [facility] V28); Need for prophylactic vaccination and inoculation against influenza 11/16/2024 Telephone Adult Medicine [address] [phone] Lazara Priest MD 11/16/2024 Telephone Adult [address] [phone] Lazara Priest MD 11/01/2024 2:00 PM EDT Office Visit Adult [address] [phone] Villa Denotn MD COPD with acute exacerbation ([facility] V24, [facility] V28) (Primary Dx) 10/31/2024 Telephone Adult [address] [phone] Lazara Priest MD 10/18/2024 Telephone Adult [address] [phone] Lazara Priest MD from Last 3 Months [...] Dr Gilliam Stroke ([facility] V24, [facility] V28) 05/2012 DX:Stroke ([facility]); COMMENT: with left hemiparesis and left temporal hemianopsia Hemianopia, homonymous, left DX: Hemianopia, homonymous, left Hyperlipidemia DX:Hyperlipidemi a Irregular heart beat DX:Irregula r heart beat; COMMENT: follows with Dr akbar at [facility] Depression with anxiety DX:Depre ssion with anxiety; COMMENT: follows with Dr esther Collins- [phone] Memory loss DX:Memory loss; COMMENT: dr bergeron [...] Aortic stenosis 11/2018 DX:Aortic stenos is; COMMENT: [facility]; severe Ascending aortic aneurysm (C [...] Years Used Date Smoking Tobacco: Former Cigarettes 0 Q uit: 10/01/2018 Smokeless Tobacco: Never Tobacco [...] Record ed Within the last 3 months, mendoza w many times did you visit the [...] care for your loved ones. For example, director child development center or elderly care for an older adult? [...] 11:00 AM EST Office Visit Adult Medicine [address] [phone] Lazara Shepherd MD [address] [place] [address] 08/06/2025 11:00 AM EDT Office Visit [address] [phone] Lazara Shepherd MD [address] [place] [address] 12/06/2025 11:30 AM EDT Office Visit [address] [phone] Lazara Shepherd MD [address] [place] [address] Health Maintenance Due Date Last Done Comments [...] microalbuminuria, without long-term current use of insulin ([facility] V24, [facility] V28) HEMOGLOBIN A1C Routine 12/04/2024 12:05 PM EDT Type 2 diabetes mellitus with diabetic microalbuminuria, without long-term current use of insulin ([facility] V24, [facility] V28) LIPID PANEL WITH REFLEX TO DIRECT LDL Routine 12/04/2024 12:05 PM EDT Type 2 diabetes mellitus with diabetic microalbuminuria, without long-term current use of insulin ([facility] V24, [facility] V28) MICROALBUMIN CREATININE URINE RATIO Routine 12/04/2024 12:05 PM EDT Type 2 diabetes mellitus with diabetic microalbuminuria, without long-term current use of insulin ([facility] V24, [facility] V28) EXTERNAL DIABETIC RETINA EYE [...] LAB CHEMISTRY METHOD 12/04/2024 4:58 PM EDT [facility] Triglycerides 314(H) 0 - 150 mg/dL LAB CHEMISTRY METHOD 12/04/2024 4:58 PM EDT [facility] HDL 60 >=40 mg/dL LAB CHEMISTRY METHOD 12/04/2024 4:58 PM EDT [facility] LDL Calculated 16 0 - 100 mg/dL LAB CHEMISTRY METHOD 12/04/2024 4:58 PM EDT [facility] Comment:Estimated LDL Calcul ated using equation: Total cholesterol - HDL cholesterol - (Triglycerides/5) VLDL Cholesterol Obdulio 62.8 mg/dL LAB CHEMISTRY METHOD 12/04/2024 4:58 PM EDT [facility] Non HDL Chol. (LDL+VLDL) 79 <145 mg/dL LAB CHEMISTRY METHOD 12/04/2024 4:58 PM EDT [facility] Chol/HDL Ratio 2.3 0.0 - 4.4 LAB CHEMISTRY METHOD 12/04/2024 4:58 PM EDT [facility] Blood Venous blood specimen / Unknown Venipuncture / Unknown 12/04/2024 12:05 PM EDT 12/04/2024 12:05 PM EDT us Zari PEDERSEN LAB BLOOD ORDERABLES Final Resu lt [facility] [address] [place] [address], [place] [phone] * Microalbumin creatinine urine ratio (12/04/2024 12:05 PM EDT) Creatinine, Urine 21.0 mg/dL LAB CHEMISTRY METHOD 12/04/2024 2:37 PM EDT [facility] Microalb, Ur <5.0 0.0 - 29.0 mg/L LAB CHEMISTRY METHOD 12/04/2024 2:37 PM EDT [facility] Microalb/Creat Ratio <24 <30 mg/g creat LAB CHEMISTRY METHOD 12/04/2024 2:37 PM EDT [facility] Urine Urine specimen obtained by clean catch procedure / Unknown Non-blood Collection / Unknown 12/04/2024 12:05 PM EDT 12/04/2024 12:05 PM EDT us Zari PEDERSEN LAB URINE ORDERABLES Final Resu lt Performing Organization Address [facility]/ZIP Co de Phone Number [facility] [address] [place] [address], [place] [phone] * (ABNORMAL) Hemoglobin A1c (12/04/2024 12:05 PM EDT) Hemoglobin A1C 7.8(H) <6.5 % LAB CHEMISTRY METHOD 12/04/2024 9:37 PM EDT [facility] Mean Bld Glu Estim. 177 mg/dL LAB CHEMISTRY METHOD 12/04/2024 9:37 PM EDT [facility] Blood Venous blood specimen / Unknown Venipuncture / Unknown 12/04/2024 12:05 PM EDT 12/04/2024 12:05 PM EDT us Zari PEDERSEN LAB BLOOD ORDERABLES Final Resu lt [facility] [address] [place] [address], [place] [phone] * (ABNORMAL) Comprehensive metabolic panel (12/04/2024 12:05 PM EDT) Sodium 138 133 - 145 mmol/L LAB CHEMISTRY METHOD 12/04/2024 4:58 PM EDT [facility] Potassium 4.0 3.5 - 5.5 mmol/L LAB CHEMISTRY METHOD 12/04/2024 4:58 PM [facility] Chloride 103 96 - 110 mmol/L LAB CHEMISTRY METHOD 12/04/2024 4:58 PM [facility] CO2 26 21 - 32 mmol/L LAB CHEMISTRY METHOD 12/04/2024 4:58 PM [facility] Anion Gap 9 3 - 11 LAB CHEMISTRY METHOD 12/04/2024 4:58 PM [facility] Glucose 162(H) 70 - 100 mg/dL LAB CHEMISTRY METHOD 12/04/2024 4:58 PM [facility] BUN 18 5 - 25 mg/dL LAB CHEMISTRY METHOD 12/04/2024 4:58 PM [facility] Creatinine 1.79(H) 0.50 - 1.10 mg/dL LAB CHEMISTRY METHOD 12/04/2024 4:58 PM [facility] eGFR 29(L) >=60 mL/min/1. 73m2 LAB CHEMISTRY METHOD 12/04/2024 4:58 PM [facility] Comment:Calculation based on the Chronic Kidney Disease Epidemiology Collaboration (CKD-EPI) equation refit without adjustment for race. BUN/Creatinine Ratio 10.1 LAB CHEMISTRY METHOD 12/04/2024 4:58 PM [facility] Calcium 9.5 8.5 - 10.5 mg/dL LAB CHEMISTRY METHOD 12/04/2024 4:58 PM [facility] AST (SGOT) 24 10 - 42 unit/L LAB CHEMISTRY METHOD 12/04/2024 4:58 PM EDT [facility] ALT (SGPT) 38 10 - 60 unit/L LAB CHEMISTRY METHOD 12/04/2024 4:58 PM EDT [facility] Alkaline Phosphatase 104 42 - 121 unit/L LAB CHEMISTRY METHOD 12/04/2024 4:58 PM EDT [facility] Total Protein 7.1 6.0 - 8.0 g/dL LAB CHEMISTRY METHOD 12/04/2024 4:58 PM EDT [facility] Albumin 3.6 3.2 - 5.0 g/dL LAB CHEMISTRY METHOD 12/04/2024 4:58 PM EDT [facility] Total Bilirubin 0.4 0.0 - 1.4 mg/dL LAB CHEMISTRY METHOD 12/04/2024 4:58 PM EDT [facility] Blood Venous blood specimen / Unknown Venipuncture / Unknown 12/04/2024 12:05 PM EDT 12/04/2024 12:05 PM EDT us Zari PEDERSEN LAB BLOOD ORDERABLES Final Resu lt [facility] [address] [place] [address], [place] [phone] * External Diabetic Retina Eye Exam Report [...] evidence of malignancy. BI-RADS 1 - negative [address] [address] Procedure Note Shanelle Lewis MD - 01/01/2024 [...] evidence of malignancy. BI-RADS 1 - negative [address] [address] Lazara Shepherd MD IMG XR PROCEDURES Final Result * Falls Risk Assessment (09/27/2023) Falls Risk Assessment Abstracted Historical Provider HEALTH MAINTENANCE Final Result * Depression Screening (09/27/2023) Depression Screening Abstracted [facility] Provider HEALTH MAINTENANCE Final Result * Diabetes Foot Exam (09/27/2023) HM Diabetes: Annual Foot Exam Abstracted us Historical [...] National Osteoporosis Foundation [email or web address] Lazara Shepherd MD [facility] DXA PROCEDURES Final Result * Colonoscopy (08/07/2021) Colonoscopy No Interpretation , Abstracted Anatomical Region Laterality Modality Other us Historical Provider HEALTH MAINTENANCE Final Result * Hepatitis C Screening (11/23/2012) Hepatitis C Screening Abstracted us Historical Provider HEALTH MAINTENANCE Final Result from Last 3 Months or Most Recently Relevant to Health Maintenance Insurance [employer] MEDICARE [place]ICAID [place] Care Teams Voice Intercept Technician Relationship Specialty Start Date End Date Lazara Shepherd MD [address] [place] [phone] PCP - General Internal Medicine 08/06/21
--- OUTSIDE RECORDS SUMMARY | 2025-01-09 14:43 | XMS_ITS | Data Portability ---
Author Organization [place] - [facility], Allergy Address [address] [place] [address] Assessment Encounter Date Assessment Date Assessment LastModified by Organization Details LastModified Time 10/13/2023 10/13/2023 73-year-old female presents for swallowing difficulty. Exam is 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 Given how low her symptoms are laryngoscopy was deferred today. Would recommend modified barium swallow for further evaluation. Her symptoms are most consistent with hiatal hernia or achalasia. Will also recommend GI referral for further management. All questions were answered. [email or web address] Not available 10/13/2023 14:44:50 Plan of Treatment Reminders Order Date Submit Date Provider Last Modified By Organization Details Last Modified Time Details Appointments None recorded. Lab None recorded. Referral None recorded. Procedures None recorded. Surgeries None recorded. Imaging [place], modified barium swallow study 2023 024 [email or web address] [facility], [address], [facility] [address], [place], [address], 12:02:16 Medication Orders None recorded. Patient TargetsNo targets recorded. Patient InstructionsNo instructions recorded. Reason for Referral None Reported. Problems Name Problem SNOMED Code Status Onset Date Resolution Date Notes Provider Name and Address Organization Details Recorded Time Dysphagia [id number] Active 024 TORI MAC PA-C [address],[facility] [address], [facility] [place], [address] , [place] - [facility] 14:44:55 Problem Notes None recorded. Procedures Surgical History Date Name Laterality Status Provider Name and Address Organization Details Recorded Time 0 cardiac pacemaker procedure completed Janie Kelley [place] - [facility] 10/13/2023 14:26:11 Imaging Results None recorded. Procedure [...] completed Not Available Not Available Not Available [employer]IN Vent[employer]Touch Ultra Test strips USED TO TEST BLOOD [...] Updated DateTime 10/13/2023 160.02 cm 34.4 kg/m2 66345.92 g aJnie Kelley [place] - [facility] 10/13/2023 14:14:36 Social History None recorded. Functional Status None recorded. Mental Status None recorded. Family History Nothing Reported. Medical History Condition Response Diabetes Y Arthritis Y Anxiety Y Emphysema Y Liver Disease Y Heart Attack (NH) Y Hypertension Y Kidney Disease Y Gynecological HistoryNo gynecological history recorded. Obstetrics History GPAL:G 0 P 0 0 0 0 Past Encounters Encounter ID Performer Location Encounter Start Date Encounter Closed Date Diagnosis/Indication Diagnosis SNOMED-CT Code Diagnosis ICD10 Code Diagnosis IMO Codes Diagnosis Note [id number] TORI MAC PA-C [facility] [address] [address] 10/13/2023 13:31:53 10/13/2023 14:34:05 Dysphagia 29207005 R13.10 Health Concerns Section Related Observation LastModified by Organization Detai ls LastModified Time None Recorded Concern Status LastModified by Organization Details LastModified Time None Recorded Advance Directives Directive None Recorded Payers Insurance Date Sequence Insurance Name Policy Number Policy Degroot Covered Member ID Degroot Member ID Guarantor Name 10/13/2023 1 [facility] (MEDICARE REPLACEMENT/A DVANTAGE - HMO) Elvi Rios [id number] Elvi Rios Notes Date Note Type Note [...] quit 3 years ago. TORI MAC PA-C [address] [place] [address], [id number], [place] - [facility] 10/13/2023 14:45:30 OBGyn Episode No OBEpisode recorded.
== END 2025-01-09 13:57 | disposition home or self-care (01) ==
LOC: HO.HPHYS 12:59
PROVIDERS: PCP Internal Medicine; Visit Provider Physical Medicine & Rehabilitation
DX: M47.816 Spondylosis without myelopathy or radiculopathy, lumbar region (principal); M54.50 Low back pain, unspecified; G89.29 Other chronic pain
CPT/HCPCS: 99203; G2211

== ENCOUNTER → 2025-01-09 12:59 | Outpatient (BNVA) | payer OTHER, SELFPAY | PROVIDERS: PCP Internal Medicine; Visit Provider Physical Medicine & Rehabilitation | DX: M47.816 Spondylosis without myelopathy or radiculopathy, lumbar region (principal); M54.50 Low back pain, unspecified; G89.29 Other chronic pain | CPT/HCPCS: 99202 ==

== ENCOUNTER 2025-02-12 10:03 | Outpatient (AMB) | payer OTHER, SELFPAY ==
[2025-02-12 10:07] VITALS: BP 124/62; PULSE 62; O2SAT 97; BMI 39.1
--- NOTE | 2025-02-12 10:07 | HO.NEPHOV ---
Vital Signs 02/12/25 10:07 Height 5 ft Weight 200 lb BMI 39.1 BP 124/62 Blood Pressure Location Rt brachial Position Sitting Pulse 62 Pulse Source Pulse Oximeter Pulse Oximetry (%) 97 Oxygen Delivery Method Room Air Intake Visit Reasons: 4mon f/u w/labs Maintenance Helper Required: No Maintenance Helper Services: Maintenance Helper Offered & Declined Accompanied by: Self / Same As Patient Allergies tramadol Allergy (Unknown, Verified 02/12/25 10:10) Unknown trazodone Adverse Reaction (Verified 02/12/25 10:10) Unknown Medication List - Last Reconciled 02/12/25 by Regino Bazan MD albuterol sulfate 90 mcg/actuation 2 puffs inhalation Q4-6H PRN amlodipine (Norvasc) 10 mg PO .evening aspirin 81 mg PO DAILY bupropion HCl mg PO cholecalciferol (vitamin D3) 25 mcg PO DAILY clopidogrel (Plavix) 75 mg PO DAILY donepezil 10 mg PO DAILY doxepin 10 mg PO BEDTIME empagliflozin (Jardiance) 10 mg PO DAILY furosemide (Lasix) 60 mg (1.5 x 40 mg) PO QAM 30 days furosemide 20 mg PO DAILY hydralazine 25 mg PO BID lisinopril 40 mg PO .PM lisinopril 20 mg PO .AM memantine 10 mg PO BID omega-3 acid ethyl esters 1 cap PO BID omega-3 fatty acids (Fish Oil Concentrate) 1,000 mg PO DAILY pravastatin 80 mg PO DAILY tiotropium-olodaterol 2.5-2.5 mcg/actuation (Stiolto Respimat) 2 puffs PO DAILY trazodone 25 mg PO BEDTIME PRN HPI Comments Details: History of Present Illness The patient is a 75 year old female presenting for follow-up of long-term hypertension and chronic kidney disease. She has a history of updckvdlh-bo-lyrillp hypertension and is currently taking lisinopril 40 mg and 20 mg, with her blood pressure noted as being well-controlled at present. Regarding her kidney function, her creatinine level was 1.79 in November, which was an increase from 1.45 the previous year. Her cardiac history is significant for aortic insufficiency and complete heart block, for which she has a pacemaker. She underwent a transcatheter aortic valve placement in April 2019. The patient also reports ongoing low back pain, which limits her ability to walk. She has previously seen a parts fabricator, Dr. Vazquez Ignacio, for this condition. Results - Labs: - Serum creatinine was 1.79 mg/dL in November. - Serum creatinine was 1.45 mg/dL in the prior year. [facility] Medical History Carotid stenosis, left TIA (transient ischemic attack) Uncontrolled hypertension Stroke MCI (mild cognitive impairment) Cataract Pacemaker Cervical spondylosis COPD (chronic obstructive pulmonary disease) Hypertension Surgical History S/P TAVR (transcatheter aortic valve replacement) History of transcatheter aortic valve replacement (TAVR) (~04/28/19) History of permanent cardiac pacemaker placement (~04/27/19) History of cardiac catheterization Family History Mother HTN (hypertension) Father Heart attack Brother HTN (hypertension) Social History Alcohol intake: never Patient Tobacco Use Status: Former Tobacco user Physical Exam Exam Exam: Physical Exam General: Awake. Comfortable. HENT: Neck supple. Mucosa moist. Pulmonary: Lungs aeration equal. No rales. Cardiology: Heart S1-S2 heard. No gallop. Abdomen: Soft. Non tender. Bowel sounds normal. Neurologic: No involuntary movements. No myoclonus. Extremities: No edema. No rash. Vital Signs: Last Vital Signs Pulse 62 02/12/25 10:07 BP 124/62 02/12/25 10:07 Pulse Ox 97 02/12/25 10:07 Oxygen Delivery Method Room Air 02/12/25 10:07 BMI result Body Mass Index 39.1 Comfortable Neck supple no JVD. Lungs entry equal no rales. Heart S1-S2 heard no gallop or rub. Abdomen soft nontender. Neuro alert awake oriented. No asterixis. Extremities no edema. Results Reviewed Nephrology Results: Sodium, (135-145) 140 mmol/L 08/03/24 Potassium, (3.3-5.1) 4.1 mmol/L 08/03/24 Chloride, (96-108) 109 mmol/L H 08/03/24 Carbon Dioxide, (22-29) 24 mmol/L 08/03/24 BUN, (9-16) 12 mg/dL 08/03/24 Creatinine, (0.5-1.4) 1.32 mg/dL 08/03/24 Calcium, (8.4-10.2) 9.2 mg/dL 08/03/24 Phosphorus, (2.7-4.5) 3.0 mg/dL 08/03/24 PTH Intact, (8.7-77.1) 108.4 pg/mL H 08/03/24 Renal US 10/12/23 Assessment & Plan Assessment & Plan (1) CKD (chronic kidney disease) stage 3, GFR 30-59 ml/min: Code(s): N18.30 - Chronic kidney disease, stage 3 unspecified Category: Medical Plan: CKD 3B in a setting of longstanding HTNAdn DM eGFR is around 30 ml/mt Relatively stable over 4- 5yrs with mild reversible fluctuation s/p Mild hypercalcemia. REsolved Vit D DEf; Add Cholecalceferol 1000 U QD (2) Essential hypertension: Code(s): I10 - Essential (primary) hypertension Category: Medical Plan: Blood pressure is well controlled. No need to change antihypertensive at this time. Plan Plan 1. Chronic Kidney Disease - The patient's creatinine level has risen from 1.45 in the previous year to 1.79 in November. - A blood test will be ordered today to check current kidney function. - Plan to follow up in 6 months. 2. Essential Hypertension - The patient's blood pressure is currently well-controlled on lisinopril 40 mg and 20 mg daily. - No medication adjustments will be made at this time. 3. Low Back Pain - The patient continues to experience low back pain. - She was advised to contact her parts fabricator, Dr. Nguyễn, or PCP Orders: Orders Basic Metabolic Panel Today N18.30 - Chronic kidney disease, stage 3 unspecified Coding Level of Care Code Est Pt Level 4 (10179) Diagnoses CKD (chronic kidney disease) stage 3, GFR 30-59 ml/min N18.30 Essential hypertension I10
== END 2025-02-12 10:22 | disposition home or self-care (01) ==
LOC: HO.HKA 10:03
PROVIDERS: PCP Internal Medicine; Visit Provider Internal Medicine Hypertension Specialist
DX: N18.30 Chronic kidney disease, stage 3 unspecified (principal); I10 Essential (primary) hypertension
CPT/HCPCS: 99214

== ENCOUNTER → 2025-02-12 10:03 | Outpatient (BNVA) | payer OTHER, SELFPAY | PROVIDERS: PCP Internal Medicine; Visit Provider Internal Medicine Hypertension Specialist | DX: I12.9 Hypertensive chronic kidney disease with stage 1 through stage 4 chronic kidney disease, or unspecified chronic kidney disease (principal); N18.30 Chronic kidney disease, stage 3 unspecified; Z87.891 Personal history of nicotine dependence | CPT/HCPCS: 99212 ==